=== PATIENT | female | born 1955 | race Caucasian/White ===

== ENCOUNTER → 2017-08-12 13:58 | Outpatient (CLI) | payer OTHER, SELFPAY ==
--- NOTE | 2017-08-12 14:01 | HPBI_ITS ---
MAMMOGRAPHY - BILATERAL SCREENING 3-D PORTIA SYNTHESIS REASON FOR EXAM: Female, 61 years old. Bilateral Screening 3-D tomosynthesis PERTINENT HISTORY: No significant family history. TECHNIQUE: 2-D mammograms and 3-D Portia synthesis of the breast (s) were performed. CAD was performed. COMPARISON: 07/16/2016 through 01/11/2014. FINDINGS: The breast composition is heterogeneously dense that can obscure small breast masses. Scattered benign calcifications are seen. No dense spiculated masses abnormal microcalcification cluster, dominant mass, architectural distortion or adenopathy is identified. There is no skin thickening or nipple retraction. There has been no significant change since the prior study. HPBI/SCREENING MAMM (CAD), BILAT IMPRESSION: No mammographic signs of malignancy. Routine yearly mammograms recommended. ASSESSMENT CATEGORY: BIRADS Category 2: Benign. A letter regarding these results will be sent to the patient by the facility within 30 days. FOLLOW UP RECOMMENDATION: Yearly follow up mammogram recommended. (A) Approximately 10% of breast cancers are not detected by mammography. A normal mammogram should not delay biopsy of a clinically suspicious abnormality. Electronically Signed: Samy Yeung, at 21:03 EDT Tel , Service support ,
== END ==
PROVIDERS: Family Provider Family Medicine Geriatric Medicine; PCP Family Medicine Geriatric Medicine; Visit Provider Family Medicine Geriatric Medicine
DX: Z12.31 Encounter for screening mammogram for malignant neoplasm of breast (principal)
CPT/HCPCS: 77063; 77067

== ENCOUNTER → 2017-12-03 10:01 | Outpatient (CLI) | payer OTHER, SELFPAY ==
[2017-12-03 13:19] LABS: Absolute Neutrophil Count 2.5 X10^3/uL (2.0-7.7); Basophil# 0.03 X10^3/uL; Basophil% 0.5 % (0-1); Eosinophil# 0.12 X10^3/uL; Eosinophils% 2.2 % (0-5); Hematocrit 41.9 % (37-47); Hemoglobin 13.6 g/dl (12.0-15.0); Mean Corp Hgb Conc 32.5 g/gl (32-36); Mean Corpuscular Hgb 30.7 pg (27.0-32.0); Mean Corpuscular Volume 94.6 fL (81-99); Mean Platelet Vol. 9.2 fl (6.2-12.0); Monocyte# 0.61 X10^3/uL; Monocyte% 11.1 % (0-10); Neutrophil # 2.53 X10^3/uL (2.7-7.7); Platelet Count 294 K/mm3 (150-450); RBC Distribution Width CV 12.7 % (11.6-14.6); RBC Distribution Width SD 43.9 fl (35.1-43.9); Red Blood Count 4.43 M/mm3 (4.2-5.4); White Blood Count 5.5 K/mm3 (4.4-11.0)
[2017-12-03 13:30] LABS: POSITIVE COUNT NO; POSITIVE DIFFERENTIAL NO; POSITIVE MORPHOLOGY NO
[2017-12-03 13:32] LABS: AST(SGOT) 18 U/L (15-37); Alanine Aminotransfer ALT/SGPT 24 U/L (13-56); Albumin, Serum 3.8 g/dL (3.2-5.0); Alkaline Phosphatase 65 U/L (45-117); Anion Gap 7 (5-15); BUN 14 mg/dL (7-18); BUN/Creat Ratio 16.4 RATIO (10-20); Calcium,Total 8.9 mg/dL (8.5-10.1); Chloride 102 mmol/L (98-107); Creatinine, Serum 0.86 mg/dL (0.55-1.02); EST Glomerular Filtration Rate 71 mL/min (>60); Est Glom Filt Rate - Afr Amer 86 mL/min (>60); Globulin 3.9 g/dL (2.2-4.2); Glucose 93 mg/dL (74-106); Potassium 3.8 mmol/L (3.5-5.1); Protein, Total 7.7 g/dL (6.4-8.2); Sodium Level 136 mmol/L (136-145); Thyroid Stim Hormone (TSH) 1.75 uIU/mL (0.358-3.74)
[2017-12-04 09:35] LABS: Hep C Antibodies <0.1 s/co ratio (0.0-0.9)
== END ==
PROVIDERS: Family Provider Family Medicine Geriatric Medicine; PCP Family Medicine Geriatric Medicine; Visit Provider Family Medicine Geriatric Medicine
DX: I10 Essential (primary) hypertension (principal); Z13.89 Encounter for screening for other disorder
CPT/HCPCS: 36415; 80053; 84443; 85025; 86803

== ENCOUNTER → 2018-05-14 17:40 | Outpatient (CLI) | payer OTHER, SELFPAY ==
--- NOTE | 2018-05-14 17:30 | CT_ITS ---
STUDY: CT ABDOMEN AND PELVIS WITHOUT CONTRAST REASON FOR EXAM: Female, 62 years old. Mid to right abdominal pain for 9 days. Decreased appetite. RADIATION DOSAGE (If Supplied By Facility): CTDIvol = ( 11.48 ) mGy, DLP = ( 562.35 ) mGycm TECHNIQUE: Transaxial images were obtained from the dome of the diaphragm to the symphysis pubis with oral contrast, and without intravenous contrast. Sagittal and coronal images were reconstructed. Individualized dose optimization techniques were used for this CT. COMPARISON: None. FINDINGS: The visualized lung bases are unremarkable. The visualized portions of the heart are within normal limits. Liver is grossly normal in size contour and density. There is a focal calcified granuloma in segment IVb. There is low attenuation foci, also in segment IVb, which has the appearance of a bilobed cyst. Normal gallbladder and extrahepatic biliary system. Normal spleen. Normal pancreas. Normal bilateral adrenal glands. Normal right kidney. Normal left kidney. Normal visualized stomach. There is a large duodenal cyst which invaginates into the pancreatic head. There are dilated loops of contrast-filled small bowel. The distal ileum is of normal diameter. The exact point of transition is not visualized but is thought to be in the right lower quadrant. Colon and is partially collapsed. There is descending and sigmoid diverticuli with mild stranding. There is a 4.3 x 7 x 3 cm mass with air-fluid level mesentery just anterior to the sigmoid colon which is thought to represent a large abscess. This is thought to be the cause of the small bowel distention secondary ileus. There is diffuse atherosclerotic calcification of the abdominal aorta, without a demonstrated aneurysm. Normal inferior vena cava. Normal retroperitoneum. Normal urinary bladder. Spinal uterus and ovaries. There is no adnexal mass. No free fluid is seen within the peritoneal cavity. Sequela of small droplets of air in the mesentery underneath the left lower abdominal wall adjacent to the sigmoid colon. No other evidence of free air is noted. Normal abdominal wall. There are diffuse degenerative changes of the visualized lumbar spine. CT/Abdomen/Pelvis without Cont IMPRESSION: 1. Probable diverticular abscess in the lower mid abdomen with stranding of the adjacent sigmoid colon. 2. Probable small bowel ileus. 3. Minimal free air adjacent to the sigmoid colon with left lower quadrant. 4. Hepatic cysts. 5. Large duodenal diverticulum. Electronically Signed: Bruno Benitez DO at 21:48 EST Tel [phone], Service support ,
[2018-05-14 18:02] LABS: Absolute Lymphocyte Count 2.07 X10^3/ul (0.83-4.51); Absolute Neutrophil Count 15.1 X10^3/uL (2.0-7.7); Basophil# 0.04 X10^3/uL; Basophil% 0.2 % (0-1); Eosinophil# 0.09 X10^3/uL; Eosinophils% 0.5 % (0-5); Hematocrit 38.7 % (37-47); Hemoglobin 13.2 g/dl (12.0-15.0); Lymphocyte # 2.07 X10^3/ul (4.0); Lymphocyte % 10.9 % (19-41); Mean Corp Hgb Conc 34.1 g/gl (32-36); Mean Corpuscular Hgb 31.1 pg (27.0-32.0); Mean Corpuscular Volume 91.1 fL (81-99); Monocyte# 1.44 X10^3/uL; Monocyte% 7.6 % (0-10); Neutrophil # 15.07 X10^3/uL (2.7-7.7); Neutrophil % 79.3 % (47-70); Platelet Count 398 K/mm3 (150-450); RBC Distribution Width CV 12.9 % (11.6-14.6); RBC Distribution Width SD 42.7 fl (35.1-43.9); Red Blood Count 4.25 M/mm3 (4.2-5.4)
[2018-05-14 18:03] LABS: POSITIVE COUNT NO; POSITIVE DIFFERENTIAL NO; POSITIVE MORPHOLOGY NO
[2018-05-14 18:17] LABS: BUN 25 mg/dL (7-18); Creatinine, Serum 1.99 mg/dL (0.55-1.02); EST Glomerular Filtration Rate 27 mL/min (>60); Glucose 125 mg/dL (74-106)
[2018-05-14 18:18] LABS: ALB/GLOB Ratio 0.5 RATIO (0.9-2.4); AST(SGOT) 21 U/L (15-37); Alanine Aminotransfer ALT/SGPT 17 U/L (13-56); Albumin, Serum 2.5 g/dL (3.2-5.0); Alkaline Phosphatase 103 U/L (45-117); Anion Gap 11 (5-15); BUN/Creat Ratio 12.6 RATIO (10-20); Calcium,Total 8.9 mg/dL (8.5-10.1); Chloride 95 mmol/L (98-107); Est Glom Filt Rate - Afr Amer 32 mL/min (>60); Globulin 4.6 g/dL (2.2-4.2); Potassium 3.5 mmol/L (3.5-5.1); Protein, Total 7.1 g/dL (6.4-8.2); Sodium Level 132 mmol/L (136-145)
== END ==
PROVIDERS: Family Provider Family Medicine Geriatric Medicine; PCP Family Medicine Geriatric Medicine; Referring Provider Family Medicine Geriatric Medicine; Visit Provider Family Medicine Geriatric Medicine
DX: K57.10 Diverticulosis of small intestine without perforation or abscess without bleeding (principal); K76.89 Other specified diseases of liver; N39.0 Urinary tract infection, site not specified
CPT/HCPCS: 36415; 74176; 80053; 85025; 87086; 87088

== ENCOUNTER 2018-05-14 21:59 | Inpatient (IN) | payer OTHER, SELFPAY ==
[2018-05-14 22:00] VITALS: BP 120/79; PULSE 91; RESP 17; TEMP 37.1; O2SAT 99; BMI 31.2
[2018-05-14 22:05] VITALS: PULSE 80; RESP 16; TEMP 37.1; O2SAT 94
--- NOTE | 2018-05-14 22:38 | ED.DCSUM_ITS ---
History of Present Illness Chief Complaint: Abd Pain Informant: Patient, Family, PCP Onset: Days - several Context: Gradual Onset Timing: Continuous Quality: ache Location: RLQ, mid-abd Current Severity: Moderate Maximum Severity: Moderate Worsened by: nothing Relieved by: nothing Associated Symptoms: n/v/d Narrative: Patient started having nausea, vomiting, nonbloody diarrhea around 10 days ago after multiple family members including her had it, she was sore in her abdomen for about 4 days with this and then started having worsening pain as her family members illness resolved and hers did not. She was on antibiotics just prior to this for an upper respiratory infection/chest congestion, finishing that medication a day or 2 after the diarrhea started. She has been having more significant pain in her abdomen for the last couple days. Decreased oral intake including fluids and decreased urine output although she is urinating, it is dark. Diarrhea resolved although she had a loose stool then this morning. It is definitely improved compared to what it was. She is no longer vomiting but is nauseated off and on. She had an outpatient CT today that showed diverticulitis with a small perforation and abscess, along with labs, and was sent to the ER when the results returned. She states she had a small umbilical herniorrhaphy but no other abdominal surgeries. She has known about having diverticulosis but has never had diverticulitis. - Past Medical History (1) HTN (hypertension) Status: Chronic (2) Depression Status: Chronic (3) Hyperlipidemia Status: Chronic Past Medical History - Allergies and Home Meds Allergies/Adverse Reactions: Allergies No Known Allergies Allergy (Verified 05/14/18 22:05) Primary Care Physician: Rogelio Young Chi, MD [Primary Care Provider] - Surgical History: herniorrhaphy - umbilical Lives: Spouse/ Significant Other Smoking Status: Never smoker Review of Systems General: Reports: Malaise. Denies: Chills, Fever, Sweats Eyes: Denies: Visual changes - bilaterally, Diplopia ENT: Denies: Rhinorrhea, Sore throat Cardiovascular: Denies: Chest pain, Palpitations Respiratory: Denies: Dyspnea, Cough, Dyspnea on exertion Gastrointestinal: Reports: Abdominal pain, Nausea, Vomiting, Diarrhea. Denies: Melena, Hematochezia Genitourinary: Reports: - - decreased UOP, and urine is dark. Denies: Dysuria, Hematuria, Frequency Musculoskeletal: Denies: Back pain, Swelling, Extremity Pain Skin: Denies: Rash, Wounds Neurological: Denies: Headache, Weakness, Numbness Psych: Denies: Depression, Anxiety Endocrine: Denies: Polyuria, Polydipsia Hematologic: Denies: Easy bruising, Easy bleeding Allergy: Denies: Swelling of the mouth, Swelling of the tongue Physical Exam Vital Signs/Narrative: Vital Signs Temp Pulse Resp BP Pulse Ox 05/14/18 22:05 98.7 F 80 16 94 05/14/18 22:00 98.7 F 91 17 120/79 99 Inital Vital Signs reviewed: Yes General: Well nourished, Well developed Head: Normocephalic, Atraumatic Eyes: Perrl, EOMI ENT: Moist mucous membranes, No rhinorrhea Neck: Supple, Nontender Cardiovascular: Regular rate, Regular rhythm, No murmurs Respiratory: No distress, CTA bilaterally, Chest nontender Abdomen: Soft, Nondistended, Tender - mid-abd, R side; mild-mod tenderness, Hypoactive bowel sounds. Negative for: Guarding, Rebound tenderness Back: Nontender, Normal Inspection. Negative for: CVA tenderness Extremities: Nontender, No edema Skin: Normal color, No rash Neurological: Alert, Oriented x3, Cranial nerves II-XII grossly intact, Normal Strength, Normal Sensation Psychological: Normal affect Diagnostic/Tx/Re-eval - Medical Decision Making Labs were obtained about 4 hours prior to arrival in our system, so they were not repeated. Her white blood count is 19 with a slight leftward shift, she has a creatinine 1.99 which is up from less than 1 for her, and her BUN is in the 20s. Her CT shows sigmoid colon stranding w/ a mid-lower abdomen acute diverticulitis w/ a [id number] abscess and small amount of adjacent free air. She was given IV fluids here along with morphine and Zofran, and I started her on cefepime for broad-spectrum intra-abdominal antibacterial coverage. I discussed with Dr. Serrano with surgery, discussed with him including the fact that her abdominal exam is very benign, he agrees with medicine admission and surgical consultation in the morning, along with keeping the patient n.p.o. and providing antibiotics. Discussed with hospitalist. ED Disposition - Plan for ED Patient: Disposition: Acute Care Hospital [facility] Chief Complaint: Abd Pain Diagnosis: Diverticulitis of large intestine with abscess without bleeding, MARCELA (acute kidney injury), Dehydration Referrals: Rogelio Young Chi, MD [Primary Care Provider] -
[2018-05-14] MEDS: 0.9% Normal Saline 1,000 ML 999 ML IV (22:43)
[2018-05-14] MEDS: Morphine 4 MG/ML Syringe IV (22:43)
[2018-05-14] MEDS: Ondansetron 4 MG/2 ML Vial IV (22:43)
--- NOTE | 2018-05-14 23:15 | PCM.HP.STD ---
Problem List (1) Diverticulitis large intestine Status: Acute Qualifiers: Diverticulitis complication: with abscess History of Present Illness Date of Admission: 05/14/18 Chief Complaint: nausea and abdominal pain The patient is a 62 year old F with a significant history of bipolar disorder; hypertension; COPD; hyperlipidemia; depression who presented with 9-day history of nausea and abdominal pain. She has progressively worsening excruciating right lower quadrant abdominal pain. She describes the pain as crampy type of pain. Her pain increases with moving. She denies any alleviating factors. She denies any nausea or vomiting. She reports cold sweats. Patient and her reported that they had a family reunion with grandchildren on May 03 2018 after which the whole family had some diarrhea and vomiting with fever. However whiles these abdominal symptoms resolved in other household, patient has persistently had her symptoms. Outpatient CT of the abdomen ordered by PCP showed diverticulitis with abscess. Emergency department doctor consulted General Surgery Dr. Serrano. Per ED doctor general surgery would want patient to be kept n.p.o. and patient will be seen next day. Patient presented at night. Past Medical History Past Medical History (Chronic Problems): Chronic Problems HTN (hypertension) (Chronic) Depression (Chronic) Hyperlipidemia (Chronic) Allergies No Known Allergies Allergy (Verified 05/14/18 22:05) Home Medications: Ambulatory Orders Medication Instructions Recorded Lamotrigine [Lamictal] 100 mg PO DAILY 05/14/18 Losartan/Hydrochlorothiazide 1 each PO DAILY 05/14/18 [Losartan-Hctz 100-25 mg Tab] Pravastatin [Pravachol] 40 mg PO QHS 05/14/18 Sertraline HCl [Zoloft] 100 mg PO BID 05/14/18 Zolpidem Tartrate [Ambien] 10 mg PO QHS 05/14/18 Potassium Chloride 05/15/18 Surgical History: herniorrhaphy - umbilical, - - Tubes placed in ears Lives: Spouse/ Significant Other Smoking Status: Never smoker Alcohol: Occasional - *Family History Maternal History Items: Cancer - Her mother had melanoma Paternal History Items: COPD - Her father had COPD Review of Systems Constitutional: Reports: Chills. Denies: Fever, Weight Change HEENT: Denies: Head Aches, Sinus Congestion, Sinus Drainage Cardiovascular: Denies: Chest Pain, Palpitations Respiratory: Denies: Cough, Shortness of breath at rest, Sputum production Gastrointestinal: Reports: Abdominal Pain, Diarrhea, Nausea. Denies: Vomiting Genitourinary: Denies: Dysuria Musculoskeletal: Denies: Joint Pain, Joint Tenderness Skin: Denies: Rash, Wounds Neurological: Denies: Numbness, Tingling, Focal weakness Psychiatric: Denies: Anxiety, Depression, Homicidal Ideations, Suicidal Ideations Hematologic/ Lymphatic: Denies: Easy Bruising, Easy Bleeding VTE Information - Inpt Only VTE Present on Admission: No VTE Mechan Device Prophylaxis: None VTE Pharm Prophylaxis ordered?: Yes Patient Problems: Active and Suspected Problems Diverticulitis of large intestine with abscess without bleeding (Acute) MARCELA (acute kidney injury) (Acute) Dehydration (Acute) Diverticulitis large intestine (Acute) - Physical Exam General: Alert, Oriented x3, Cooperative HEENT: Atraumatic, PERRLA, EOMI, Normocephalic Neck: Supple, No JVD, Negative Carotid Bruits Lungs: Clear to auscultation, Normal air movement Cardiovascular: Regular rate, No murmurs Abdomen: Bowel Sounds Present, Soft, Tender - Mild Extremities: No edema, Capillary Refill Less than 3 Seconds Skin: No rashes, No breakdown Musculoskeletal: No Tenderness to Palpation of Joints or Extremities Neurological: Neuro grossly intact Psych/Mental Status: Normal Affect, Appropriate Vital Signs Temp Pulse Resp BP Pulse Ox 98.7 F 80 16 120/79 94 05/14/18 22:05 05/14/18 22:05 05/14/18 22:05 05/14/18 22:00 05/14/18 22:05 Oxygen Delivery Method Room Air Weight: 77.564 kg Body Mass Index (BMI) 31.2 Assessment/Plan All Active Problems Diverticulitis of large intestine with abscess without bleeding (Acute) MARCELA (acute kidney injury) (Acute) Dehydration (Acute) Diverticulitis large intestine (Acute) The patient is a 62 year old F with a significant history of bipolar disorder; hypertension; COPD; hyperlipidemia; depression who presented with nausea and abdominal pain and with radiographic evidence of diverticulitis with abscess. Acute diverticulitis with abscess Radiographic evidence of diverticulitis and abscess on outpatient CT abdomen and pelvis. Review of outpatient labs showed leukocytosis with white count of 19. Patient received cefepime at emergency department. We will continue patient on ciprofloxacin and Flagyl. IV morphine for pain IV Zofran Because of associated diarrhea enteric stool pathogen was ordered. Trend CBC and BMP.' NPO Surgery consult. MARCELA Outpatient labs showed a creatinine of 1.99. Baseline creatinine is around 0.84. Likely due to hypovolemia from diarrhea. Admission potassium was 3.5 Patient received normal saline IV bolus at emergency department. Will order sodium chloride infusion with potassium supplements. Will hold home Cozaar. Trend BMP. Bipolar disorder Lamictal continued Depression Zoloft continued Hypertension Admission blood pressure was fairly stable Hydrochlorthiazide continued We will hold Cozaar because of MARCELA. As needed hydralazine ordered. DVT prophylaxis Subcutaneous heparin Code Visit Inpatient E&M: 30241 Init Hosp L3
[2018-05-14 23:53] VITALS: BMI 31.0
[2018-05-14 23:57] VITALS: BP 138/66; PULSE 80; RESP 18; TEMP 36.9; O2SAT 93
[2018-05-15] VITALS (11 sets, daily range): BP systolic 111–144; BP diastolic 52–72; PULSE 71–86; RESP 16–23; TEMP 36.7–37.2; O2SAT 92–99; BMI 31.0
[2018-05-15] MEDS: Potassium Chloride 40 MEQ in 0.9% Normal Saline 1,000 ML 100 MEQ IV ×2 (00:25→15:52)
[2018-05-15] MEDS: Ciprofloxacin 400 MG/200 ML BAG 200 MG IV ×3 (01:29→22:44)
[2018-05-15] MEDS: Heparin Injection (Vial) 5,000 UNIT/ML VIAL 5000 UNIT SC (05:22)
[2018-05-15] MEDS: Morphine 2 MG/ML Syringe IV ×4 (05:24→19:39)
[2018-05-15 06:39] LABS: Anion Gap 11 (5-15); BUN 28 mg/dL (7-18); BUN/Creat Ratio 15.7 RATIO (10-20); Calcium,Total 7.9 mg/dL (8.5-10.1); Chloride 100 mmol/L (98-107); Creatinine, Serum 1.78 mg/dL (0.55-1.02); EST Glomerular Filtration Rate 30 mL/min (>60); Est Glom Filt Rate - Afr Amer 37 mL/min (>60); Estimated Creatinine Clearance 25.25 ml/min; Glucose 123 mg/dL (74-106); Potassium 3.8 mmol/L (3.5-5.1); Sodium Level 136 mmol/L (136-145)
[2018-05-15 06:54] LABS: Absolute Lymphocyte Count 1.13 X10^3/ul (0.83-4.51); Absolute Neutrophil Count 12.3 X10^3/uL (2.0-7.7); Basophil# 0.02 X10^3/uL; Basophil% 0.1 % (0-1); Hematocrit 34.9 % (37-47); Hemoglobin 11.9 g/dl (12.0-15.0); Lymphocyte # 1.13 X10^3/ul (4.0); Lymphocyte % 7.8 % (19-41); Mean Corp Hgb Conc 34.1 g/gl (32-36); Mean Corpuscular Hgb 31.3 pg (27.0-32.0); Mean Corpuscular Volume 91.8 fL (81-99); Mean Platelet Vol. 9.1 fl (6.2-12.0); Monocyte# 0.74 X10^3/uL; Monocyte% 5.1 % (0-10); Neutrophil # 12.33 X10^3/uL (2.7-7.7); Neutrophil % 84.7 % (47-70); Platelet Count 421 K/mm3 (150-450); RBC Distribution Width CV 12.8 % (11.6-14.6); RBC Distribution Width SD 41.6 fl (35.1-43.9); White Blood Count 14.6 K/mm3 (4.4-11.0)
[2018-05-15 06:55] LABS: POSITIVE COUNT YES; POSITIVE DIFFERENTIAL NO; POSITIVE MORPHOLOGY YES
--- NOTE | 2018-05-15 07:04 | CT_ITS ---
PROCEDURE: CT DIRECTED ABSCESS DRAINAGE, PERITONEAL DATE OF EXAMINATION: May 15, 2018. INDICATION: Female, 62 years old. Diverticular abscess. PHYSICIAN: Dr Artur Sanz CONSENT: Written informed consent was obtained having explained the risks, benefits and alternatives in detail with the patient who accepted the risks and agreed to proceed. Laboratory review and clinical assessment was performed. CONSCIOUS SEDATION PROTOCOL: The Drugs used were: 0.5 mg Versed, IV., and 12.5 mcg Fentanyl, IV. The sedation time was: 30 minutes. Conscious sedation was started at 2:37 PM and terminated at 3:03 PM p.m. The conscious sedation protocol was independently monitored. RADIATION DOSAGE (If Supplied By Facility): CTDIvol = ( 15 ) mGy, DLP = ( 715.98 ) mGycm TECHNIQUE: CT sections were made through the abdomen and pelvis revealing an abscess in the deep mid pelvis. The skin surface was prepped and draped in a sterile fashion. Puncture of this collection was performed initially with a 5 Kyr[place]z catheter and fluid was aspirated. Drainage catheter was then inserted into the collection and formed into position. Additional fluid was aspirated for a total of approximately 10 cc of cloudy red fluid. The catheter was sutured into position to allow for continued drainage. Followup CT sections reveals good position of the catheter CT/Abscess/Fistula/Sinus Tract IMPRESSION: 1. CT directed drainage of a fluid collection using CT image guidance and image documentation as described. 2. Conscious Sedation protocol utilized with independent monitoring Electronically Signed: Fransisco Salinas MD at 9:36 EST Tel [phone], Service support ,
--- NOTE | 2018-05-15 07:13 | PCM.CONS.GEN ---
Problem List (1) Diverticulitis of large intestine with abscess without bleeding Status: Acute Reason for Consult Date of Consultation: 05/15/18 Reason for Consultation: Perforated diverticulitis History of Present Illness: The patient is a 62 year old F who presented to the emergency room last night with lower abdominal pain. The patient reports she had the flu about 9 days ago and since that time she has been having lower abdominal pain mostly on the right. She said that she did have nausea with some vomiting at the beginning but has been nauseated for the last 9 days. She says that the pain is in the lower abdomen more on the right than the left. She is having diarrhea. She said she had 3 bowel movements yesterday. She reports that it does hurt to have bowel movements. She says that her last colonoscopy was [address] Abdullahi. At that time she had diverticulosis. She has never had diverticulitis before. The patient reports no fevers or chills. She says it does feel mildly improved today but she is on morphine. Past Medical History Past Medical History (Chronic Problems): Chronic Problems HTN (hypertension) (Chronic) Depression (Chronic) Hyperlipidemia (Chronic) Allergies No Known Allergies Allergy (Verified 05/14/18 22:05) Home Medications: Ambulatory Orders Medication Instructions Recorded Lamotrigine [Lamictal] 100 mg PO DAILY 05/14/18 Losartan/Hydrochlorothiazide 1 each PO DAILY 05/14/18 [Losartan-Hctz 100-25 mg Tab] Pravastatin [Pravachol] 40 mg PO QHS 05/14/18 Sertraline HCl [Zoloft] 100 mg PO BID 05/14/18 Zolpidem Tartrate [Ambien] 10 mg PO QHS 05/14/18 Potassium Chloride 05/15/18 Surgical History: herniorrhaphy - umbilical, - - Tubes placed in ears Lives: Spouse/ Significant Other Smoking Status: Never smoker Alcohol: Occasional - *Family History Maternal History Items: Cancer - Her mother had melanoma Paternal History Items: COPD - Her father had COPD Review of Systems Constitutional: Reports: Anorexia. Denies: Chills, Fever HEENT: Denies: Difficulty Swallowing Cardiovascular: Denies: Chest Pain Respiratory: Denies: Cough Gastrointestinal: Reports: Abdominal Pain, Diarrhea, Nausea. Denies: Hematochezia, Melena, Vomiting Genitourinary: Denies: Dysuria Musculoskeletal: Denies: Joint Tenderness Skin: Denies: Jaundice Neurological: Denies: Balance problems Psychiatric: Denies: Anxiety Hematologic/ Lymphatic: Denies: Anemia Patient Problems: Active and Suspected Problems Diverticulitis of large intestine with abscess without bleeding (Acute) MARCELA (acute kidney injury) (Acute) Dehydration (Acute) Diverticulitis large intestine (Acute) - Physical Exam General: Alert, Oriented x3, Cooperative, No apparent distress HEENT: Atraumatic, PERRLA, EOMI, Normocephalic Oral: Moist Mucosa Neck: No JVD Lungs: Normal air movement Cardiovascular: Regular rate, Regular Rhythm Abdomen: Soft, Non-Distended, Tender - Tender in the bilateral lower quadrants. No guarding or rebound. Upper abdomen is soft and nontender. Extremities: No clubbing Skin: No rashes Musculoskeletal: No Muscle Wasting Lymphatic: No Cervical, Supraclavicular, or Inguinal Adenopathy Neurological: Cranial nerves II-XII grossly intact Psych/Mental Status: Normal Affect Vital Signs Temp Pulse Resp BP Pulse Ox 98.4 F 75 18 118/58 L 95 05/15/18 04:15 05/15/18 04:15 05/15/18 04:15 05/15/18 04:15 05/15/18 04:15 Oxygen Delivery Method Room Air Weight: 172 lb 6.424 oz Body Mass Index (BMI) 31.0 Intake and Output for Last 24 Hours 05/13/18 05/14/18 05/15/18 23:59 23:59 23:59 Intake Total 1544 / 1544 Output Total 650 / 650 Balance 894 / 894 Laboratory Tests Past 24 Hrs 05/15/18 05/15/18 06:14 06:14 WBC 14.6 H RBC 3.80 L Hgb 11.9 L Hct 34.9 L MCV 91.8 MCH 31.3 MCHC 34.1 RDW 12.8 RDW Differential 41.6 Plt Count 421 MPV 9.1 Immature Gran % (Auto) 2.300 H Neut % (Auto) 84.7 H Lymph % (Auto) 7.8 L [place] % (Auto) 5.1 Eos % (Auto) 0.0 Baso % (Auto) 0.1 Absolute Neuts (auto) 12.3 H Absolute Lymphs (auto) 1.13 Total Counted Not Reportable Diff Path Review May foll Sodium 136 Potassium 3.8 Chloride 100 Carbon Dioxide 25.0 Anion Gap 11 BUN 28 H Creatinine 1.78 H Estim Creat Clear Calc 25.25 Est GFR (MDRD) Af Amer 37 L Est GFR (MDRD) Non-Af 30 L BUN/Creatinine Ratio 15.7 Glucose 123 H Calcium 7.9 L Assessment/Plan All Active Problems Diverticulitis of large intestine with abscess without bleeding (Acute) MARCELA (acute kidney injury) (Acute) Dehydration (Acute) Diverticulitis large intestine (Acute) 62-year-old female with perforated diverticulitis and abscess 1. The patient had a CT scan which showed a large abscess medial to the sigmoid colon as well as some bubbles of free air. It appears that the free air is contained in the left lower quadrant. There is no free air above the liver. The abscess appears large. The patient also has dilated loops of small bowel suggestive of an ileus due to the abscess. 2. Today the patient's white count is improved on Cipro and Flagyl. At this point the goal would be to temporize the patient until an elective colectomy can be done in 6-8 weeks from now. I will hold the patient's heparin this morning and order coagulation panel. I will order an IR drain for the abscess. Continue IV antibiotics and n.p.o. until the patient is passing gas with no abdominal pain. Patient also has an ileus and this may take a few days to resolve once the drain is placed. 3. I did discuss that if the patient freely perforates this would require emergency surgery and a possible colostomy. Douglas Serrano MD Pager: [facility] [address] [place] [address], [address] [place] [address] Office:
--- NOTE | 2018-05-15 07:21 | NURSING ---
communication sent to franca edwards from radiology called, unsure if pt will be fit into todays schedule. dr morel responded pt needs fit into schedule or needs transferred.
[2018-05-15 07:33] LABS: International Normalized Ratio 1.2; Prothrombin Time (Protime)PT. 15.6 SECONDS (11.7-14.9)
[2018-05-15 07:34] LABS: Partial Thromboplast Time 30.5 Seconds (24.1-36.2)
[2018-05-15] MEDS: Sertraline 100 MG Tablet PO ×2 (08:01→21:32)
[2018-05-15] MEDS: lamoTRIgine 100 MG Tablet PO (08:01)
[2018-05-15] MEDS: hydroCHLOROthiazide 25 MG Tablet PO (08:01)
--- NOTE | 2018-05-15 08:38 | NURSING ---
franca from radiology called to let us know pt will have procedure at 1400. dr morel aware. will notify dr forrest as well
--- NOTE | 2018-05-15 10:11 | PCM.PN.HOSP ---
Patient Problems: Active and Suspected Problems Diverticulitis of large intestine with abscess without bleeding (Acute) MARCELA (acute kidney injury) (Acute) Dehydration (Acute) Diverticulitis large intestine (Acute) Subjective: Still with abdominal pain. Vitals/I&O's: Vital Signs Temp Pulse Resp BP Pulse Ox 36.7 C 71 18 116/72 95 05/15/18 08:04 05/15/18 08:04 05/15/18 08:04 05/15/18 08:04 05/15/18 10:05 Oxygen Delivery Method Room Air Weight: 78.2 kg Body Mass Index (BMI) 31.0 Intake and Output for Last 24 Hours 05/13/18 05/14/18 05/15/18 23:59 23:59 23:59 Intake Total 1544 / 1544 Output Total 650 / 650 Balance 894 / 894 General: Alert, No apparent distress HEENT: Atraumatic, Normocephalic Oral: Moist Mucosa, No Gingival or Mucosal Lesions/ Ulcerations Neck: No Nodes, Thyroid Normal Size and Texture Lungs: Clear to auscultation, Normal air movement, No rhonchi, No wheeze Cardiovascular: Regular rate, Regular Rhythm, Normal S1, Normal S2, No murmurs Abdomen: Soft, Non-Distended, Hypoactive Bowel Sounds, Tender Extremities: No edema, No Calf Tenderness Psych/Mental Status: Normal Affect, Appropriate Laboratory Results 05/15/18 06:14: WBC 14.6 H, RBC 3.80 L, Hgb 11.9 L, Hct 34.9 L, MCV 91.8, MCH 31.3, MCHC 34.1, RDW 12.8, RDW Differential 41.6, Plt Count 421, MPV 9.1, Immature Gran % (Auto) 2.300 H, Neut % (Auto) 84.7 H, Lymph % (Auto) 7.8 L, [place] % (Auto) 5.1, Eos % (Auto) 0.0, Baso % (Auto) 0.1, Absolute Neuts (auto) 12.3 H, Absolute Lymphs (auto) 1.13, Total Counted Not Reportable, Diff Path Review September05/15/18 06:14: Sodium 136, Potassium 3.8, Chloride 100, Carbon Dioxide 25.0, Anion Gap 11, BUN 28 H, Creatinine 1.78 H, Estim Creat Clear Calc 25.25, Est GFR (MDRD) Af Amer 37 L, Est GFR (MDRD) Non-Af 30 L, BUN/Creatinine Ratio 15.7, Glucose 123 H, Calcium 7.9 L 05/15/18 07:20: PT 15.6 H, INR 1.2, APTT 30.5 Current Medications Heparin Sodium (Porcine) (Heparin Na) 5,000 unit SC Q8 [facility] Last Admin: 05/15/18 05:22 Dose: 5,000 unit Hydralazine HCl (Apresoline Iv) 10 mg IV Q4H PRN PRN PRN Reason: SBP > 160 Hydrochlorothiazide (Hctz) 25 mg PO DAILY [facility] Last Admin: 05/15/18 08:01 Dose: 25 mg Ciprofloxacin (Cipro) 400 mg in 200 mls @ 200 mls/hr IV Q12 [facility] Last Admin: 05/15/18 09:33 Dose: 200 mls/hr Potassium Chloride 40 meq/ (Sodium Chloride) 1,020 mls @ 100 mls/hr IV .[id number] [facility] Stop: 05/15/18 19:52 Last Admin: 05/15/18 00:25 Dose: 100 mls/hr Metronidazole (Flagyl) 500 mg in 100 mls @ 100 mls/hr IV Q8 [facility] Last Admin: 05/15/18 05:22 Dose: 100 mls/hr Sodium Chloride () 250 mls @ 15 mls/hr IV .[id number] PRN PRN Reason: SALINE FLUSH Lamotrigine (Lamictal) 100 mg PO DAILY [facility] Last Admin: 05/15/18 08:01 Dose: 100 mg Morphine Sulfate () 1 - 2 mg IV Q4H PRN PRN PRN Reason: PAIN Last Admin: 05/15/18 09:37 Dose: 2 mg Ondansetron HCl (Zofran) 4 mg IV Q8H PRN PRN PRN Reason: NAUSEA/VOMITING Pravastatin Sodium (Pravachol) 40 mg PO DAILY@2200 [facility] Sertraline HCl (Zoloft) 100 mg PO BID [facility] Last Admin: 05/15/18 08:01 Dose: 100 mg Sodium Chloride () 5 - 15 ml IV UD PRN PRN Reason: SALINE FLUSH Zolpidem Tartrate (Ambien (Generic)) 5 mg PO QHS [facility] Medical Necessity - Tobacco Use Smoking Status: Never smoker Assessment/Plan All Active Problems Diverticulitis of large intestine with abscess without bleeding (Acute) MARCELA (acute kidney injury) (Acute) Dehydration (Acute) Diverticulitis large intestine (Acute) 1. acute diverticulitis w abscess to IR today for drainage continue cipro and flagyl NPO follow up with general surgery as outpt for definitive mgmt in 6-8 weeks, if necessary. IVF 2. DVT proph: SQ heparin. Code Visit Inpatient E&M: 16206 Subs Hosp L2
--- NOTE | 2018-05-15 10:18 | PN_ITS ---
Patient Problems: Active and Suspected Problems Diverticulitis of large intestine with abscess without bleeding (Acute) MARCELA (acute kidney injury) (Acute) Dehydration (Acute) Diverticulitis large intestine (Acute) Subjective: Still with abdominal pain. Vitals/I&O's: Vital Signs Temp Pulse Resp BP Pulse Ox 36.7 C 71 18 116/72 95 05/15/18 08:04 05/15/18 08:04 05/15/18 08:04 05/15/18 08:04 05/15/18 10:05 Oxygen Delivery Method Room Air Weight: 78.2 kg Body Mass Index (BMI) 31.0 Intake and Output for Last 24 Hours 05/13/18 05/14/18 05/15/18 23:59 23:59 23:59 Intake Total 1544 / 1544 Output Total 650 / 650 Balance 894 / 894 General: Alert, No apparent distress HEENT: Atraumatic, Normocephalic Oral: Moist Mucosa, No Gingival or Mucosal Lesions/ Ulcerations Neck: No Nodes, Thyroid Normal Size and Texture Lungs: Clear to auscultation, Normal air movement, No rhonchi, No wheeze Cardiovascular: Regular rate, Regular Rhythm, Normal S1, Normal S2, No murmurs Abdomen: Soft, Non-Distended, Hypoactive Bowel Sounds, Tender Extremities: No edema, No Calf Tenderness Psych/Mental Status: Normal Affect, Appropriate Laboratory Results 05/15/18 06:14: WBC 14.6 H, RBC 3.80 L, Hgb 11.9 L, Hct 34.9 L, MCV 91.8, MCH 31.3, MCHC 34.1, RDW 12.8, RDW Differential 41.6, Plt Count 421, MPV 9.1, Immature Gran % (Auto) 2.300 H, Neut % (Auto) 84.7 H, Lymph % (Auto) 7.8 L, [place] % (Auto) 5.1, Eos % (Auto) 0.0, Baso % (Auto) 0.1, Absolute Neuts (auto) 12.3 H, Absolute Lymphs (auto) 1.13, Total Counted Not Reportable, Diff Path Review September05/15/18 06:14: Sodium 136, Potassium 3.8, Chloride 100, Carbon Dioxide 25.0, Anion Gap 11, BUN 28 H, Creatinine 1.78 H, Estim Creat Clear Calc 25.25, Est GFR (MDRD) Af Amer 37 L, Est GFR (MDRD) Non-Af 30 L, BUN/Creatinine Ratio 15.7, Glucose 123 H, Calcium 7.9 L 05/15/18 07:20: PT 15.6 H, INR 1.2, APTT 30.5 Current Medications Heparin Sodium (Porcine) (Heparin Na) 5,000 unit SC Q8 [facility] Last Admin: 05/15/18 05:22 Dose: 5,000 unit Hydralazine HCl (Apresoline Iv) 10 mg IV Q4H PRN PRN PRN Reason: SBP > 160 Hydrochlorothiazide (Hctz) 25 mg PO DAILY [facility] Last Admin: 05/15/18 08:01 Dose: 25 mg Ciprofloxacin (Cipro) 400 mg in 200 mls @ 200 mls/hr IV Q12 [facility] Last Admin: 05/15/18 09:33 Dose: 200 mls/hr Potassium Chloride 40 meq/ (Sodium Chloride) 1,020 mls @ 100 mls/hr IV .[id number] [facility] Stop: 05/15/18 19:52 Last Admin: 05/15/18 00:25 Dose: 100 mls/hr Metronidazole (Flagyl) 500 mg in 100 mls @ 100 mls/hr IV Q8 [facility] Last Admin: 05/15/18 05:22 Dose: 100 mls/hr Sodium Chloride () 250 mls @ 15 mls/hr IV .[id number] PRN PRN Reason: SALINE FLUSH Lamotrigine (Lamictal) 100 mg PO DAILY [facility] Last Admin: 05/15/18 08:01 Dose: 100 mg Morphine Sulfate () 1 - 2 mg IV Q4H PRN PRN PRN Reason: PAIN Last Admin: 05/15/18 09:37 Dose: 2 mg Ondansetron HCl (Zofran) 4 mg IV Q8H PRN PRN PRN Reason: NAUSEA/VOMITING Pravastatin Sodium (Pravachol) 40 mg PO DAILY@2200 [facility] Sertraline HCl (Zoloft) 100 mg PO BID [facility] Last Admin: 05/15/18 08:01 Dose: 100 mg Sodium Chloride () 5 - 15 ml IV UD PRN PRN Reason: SALINE FLUSH Zolpidem Tartrate (Ambien (Generic)) 5 mg PO QHS [facility] Medical Necessity - Tobacco Use Smoking Status: Never smoker Assessment/Plan All Active Problems Diverticulitis of large intestine with abscess without bleeding (Acute) MARCELA (acute kidney injury) (Acute) Dehydration (Acute) Diverticulitis large intestine (Acute) 1. acute diverticulitis w abscess * to IR today for drainage * continue cipro and flagyl * NPO * follow up with general surgery as outpt for definitive mgmt in 6-8 weeks, if necessary. * IVF 2. DVT proph: SQ heparin. Code Visit Inpatient E&M: 31438 Subs Hosp L2
--- NOTE | 2018-05-15 12:15 | CASEMGMT ---
DUARTE RAYMOND ASSESSMENT To room to talk with patient for initial transition planning/care coordination assessment. DUARTE RAYMOND introduced self and role at [facility]. Pt voices understanding and consents to assessment at this time. Pt resting in bed in no distress at this time. Pt is A/O at this time and answers all questions appropriately. Care providers, pharmacy, and demographics verified/updated at this time. PCP: Hector Preferred Pharmacy: [facility] Insurance: MMO Prescription Benefit: Yes Living Will/HPOA: does not have LW or HCPOA . Interested in more information but does not want to talk with SW at this time to complete paperwork. Provided information on advanced directives and given Social Service rac card with number to call if chooses in the future to utilize [facility] social work for advanced directive completion. Informed patient that, if patient so chooses, can come back to [facility] and meet with a SW as an outpatient to complete health care advanced directives. Patient expresses understanding. LNOK: and 2 daughters, Arianna and Shira. Living Arrangements: Lives with her in a 2-story bi-level home. was independent with all ADL's until about 9 days ago. States her has been assisting her with meals, telecommunications support, cleaning, finances, and care since she has become ill. Transportation: Pt states drives self and states no transportation concerns at this time. also drives. DME: Denies using any DME and denies needs. Pt states she has never been to a SNF or used HHC. Pt wishes to return home on discharge. has been to [facility] for Out-patient therapy in the past and may be interested in going back there again. Denies needs at this time. Made aware she can follow up with her PCP for [facility] for out-pt therapy if she decides after returning home she decides she wants it. CM to follow for any further discharge planning/needs. PT/OT evals pending. Pt voices no further concerns/needs at this time. Advised pt to ask for CM if any further questions/concerns/needs arise. Voices understanding. Plan: Home with support of . Jovi SOLIS RN, CM
--- NOTE | 2018-05-15 14:13 | NURSING ---
PT OFF FLOOR FOR CT ABSCESS DRAINAGE. UPDATE GIVEN TO ELIZABETH RAMACHANDRAN IN CT.
[2018-05-15 14:25] LABS: Pathologist Review Reviewed
[2018-05-15] MEDS: fentaNYL 100 MCG/2 ML Ampul IV (14:37)
[2018-05-15] MEDS: Midazolam 2 MG/2 ML Syringe IV (14:37)
[2018-05-15] MEDS: 0.9% NaCl Peripheral Flush Adult/Peds IV (19:39)
[2018-05-15] MEDS: Zolpidem Tartrate 5 MG Tablet PO (21:20)
[2018-05-15] MEDS: Pravastatin 40 MG Tablet PO (21:20)
[2018-05-16] MEDS: Morphine 2 MG/ML Syringe IV ×3 (03:28→20:34)
[2018-05-16 03:42] VITALS: BP 144/84; PULSE 78; RESP 16; TEMP 36.8; O2SAT 95
[2018-05-16] MEDS: 0.9% NaCl Peripheral Flush Adult/Peds IV (05:36)
--- NOTE | 2018-05-16 05:50 | RAD_ITS ---
STUDY: X-RAY - ABDOMEN/PELVIS REASON FOR EXAM: Female, 62 years old. Ileus. TECHNIQUE: Two AP supine views of the abdomen and pelvis. COMPARISON: CT abdomen and pelvis May 14, [address] guided percutaneous abscess drainage May 15, 2018 FINDINGS: Poorly visualized lung bases. Percutaneous pigtail drain again seen near the midline of the low abdomen. Contrast from prior study is noted in the nondistended colon. There are several loops of gas distended small bowel, findings that could reflect regional ileus versus low-grade partial small bowel obstruction. Mural thickening noted in one loop in the medial left lower quadrant, and local enteritis may also be present. There is no demonstrated free abdominal air. The visualized liver, spleen and kidneys are grossly normal in size and morphology. Atherosclerotic vascular calcifications again noted. There are stable degenerative changes at L2-3. RAD/Abdomen Single View IMPRESSION: 1. Small bowel ileus versus low-grade partial small bowel obstruction, with additional suggestion of localized enteritis involving a small bowel loop in the medial left lower quadrant. Contrast from prior study seen in the nondistended colon. No free gas. 2. Percutaneous pigtail drain again seen in the low abdomen. Electronically Signed: Zion Garcia MD at 9:54 EST , Service support ,
[2018-05-16 06:59] LABS: Absolute Lymphocyte Count 1.67 X10^3/ul (0.83-4.51); Absolute Neutrophil Count 7.7 X10^3/uL (2.0-7.7); Basophil# 0.03 X10^3/uL; Basophil% 0.3 % (0-1); Eosinophil# 0.03 X10^3/uL; Eosinophils% 0.3 % (0-5); Hematocrit 35.2 % (37-47); Hemoglobin 11.5 g/dl (12.0-15.0); Lymphocyte # 1.67 X10^3/ul (4.0); Lymphocyte % 15.5 % (19-41); Mean Corp Hgb Conc 32.7 g/gl (32-36); Mean Corpuscular Hgb 30.8 pg (27.0-32.0); Mean Corpuscular Volume 94.4 fL (81-99); Mean Platelet Vol. 9.2 fl (6.2-12.0); Monocyte# 1.14 X10^3/uL; Monocyte% 10.6 % (0-10); Neutrophil # 7.68 X10^3/uL (2.7-7.7); Platelet Count 433 K/mm3 (150-450); RBC Distribution Width CV 13.3 % (11.6-14.6); Red Blood Count 3.73 M/mm3 (4.2-5.4); White Blood Count 10.8 K/mm3 (4.4-11.0)
[2018-05-16 07:01] LABS: POSITIVE COUNT YES; POSITIVE DIFFERENTIAL NO; POSITIVE MORPHOLOGY YES
[2018-05-16 07:17] VITALS: BP 137/69; PULSE 84; RESP 16; TEMP 36.8; O2SAT 94
[2018-05-16 07:18] LABS: Anion Gap 11 (5-15); BUN 21 mg/dL (7-18); BUN/Creat Ratio 16.9 RATIO (10-20); Calcium,Total 8.5 mg/dL (8.5-10.1); Chloride 108 mmol/L (98-107); Creatinine, Serum 1.24 mg/dL (0.55-1.02); EST Glomerular Filtration Rate 46 mL/min (>60); Est Glom Filt Rate - Afr Amer 56 mL/min (>60); Estimated Creatinine Clearance 36.25 ml/min; Glucose 94 mg/dL (74-106); Potassium 4.2 mmol/L (3.5-5.1); Sodium Level 143 mmol/L (136-145)
--- NOTE | 2018-05-16 07:23 | PCM.PN.SRG ---
Patient Problems: Active and Suspected Problems Diverticulitis of large intestine with abscess without bleeding (Acute) MARCELA (acute kidney injury) (Acute) Dehydration (Acute) Diverticulitis large intestine (Acute) Subjective: Patient did get her drain yesterday and got 10 cc out in IR and had another 20 cc out overnight with some more brown fluid in the IVAN this morning, patient states her pain is better a 4/10, patient still having diarrhea - Physical Exam General: Alert, Oriented x3, Cooperative, No apparent distress Abdomen: Soft, Non-Distended, Tender - Bilateral lower quadrants, no peritoneal signs, - - IVAN in place in the left lower quadrant with brown fluid Vital Signs Temp Pulse Resp BP Pulse Ox 98.3 F 84 16 137/69 H 94 05/16/18 07:17 05/16/18 07:17 05/16/18 07:17 05/16/18 07:17 05/16/18 07:17 Oxygen Flow Rate (L/min) [8] 2 Oxygen Flow Rate (L/min) [6] 2 Oxygen Flow Rate (L/min) [5] 2 Oxygen Flow Rate (L/min) [4] 2 Oxygen Flow Rate (L/min) 2 Oxygen Delivery Method [8] Nasal Cannula Oxygen Delivery Method [7] Nasal Cannula Oxygen Delivery Method [6] Nasal Cannula Oxygen Delivery Method [5] Nasal Cannula Oxygen Delivery Method [4] Nasal Cannula Oxygen Delivery Method [2] Room Air Oxygen Delivery Method [1 ( Room Air Initial Baseline)] Oxygen Delivery Method Room Air Weight: 172 lb 6.424 oz Body Mass Index (BMI) 31.0 Intake and Output for Last 24 Hours 05/14/18 05/15/18 05/16/18 23:59 23:59 23:59 Intake Total 2425 / 2425 1408 / 1408 Output Total 1270 / 1270 Balance 1155 / 1155 1408 / 1408 Laboratory Tests Past 24 Hrs 05/15/18 05/15/18 05/16/18 06:14 07:20 06:25 WBC 10.8 RBC 3.73 L Hgb 11.5 L Hct 35.2 L MCV 94.4 MCH 30.8 MCHC 32.7 RDW 13.3 RDW Differential 44.0 H Plt Count 433 MPV 9.2 Immature Gran % (Auto) 2.300 H Neut % (Auto) 71.0 H Lymph % (Auto) 15.5 L [place] % (Auto) 10.6 H Eos % (Auto) 0.3 Baso % (Auto) 0.3 Absolute Neuts (auto) 7.7 Absolute Lymphs (auto) 1.67 Total Counted Not Reportable Diff Path Review Reviewed September foll PT 15.6 H INR 1.2 APTT 30.5 Sodium Potassium Chloride Carbon Dioxide Anion Gap BUN Creatinine Estim Creat Clear Calc Est GFR (MDRD) Af Amer Est GFR (MDRD) Non-Af BUN/Creatinine Ratio Glucose Calcium Phosphorus Magnesium 05/16/18 06:25 WBC RBC Hgb Hct MCV MCH MCHC RDW RDW Differential Plt Count MPV Immature Gran % (Auto) Neut % (Auto) Lymph % (Auto) [place] % (Auto) Eos % (Auto) Baso % (Auto) Absolute Neuts (auto) Absolute Lymphs (auto) Total Counted Diff Path Review PT INR APTT Sodium 143 Potassium 4.2 Chloride 108 H Carbon Dioxide 24.0 Anion Gap 11 BUN 21 H Creatinine 1.24 H Estim Creat Clear Calc 36.25 Est GFR (MDRD) Af Amer 56 L Est GFR (MDRD) Non-Af 46 L BUN/Creatinine Ratio 16.9 Glucose 94 Calcium 8.5 Phosphorus 3.0 Magnesium 2.0 Medical Necessity - Tobacco Use Smoking Status: Never smoker Assessment/Plan All Active Problems Diverticulitis of large intestine with abscess without bleeding (Acute) MARCELA (acute kidney injury) (Acute) Dehydration (Acute) Diverticulitis large intestine (Acute) 62-year-old female with diverticulitis with an abscess status post drain 1. Okay for patient to have sips until pain improves more, patient's white blood count is improved with the IV antibiotics, patient's KUB is also shows some dilated small bowel but there is contrast in the colon 2. Continue IV antibiotics 3. Ambulate elizabeth Buenrostro M.D. Pager: [phone] [facility] [address] [place] [address], Outpatient Pavilion, [address] [place] [address] Office: [phone]
--- NOTE | 2018-05-16 07:26 | PN.SURG_ITS ---
Patient Problems: Active and Suspected Problems Diverticulitis of large intestine with abscess without bleeding (Acute) MARCELA (acute kidney injury) (Acute) Dehydration (Acute) Diverticulitis large intestine (Acute) Subjective: Patient did get her drain yesterday and got 10 cc out in IR and had another 20 cc out overnight with some more brown fluid in the IVAN this morning, patient states her pain is better a 4/10, patient still having diarrhea - Physical Exam General: Alert, Oriented x3, Cooperative, No apparent distress Abdomen: Soft, Non-Distended, Tender - Bilateral lower quadrants, no peritoneal signs, - - IVAN in place in the left lower quadrant with brown fluid Vital Signs Temp Pulse Resp BP Pulse Ox 98.3 F 84 16 137/69 H 94 05/16/18 07:17 05/16/18 07:17 05/16/18 07:17 05/16/18 07:17 05/16/18 07:17 Oxygen Flow Rate (L/min) [8] 2 Oxygen Flow Rate (L/min) [6] 2 Oxygen Flow Rate (L/min) [5] 2 Oxygen Flow Rate (L/min) [4] 2 Oxygen Flow Rate (L/min) 2 Oxygen Delivery Method [8] Nasal Cannula Oxygen Delivery Method [7] Nasal Cannula Oxygen Delivery Method [6] Nasal Cannula Oxygen Delivery Method [5] Nasal Cannula Oxygen Delivery Method [4] Nasal Cannula Oxygen Delivery Method [2] Room Air Oxygen Delivery Method [1 ( Room Air Initial Baseline)] Oxygen Delivery Method Room Air Weight: 172 lb 6.424 oz Body Mass Index (BMI) 31.0 Intake and Output for Last 24 Hours 05/14/18 05/15/18 05/16/18 23:59 23:59 23:59 Intake Total 2425 / 2425 1408 / 1408 Output Total 1270 / 1270 Balance 1155 / 1155 1408 / 1408 Laboratory Tests Past 24 Hrs 05/15/18 05/15/18 05/16/18 06:14 07:20 06:25 WBC 10.8 RBC 3.73 L Hgb 11.5 L Hct 35.2 L MCV 94.4 MCH 30.8 MCHC 32.7 RDW 13.3 RDW Differential 44.0 H Plt Count 433 MPV 9.2 Immature Gran % (Auto) 2.300 H Neut % (Auto) 71.0 H Lymph % (Auto) 15.[address] % (Auto) 10.6 H Eos % (Auto) 0.3 Baso % (Auto) 0.3 Absolute Neuts (auto) 7.7 Absolute Lymphs (auto) 1.67 Total Counted Not Reportable Diff Path Review Reviewed September foll PT 15.6 H INR 1.2 APTT 30.5 Sodium Potassium Chloride Carbon Dioxide Anion Gap BUN Creatinine Estim Creat Clear Calc Est GFR (MDRD) Af Amer Est GFR (MDRD) Non-Af BUN/Creatinine Ratio Glucose Calcium Phosphorus Magnesium 05/16/18 06:25 WBC RBC Hgb Hct MCV MCH MCHC RDW RDW Differential Plt Count MPV Immature Gran % (Auto) Neut % (Auto) Lymph % (Auto) [place] % (Auto) Eos % (Auto) Baso % (Auto) Absolute Neuts (auto) Absolute Lymphs (auto) Total Counted Diff Path Review PT INR APTT Sodium 143 Potassium 4.2 Chloride 108 H Carbon Dioxide 24.0 Anion Gap 11 BUN 21 H Creatinine 1.24 H Estim Creat Clear Calc 36.25 Est GFR (MDRD) Af Amer 56 L Est GFR (MDRD) Non-Af 46 L BUN/Creatinine Ratio 16.9 Glucose 94 Calcium 8.5 Phosphorus 3.0 Magnesium 2.0 Medical Necessity - Tobacco Use Smoking Status: Never smoker Assessment/Plan All Active Problems Diverticulitis of large intestine with abscess without bleeding (Acute) MARCELA (acute kidney injury) (Acute) Dehydration (Acute) Diverticulitis large intestine (Acute) 62-year-old female with diverticulitis with an abscess status post drain 1. Okay for patient to have sips until pain improves more, patient's white blood count is improved with the IV antibiotics, patient's KUB is also shows some dilated small bowel but there is contrast in the colon 2. Continue IV antibiotics 3. Ambulate elizabeth Buenrostro M.D. Pager: [phone] [facility] [address] [place] [address], Outpatient Pavilion, [address] [place] [address] Office: [phone]
[2018-05-16 08:00] VITALS: O2SAT 93
[2018-05-16] MEDS: lamoTRIgine 100 MG Tablet PO (09:22)
[2018-05-16] MEDS: Ciprofloxacin 400 MG/200 ML BAG 200 MG IV ×2 (09:22→21:12)
[2018-05-16] MEDS: Sertraline 100 MG Tablet PO ×2 (09:22→21:11)
[2018-05-16 11:06] VITALS: BP 140/82; PULSE 85; RESP 16; TEMP 36.9; O2SAT 95
[2018-05-16] MEDS: Heparin Injection (Vial) 5,000 UNIT/ML VIAL 5000 UNIT SC ×2 (14:12→21:11)
[2018-05-16 14:14] VITALS: BP 147/91; PULSE 83; RESP 16; TEMP 36.1; O2SAT 95
[2018-05-16] MEDS: 0.9% Normal Saline 1,000 ML 100 ML IV (14:17)
--- NOTE | 2018-05-16 15:23 | PCM.PN.HOSP ---
Patient Problems: Active and Suspected Problems Diverticulitis of large intestine with abscess without bleeding (Acute) MARCELA (acute kidney injury) (Acute) Dehydration (Acute) Diverticulitis large intestine (Acute) Subjective: still with abdominal pain, but improved since the drain was placed. Vitals/I&O's: Vital Signs Temp Pulse Resp BP Pulse Ox 36.1 C L 83 16 147/91 H 95 05/16/18 14:14 05/16/18 14:14 05/16/18 14:14 05/16/18 14:14 05/16/18 14:14 Oxygen Flow Rate (L/min) [8] 2 Oxygen Flow Rate (L/min) [6] 2 Oxygen Flow Rate (L/min) [5] 2 Oxygen Flow Rate (L/min) [4] 2 Oxygen Flow Rate (L/min) 2 Oxygen Delivery Method [8] Nasal Cannula Oxygen Delivery Method [7] Nasal Cannula Oxygen Delivery Method [6] Nasal Cannula Oxygen Delivery Method [5] Nasal Cannula Oxygen Delivery Method [4] Nasal Cannula Oxygen Delivery Method [2] Room Air Oxygen Delivery Method [1 ( Room Air Initial Baseline)] Oxygen Delivery Method Room Air Weight: 78.2 kg Body Mass Index (BMI) 31.0 Intake and Output for Last 24 Hours 05/14/18 05/15/18 05/16/18 23:59 23:59 23:59 Intake Total 2425 / 2425 1771 / 1771 Output Total 1270 / 1270 10 Balance 1155 / 1155 1761 / 1761 General: Alert, No apparent distress HEENT: Atraumatic, Normocephalic Oral: Moist Mucosa, No Gingival or Mucosal Lesions/ Ulcerations Neck: No Nodes, Thyroid Normal Size and Texture Lungs: Clear to auscultation, Normal air movement, No rhonchi, No wheeze Cardiovascular: Regular rate, Regular Rhythm, Normal S1, Normal S2, No murmurs Abdomen: Bowel Sounds Present, Soft, Non Tender, Non-Distended, Hypoactive Bowel Sounds Extremities: No edema, No Calf Tenderness Skin: No rashes, No breakdown Microbiology Past 72 Hours 05/15/18 15:00 Aspirate - Abdominal Gram Stain - Final 05/15/18 15:00 Aspirate - Abdominal Wound Culture - Preliminary Gram negative grecia GNR lactose finish photographer 05/16/18 07:45 Stool Enteric Bacteriology - Final Norovirus Laboratory Results 05/16/18 06:25: WBC 10.8, RBC 3.73 L, Hgb 11.5 L, Hct 35.2 L, MCV 94.4, MCH 30.8, MCHC 32.7, RDW 13.3, RDW Differential 44.0 H, Plt Count 433, MPV 9.2, Immature Gran % (Auto) 2.300 H, Neut % (Auto) 71.0 H, Lymph % (Auto) 15.5 L, [place] % (Auto) 10.6 H, Eos % (Auto) 0.3, Baso % (Auto) 0.3, Absolute Neuts (auto) 7.7, Absolute Lymphs (auto) 1.67, Total Counted Not Reportable, Diff Path Review September05/16/18 06:25: Sodium 143, Potassium 4.2, Chloride 108 H, Carbon Dioxide 24.0, Anion Gap 11, BUN 21 H, Creatinine 1.24 H, Estim Creat Clear Calc 36.25, Est GFR (MDRD) Af Amer 56 L, Est GFR (MDRD) Non-Af 46 L, BUN/Creatinine Ratio 16.9, Glucose 94, Calcium 8.5, Phosphorus 3.0, Magnesium 2.0 Current Medications Heparin Sodium (Porcine) (Heparin Na) 5,000 unit SC Q8 [facility] Last Admin: 05/16/18 14:12 Dose: 5,000 unit Hydralazine HCl (Apresoline Iv) 10 mg IV Q4H PRN PRN PRN Reason: SBP > 160 Ciprofloxacin (Cipro) 400 mg in 200 mls @ 200 mls/hr IV Q12 [facility] Last Admin: 05/16/18 09:22 Dose: 200 mls/hr Metronidazole (Flagyl) 500 mg in 100 mls @ 100 mls/hr IV Q8 [facility] Last Admin: 05/16/18 14:12 Dose: 100 mls/hr Sodium Chloride () 250 mls @ 15 mls/hr IV .[id number] PRN PRN Reason: SALINE FLUSH Sodium Chloride () 1,000 mls @ 100 mls/hr IV .Q10H [facility] Last Admin: 05/16/18 14:17 Dose: 100 mls/hr Lamotrigine (Lamictal) 100 mg PO DAILY [facility] Last Admin: 12/29/18 09:22 Dose: 100 mg Morphine Sulfate () 1 - 2 mg IV Q4H PRN PRN PRN Reason: PAIN Last Admin: 05/16/18 11:54 Dose: 2 mg Ondansetron HCl (Zofran) 4 mg IV Q8H PRN PRN PRN Reason: NAUSEA/VOMITING Pravastatin Sodium (Pravachol) 40 mg PO DAILY@2200 [facility] Last Admin: 05/15/18 21:20 Dose: 40 mg Sertraline HCl (Zoloft) 100 mg PO BID [facility] Last Admin: 05/16/18 09:22 Dose: 100 mg Sodium Chloride () 5 - 15 ml IV UD PRN PRN Reason: SALINE FLUSH Last Admin: 05/16/18 05:36 Dose: 10 ml Zolpidem Tartrate (Ambien (Generic)) 5 mg PO QHS [facility] Last Admin: 05/15/18 21:20 Dose: 5 mg Medical Necessity - Tobacco Use Smoking Status: Never smoker Assessment/Plan All Active Problems Diverticulitis of large intestine with abscess without bleeding (Acute) MARCELA (acute kidney injury) (Acute) Dehydration (Acute) Diverticulitis large intestine (Acute) 1. acute diverticulitis w abscess status post percutaneous drainage continue cipro and flagyl NPO follow up with general surgery as outpt for definitive mgmt in 6-8 weeks, if necessary. IVF 2. acute norovirus infection supportive may have been the nidus for her infection that led to a secondary bacterial infection, then the abscess 3. DVT proph: SQ heparin. Code Visit Inpatient E&M: 35969 Subs Hosp L2
--- NOTE | 2018-05-16 15:26 | PN_ITS ---
Patient Problems: Active and Suspected Problems Diverticulitis of large intestine with abscess without bleeding (Acute) MARCELA (acute kidney injury) (Acute) Dehydration (Acute) Diverticulitis large intestine (Acute) Subjective: still with abdominal pain, but improved since the drain was placed. Vitals/I&O's: Vital Signs Temp Pulse Resp BP Pulse Ox 36.1 C L 83 16 147/91 H 95 05/16/18 14:14 05/16/18 14:14 05/16/18 14:14 05/16/18 14:14 05/16/18 14:14 Oxygen Flow Rate (L/min) [8] 2 Oxygen Flow Rate (L/min) [6] 2 Oxygen Flow Rate (L/min) [5] 2 Oxygen Flow Rate (L/min) [4] 2 Oxygen Flow Rate (L/min) 2 Oxygen Delivery Method [8] Nasal Cannula Oxygen Delivery Method [7] Nasal Cannula Oxygen Delivery Method [6] Nasal Cannula Oxygen Delivery Method [5] Nasal Cannula Oxygen Delivery Method [4] Nasal Cannula Oxygen Delivery Method [2] Room Air Oxygen Delivery Method [1 ( Room Air Initial Baseline)] Oxygen Delivery Method Room Air Weight: 78.2 kg Body Mass Index (BMI) 31.0 Intake and Output for Last 24 Hours 05/14/18 05/15/18 05/16/18 23:59 23:59 23:59 Intake Total 2425 / 2425 1771 / 1771 Output Total 1270 / 1270 10 Balance 1155 / 1155 1761 / 1761 General: Alert, No apparent distress HEENT: Atraumatic, Normocephalic Oral: Moist Mucosa, No Gingival or Mucosal Lesions/ Ulcerations Neck: No Nodes, Thyroid Normal Size and Texture Lungs: Clear to auscultation, Normal air movement, No rhonchi, No wheeze Cardiovascular: Regular rate, Regular Rhythm, Normal S1, Normal S2, No murmurs Abdomen: Bowel Sounds Present, Soft, Non Tender, Non-Distended, Hypoactive Bowel Sounds Extremities: No edema, No Calf Tenderness Skin: No rashes, No breakdown Microbiology Past 72 Hours 05/15/18 15:00 Aspirate - Abdominal Gram Stain - Final 05/15/18 15:00 Aspirate - Abdominal Wound Culture - Preliminary Gram negative grecia GNR lactose associate account manager 05/16/18 07:45 Stool Enteric Bacteriology - Final Norovirus Laboratory Results 05/16/18 06:25: WBC 10.8, RBC 3.73 L, Hgb 11.5 L, Hct 35.2 L, MCV 94.4, MCH 30.8, MCHC 32.7, RDW 13.3, RDW Differential 44.0 H, Plt Count 433, MPV 9.2, Immature Gran % (Auto) 2.300 H, Neut % (Auto) 71.0 H, Lymph % (Auto) 15.5 L, [place] % (Auto) 10.6 H, Eos % (Auto) 0.3, Baso % (Auto) 0.3, Absolute Neuts (auto) 7.7, Absolute Lymphs (auto) 1.67, Total Counted Not Reportable, Diff Path Review September05/16/18 06:25: Sodium 143, Potassium 4.2, Chloride 108 H, Carbon Dioxide 24.0, Anion Gap 11, BUN 21 H, Creatinine 1.24 H, Estim Creat Clear Calc 36.25, Est GFR (MDRD) Af Amer 56 L, Est GFR (MDRD) Non-Af 46 L, BUN/Creatinine Ratio 16.9, Glucose 94, Calcium 8.5, Phosphorus 3.0, Magnesium 2.0 Current Medications Heparin Sodium (Porcine) (Heparin Na) 5,000 unit SC Q8 [facility] Last Admin: 05/16/18 14:12 Dose: 5,000 unit Hydralazine HCl (Apresoline Iv) 10 mg IV Q4H PRN PRN PRN Reason: SBP > 160 Ciprofloxacin (Cipro) 400 mg in 200 mls @ 200 mls/hr IV Q12 [facility] Last Admin: 05/16/18 09:22 Dose: 200 mls/hr Metronidazole (Flagyl) 500 mg in 100 mls @ 100 mls/hr IV Q8 [facility] Last Admin: 05/16/18 14:12 Dose: 100 mls/hr Sodium Chloride () 250 mls @ 15 mls/hr IV .[id number] PRN PRN Reason: SALINE FLUSH Sodium Chloride () 1,000 mls @ 100 mls/hr IV .Q10H [facility] Last Admin: 05/16/18 14:17 Dose: 100 mls/hr Lamotrigine (Lamictal) 100 mg PO DAILY [facility] Last Admin: 12/29/18 09:22 Dose: 100 mg Morphine Sulfate () 1 - 2 mg IV Q4H PRN PRN PRN Reason: PAIN Last Admin: 05/16/18 11:54 Dose: 2 mg Ondansetron HCl (Zofran) 4 mg IV Q8H PRN PRN PRN Reason: NAUSEA/VOMITING Pravastatin Sodium (Pravachol) 40 mg PO DAILY@2200 [facility] Last Admin: 05/15/18 21:20 Dose: 40 mg Sertraline HCl (Zoloft) 100 mg PO BID [facility] Last Admin: 05/16/18 09:22 Dose: 100 mg Sodium Chloride () 5 - 15 ml IV UD PRN PRN Reason: SALINE FLUSH Last Admin: 05/16/18 05:36 Dose: 10 ml Zolpidem Tartrate (Ambien (Generic)) 5 mg PO QHS [facility] Last Admin: 05/15/18 21:20 Dose: 5 mg Medical Necessity - Tobacco Use Smoking Status: Never smoker Assessment/Plan All Active Problems Diverticulitis of large intestine with abscess without bleeding (Acute) MARCELA (acute kidney injury) (Acute) Dehydration (Acute) Diverticulitis large intestine (Acute) 1. acute diverticulitis w abscess * status post percutaneous drainage * continue cipro and flagyl * NPO * follow up with general surgery as outpt for definitive mgmt in 6-8 weeks, if necessary. * IVF 2. acute norovirus infection * supportive * may have been the nidus for her infection that led to a secondary bacterial infection, then the abscess 3. DVT proph: SQ heparin. Code Visit Inpatient E&M: 39337 Subs Hosp L2
[2018-05-16 20:17] VITALS: BP 169/98; PULSE 84; RESP 18; TEMP 36.2; O2SAT 95
[2018-05-16] MEDS: Pravastatin 40 MG Tablet PO (21:11)
[2018-05-16] MEDS: Zolpidem Tartrate 5 MG Tablet PO (21:11)
[2018-05-17] MEDS: 0.9% Normal Saline 1,000 ML 100 ML IV ×3 (01:13→22:30)
[2018-05-17 02:17] VITALS: BP 143/75; PULSE 86; RESP 12; TEMP 36.8; O2SAT 97
[2018-05-17] MEDS: Morphine 2 MG/ML Syringe IV ×4 (02:45→21:08)
[2018-05-17] MEDS: Heparin Injection (Vial) 5,000 UNIT/ML VIAL 5000 UNIT SC ×3 (06:01→21:08)
[2018-05-17 06:17] LABS: Absolute Lymphocyte Count 1.84 X10^3/ul (0.83-4.51); Absolute Neutrophil Count 9.2 X10^3/uL (2.0-7.7); Basophil# 0.02 X10^3/uL; Basophil% 0.2 % (0-1); Eosinophil# 0.04 X10^3/uL; Eosinophils% 0.3 % (0-5); Hematocrit 32.6 % (37-47); Hemoglobin 10.5 g/dl (12.0-15.0); Lymphocyte # 1.84 X10^3/ul (4.0); Mean Corp Hgb Conc 32.2 g/gl (32-36); Mean Corpuscular Hgb 30.5 pg (27.0-32.0); Mean Corpuscular Volume 94.8 fL (81-99); Mean Platelet Vol. 8.9 fl (6.2-12.0); Monocyte# 0.94 X10^3/uL; Monocyte% 7.7 % (0-10); Neutrophil # 9.19 X10^3/uL (2.7-7.7); Neutrophil % 75.2 % (47-70); Platelet Count 397 K/mm3 (150-450); RBC Distribution Width CV 13.2 % (11.6-14.6); Red Blood Count 3.44 M/mm3 (4.2-5.4); White Blood Count 12.2 K/mm3 (4.4-11.0)
[2018-05-17 06:18] LABS: POSITIVE COUNT NO; POSITIVE DIFFERENTIAL NO; POSITIVE MORPHOLOGY NO
[2018-05-17 06:28] LABS: Anion Gap 10 (5-15); BUN 12 mg/dL (7-18); BUN/Creat Ratio 16.9 RATIO (10-20); Calcium,Total 7.9 mg/dL (8.5-10.1); Chloride 106 mmol/L (98-107); Creatinine, Serum 0.71 mg/dL (0.55-1.02); EST Glomerular Filtration Rate 88 mL/min (>60); Est Glom Filt Rate - Afr Amer 106 mL/min (>60); Estimated Creatinine Clearance 63.31 ml/min; Glucose 92 mg/dL (74-106); Potassium 3.3 mmol/L (3.5-5.1); Sodium Level 141 mmol/L (136-145)
--- NOTE | 2018-05-17 08:09 | PCM.PN.SRG ---
Patient Problems: Active and Suspected Problems Diverticulitis of large intestine with abscess without bleeding (Acute) MARCELA (acute kidney injury) (Acute) Dehydration (Acute) Diverticulitis large intestine (Acute) Subjective: Patient states her pain is improved from yesterday but she still does have some pain mostly in the right lower quadrant, still having some diarrhea, denies any nausea or vomiting, patient had 20 cc out from the drain yesterday and another 7 cc from this morning - Physical Exam General: Alert, Oriented x3, Cooperative, No apparent distress HEENT: Atraumatic Lungs: Normal air movement Abdomen: Soft, Non-Distended, Tender - Bilateral lower quadrant, no peritoneal signs, IVAN in place with brown fluid Extremities: No clubbing, No cyanosis, No edema Vital Signs Temp Pulse Resp BP Pulse Ox 98.2 F 86 12 143/75 H 97 05/17/18 02:17 05/17/18 02:17 05/17/18 02:17 05/17/18 02:17 05/17/18 02:17 Oxygen Flow Rate (L/min) [8] 2 Oxygen Flow Rate (L/min) [6] 2 Oxygen Flow Rate (L/min) [5] 2 Oxygen Flow Rate (L/min) [4] 2 Oxygen Flow Rate (L/min) 2 Oxygen Delivery Method [8] Nasal Cannula Oxygen Delivery Method [7] Nasal Cannula Oxygen Delivery Method [6] Nasal Cannula Oxygen Delivery Method [5] Nasal Cannula Oxygen Delivery Method [4] Nasal Cannula Oxygen Delivery Method [2] Room Air Oxygen Delivery Method [1 ( Room Air Initial Baseline)] Oxygen Delivery Method Room Air Weight: 172 lb 6.424 oz Body Mass Index (BMI) 31.0 Intake and Output for Last 24 Hours 05/15/18 05/16/18 05/17/18 23:59 23:59 23:59 Intake Total 2425 / 2425 2154 / 2154 1333 / 1333 Output Total 1270 / 1270 7 / 7 Balance 1155 / 1155 2134 / 2134 1326 / 1326 Microbiology Past 72 Hours 05/15/18 15:00 Gram Stain - Final Aspirate - Abdominal Wound Culture - Preliminary Gram negative grecia GNR lactose gusset stitcher 05/16/18 07:45 Enteric Bacteriology - Final Stool Norovirus Laboratory Tests Past 24 Hrs 05/17/18 05/17/18 05:45 05:45 WBC 12.2 H RBC 3.44 L Hgb 10.5 L Hct 32.6 L MCV 94.8 MCH 30.5 MCHC 32.2 RDW 13.2 RDW Differential 44.0 H Plt Count 397 MPV 8.9 Immature Gran % (Auto) 1.600 H Neut % (Auto) 75.2 H Lymph % (Auto) 15.0 L [place] % (Auto) 7.7 Eos % (Auto) 0.3 Baso % (Auto) 0.2 Absolute Neuts (auto) 9.2 H Absolute Lymphs (auto) 1.84 Total Counted Not Reportable Sodium 141 Potassium 3.3 L Chloride 106 Carbon Dioxide 25.0 Anion Gap 10 BUN 12 Creatinine 0.71 Estim Creat Clear Calc 63.31 Est GFR (MDRD) Af Amer 106 Est GFR (MDRD) Non-Af 88 BUN/Creatinine Ratio 16.9 Glucose 92 Calcium 7.9 L Medical Necessity - Tobacco Use Smoking Status: Never smoker Assessment/Plan All Active Problems Diverticulitis of large intestine with abscess without bleeding (Acute) MARCELA (acute kidney injury) (Acute) Dehydration (Acute) Diverticulitis large intestine (Acute) 62-year-old female with diverticulitis with an abscess status post drain, positive for Norovirus 1. Okay for patient to have sips until pain resolves, patient does have a slight white blood cell count 12.2 however she states she is feeling better we will continue with the IV antibiotics, continue to monitor labs 2. Continue IV antibiotics 3. Ambulate elizabeth Buenrostro M.D. Pager: [phone] [facility] [address] [place] [address], Outpatient [facility], [address] [place] [address] Office: [phone]
[2018-05-17 08:17] VITALS: O2SAT 97
[2018-05-17 08:21] VITALS: BP 153/81; PULSE 81; RESP 16; TEMP 37; O2SAT 95
[2018-05-17] MEDS: lamoTRIgine 100 MG Tablet PO (09:29)
[2018-05-17] MEDS: Ciprofloxacin 400 MG/200 ML BAG 200 MG IV ×2 (09:29→21:08)
[2018-05-17] MEDS: Sertraline 100 MG Tablet PO ×2 (09:29→21:08)
--- NOTE | 2018-05-17 11:01 | PCM.PN.HOSP ---
Patient Problems: Active and Suspected Problems Diverticulitis of large intestine with abscess without bleeding (Acute) MARCELA (acute kidney injury) (Acute) Dehydration (Acute) Diverticulitis large intestine (Acute) Subjective: Feels better. Still with right sided abdominal pain, but overall improved. Some diarrhea. Vitals/I&O's: Vital Signs Temp Pulse Resp BP Pulse Ox 37.0 C 81 16 153/81 H 95 05/17/18 08:21 05/17/18 08:21 05/17/18 08:21 05/17/18 08:21 05/17/18 08:21 Oxygen Flow Rate (L/min) [8] 2 Oxygen Flow Rate (L/min) [6] 2 Oxygen Flow Rate (L/min) [5] 2 Oxygen Flow Rate (L/min) [4] 2 Oxygen Flow Rate (L/min) 2 Oxygen Delivery Method [8] Nasal Cannula Oxygen Delivery Method [7] Nasal Cannula Oxygen Delivery Method [6] Nasal Cannula Oxygen Delivery Method [5] Nasal Cannula Oxygen Delivery Method [4] Nasal Cannula Oxygen Delivery Method [2] Room Air Oxygen Delivery Method [1 ( Room Air Initial Baseline)] Oxygen Delivery Method Room Air Weight: 78.2 kg Body Mass Index (BMI) 31.0 Intake and Output for Last 24 Hours 05/15/18 05/16/18 05/17/18 23:59 23:59 23:59 Intake Total 2425 / 2425 2154 / 2154 1333 / 1333 Output Total 1270 / 1270 20 / 20 7 / 7 Balance 1155 / 1155 2134 / 2134 1326 / 1326 General: Alert, No apparent distress, - - up at the side of her bed. HEENT: Atraumatic, Normocephalic Oral: Moist Mucosa, No Gingival or Mucosal Lesions/ Ulcerations Neck: No Nodes, Thyroid Normal Size and Texture Lungs: Clear to auscultation, Normal air movement, No rhonchi, No wheeze Cardiovascular: Regular rate, Regular Rhythm, Normal S1, Normal S2, No murmurs Abdomen: Bowel Sounds Present, Soft, Non-Distended, Tender - right abdomen. Extremities: No edema, No Calf Tenderness Skin: No rashes, No breakdown Musculoskeletal: No Tenderness to Palpation of Joints or Extremities, No Muscle Wasting Psych/Mental Status: Normal Affect, Appropriate Microbiology Past 72 Hours 05/15/18 15:00 Aspirate - Abdominal Gram Stain - Final 05/15/18 15:00 Aspirate - Abdominal Wound Culture - Preliminary Gram negative grecia GNR lactose digital advertising analyst 05/16/18 07:45 Stool Enteric Bacteriology - Final Norovirus Laboratory Results 05/17/18 05:45: WBC 12.2 H, RBC 3.44 L, Hgb 10.5 L, Hct 32.6 L, MCV 94.8, MCH 30.5, MCHC 32.2, RDW 13.2, RDW Differential 44.0 H, Plt Count 397, MPV 8.9, Immature Gran % (Auto) 1.600 H, Neut % (Auto) 75.2 H, Lymph % (Auto) 15.0 L, [place] % (Auto) 7.7, Eos % (Auto) 0.3, Baso % (Auto) 0.2, Absolute Neuts (auto) 9.2 H, Absolute Lymphs (auto) 1.84, Total Counted Not Reportable 05/17/18 05:45: Sodium 141, Potassium 3.3 L, Chloride 106, Carbon Dioxide 25.0, Anion Gap 10, BUN 12, Creatinine 0.71, Estim Creat Clear Calc 63.31, Est GFR (MDRD) Af Amer 106, Est GFR (MDRD) Non-Af 88, BUN/Creatinine Ratio 16.9, Glucose 92, Calcium 7.9 L Current Medications Heparin Sodium (Porcine) (Heparin Na) 5,000 unit SC Q8 [facility] Last Admin: 05/17/18 06:01 Dose: 5,000 unit Hydralazine HCl (Apresoline Iv) 10 mg IV Q4H PRN PRN PRN Reason: SBP > 160 Ciprofloxacin (Cipro) 400 mg in 200 mls @ 200 mls/hr IV Q12 [facility] Last Admin: 05/17/18 09:29 Dose: 200 mls/hr Metronidazole (Flagyl) 500 mg in 100 mls @ 100 mls/hr IV Q8 [facility] Last Admin: 05/17/18 06:01 Dose: 100 mls/hr Sodium Chloride () 250 mls @ 15 mls/hr IV .[id number] PRN PRN Reason: SALINE FLUSH Sodium Chloride () 1,000 mls @ 100 mls/hr IV .Q10H [facility] Last Admin: 05/17/18 01:13 Dose: 100 mls/hr Lamotrigine (Lamictal) 100 mg PO DAILY [facility] Last Admin: 05/17/18 09:29 Dose: 100 mg Morphine Sulfate () 1 - 2 mg IV Q4H PRN PRN PRN Reason: PAIN Last Admin: 05/17/18 09:34 Dose: 2 mg Ondansetron HCl (Zofran) 4 mg IV Q8H PRN PRN PRN Reason: NAUSEA/VOMITING Potassium Chloride (K-Dur) 40 meq PO X1 ONE Stop: 05/17/18 10:38 Pravastatin Sodium (Pravachol) 40 mg PO DAILY@2200 [facility] Last Admin: 05/16/18 21:11 Dose: 40 mg Sertraline HCl (Zoloft) 100 mg PO BID [facility] Last Admin: 05/17/18 09:29 Dose: 100 mg Sodium Chloride () 5 - 15 ml IV UD PRN PRN Reason: SALINE FLUSH Last Admin: 05/16/18 05:36 Dose: 10 ml Zolpidem Tartrate (Ambien (Generic)) 5 mg PO QHS [facility] Last Admin: 05/16/18 21:11 Dose: 5 mg Medical Necessity - Tobacco Use Smoking Status: Never smoker Assessment/Plan All Active Problems Diverticulitis of large intestine with abscess without bleeding (Acute) MARCELA (acute kidney injury) (Acute) Dehydration (Acute) Diverticulitis large intestine (Acute) 1. acute diverticulitis w abscess status post percutaneous drainage continue cipro and flagyl NPO, now permitted to have sips follow up with general surgery as outpt for definitive mgmt in 6-8 weeks, if necessary. IVF 2. acute norovirus infection supportive may have been the nidus for her infection that led to a secondary bacterial infection, then the abscess 3. DVT proph: SQ heparin. Code Visit Inpatient E&M: 35181 Subs Hosp L2
--- NOTE | 2018-05-17 11:04 | PN_ITS ---
Patient Problems: Active and Suspected Problems Diverticulitis of large intestine with abscess without bleeding (Acute) MARCELA (acute kidney injury) (Acute) Dehydration (Acute) Diverticulitis large intestine (Acute) Subjective: Feels better. Still with right sided abdominal pain, but overall improved. Some diarrhea. Vitals/I&O's: Vital Signs Temp Pulse Resp BP Pulse Ox 37.0 C 81 16 153/81 H 95 05/17/18 08:21 05/17/18 08:21 05/17/18 08:21 05/17/18 08:21 05/17/18 08:21 Oxygen Flow Rate (L/min) [8] 2 Oxygen Flow Rate (L/min) [6] 2 Oxygen Flow Rate (L/min) [5] 2 Oxygen Flow Rate (L/min) [4] 2 Oxygen Flow Rate (L/min) 2 Oxygen Delivery Method [8] Nasal Cannula Oxygen Delivery Method [7] Nasal Cannula Oxygen Delivery Method [6] Nasal Cannula Oxygen Delivery Method [5] Nasal Cannula Oxygen Delivery Method [4] Nasal Cannula Oxygen Delivery Method [2] Room Air Oxygen Delivery Method [1 ( Room Air Initial Baseline)] Oxygen Delivery Method Room Air Weight: 78.2 kg Body Mass Index (BMI) 31.0 Intake and Output for Last 24 Hours 05/15/18 05/16/18 05/17/18 23:59 23:59 23:59 Intake Total 2425 / 2425 2154 / 2154 1333 / 1333 Output Total 1270 / 1270 20 / 20 7 / 7 Balance 1155 / 1155 2134 / 2134 1326 / 1326 General: Alert, No apparent distress, - - up at the side of her bed. HEENT: Atraumatic, Normocephalic Oral: Moist Mucosa, No Gingival or Mucosal Lesions/ Ulcerations Neck: No Nodes, Thyroid Normal Size and Texture Lungs: Clear to auscultation, Normal air movement, No rhonchi, No wheeze Cardiovascular: Regular rate, Regular Rhythm, Normal S1, Normal S2, No murmurs Abdomen: Bowel Sounds Present, Soft, Non-Distended, Tender - right abdomen. Extremities: No edema, No Calf Tenderness Skin: No rashes, No breakdown Musculoskeletal: No Tenderness to Palpation of Joints or Extremities, No Muscle Wasting Psych/Mental Status: Normal Affect, Appropriate Microbiology Past 72 Hours 05/15/18 15:00 Aspirate - Abdominal Gram Stain - Final 05/15/18 15:00 Aspirate - Abdominal Wound Culture - Preliminary Gram negative grecia GNR lactose perioperative tech 05/16/18 07:45 Stool Enteric Bacteriology - Final Norovirus Laboratory Results 05/17/18 05:45: WBC 12.2 H, RBC 3.44 L, Hgb 10.5 L, Hct 32.6 L, MCV 94.8, MCH 30.5, MCHC 32.2, RDW 13.2, RDW Differential 44.0 H, Plt Count 397, MPV 8.9, Immature Gran % (Auto) 1.600 H, Neut % (Auto) 75.2 H, Lymph % (Auto) 15.0 L, [place] % (Auto) 7.7, Eos % (Auto) 0.3, Baso % (Auto) 0.2, Absolute Neuts (auto) 9.2 H, Absolute Lymphs (auto) 1.84, Total Counted Not Reportable 05/17/18 05:45: Sodium 141, Potassium 3.3 L, Chloride 106, Carbon Dioxide 25.0, Anion Gap 10, BUN 12, Creatinine 0.71, Estim Creat Clear Calc 63.31, Est GFR (MDRD) Af Amer 106, Est GFR (MDRD) Non-Af 88, BUN/Creatinine Ratio 16.9, Glucose 92, Calcium 7.9 L Current Medications Heparin Sodium (Porcine) (Heparin Na) 5,000 unit SC Q8 [facility] Last Admin: 05/17/18 06:01 Dose: 5,000 unit Hydralazine HCl (Apresoline Iv) 10 mg IV Q4H PRN PRN PRN Reason: SBP > 160 Ciprofloxacin (Cipro) 400 mg in 200 mls @ 200 mls/hr IV Q12 [facility] Last Admin: 05/17/18 09:29 Dose: 200 mls/hr Metronidazole (Flagyl) 500 mg in 100 mls @ 100 mls/hr IV Q8 [facility] Last Admin: 05/17/18 06:01 Dose: 100 mls/hr Sodium Chloride () 250 mls @ 15 mls/hr IV .[id number] PRN PRN Reason: SALINE FLUSH Sodium Chloride () 1,000 mls @ 100 mls/hr IV .Q10H [facility] Last Admin: 05/17/18 01:13 Dose: 100 mls/hr Lamotrigine (Lamictal) 100 mg PO DAILY [facility] Last Admin: 05/17/18 09:29 Dose: 100 mg Morphine Sulfate () 1 - 2 mg IV Q4H PRN PRN PRN Reason: PAIN Last Admin: 05/17/18 09:34 Dose: 2 mg Ondansetron HCl (Zofran) 4 mg IV Q8H PRN PRN PRN Reason: NAUSEA/VOMITING Potassium Chloride (K-Dur) 40 meq PO X1 ONE Stop: 05/17/18 10:38 Pravastatin Sodium (Pravachol) 40 mg PO DAILY@2200 [facility] Last Admin: 05/16/18 21:11 Dose: 40 mg Sertraline HCl (Zoloft) 100 mg PO BID [facility] Last Admin: 05/17/18 09:29 Dose: 100 mg Sodium Chloride () 5 - 15 ml IV UD PRN PRN Reason: SALINE FLUSH Last Admin: 05/16/18 05:36 Dose: 10 ml Zolpidem Tartrate (Ambien (Generic)) 5 mg PO QHS [facility] Last Admin: 05/16/18 21:11 Dose: 5 mg Medical Necessity - Tobacco Use Smoking Status: Never smoker Assessment/Plan All Active Problems Diverticulitis of large intestine with abscess without bleeding (Acute) MARCELA (acute kidney injury) (Acute) Dehydration (Acute) Diverticulitis large intestine (Acute) 1. acute diverticulitis w abscess * status post percutaneous drainage * continue cipro and flagyl * NPO, now permitted to have sips * follow up with general surgery as outpt for definitive mgmt in 6-8 weeks, if necessary. * IVF 2. acute norovirus infection * supportive * may have been the nidus for her infection that led to a secondary bacterial infection, then the abscess 3. DVT proph: SQ heparin. Code Visit Inpatient E&M: 78387 Subs Hosp L2
[2018-05-17 11:25] VITALS: BP 140/79; PULSE 85; RESP 16; TEMP 36.5; O2SAT 94
[2018-05-17 14:27] VITALS: BP 149/80; PULSE 81; RESP 16; TEMP 36.9; O2SAT 95
[2018-05-17 20:20] VITALS: BP 156/86; PULSE 81; RESP 16; TEMP 37.4; O2SAT 94
[2018-05-17] MEDS: Zolpidem Tartrate 5 MG Tablet PO (21:08)
[2018-05-17] MEDS: Pravastatin 40 MG Tablet PO (21:08)
[2018-05-18 02:34] VITALS: BP 149/78; PULSE 84; RESP 16; TEMP 36.9; O2SAT 95
[2018-05-18] MEDS: Heparin Injection (Vial) 5,000 UNIT/ML VIAL 5000 UNIT SC ×3 (05:51→22:04)
[2018-05-18 05:57] LABS: Absolute Lymphocyte Count 1.73 X10^3/ul (0.83-4.51); Absolute Neutrophil Count 11.1 X10^3/uL (2.0-7.7); Basophil# 0.02 X10^3/uL; Basophil% 0.1 % (0-1); Eosinophil# 0.03 X10^3/uL; Eosinophils% 0.2 % (0-5); Hematocrit 32.8 % (37-47); Hemoglobin 10.6 g/dl (12.0-15.0); Lymphocyte # 1.73 X10^3/ul (4.0); Lymphocyte % 12.4 % (19-41); Mean Corp Hgb Conc 32.3 g/gl (32-36); Mean Corpuscular Hgb 30.5 pg (27.0-32.0); Mean Corpuscular Volume 94.5 fL (81-99); Mean Platelet Vol. 8.9 fl (6.2-12.0); Monocyte# 0.88 X10^3/uL; Monocyte% 6.3 % (0-10); Neutrophil # 11.14 X10^3/uL (2.7-7.7); Neutrophil % 79.9 % (47-70); Platelet Count 424 K/mm3 (150-450); RBC Distribution Width CV 13.2 % (11.6-14.6); RBC Distribution Width SD 43.9 fl (35.1-43.9); Red Blood Count 3.47 M/mm3 (4.2-5.4)
[2018-05-18] MEDS: Morphine 2 MG/ML Syringe IV ×3 (06:02→22:04)
[2018-05-18 06:05] LABS: POSITIVE COUNT NO; POSITIVE DIFFERENTIAL NO; POSITIVE MORPHOLOGY NO
[2018-05-18 06:11] LABS: Anion Gap 13 (5-15); BUN 6 mg/dL (7-18); BUN/Creat Ratio 11.9 RATIO (10-20); Calcium,Total 7.6 mg/dL (8.5-10.1); Chloride 104 mmol/L (98-107); EST Glomerular Filtration Rate 131 mL/min (>60); Est Glom Filt Rate - Afr Amer 158 mL/min (>60); Glucose 86 mg/dL (74-106); Potassium 3.4 mmol/L (3.5-5.1); Sodium Level 140 mmol/L (136-145)
--- NOTE | 2018-05-18 08:26 | PCM.PN.SRG ---
Patient Problems: Active and Suspected Problems Diverticulitis of large intestine with abscess without bleeding (Acute) MARCELA (acute kidney injury) (Acute) Dehydration (Acute) Diverticulitis large intestine (Acute) Subjective: Patient reports her left lower quadrant pain is improved greatly. She is no longer having the right lower quadrant pain she was having yesterday. She is passing gas but passing flatus does hurt a little bit. She is not having any nausea or vomiting and she does feel hungry. - Physical Exam General: Alert, Oriented x3, Cooperative Neck: No JVD Cardiovascular: Regular Rhythm Abdomen: Soft, Non Tender, Non-Distended, - - Percutaneous drain is purulent and brown in color Musculoskeletal: No Muscle Wasting Vital Signs Temp Pulse Resp BP Pulse Ox 98.5 F 84 16 149/78 H 95 05/18/18 02:34 05/18/18 02:34 05/18/18 02:34 05/18/18 02:34 05/18/18 02:34 Oxygen Flow Rate (L/min) [8] 2 Oxygen Flow Rate (L/min) [6] 2 Oxygen Flow Rate (L/min) [5] 2 Oxygen Flow Rate (L/min) [4] 2 Oxygen Flow Rate (L/min) 2 Oxygen Delivery Method [8] Nasal Cannula Oxygen Delivery Method [7] Nasal Cannula Oxygen Delivery Method [6] Nasal Cannula Oxygen Delivery Method [5] Nasal Cannula Oxygen Delivery Method [4] Nasal Cannula Oxygen Delivery Method [2] Room Air Oxygen Delivery Method [1 ( Room Air Initial Baseline)] Oxygen Delivery Method Room Air Weight: 172 lb 6.424 oz Body Mass Index (BMI) 31.0 Intake and Output for Last 24 Hours 05/16/18 05/17/18 05/18/18 23:59 23:59 23:59 Intake Total 2154 / 2154 3365 / 3365 624 / 624 Output Total 42 / 42 15 / 15 Balance 2134 / 2134 3323 / 3323 609 / 609 Microbiology Past 72 Hours 05/15/18 15:00 Gram Stain - Final Aspirate - Abdominal Wound Culture - Preliminary Gram negative grecia GNR lactose ophthalmology surgical technician GNR lactose ophthalmology surgical technician#2 GPC Poss Enterococcus sp 05/16/18 07:45 Enteric Bacteriology - Final Stool Norovirus Laboratory Tests Past 24 Hrs 05/18/18 05/18/18 05/18/18 05:20 05:20 05:20 WBC 14.0 H RBC 3.47 L Hgb 10.6 L Hct 32.8 L MCV 94.5 MCH 30.5 MCHC 32.3 RDW 13.2 RDW Differential 43.9 Plt Count 424 MPV 8.9 Immature Gran % (Auto) 1.100 H Neut % (Auto) 79.9 H Lymph % (Auto) 12.4 L [place] % (Auto) 6.3 Eos % (Auto) 0.2 Baso % (Auto) 0.1 Absolute Neuts (auto) 11.1 H Absolute Lymphs (auto) 1.73 Total Counted Not Reportable Sodium 140 Potassium 3.4 L Chloride 104 Carbon Dioxide 23.0 Anion Gap 13 BUN 6 L Creatinine 0.50 L Estim Creat Clear Calc 89.90 Est GFR (MDRD) Af Amer 158 Est GFR (MDRD) Non-Af 131 BUN/Creatinine Ratio 11.9 Glucose 86 Calcium 7.6 L Phosphorus Pending Magnesium Pending Medical Necessity - Tobacco Use Smoking Status: Never smoker Assessment/Plan All Active Problems Diverticulitis of large intestine with abscess without bleeding (Acute) MARCELA (acute kidney injury) (Acute) Dehydration (Acute) Diverticulitis large intestine (Acute) 62-year-old female with perforated diverticulitis and peridiverticular abscess 1. Continue percutaneous drainage. The drainage has decreased but it is still purulent and brown in color. There is always the possibility of a fistulous connection to the colon. 2. The patient's white count continues to rise. I will start her on Zosyn and stop the Cipro and Flagyl. The patient's pain is improved despite her white count going up. I will try her on a clear liquid diet and see how she does. 3. If her white count continues to rise she will need a CT scan. Douglas Serrano MD Pager: [facility] [address] [place] [address], [address] [place] [address] Office:
[2018-05-18 08:29] LABS: Magnesium 1.3 mg/dL (1.6-2.6); Phosphorus 1.9 mg/dL (2.5-4.9)
[2018-05-18 08:30] VITALS: BP 157/88; PULSE 80; RESP 18; TEMP 36.9; O2SAT 95
[2018-05-18] MEDS: Piperacil/Tazobactam 3.375 GM/50 ML ML IV ×3 (08:43→22:04)
[2018-05-18] MEDS: Sertraline 100 MG Tablet PO ×2 (08:51→22:04)
[2018-05-18] MEDS: lamoTRIgine 100 MG Tablet PO (08:51)
[2018-05-18] MEDS: Magnesium Sulfate 4gm/100mL 4 GM/100 ML IV.SOLN. IV (10:19)
[2018-05-18 10:44] LABS: Pathologist Review Reviewed
--- NOTE | 2018-05-18 11:13 | PCM.PROGNOTE ---
Patient Problems: Active and Suspected Problems Diverticulitis of large intestine with abscess without bleeding (Acute) MARCELA (acute kidney injury) (Acute) Dehydration (Acute) Diverticulitis large intestine (Acute) Subjective: The patient is a 62-year-old female with a past medical history of diverticulosis, hypertension, depression, bipolar disorder, COPD and hyperlipidemia who presented to [facility] on 05/14/2018 complaining of a 9-day history of nausea and abdominal pain. The pain was worst in the right lower quadrant. An outpatient abdominal CT showed diverticulitis with abscess formation. She was admitted to the hospital and started on Levaquin and Flagyl. Dr. Serrano was consulted to participate in management. Tmax the past 24 hours is 99.4. Systolic blood pressure is mildly elevated but stable. The heart rate is within normal limits. Currently 95% saturated on room air. White blood cell count has been increasing since 03/16/2018 when it was 10.8. Today it is 14.[address] Serrano discontinued Levaquin and Flagyl and started Zosyn. Hemoglobin is 10.6 and stable. Platelets are within normal limits. Potassium is mildly decreased at 3.4 and the BUN is 6 with a creatinine of 0.50. Magnesium is low at 1.3 and the phosphorus is low at 1.9. Magnesium and phosphorus supplementation has been ordered. I discussed care with Dr. Serrano and he is starting her on clear liquids today as the pain has improved. She is tolerating clear liquids with no increase in pain. She tells me that the pain is better today. Denies any nausea and has had no vomiting. She denies any shaking chills and is afebrile. - Physical Exam General: Alert, Oriented x3, Cooperative, Well developed HEENT: Atraumatic, PERRLA Oral: Moist Mucosa Neck: No Nuchal Rigidity, Trachea Midline Lungs: Clear to auscultation, Diminished Cardiovascular: Regular rate, Regular Rhythm, Normal S1, Normal S2, No rub noted, No Gallop Abdomen: Bowel Sounds Present, Soft, Non Tender, Non-Distended, Obese, - - The percutaneous drain has creamy purulent-looking drainage. She did have a BM today Extremities: No clubbing, No cyanosis, No edema, No Calf Tenderness Skin: No rashes Neurological: Cranial nerves II-XII grossly intact, Neuro grossly intact Psych/Mental Status: Normal Affect, Appropriate Vital Signs Temp Pulse Resp BP Pulse Ox 98.5 F 84 16 149/78 H 95 05/18/18 02:34 05/18/18 02:34 05/18/18 02:34 05/18/18 02:34 05/18/18 02:34 Oxygen Flow Rate (L/min) [8] 2 Oxygen Flow Rate (L/min) [6] 2 Oxygen Flow Rate (L/min) [5] 2 Oxygen Flow Rate (L/min) [4] 2 Oxygen Flow Rate (L/min) 2 Oxygen Delivery Method [8] Nasal Cannula Oxygen Delivery Method [7] Nasal Cannula Oxygen Delivery Method [6] Nasal Cannula Oxygen Delivery Method [5] Nasal Cannula Oxygen Delivery Method [4] Nasal Cannula Oxygen Delivery Method [2] Room Air Oxygen Delivery Method [1 ( Room Air Initial Baseline)] Oxygen Delivery Method Room Air Weight: 172 lb 6.424 oz Body Mass Index (BMI) 31.0 Intake and Output for Last 24 Hours 05/16/18 05/17/18 05/18/18 23:59 23:59 23:59 Intake Total 2154 / 2154 3365 / 3365 624 / 624 Output Total 42 / 42 15 / 15 Balance 2134 / 2134 3323 / 3323 609 / 609 Microbiology Past 72 Hours 05/15/18 15:00 Gram Stain - Final Aspirate - Abdominal Wound Culture - Preliminary Gram negative grecia Enterobacter cloacae complex Enterococcus avium 05/16/18 07:45 Enteric Bacteriology - Final Stool Norovirus Laboratory Tests Past 24 Hrs 05/16/18 05/18/18 05/18/18 06:25 05:20 05:20 WBC 14.0 H RBC 3.47 L Hgb 10.6 L Hct 32.8 L MCV 94.5 MCH 30.5 MCHC 32.3 RDW 13.2 RDW Differential 43.9 Plt Count 424 MPV 8.9 Immature Gran % (Auto) 1.100 H Neut % (Auto) 79.9 H Lymph % (Auto) 12.4 L [place] % (Auto) 6.3 Eos % (Auto) 0.2 Baso % (Auto) 0.1 Absolute Neuts (auto) 11.1 H Absolute Lymphs (auto) 1.73 Total Counted Not Reportable Diff Path Review Reviewed Sodium 140 Potassium 3.4 L Chloride 104 Carbon Dioxide 23.0 Anion Gap 13 BUN 6 L Creatinine 0.50 L Estim Creat Clear Calc 89.90 Est GFR (MDRD) Af Amer 158 Est GFR (MDRD) Non-Af 131 BUN/Creatinine Ratio 11.9 Glucose 86 Calcium 7.6 L Phosphorus Magnesium 05/18/18 05:20 WBC RBC Hgb Hct MCV MCH MCHC RDW RDW Differential Plt Count MPV Immature Gran % (Auto) Neut % (Auto) Lymph % (Auto) [place] % (Auto) Eos % (Auto) Baso % (Auto) Absolute Neuts (auto) Absolute Lymphs (auto) Total Counted Diff Path Review Sodium Potassium Chloride Carbon Dioxide Anion Gap BUN Creatinine Estim Creat Clear Calc Est GFR (MDRD) Af Amer Est GFR (MDRD) Non-Af BUN/Creatinine Ratio Glucose Calcium Phosphorus 1.9 L Magnesium 1.3 L Medical Necessity - Tobacco Use Smoking Status: Never smoker Assessment/Plan All Active Problems Diverticulitis of large intestine with abscess without bleeding (Acute) MARCELA (acute kidney injury) (Acute) Dehydration (Acute) Diverticulitis large intestine (Acute) Impressions 1. Diverticulitis with abscess-status post IR insertion of a drain left lower quadrant 2. Hypertension 3. Depression 4. Bipolar disorder 5. COPD 6. Hyperlipidemia 7. Normochromic normocytic anemia-stable 8. Hypokalemia-supplement ordered 9. Hypophosphatemia 10. Hypomagnesemia Recheck lab in the AM Continue the clear liquids antibiotic changed to Zosyn Supplement potassium, magnesium and phosphorus Code Visit Inpatient E&M: 86937 Subs Hosp L2
[2018-05-18 14:30] VITALS: BP 150/74; PULSE 74; RESP 12; TEMP 37.1; O2SAT 95
[2018-05-18] MEDS: hydroCHLOROthiazide 25 MG Tablet PO (18:21)
[2018-05-18] MEDS: Losartan Potassium 100 MG Tablet PO (18:22)
[2018-05-18 19:26] VITALS: BP 145/78; PULSE 80; RESP 16; TEMP 36.7; O2SAT 94
[2018-05-18] MEDS: Zolpidem Tartrate 5 MG Tablet PO (22:04)
[2018-05-18] MEDS: Pravastatin 40 MG Tablet PO (22:05)
[2018-05-18] MEDS: 0.9% Normal Saline 1,000 ML 100 ML IV (23:01)
[2018-05-19 02:30] VITALS: BP 145/83; PULSE 83; RESP 16; TEMP 36.7; O2SAT 94
[2018-05-19] MEDS: Piperacil/Tazobactam 3.375 GM/50 ML ML IV ×3 (05:41→22:25)
[2018-05-19] MEDS: Heparin Injection (Vial) 5,000 UNIT/ML VIAL 5000 UNIT SC ×3 (05:41→22:25)
[2018-05-19 08:02] LABS: Anion Gap 9 (5-15); BUN 3 mg/dL (7-18); BUN/Creat Ratio 6.9 RATIO (10-20); Calcium,Total 7.4 mg/dL (8.5-10.1); Chloride 100 mmol/L (98-107); Creatinine, Serum 0.43 mg/dL (0.55-1.02); EST Glomerular Filtration Rate 155 mL/min (>60); Est Glom Filt Rate - Afr Amer 188 mL/min (>60); Estimated Creatinine Clearance 104.54 ml/min; Glucose 112 mg/dL (74-106); Magnesium 1.8 mg/dL (1.6-2.6); Phosphorus 2.1 mg/dL (2.5-4.9); Potassium 3.2 mmol/L (3.5-5.1); Sodium Level 136 mmol/L (136-145)
--- NOTE | 2018-05-19 08:10 | PCM.PN.SRG ---
Patient Problems: Active and Suspected Problems Diverticulitis of large intestine with abscess without bleeding (Acute) MARCELA (acute kidney injury) (Acute) Dehydration (Acute) Diverticulitis large intestine (Acute) Subjective: Patient states she feels better again today, IVAN output increased to 55 unsure how accurate as it is in 2 locations in the chart - Physical Exam General: Alert, Oriented x3, Cooperative, No apparent distress HEENT: Atraumatic Cardiovascular: Regular rate Abdomen: Soft, Non-Distended, Tender - Mild bilateral lower quadrants, no peritoneal signs, IVAN with brown fluid Vital Signs Temp Pulse Resp BP Pulse Ox 98.1 F 83 16 145/83 H 94 05/19/18 02:30 05/19/18 02:30 05/19/18 02:30 05/19/18 02:30 05/19/18 02:30 Oxygen Flow Rate (L/min) [8] 2 Oxygen Flow Rate (L/min) [6] 2 Oxygen Flow Rate (L/min) [5] 2 Oxygen Flow Rate (L/min) [4] 2 Oxygen Flow Rate (L/min) 2 Oxygen Delivery Method [8] Nasal Cannula Oxygen Delivery Method [7] Nasal Cannula Oxygen Delivery Method [6] Nasal Cannula Oxygen Delivery Method [5] Nasal Cannula Oxygen Delivery Method [4] Nasal Cannula Oxygen Delivery Method [2] Room Air Oxygen Delivery Method [1 ( Room Air Initial Baseline)] Oxygen Delivery Method Room Air Weight: 172 lb 6.424 oz Body Mass Index (BMI) 31.0 Intake and Output for Last 24 Hours 05/17/18 05/18/18 05/19/18 23:59 23:59 23:59 Intake Total 3365 / 3365 2555 / 2555 868 / 868 Output Total 42 / 42 55 / 55 15 / 15 Balance 3323 / 3323 2500 / 2500 853 / 853 Microbiology Past 72 Hours 05/15/18 15:00 Gram Stain - Final Aspirate - Abdominal Wound Culture - Preliminary Gram negative grecia Enterobacter cloacae complex Enterococcus avium 05/16/18 07:45 Enteric Bacteriology - Final Stool Norovirus Laboratory Tests Past 24 Hrs 05/16/18 05/18/18 05/19/18 06:25 05:20 07:10 Diff Path Review Reviewed Sodium 136 Potassium 3.2 L Chloride 100 Carbon Dioxide 27.0 Anion Gap 9 BUN 3 L Creatinine 0.43 L Estim Creat Clear Calc 104.54 Est GFR (MDRD) Af Amer 188 Est GFR (MDRD) Non-Af 155 BUN/Creatinine Ratio 6.9 L Glucose 112 H Calcium 7.4 L Phosphorus 1.9 L 2.1 L Magnesium 1.3 L 1.8 Medical Necessity - Tobacco Use Smoking Status: Never smoker Assessment/Plan All Active Problems Diverticulitis of large intestine with abscess without bleeding (Acute) MARCELA (acute kidney injury) (Acute) Dehydration (Acute) Diverticulitis large intestine (Acute) 62-year-old female with diverticulitis with an abscess status post drain, positive for Norovirus 1. Continue clears 2. Continue IV antibiotics-zosyn 3. White blood cell count pending 4. IVAN outputs continue to monitor question if there could be a fistula. Patient may benefit from a abscessogram/drain check in the future. addendum: WBC improved, ok to advance to fulls, but not advance further today. Noris Buenrostro M.D. Pager: [phone] [facility] [address] [place] [address], [facility], [address] [place] [id number] Office: [phone]
--- NOTE | 2018-05-19 08:13 | PN.SURG_ITS ---
Patient Problems: Active and Suspected Problems Diverticulitis of large intestine with abscess without bleeding (Acute) MARCELA (acute kidney injury) (Acute) Dehydration (Acute) Diverticulitis large intestine (Acute) Subjective: Patient states she feels better again today, IVAN output increased to 55 unsure how accurate as it is in 2 locations in the chart - Physical Exam General: Alert, Oriented x3, Cooperative, No apparent distress HEENT: Atraumatic Cardiovascular: Regular rate Abdomen: Soft, Non-Distended, Tender - Mild bilateral lower quadrants, no peritoneal signs, IVAN with brown fluid Vital Signs Temp Pulse Resp BP Pulse Ox 98.1 F 83 16 145/83 H 94 05/19/18 02:30 05/19/18 02:30 05/19/18 02:30 05/19/18 02:30 05/19/18 02:30 Oxygen Flow Rate (L/min) [8] 2 Oxygen Flow Rate (L/min) [6] 2 Oxygen Flow Rate (L/min) [5] 2 Oxygen Flow Rate (L/min) [4] 2 Oxygen Flow Rate (L/min) 2 Oxygen Delivery Method [8] Nasal Cannula Oxygen Delivery Method [7] Nasal Cannula Oxygen Delivery Method [6] Nasal Cannula Oxygen Delivery Method [5] Nasal Cannula Oxygen Delivery Method [4] Nasal Cannula Oxygen Delivery Method [2] Room Air Oxygen Delivery Method [1 ( Room Air Initial Baseline)] Oxygen Delivery Method Room Air Weight: 172 lb 6.424 oz Body Mass Index (BMI) 31.0 Intake and Output for Last 24 Hours 05/17/18 05/18/18 05/19/18 23:59 23:59 23:59 Intake Total 3365 / 3365 2555 / 2555 868 / 868 Output Total 42 / 42 55 / 55 15 / 15 Balance 3323 / 3323 2500 / 2500 853 / 853 Microbiology Past 72 Hours 05/15/18 15:00 Gram Stain - Final Aspirate - Abdominal Wound Culture - Preliminary Gram negative grecia Enterobacter cloacae complex Enterococcus avium 05/16/18 07:45 Enteric Bacteriology - Final Stool Norovirus Laboratory Tests Past 24 Hrs 05/16/18 05/18/18 05/19/18 06:25 05:20 07:10 Diff Path Review Reviewed Sodium 136 Potassium 3.2 L Chloride 100 Carbon Dioxide 27.0 Anion Gap 9 BUN 3 L Creatinine 0.43 L Estim Creat Clear Calc 104.54 Est GFR (MDRD) Af Amer 188 Est GFR (MDRD) Non-Af 155 BUN/Creatinine Ratio 6.9 L Glucose 112 H Calcium 7.4 L Phosphorus 1.9 L 2.1 L Magnesium 1.3 L 1.8 Medical Necessity - Tobacco Use Smoking Status: Never smoker Assessment/Plan All Active Problems Diverticulitis of large intestine with abscess without bleeding (Acute) MARCELA (acute kidney injury) (Acute) Dehydration (Acute) Diverticulitis large intestine (Acute) 62-year-old female with diverticulitis with an abscess status post drain, positive for Norovirus 1. Continue clears 2. Continue IV antibiotics-zosyn 3. White blood cell count pending 4. IVAN outputs continue to monitor question if there could be a fistula. Patient may benefit from a abscessogram/drain check in the future. addendum: WBC improved, ok to advance to fulls, but not advance further today. Noris Buenrostro M.D. Pager: [phone] [facility] [address] [place] [address], [facility], [address] [place] [id number] Office: [phone]
[2018-05-19 08:15] VITALS: BP 152/84; PULSE 72; RESP 18; TEMP 36.8; O2SAT 97
--- NOTE | 2018-05-19 08:24 | PCM.PROGNOTE ---
Patient Problems: Active and Suspected Problems Diverticulitis of large intestine with abscess without bleeding (Acute) MARCELA (acute kidney injury) (Acute) Dehydration (Acute) Diverticulitis large intestine (Acute) Subjective: All events the past 24 hours of been reviewed. Day #6 antibiotics Afebrile for the past 24 hours. Vital signs are stable. There is mild systolic hypertension. Potassium is low at 3.2 today, magnesium is normal at 1.8 and the phosphorus is low at 2.1. Objective: PHYSICAL EXAM: GENERAL: alert, oriented X 3, Cooperative, NAD ORAL: moist mucosa, no mucosal lesions NECK: No JVD, supple, trachea midline LUNGS: CTA, symmetric chest expansion HEART: RRR, Normal S1 and S2, no rub, no gallop ABDOMEN: soft, NT, ND, BS present, no guarding with palpation, denies abd pain today....the DC in the drain still looks purulent and is creamy brownish in color EXTREMITIES: no edema, no cyanosis, no calf tenderness SKIN: No rashes, no breakdown NEUROLOGIC: no focal neurologic deficits PSYCH: appropriate, normal affect, pleasant - Physical Exam Vital Signs Temp Pulse Resp BP Pulse Ox 98.1 F 83 16 145/83 H 94 05/19/18 02:30 05/19/18 02:30 05/19/18 02:30 05/19/18 02:30 05/19/18 02:30 Oxygen Flow Rate (L/min) [8] 2 Oxygen Flow Rate (L/min) [6] 2 Oxygen Flow Rate (L/min) [5] 2 Oxygen Flow Rate (L/min) [4] 2 Oxygen Flow Rate (L/min) 2 Oxygen Delivery Method [8] Nasal Cannula Oxygen Delivery Method [7] Nasal Cannula Oxygen Delivery Method [6] Nasal Cannula Oxygen Delivery Method [5] Nasal Cannula Oxygen Delivery Method [4] Nasal Cannula Oxygen Delivery Method [2] Room Air Oxygen Delivery Method [1 ( Room Air Initial Baseline)] Oxygen Delivery Method Room Air Weight: 172 lb 6.424 oz Body Mass Index (BMI) 31.0 Intake and Output for Last 24 Hours 05/17/18 05/18/18 05/19/18 23:59 23:59 23:59 Intake Total 3365 / 3365 2555 / 2555 868 / 868 Output Total 42 / 42 55 / 55 15 / 15 Balance 3323 / 3323 2500 / 2500 853 / 853 Microbiology Past 72 Hours 05/15/18 15:00 Gram Stain - Final Aspirate - Abdominal Wound Culture - Preliminary Gram negative grecia Enterobacter cloacae complex Enterococcus avium 05/16/18 07:45 Enteric Bacteriology - Final Stool Norovirus Laboratory Tests Past 24 Hrs 05/16/18 05/18/18 05/19/18 06:25 05:20 07:10 Diff Path Review Reviewed Sodium 136 Potassium 3.2 L Chloride 100 Carbon Dioxide 27.0 Anion Gap 9 BUN 3 L Creatinine 0.43 L Estim Creat Clear Calc 104.54 Est GFR (MDRD) Af Amer 188 Est GFR (MDRD) Non-Af 155 BUN/Creatinine Ratio 6.9 L Glucose 112 H Calcium 7.4 L Phosphorus 1.9 L 2.1 L Magnesium 1.3 L 1.8 Medical Necessity - Tobacco Use Smoking Status: Never smoker Assessment/Plan All Active Problems Diverticulitis of large intestine with abscess without bleeding (Acute) MARCELA (acute kidney injury) (Acute) Dehydration (Acute) Diverticulitis large intestine (Acute) Impressions 1. Diverticulitis with abscess-status post IR insertion of a drain left lower quadrant 2. Hypertension 3. Depression 4. Bipolar disorder 5. COPD 6. Hyperlipidemia 7. Normochromic normocytic anemia-stable 8. Hypokalemia-supplement ordered 9. Hypophosphatemia 10. Hypomagnesemia Recheck lab in the AM - CBC and BMP and phos Add a daily potassium supplement to her drug regimen and also Mag OX 400 mg daily KPhos 40 today Continue Zosyn Reviewed Dr. Buenrostro's note - increased OP from the IVAN If the WBC count has not improved with changing the antibiotic to Zosyn will likely repeat CT scan of the abdomen Code Visit Inpatient E&M: 37832 Subs Hosp L2
[2018-05-19] MEDS: hydroCHLOROthiazide 25 MG Tablet PO (09:12)
[2018-05-19] MEDS: lamoTRIgine 100 MG Tablet PO (09:12)
[2018-05-19] MEDS: Losartan Potassium 100 MG Tablet PO (09:12)
[2018-05-19] MEDS: Sertraline 100 MG Tablet PO ×2 (09:12→22:25)
[2018-05-19 09:14] LABS: Absolute Lymphocyte Count 1.97 X10^3/ul (0.83-4.51); Absolute Neutrophil Count 7.7 X10^3/uL (2.0-7.7); Basophil# 0.02 X10^3/uL; Basophil% 0.2 % (0-1); Eosinophil# 0.07 X10^3/uL; Eosinophils% 0.6 % (0-5); Hematocrit 33.5 % (37-47); Hemoglobin 10.9 g/dl (12.0-15.0); Lymphocyte # 1.97 X10^3/ul (4.0); Lymphocyte % 18.2 % (19-41); Mean Corp Hgb Conc 32.5 g/gl (32-36); Mean Corpuscular Hgb 30.1 pg (27.0-32.0); Mean Corpuscular Volume 92.5 fL (81-99); Monocyte# 0.99 X10^3/uL; Monocyte% 9.2 % (0-10); Neutrophil # 7.66 X10^3/uL (2.7-7.7); POSITIVE COUNT NO; POSITIVE DIFFERENTIAL NO; POSITIVE MORPHOLOGY NO; Platelet Count 453 K/mm3 (150-450); RBC Distribution Width CV 13.3 % (11.6-14.6); RBC Distribution Width SD 44.6 fl (35.1-43.9); Red Blood Count 3.62 M/mm3 (4.2-5.4); White Blood Count 10.8 K/mm3 (4.4-11.0)
[2018-05-19] MEDS: 0.9% Normal Saline 1,000 ML 100 ML IV (10:28)
[2018-05-19] MEDS: Magnesium Oxide 400 MG Tablet PO (10:28)
[2018-05-19] MEDS: Morphine 2 MG/ML Syringe IV ×2 (11:57→20:34)
[2018-05-19 14:15] VITALS: BP 149/90; PULSE 71; RESP 18; TEMP 36.7; O2SAT 96
[2018-05-19 20:14] VITALS: BP 147/84; PULSE 76; RESP 18; TEMP 36.8; O2SAT 94
[2018-05-19] MEDS: 0.9% NaCl Peripheral Flush Adult/Peds IV (20:34)
[2018-05-19] MEDS: Pravastatin 40 MG Tablet PO (22:25)
[2018-05-19] MEDS: Zolpidem Tartrate 5 MG Tablet PO (22:25)
[2018-05-20 02:00] VITALS: BP 151/87; PULSE 78; RESP 18; TEMP 36.9; O2SAT 94
[2018-05-20] MEDS: 0.9% Normal Saline 1,000 ML 100 ML IV (05:51)
[2018-05-20] MEDS: Piperacil/Tazobactam 3.375 GM/50 ML ML IV ×3 (05:51→21:20)
--- NOTE | 2018-05-20 07:43 | CT_ITS ---
STUDY: CT ABDOMEN AND PELVIS WITH CONTRAST REASON FOR EXAM: Female, 62 years old. Evaluate for a fistula. Patient has been treated for diverticular abscess. RADIATION DOSAGE (If Supplied By Facility): CTDIvol = ( 15.87 ) mGy, DLP = ( 1039.00 ) mGycm TECHNIQUE: Transaxial images were obtained from the dome of the diaphragm to the symphysis pubis with oral contrast. 100 ml of Isovue 300 contrast was administered. Sagittal and coronal images were reconstructed. Individualized dose optimization techniques were used for this CT. COMPARISON: CT of abdomen and pelvis dated May 14, 2018. FINDINGS: The visualized lung bases are unremarkable. The visualized portions of the heart are within normal limits. There is a cyst within the right lobe liver measuring up to 1.9 cm in greatest dimension. This has attenuation of approximately 17 Hounsfield units consistent with a cyst. There is focal area of decreased attenuation within the left lobe of liver near falciform ligament that probably represents focal fatty infiltration. Normal gallbladder and extrahepatic biliary system. Normal spleen. Normal pancreas. Normal bilateral adrenal glands. Normal right kidney. There is a small cyst of the lower pole left kidney measuring up to 1.4 cm in greatest dimension. This is unchanged since the previous CT. There is no evidence for hydronephrosis, hydroureter or radiopaque ureteral calculi. Normal visualized stomach. There is no evidence for dilated bowel, or ascites. There is some mild distention of small bowel within the mid abdomen that suggesting a localized ileus. This is probably related to the loculated collection is visible within the lower abdomen consistent with an abscess. Pneumoperitoneum is visible within this collection. Enteric contrast is visible throughout the colon. There does not appear to be any contrast within the abscess cavity. There is non-visualization of the appendix. The abdominal aorta is tortuous with atherosclerotic calcification. There is a retroaortic left-sided renal vein. There is venous distention of the inferior vena cava (IVC). Normal retroperitoneum. Normal urinary bladder. There is atrophy of the uterus. A drain has been placed via the anterior abdominal wall at the level pelvis. There is soft tissue emphysema within the subcutaneous tissues of the lower abdominal wall . The catheter is located within a loculated collection probably represents an abscess. There is some extravasation of contrast beyond the sigmoid colon into the adjacent pelvis probably related to a contained perforation. The bones appear osteopenic. CT/Abdomen/Pelvis WITH Contrast IMPRESSION: 1. Residual abscess within the lower abdomen and pelvis. Extraluminal contrast does exit the sigmoid colon into the peritoneum. This is located near the abscess, but no definite contrast is visible within the abscess cavity. 2. Persistent ileus within the distal small bowel probably related to the abscess. Electronically Signed: Marielena Monet MD at 10:24 EST , Service support ,
[2018-05-20 08:00] VITALS: BP 154/91; PULSE 71; RESP 18; TEMP 36.2; O2SAT 98
[2018-05-20] MEDS: Magnesium Oxide 400 MG Tablet PO (08:29)
[2018-05-20 08:41] LABS: Anion Gap 9 (5-15); BUN 2 mg/dL (7-18); BUN/Creat Ratio 3.9 RATIO (10-20); Calcium,Total 7.9 mg/dL (8.5-10.1); Chloride 103 mmol/L (98-107); Creatinine, Serum 0.51 mg/dL (0.55-1.02); EST Glomerular Filtration Rate 128 mL/min (>60); Est Glom Filt Rate - Afr Amer 154 mL/min (>60); Estimated Creatinine Clearance 88.14 ml/min; Glucose 105 mg/dL (74-106); Magnesium 1.5 mg/dL (1.6-2.6); Phosphorus 2.5 mg/dL (2.5-4.9); Sodium Level 138 mmol/L (136-145)
--- NOTE | 2018-05-20 08:42 | PCM.PN.SRG ---
Patient Problems: Active and Suspected Problems Diverticulitis of large intestine with abscess without bleeding (Acute) MARCELA (acute kidney injury) (Acute) Dehydration (Acute) Diverticulitis large intestine (Acute) Subjective: The patient reports she is still having some right lower quadrant pain. She tolerated full liquids no nausea or vomiting. She continues to have bowel movements. - Physical Exam General: Alert, Oriented x3, Cooperative Lungs: Normal air movement Cardiovascular: Regular rate, Regular Rhythm Abdomen: Soft, Non-Distended, Tender - Tender in the right lower quadrant., - - Percutaneous drain with purulent brown material Vital Signs Temp Pulse Resp BP Pulse Ox 97.2 F L 71 18 154/91 H 98 05/20/18 08:00 05/20/18 08:00 05/20/18 08:00 05/20/18 08:00 05/20/18 08:00 Oxygen Flow Rate (L/min) [8] 2 Oxygen Flow Rate (L/min) [6] 2 Oxygen Flow Rate (L/min) [5] 2 Oxygen Flow Rate (L/min) [4] 2 Oxygen Flow Rate (L/min) 2 Oxygen Delivery Method [8] Nasal Cannula Oxygen Delivery Method [7] Nasal Cannula Oxygen Delivery Method [6] Nasal Cannula Oxygen Delivery Method [5] Nasal Cannula Oxygen Delivery Method [4] Nasal Cannula Oxygen Delivery Method [2] Room Air Oxygen Delivery Method [1 ( Room Air Initial Baseline)] Oxygen Delivery Method Room Air Weight: 172 lb 6.424 oz Body Mass Index (BMI) 31.0 Intake and Output for Last 24 Hours 05/18/18 05/19/18 05/20/18 23:59 23:59 23:59 Intake Total 2555 / 2555 2778 / 2778 1308 / 1308 Output Total 55 / 55 948 / 948 835 / 835 Balance 2500 / 2500 1830 / 1830 473 / 473 Microbiology Past 72 Hours 05/15/18 15:00 Gram Stain - Final Aspirate - Abdominal Wound Culture - Final Morganella morganii Enterobacter cloacae complex Enterococcus avium Laboratory Tests Past 24 Hrs 05/19/18 05/20/18 07:10 08:12 WBC 10.8 RBC 3.62 L Hgb 10.9 L Hct 33.5 L MCV 92.5 MCH 30.1 MCHC 32.5 RDW 13.3 RDW Differential 44.6 H Plt Count 453 H MPV 9.0 Immature Gran % (Auto) 0.800 Neut % (Auto) 71.0 H Lymph % (Auto) 18.2 L [place] % (Auto) 9.2 Eos % (Auto) 0.6 Baso % (Auto) 0.2 Absolute Neuts (auto) 7.7 Absolute Lymphs (auto) 1.97 Total Counted Not Reportable Sodium 138 Potassium 4.0 Chloride 103 Carbon Dioxide 26.0 Anion Gap 9 BUN 2 L Creatinine 0.51 L Estim Creat Clear Calc 88.14 Est GFR (MDRD) Af Amer 154 Est GFR (MDRD) Non-Af 128 BUN/Creatinine Ratio 3.9 L Glucose 105 Calcium 7.9 L Phosphorus 2.5 Magnesium 1.5 L Medical Necessity - Tobacco Use Smoking Status: Never smoker Assessment/Plan All Active Problems Diverticulitis of large intestine with abscess without bleeding (Acute) MARCELA (acute kidney injury) (Acute) Dehydration (Acute) Diverticulitis large intestine (Acute) 62-year-old female with perforated diverticulitis and abscess 1. Continue antibiotics. White count was normal yesterday. Continue full liquid diet. 2. I discussed with Dr. Salinas. Plan is for CT scan with IV and rectal contrast to check for fistula. Douglas Serrano MD Pager: [facility] [address] [place] [address], [address] [place] [phone] Office:
[2018-05-20] MEDS: Sertraline 100 MG Tablet PO ×2 (10:07→21:20)
[2018-05-20] MEDS: Losartan Potassium 100 MG Tablet PO (10:07)
[2018-05-20] MEDS: Acetaminophen 325 MG Tablet 650 MG PO (10:07)
[2018-05-20] MEDS: lamoTRIgine 100 MG Tablet PO (10:07)
[2018-05-20] MEDS: hydroCHLOROthiazide 25 MG Tablet PO (10:07)
[2018-05-20 14:00] VITALS: RESP 18
[2018-05-20] MEDS: Heparin Injection (Vial) 5,000 UNIT/ML VIAL 5000 UNIT SC ×2 (14:47→21:20)
[2018-05-20] MEDS: Morphine 2 MG/ML Syringe IV ×2 (14:47→22:50)
[2018-05-20 14:54] VITALS: BP 173/94; PULSE 75; RESP 18; TEMP 36.8; O2SAT 98
--- NOTE | 2018-05-20 15:07 | PN_ITS ---
Progress Note Abdomen/Pelvis CT 05/20/18 07:43 IMPRESSION: 1. Residual abscess within the lower abdomen and pelvis. Extraluminal contrast does exit the sigmoid colon into the peritoneum. This is located near the abscess, but no definite contrast is visible within the abscess cavity. 2. Persistent ileus within the distal small bowel probably related to the abscess. Electronically Signed: Marielena Monet MD at 10:24 EST , Service support , Patient had CT scan which shows that there was extraluminal contrast on the CAT scan. I would back diet back to clears. This extra physician did not enter the abscess. The abscess cavity has not shrunken down much. I will asked the nurses to flush the drain twice a day to see if this will thin the fluid out. Continue IV antibiotics. I decreased her IV fluids as she is having a lot of urination. Douglas Serrano MD Pager: [phone] [address] [place] [address], [address] [place] [address] Office:
[2018-05-20] MEDS: 0.9% Normal Saline 1,000 ML 60 ML IV (18:11)
--- NOTE | 2018-05-20 19:52 | PCM.PROGNOTE ---
Patient Problems: Active and Suspected Problems Diverticulitis of large intestine with abscess without bleeding (Acute) MARCELA (acute kidney injury) (Acute) Dehydration (Acute) Diverticulitis large intestine (Acute) Subjective: All events of the past 24 hours of been reviewed. She has been afebrile since admission. Blood pressures remain mildly elevated, especially the systolic blood pressure. She is 98% saturated on room air. Potassium has been adequately replaced and is 4.0 today. Magnesium is low at 1.5 and will be supplemented. Phosphorus is normal at 2.[address] scan of the abdomen and pelvis showed residual abscess within the lower of the abdomen and pelvis. Extraluminal contrast did exit the sigmoid colon into the peritoneum. Diet was changed to clear liquids by Dr. Serrano. Objective: PHYSICAL EXAM: GENERAL: alert, oriented X 3, Cooperative, NAD ORAL: moist mucosa, no mucosal lesions NECK: No JVD, supple, trachea midline LUNGS: CTA, symmetric chest expansion HEART: RRR, Normal S1 and S2, no rub, no gallop ABDOMEN: soft, NT, ND, BS present, no guarding with palpation, denies abd pain today....the DC in the drain still looks purulent and is creamy brownish in color EXTREMITIES: no edema, no cyanosis, no calf tenderness SKIN: No rashes, no breakdown NEUROLOGIC: no focal neurologic deficits PSYCH: appropriate, normal affect, pleasant - Physical Exam Vital Signs Temp Pulse Resp BP Pulse Ox 98.2 F 75 18 173/94 H 98 05/20/18 14:54 05/20/18 14:54 05/20/18 14:54 05/20/18 14:54 05/20/18 14:54 Oxygen Flow Rate (L/min) [8] 2 Oxygen Flow Rate (L/min) [6] 2 Oxygen Flow Rate (L/min) [5] 2 Oxygen Flow Rate (L/min) [4] 2 Oxygen Flow Rate (L/min) 2 Oxygen Delivery Method [8] Nasal Cannula Oxygen Delivery Method [7] Nasal Cannula Oxygen Delivery Method [6] Nasal Cannula Oxygen Delivery Method [5] Nasal Cannula Oxygen Delivery Method [4] Nasal Cannula Oxygen Delivery Method [2] Room Air Oxygen Delivery Method [1 ( Room Air Initial Baseline)] Oxygen Delivery Method Room Air Weight: 172 lb 6.424 oz Body Mass Index (BMI) 31.0 Intake and Output for Last 24 Hours 05/18/18 05/19/18 05/20/18 23:59 23:59 23:59 Intake Total 2555 / 2555 2778 / 2778 3898 / 3898 Output Total 55 / 55 948 / 948 1540 / 1540 Balance 2500 / 2500 1830 / 1830 2358 / 2358 Microbiology Past 72 Hours 05/15/18 15:00 Gram Stain - Final Aspirate - Abdominal Wound Culture - Final Morganella morganii Enterobacter cloacae complex Enterococcus avium Anaerobic Culture - Final Bacteroides ovatus Laboratory Tests Past 24 Hrs 05/20/18 08:12 Sodium 138 Potassium 4.0 Chloride 103 Carbon Dioxide 26.0 Anion Gap 9 BUN 2 L Creatinine 0.51 L Estim Creat Clear Calc 88.14 Est GFR (MDRD) Af Amer 154 Est GFR (MDRD) Non-Af 128 BUN/Creatinine Ratio 3.9 L Glucose 105 Calcium 7.9 L Phosphorus 2.5 Magnesium 1.5 L Medical Necessity - Tobacco Use Smoking Status: Never smoker Assessment/Plan All Active Problems Diverticulitis of large intestine with abscess without bleeding (Acute) MARCELA (acute kidney injury) (Acute) Dehydration (Acute) Diverticulitis large intestine (Acute) Impressions 1. Diverticulitis with abscess-status post IR insertion of a drain left lower quadrant. now with extraluminal contrast due to perforation in the small colon - there did not appear to be contrast in the abscess 2. Hypertension 3. Depression 4. Bipolar disorder 5. COPD 6. Hyperlipidemia 7. Normochromic normocytic anemia-stable 8. Hypokalemia-supplement ordered 9. Hypophosphatemia 10. Hypomagnesemia Continue the Zosyn supplement the mag clear liquids per surgery Code Visit Inpatient E&M: 09273 Subs Hosp L2
[2018-05-20] MEDS: Zolpidem Tartrate 5 MG Tablet PO (21:20)
[2018-05-20] MEDS: Magnesium Sulfate 4gm/100mL 4 GM/100 ML IV.SOLN. IV (21:20)
[2018-05-20] MEDS: Pravastatin 40 MG Tablet PO (21:20)
[2018-05-20 21:28] VITALS: BP 151/88; PULSE 66; RESP 18; TEMP 36.7; O2SAT 95
[2018-05-21 03:02] VITALS: BP 148/87; PULSE 68; RESP 18; TEMP 36.2; O2SAT 95
[2018-05-21] MEDS: Piperacil/Tazobactam 3.375 GM/50 ML ML IV ×3 (05:38→21:39)
[2018-05-21] MEDS: Heparin Injection (Vial) 5,000 UNIT/ML VIAL 5000 UNIT SC ×3 (05:38→21:37)
--- NOTE | 2018-05-21 07:45 | PCM.PN.SRG ---
Patient Problems: Active and Suspected Problems Diverticulitis of large intestine with abscess without bleeding (Acute) MARCELA (acute kidney injury) (Acute) Dehydration (Acute) Diverticulitis large intestine (Acute) Subjective: Patient still reporting some right lower quadrant pain. She is tolerating clear liquids and having flatus. - Physical Exam General: Alert, Oriented x3, Cooperative Lungs: Normal air movement Abdomen: Soft, Non-Distended, Tender - Tender in right lower quadrant. No guarding or rebound., - - IVAN with thick purulent discharge Vital Signs Temp Pulse Resp BP Pulse Ox 97.1 F L 68 18 148/87 H 95 05/21/18 03:02 05/21/18 03:02 05/21/18 03:02 05/21/18 03:02 05/21/18 03:02 Oxygen Flow Rate (L/min) [8] 2 Oxygen Flow Rate (L/min) [6] 2 Oxygen Flow Rate (L/min) [5] 2 Oxygen Flow Rate (L/min) [4] 2 Oxygen Flow Rate (L/min) 2 Oxygen Delivery Method [8] Nasal Cannula Oxygen Delivery Method [7] Nasal Cannula Oxygen Delivery Method [6] Nasal Cannula Oxygen Delivery Method [5] Nasal Cannula Oxygen Delivery Method [4] Nasal Cannula Oxygen Delivery Method [2] Room Air Oxygen Delivery Method [1 ( Room Air Initial Baseline)] Oxygen Delivery Method Room Air Weight: 172 lb 6.424 oz Body Mass Index (BMI) 31.0 Intake and Output for Last 24 Hours 05/19/18 05/20/18 05/21/18 23:59 23:59 23:59 Intake Total 2778 / 2778 3898 / 3898 626 / 626 Output Total 948 / 948 1540 / 1540 985 / 985 Balance 1830 / 1830 2358 / 2358 -359 / -359 Microbiology Past 72 Hours 05/15/18 15:00 Gram Stain - Final Aspirate - Abdominal Wound Culture - Final Morganella morganii Enterobacter cloacae complex Enterococcus avium Anaerobic Culture - Final Bacteroides ovatus Laboratory Tests Past 24 Hrs 05/20/18 08:12 Sodium 138 Potassium 4.0 Chloride 103 Carbon Dioxide 26.0 Anion Gap 9 BUN 2 L Creatinine 0.51 L Estim Creat Clear Calc 88.14 Est GFR (MDRD) Af Amer 154 Est GFR (MDRD) Non-Af 128 BUN/Creatinine Ratio 3.9 L Glucose 105 Calcium 7.9 L Phosphorus 2.5 Magnesium 1.5 L Clinical Impression(s) from Imaging Studies Abscess Drainage 05/15/18 07:04 IMPRESSION: 1. CT directed drainage of a fluid collection using CT image guidance and image documentation as described. 2. Conscious Sedation protocol utilized with independent monitoring Electronically Signed: Fransisco Salinas MD at 9:36 EST Tel [phone], Service support , Abdomen/Pelvis CT 05/20/18 07:43 IMPRESSION: 1. Residual abscess within the lower abdomen and pelvis. Extraluminal contrast does exit the sigmoid colon into the peritoneum. This is located near the abscess, but no definite contrast is visible within the abscess cavity. 2. Persistent ileus within the distal small bowel probably related to the abscess. Electronically Signed: Marielena Monet MD at 10:24 EST , Service support , Medical Necessity - Tobacco Use Smoking Status: Never smoker Assessment/Plan All Active Problems Diverticulitis of large intestine with abscess without bleeding (Acute) MARCELA (acute kidney injury) (Acute) Dehydration (Acute) Diverticulitis large intestine (Acute) 62-year-old female with perforated diverticulitis 1. The patient seemed to symptomatically be getting better but on CT with rectal contrast history there was extravasation from the colon that did not into the abscess. I did order twice daily flushes of the drain to thin out the fluid and this has increased the output. She was back down to clear liquid diet. 2. I explained to the patient that this is a very difficult situation. At this point she is very inflamed and side and going into do of surgery would likely result in colostomy and an increased risk of bleeding, injury to bowel, injury to ureter. At this time it would be best to continue to rest the colon and recheck a CT with rectal contrast on Friday. I would continue IV antibiotics and flushing of the drain. As long as things are getting worse I would try to get her through to do an elective colectomy once the inflammation has subsided. If there is continued extravasation of contrast on Friday I may be forced to operate. Douglas Serrano MD Pager: [facility] [address] [place] [address], [address] [place] [address] Office:
--- NOTE | 2018-05-21 07:48 | PN.SURG_ITS ---
Patient Problems: Active and Suspected Problems Diverticulitis of large intestine with abscess without bleeding (Acute) MARCELA (acute kidney injury) (Acute) Dehydration (Acute) Diverticulitis large intestine (Acute) Subjective: Patient still reporting some right lower quadrant pain. She is tolerating clear liquids and having flatus. - Physical Exam General: Alert, Oriented x3, Cooperative Lungs: Normal air movement Abdomen: Soft, Non-Distended, Tender - Tender in right lower quadrant. No guarding or rebound., - - IVAN with thick purulent discharge Vital Signs Temp Pulse Resp BP Pulse Ox 97.1 F L 68 18 148/87 H 95 05/21/18 03:02 05/21/18 03:02 05/21/18 03:02 05/21/18 03:02 05/21/18 03:02 Oxygen Flow Rate (L/min) [8] 2 Oxygen Flow Rate (L/min) [6] 2 Oxygen Flow Rate (L/min) [5] 2 Oxygen Flow Rate (L/min) [4] 2 Oxygen Flow Rate (L/min) 2 Oxygen Delivery Method [8] Nasal Cannula Oxygen Delivery Method [7] Nasal Cannula Oxygen Delivery Method [6] Nasal Cannula Oxygen Delivery Method [5] Nasal Cannula Oxygen Delivery Method [4] Nasal Cannula Oxygen Delivery Method [2] Room Air Oxygen Delivery Method [1 ( Room Air Initial Baseline)] Oxygen Delivery Method Room Air Weight: 172 lb 6.424 oz Body Mass Index (BMI) 31.0 Intake and Output for Last 24 Hours 05/19/18 05/20/18 05/21/18 23:59 23:59 23:59 Intake Total 2778 / 2778 3898 / 3898 626 / 626 Output Total 948 / 948 1540 / 1540 985 / 985 Balance 1830 / 1830 2358 / 2358 -359 / -359 Microbiology Past 72 Hours 05/15/18 15:00 Gram Stain - Final Aspirate - Abdominal Wound Culture - Final Morganella morganii Enterobacter cloacae complex Enterococcus avium Anaerobic Culture - Final Bacteroides ovatus Laboratory Tests Past 24 Hrs 05/20/18 08:12 Sodium 138 Potassium 4.0 Chloride 103 Carbon Dioxide 26.0 Anion Gap 9 BUN 2 L Creatinine 0.51 L Estim Creat Clear Calc 88.14 Est GFR (MDRD) Af Amer 154 Est GFR (MDRD) Non-Af 128 BUN/Creatinine Ratio 3.9 L Glucose 105 Calcium 7.9 L Phosphorus 2.5 Magnesium 1.5 L Clinical Impression(s) from Imaging Studies Abscess Drainage 05/15/18 07:04 IMPRESSION: 1. CT directed drainage of a fluid collection using CT image guidance and image documentation as described. 2. Conscious Sedation protocol utilized with independent monitoring Electronically Signed: Fransisco Salinas MD at 9:36 EST Tel [phone], Service support , Abdomen/Pelvis CT 05/20/18 07:43 IMPRESSION: 1. Residual abscess within the lower abdomen and pelvis. Extraluminal contrast does exit the sigmoid colon into the peritoneum. This is located near the abscess, but no definite contrast is visible within the abscess cavity. 2. Persistent ileus within the distal small bowel probably related to the abscess. Electronically Signed: Marielena Monet MD at 10:24 EST , Service support , Medical Necessity - Tobacco Use Smoking Status: Never smoker Assessment/Plan All Active Problems Diverticulitis of large intestine with abscess without bleeding (Acute) MARCELA (acute kidney injury) (Acute) Dehydration (Acute) Diverticulitis large intestine (Acute) 62-year-old female with perforated diverticulitis 1. The patient seemed to symptomatically be getting better but on CT with rectal contrast history there was extravasation from the colon that did not into the abscess. I did order twice daily flushes of the drain to thin out the fluid and this has increased the output. She was back down to clear liquid diet. 2. I explained to the patient that this is a very difficult situation. At this point she is very inflamed and side and going into do of surgery would likely result in colostomy and an increased risk of bleeding, injury to bowel, injury to ureter. At this time it would be best to continue to rest the colon and recheck a CT with rectal contrast on Friday. I would continue IV antibiotics and flushing of the drain. As long as things are getting worse I would try to get her through to do an elective colectomy once the inflammation has subsided. If there is continued extravasation of contrast on Friday I may be forced to operate. Douglas Serrano MD Pager: [facility] [address] [place] [address], [address] [place] [address] Office:
[2018-05-21] MEDS: Magnesium Oxide 400 MG Tablet PO (07:53)
[2018-05-21 07:55] LABS: Absolute Lymphocyte Count 2.73 X10^3/ul (0.83-4.51); Absolute Neutrophil Count 5.5 X10^3/uL (2.0-7.7); Basophil# 0.07 X10^3/uL; Basophil% 0.7 % (0-1); Eosinophil# 0.17 X10^3/uL; Eosinophils% 1.8 % (0-5); Hematocrit 33.9 % (37-47); Lymphocyte # 2.73 X10^3/ul (4.0); Lymphocyte % 29.2 % (19-41); Mean Corp Hgb Conc 32.4 g/gl (32-36); Mean Corpuscular Hgb 30.8 pg (27.0-32.0); Mean Platelet Vol. 8.4 fl (6.2-12.0); Monocyte# 0.82 X10^3/uL; Monocyte% 8.8 % (0-10); Neutrophil # 5.46 X10^3/uL (2.7-7.7); Neutrophil % 58.3 % (47-70); Platelet Count 486 K/mm3 (150-450); RBC Distribution Width CV 13.2 % (11.6-14.6); Red Blood Count 3.57 M/mm3 (4.2-5.4); White Blood Count 9.4 K/mm3 (4.4-11.0)
[2018-05-21 07:57] LABS: Differential Indicated SCAN CRITERIA MET; POSITIVE COUNT NO; POSITIVE DIFFERENTIAL NO; POSITIVE MORPHOLOGY YES
[2018-05-21 08:03] LABS: Anion Gap 7 (5-15); BUN 2 mg/dL (7-18); BUN/Creat Ratio 3.6 RATIO (10-20); Calcium,Total 8.2 mg/dL (8.5-10.1); Chloride 103 mmol/L (98-107); Creatinine, Serum 0.55 mg/dL (0.55-1.02); EST Glomerular Filtration Rate 118 mL/min (>60); Est Glom Filt Rate - Afr Amer 142 mL/min (>60); Estimated Creatinine Clearance 81.73 ml/min; Glucose 97 mg/dL (74-106); Potassium 4.4 mmol/L (3.5-5.1); Sodium Level 137 mmol/L (136-145)
[2018-05-21] MEDS: Acetaminophen 325 MG Tablet 650 MG PO (08:25)
[2018-05-21 08:26] LABS: Differential Comment SCANNED
[2018-05-21 09:07] VITALS: BP 147/87; PULSE 72; RESP 20; TEMP 36.5; O2SAT 96
[2018-05-21] MEDS: lamoTRIgine 100 MG Tablet PO (09:09)
[2018-05-21] MEDS: hydroCHLOROthiazide 25 MG Tablet PO (09:09)
[2018-05-21] MEDS: Losartan Potassium 100 MG Tablet PO (09:09)
[2018-05-21] MEDS: Sertraline 100 MG Tablet PO ×2 (09:09→21:37)
[2018-05-21] MEDS: 0.9% NaCl Peripheral Flush Adult/Peds IV ×3 (09:10→21:36)
[2018-05-21] MEDS: 0.9% Normal Saline 1,000 ML 60 ML IV (13:28)
[2018-05-21 14:20] VITALS: BP 151/81; PULSE 68; RESP 16; TEMP 37.1; O2SAT 98
[2018-05-21] MEDS: Fluconazole 100 MG Tablet 150 MG PO (14:54)
[2018-05-21] MEDS: Morphine 2 MG/ML Syringe IV ×2 (14:54→21:37)
--- NOTE | 2018-05-21 19:28 | PCM.PROGNOTE ---
Patient Problems: Active and Suspected Problems Diverticulitis of large intestine with abscess without bleeding (Acute) MARCELA (acute kidney injury) (Acute) Dehydration (Acute) Diverticulitis large intestine (Acute) Subjective: Day #7 antibiotics-Zosyn All events of the past 24 hours of been reviewed. She is afebrile with stable vital signs. Pulse ox is 96-98% on room air. She is tolerating clear liquids. All lab was personally reviewed. The white blood cell count is 9.4 today with 58% neutrophils and 1.2% immature granulocytes. Hemoglobin is stable at 11 and platelets are increased at 486,000. The BMP is unremarkable. Her only complaint is persistent right lower quadrant pain. The IVAN drain continues to drain thick purulent appearing discharge. I reviewed Dr. Serrano's note from today and his plan is to continue antibiotics and bowel rest and to repeat a CT scan on Friday. If she continues to have extravasation from the colon he may need to operate. Pain is adequately controlled with the medication ordered for her Objective: GENERAL: alert, oriented X 3, Cooperative, NAD but getting frustrated and wants me to tell her when she will be better ORAL: moist mucosa, no mucosal lesions NECK: No JVD, supple, trachea midline LUNGS: CTA, symmetric chest expansion HEART: RRR, Normal S1 and S2, no rub, no gallop ABDOMEN: soft, tender to palpation in the RLL but no guarding with palpation, ND, BS present, EXTREMITIES: no edema, no cyanosis, no calf tenderness SKIN: No rashes, no breakdown NEUROLOGIC: no focal neurologic deficits PSYCH: appropriate, normal affect, pleasant - Physical Exam Vital Signs Temp Pulse Resp BP Pulse Ox 98.7 F 68 16 151/81 H 98 05/21/18 14:20 05/21/18 14:20 05/21/18 14:20 05/21/18 14:20 05/21/18 14:20 Oxygen Flow Rate (L/min) [8] 2 Oxygen Flow Rate (L/min) [6] 2 Oxygen Flow Rate (L/min) [5] 2 Oxygen Flow Rate (L/min) [4] 2 Oxygen Flow Rate (L/min) 2 Oxygen Delivery Method [8] Nasal Cannula Oxygen Delivery Method [7] Nasal Cannula Oxygen Delivery Method [6] Nasal Cannula Oxygen Delivery Method [5] Nasal Cannula Oxygen Delivery Method [4] Nasal Cannula Oxygen Delivery Method [2] Room Air Oxygen Delivery Method [1 ( Room Air Initial Baseline)] Oxygen Delivery Method Room Air Weight: 172 lb 6.424 oz Body Mass Index (BMI) 31.0 Intake and Output for Last 24 Hours 05/19/18 05/20/18 05/21/18 23:59 23:59 23:59 Intake Total 2778 / 2778 3898 / 3898 1214 / 1214 Output Total 948 / 948 1540 / 1540 1300 / 1300 Balance 1830 / 1830 2358 / 2358 -86 / -86 Microbiology Past 72 Hours 05/15/18 15:00 Gram Stain - Final Aspirate - Abdominal Wound Culture - Final Morganella morganii Enterobacter cloacae complex Enterococcus avium Anaerobic Culture - Final Bacteroides ovatus Laboratory Tests Past 24 Hrs 05/21/18 05/21/18 07:35 07:35 WBC 9.4 RBC 3.57 L Hgb 11.0 L Hct 33.9 L MCV 95.0 MCH 30.8 MCHC 32.4 RDW 13.2 RDW Differential 44.0 H Plt Count 486 H MPV 8.4 Immature Gran % (Auto) 1.200 H Neut % (Auto) 58.3 Lymph % (Auto) 29.2 [place] % (Auto) 8.8 Eos % (Auto) 1.8 Baso % (Auto) 0.7 Absolute Neuts (auto) 5.5 Absolute Lymphs (auto) 2.73 Total Counted Not Reportable Differential Comment SCANNED Sodium 137 Potassium 4.4 Chloride 103 Carbon Dioxide 27.0 Anion Gap 7 BUN 2 L Creatinine 0.55 Estim Creat Clear Calc 81.73 Est GFR (MDRD) Af Amer 142 Est GFR (MDRD) Non-Af 118 BUN/Creatinine Ratio 3.6 L Glucose 97 Calcium 8.2 L Medical Necessity - Tobacco Use Smoking Status: Never smoker Assessment/Plan All Active Problems Diverticulitis of large intestine with abscess without bleeding (Acute) MARCELA (acute kidney injury) (Acute) Dehydration (Acute) Diverticulitis large intestine (Acute) Impressions 1. Diverticulitis with abscess-status post IR insertion of a drain left lower quadrant. now with extraluminal contrast due to perforation in the small colon - there did not appear to be contrast in the abscess 2. Hypertension 3. Depression 4. Bipolar disorder 5. COPD 6. Hyperlipidemia 7. Normochromic normocytic anemia-stable 8. Hypokalemia-supplement ordered 9. Hypophosphatemia 10. Hypomagnesemia 11. Malnutrition per the testing analyst. Severe. will continue the Ensure Clear QID Continue the Zosyn Continue clear liquids Plan CT scan of the abdomen and pelvis on Friday Recheck lab in a.m. Friday will make Day 11 for suboptimal energy/calorie intake. She may nee surgery next week and will have impaired immune function and healing ability if no significant protein and calorie intake. And she will also be NPO after surgery. Will discuss with Dr. Serrano possible TPN? Code Visit Inpatient E&M: 97313 Subs Hosp L2
[2018-05-21] MEDS: Pravastatin 40 MG Tablet PO (21:37)
[2018-05-21 21:43] VITALS: BP 146/82; PULSE 67; RESP 16; TEMP 36.8; O2SAT 95
[2018-05-21] MEDS: Zolpidem Tartrate 5 MG Tablet PO (23:16)
[2018-05-22] VITALS (12 sets, daily range): BP systolic 87–144; BP diastolic 53–96; PULSE 63–102; RESP 14–20; TEMP 36.3–36.9; O2SAT 94–98; BMI 31.0
[2018-05-22] MEDS: Piperacil/Tazobactam 3.375 GM/50 ML ML IV ×2 (06:08→22:06)
[2018-05-22] MEDS: Heparin Injection (Vial) 5,000 UNIT/ML VIAL 5000 UNIT SC (06:09)
[2018-05-22 07:32] LABS: Absolute Neutrophil Count 4.5 X10^3/uL (2.0-7.7); Basophil# 0.06 X10^3/uL; Basophil% 0.7 % (0-1); Eosinophil# 0.18 X10^3/uL; Hematocrit 34.3 % (37-47); Hemoglobin 10.9 g/dl (12.0-15.0); Lymphocyte % 35.2 % (19-41); Mean Corp Hgb Conc 31.8 g/gl (32-36); Mean Corpuscular Volume 94.5 fL (81-99); Mean Platelet Vol. 8.7 fl (6.2-12.0); Monocyte# 0.88 X10^3/uL; Neutrophil # 4.52 X10^3/uL (2.7-7.7); Neutrophil % 51.3 % (47-70); Platelet Count 476 K/mm3 (150-450); RBC Distribution Width CV 13.6 % (11.6-14.6); RBC Distribution Width SD 46.9 fl (35.1-43.9); Red Blood Count 3.63 M/mm3 (4.2-5.4); White Blood Count 8.8 K/mm3 (4.4-11.0)
[2018-05-22 07:33] LABS: POSITIVE COUNT NO; POSITIVE DIFFERENTIAL NO; POSITIVE MORPHOLOGY NO
[2018-05-22 07:47] LABS: Anion Gap 8 (5-15); BUN 3 mg/dL (7-18); BUN/Creat Ratio 4.8 RATIO (10-20); Calcium,Total 8.7 mg/dL (8.5-10.1); Chloride 104 mmol/L (98-107); Creatinine, Serum 0.63 mg/dL (0.55-1.02); EST Glomerular Filtration Rate 101 mL/min (>60); Est Glom Filt Rate - Afr Amer 122 mL/min (>60); Estimated Creatinine Clearance 71.35 ml/min; Glucose 92 mg/dL (74-106); Potassium 4.3 mmol/L (3.5-5.1); Sodium Level 140 mmol/L (136-145)
--- NOTE | 2018-05-22 07:51 | EKG12_ITS ---
Test Reason : PRE-OP Blood Pressure : / mmHG Vent. Rate : 069 BPM Atrial Rate : 069 BPM P-R Int : 154 ms QRS Dur : 068 ms QT Int : 396 ms P-R-T Axes : 060 054 061 degrees QTc Int : 424 ms Normal sinus rhythm Normal ECG When compared with ECG of 19-SEP-2016 10:41, Nonspecific T wave abnormality now evident in Lateral leads Confirmed by USHA BRAVO, JARROD ([id number]), general expeditor THOMAS HOWE ([id number]) on 06/01/2018 10:30:01 AM Referred By: Rogelio Young Confirmed By:JARROD KERR MD
[2018-05-22] MEDS: Magnesium Oxide 400 MG Tablet PO (08:29)
[2018-05-22] MEDS: 0.9% Normal Saline 1,000 ML 60 ML IV (08:29)
[2018-05-22] MEDS: metroNIDAZOLE 500 MG Tablet 1000 MG PO (08:29)
[2018-05-22] MEDS: Losartan Potassium 100 MG Tablet PO (08:29)
[2018-05-22] MEDS: hydroCHLOROthiazide 25 MG Tablet PO (08:29)
[2018-05-22] MEDS: lamoTRIgine 100 MG Tablet PO (08:29)
[2018-05-22] MEDS: Sertraline 100 MG Tablet PO ×2 (08:29→22:06)
[2018-05-22 08:49] LABS: International Normalized Ratio 1.1
--- NOTE | 2018-05-22 08:56 | PCM.PN.SRG ---
Patient Problems: Active and Suspected Problems Diverticulitis of large intestine with abscess without bleeding (Acute) MARCELA (acute kidney injury) (Acute) Dehydration (Acute) Diverticulitis large intestine (Acute) Subjective: Patient reports some improvement in her right lower quadrant pain. - Physical Exam General: Alert, Oriented x3, Cooperative, No apparent distress Neck: No JVD Lungs: Normal air movement Cardiovascular: Regular rate, Regular Rhythm Abdomen: Soft, Non-Distended, Tender - Tender in the right lower quadrant., - - IVAN with purulent output Neurological: Cranial nerves II-XII grossly intact Psych/Mental Status: Normal Affect Vital Signs Temp Pulse Resp BP Pulse Ox 97.8 F 63 18 144/86 H 94 05/22/18 08:24 05/22/18 08:24 05/22/18 08:24 05/22/18 08:24 05/22/18 08:24 Oxygen Flow Rate (L/min) [8] 2 Oxygen Flow Rate (L/min) [6] 2 Oxygen Flow Rate (L/min) [5] 2 Oxygen Flow Rate (L/min) [4] 2 Oxygen Flow Rate (L/min) 2 Oxygen Delivery Method [8] Nasal Cannula Oxygen Delivery Method [7] Nasal Cannula Oxygen Delivery Method [6] Nasal Cannula Oxygen Delivery Method [5] Nasal Cannula Oxygen Delivery Method [4] Nasal Cannula Oxygen Delivery Method [2] Room Air Oxygen Delivery Method [1 ( Room Air Initial Baseline)] Oxygen Delivery Method Nasal Cannula Weight: 172 lb 6.424 oz Body Mass Index (BMI) 31.0 Intake and Output for Last 24 Hours 05/20/18 05/21/18 05/22/18 23:59 23:59 23:59 Intake Total 3898 / 3898 1214 / 1214 1229 / 1229 Output Total 1540 / 1540 1300 / 1300 2415 / 2415 Balance 2358 / 2358 -86 / -86 -1186 / -1186 Microbiology Past 72 Hours 05/15/18 15:00 Gram Stain - Final Aspirate - Abdominal Wound Culture - Final Morganella morganii Enterobacter cloacae complex Enterococcus avium Anaerobic Culture - Final Bacteroides ovatus Laboratory Tests Past 24 Hrs 05/22/18 05/22/18 05/22/18 07:04 07:04 08:12 WBC 8.8 RBC 3.63 L Hgb 10.9 L Hct 34.3 L MCV 94.5 MCH 30.0 MCHC 31.8 L RDW 13.6 RDW Differential 46.9 H Plt Count 476 H MPV 8.7 Immature Gran % (Auto) 0.800 Neut % (Auto) 51.3 Lymph % (Auto) 35.2 [place] % (Auto) 10.0 Eos % (Auto) 2.0 Baso % (Auto) 0.7 Absolute Neuts (auto) 4.5 Absolute Lymphs (auto) 3.10 Total Counted Not Reportable PT 14.0 INR 1.1 APTT 31.0 Sodium 140 Potassium 4.3 Chloride 104 Carbon Dioxide 28.0 Anion Gap 8 BUN 3 L Creatinine 0.63 Estim Creat Clear Calc 71.35 Est GFR (MDRD) Af Amer 122 Est GFR (MDRD) Non-Af 101 BUN/Creatinine Ratio 4.8 L Glucose 92 Calcium 8.7 Medical Necessity - Tobacco Use Smoking Status: Never smoker Assessment/Plan All Active Problems Diverticulitis of large intestine with abscess without bleeding (Acute) MARCELA (acute kidney injury) (Acute) Dehydration (Acute) Diverticulitis large intestine (Acute) 62-year-old female with perforated diverticulitis 1. I discussed the case with my partner, Dr. Goldstein. We reviewed the patient's CAT scan and he believes that this perforation will not sealed itself off and require surgical management. I discussed this with the patient. I recommend expiratory laparotomy with sigmoid colectomy. I explained that I would try to perform an anastomosis but that if her nutritional status or the condition of the abdomen would require that I would place a diverting loop ileostomy. I explained that there is still a possibility of having to place an end sigmoid colostomy. I explained that the abscess has small bowel kicked around it and this may require resection of some small bowel as well. I will also have Dr. Matos placed left ureteral stent before surgery. 2. I have made the patient n.p.o. and held her heparin. I will give her a gram of neomycin and Flagyl this morning. 3. I discussed the risks of the procedure including but not limited to bleeding, infection, need for stoma, need for small bowel resection, injury to the bladder or ureter or surrounding blood vessels or abdominal wall. I expand the risks of performing an anastomosis such as fistulization or anastomotic leak. The patient understands all these things and is willing to proceed with surgery today. Douglas Serrano MD Pager: [facility] [address] [place] [address], [address] [place] [address] Office:
--- NOTE | 2018-05-22 10:28 | NURSING ---
Addendum entered by Katharine Ortega 05/22/18 10:46: Reginaldo with [employer] called and notified this RN that he will be unable to place PICC prior to 1300 and requests for staff to call [facility] when pt. returns to unit. Original Note: This RN called liquor establishment manager and notified them of need for PICC line. [employer] verbalized understanding. Notified her that pt will be leaving unit at 1300 for surgery. [employer] states they will call prior to let staff know time frame.
--- NOTE | 2018-05-22 10:45 | NURSING ---
RT on unit- notified of need for EKG- understanding verbalized.
--- NOTE | 2018-05-22 10:49 | PN_ITS ---
Patient Problems: Active and Suspected Problems Diverticulitis of large intestine with abscess without bleeding (Acute) MARCELA (acute kidney injury) (Acute) Dehydration (Acute) Diverticulitis large intestine (Acute) Subjective: #8 antibiotics All events of the past 24 hours of been reviewed. She continues to be afebrile. Vital signs are stable and the pulse ox on room air is 94-95%. All lab was personally reviewed. White blood cell count is normal at 8.8 with a normal differential. Hemoglobin is 10.9 and stable. Platelets are increased at 476,000 and this is a reactive thrombocytosis. Electrolytes are within normal limits and the BUN is 3 with a creatinine of 0.63. She denies abdominal pain. No nausea. The DC from the drain remains purulent. Dr. Serrano is planning on surgery this afternoon Objective: GENERAL: alert, oriented X 3, Cooperative, NAD, [place] ORAL: moist mucosa, no mucosal lesions NECK: No JVD, supple, trachea midline LUNGS: CTA, symmetric chest expansion HEART: RRR, Normal S1 and S2, no rub, no gallop ABDOMEN: soft, tender to palpation in the RLL but no guarding with palpation, ND, BS present, EXTREMITIES: no edema, no cyanosis, no calf tenderness SKIN: No rashes, no breakdown NEUROLOGIC: no focal neurologic deficits PSYCH: appropriate, normal affect, pleasant - Physical Exam Vital Signs Temp Pulse Resp BP Pulse Ox 97.8 F 63 18 144/86 H 94 05/22/18 08:24 05/22/18 08:24 05/22/18 08:24 05/22/18 08:24 05/22/18 08:24 Oxygen Flow Rate (L/min) [8] 2 Oxygen Flow Rate (L/min) [6] 2 Oxygen Flow Rate (L/min) [5] 2 Oxygen Flow Rate (L/min) [4] 2 Oxygen Flow Rate (L/min) 2 Oxygen Delivery Method [8] Nasal Cannula Oxygen Delivery Method [7] Nasal Cannula Oxygen Delivery Method [6] Nasal Cannula Oxygen Delivery Method [5] Nasal Cannula Oxygen Delivery Method [4] Nasal Cannula Oxygen Delivery Method [2] Room Air Oxygen Delivery Method [1 ( Room Air Initial Baseline)] Oxygen Delivery Method Nasal Cannula Weight: 172 lb 6.424 oz Body Mass Index (BMI) 31.0 Intake and Output for Last 24 Hours 0105/21/18 05/22/18 23:59 23:59 23:59 Intake Total 3898 / 3898 1214 / 1214 1229 / 1229 Output Total 1540 / 1540 1300 / 1300 2415 / 2415 Balance 2358 / 2358 -86 / -86 -1186 / -1186 Microbiology Past 72 Hours 05/15/18 15:00 Gram Stain - Final Aspirate - Abdominal Wound Culture - Final Morganella morganii Enterobacter cloacae complex Enterococcus avium Anaerobic Culture - Final Bacteroides ovatus Laboratory Tests Past 24 Hrs 05/22/18 05/22/18 05/22/18 07:04 07:04 08:12 WBC 8.8 RBC 3.63 L Hgb 10.9 L Hct 34.3 L MCV 94.5 MCH 30.0 MCHC 31.8 L RDW 13.6 RDW Differential 46.9 H Plt Count 476 H MPV 8.7 Immature Gran % (Auto) 0.800 Neut % (Auto) 51.3 Lymph % (Auto) 35.2 [place] % (Auto) 10.0 Eos % (Auto) 2.0 Baso % (Auto) 0.7 Absolute Neuts (auto) 4.5 Absolute Lymphs (auto) 3.10 Total Counted Not Reportable PT 14.0 INR 1.1 APTT 31.0 Sodium 140 Potassium 4.3 Chloride 104 Carbon Dioxide 28.0 Anion Gap 8 BUN 3 L Creatinine 0.63 Estim Creat Clear Calc 71.35 Est GFR (MDRD) Af Amer 122 Est GFR (MDRD) Non-Af 101 BUN/Creatinine Ratio 4.8 L Glucose 92 Calcium 8.7 Medical Necessity - Tobacco Use Smoking Status: Never smoker Assessment/Plan All Active Problems Diverticulitis of large intestine with abscess without bleeding (Acute) MARCELA (acute kidney injury) (Acute) Dehydration (Acute) Diverticulitis large intestine (Acute) Day #8 antibiotics-Zosyn Impressions 1. Diverticulitis with abscess-status post IR insertion of a drain left lower quadrant. now with extraluminal contrast due to perforation in the small colon - there did not appear to be contrast in the abscess 2. Hypertension 3. Depression 4. Bipolar disorder 5. COPD 6. Hyperlipidemia 7. Normochromic normocytic anemia-stable 8. Hypokalemia-supplement ordered 9. Hypophosphatemia 10. Hypomagnesemia 11. Malnutrition per the office machines sales representative. Severe. will continue the Ensure Clear QID Continue antibiotic Surgery this afternoon Check a magnesium now Will reexamine postoperatively Code Visit Inpatient E&M: 05943 Subs Hosp L2
[2018-05-22 11:10] LABS: Magnesium 1.8 mg/dL (1.6-2.6)
--- NOTE | 2018-05-22 13:43 | PCA ---
pt off floor
--- NOTE | 2018-05-22 14:00 | COL_PTH ---
PATIENT: KEVIN RUGGIERO LOC: MS2 U#:[id number] AGE/SX: 62/F [place] [facility] [place]/14/[address]: Dr. Marita Lynch MD : [id number] BED: 1 DIS: 05/27/2018 SPEC #: [id number] RECD: 05/25/18 09:00 STATUS: TABITHA RESierra #: [id number] SIERRA: 05/22/18 14:[address]: Douglas Serrano DEPT: SURGICAL PATHOLOGY RECD BY: Erich Fountain ENTERED: 05/25/18 11:40 SP TYPE: COLON OTHR DR: MD Dr. Marita Manuel MD Dr. Joseph Agyepong, MD Dr. Tai Chi Kwok, MD Tissues: A - Colon, NOS B - Colon, NOS Procedures: Surgery Specimen Level V Comments: @ Ordering doctor for SUV edited from to @ by RODRIGUEZ at 05/25/18 1451 @ Submitting doctor edited from to @ by RGOOD at 05/25/18 145 HEADER OPERATION: Exploratory laparoscopy, sigmoid colon resection PRE-OP DIAGNOSIS: Diverticulitis of large intestine with abscess TISSUE SUBMITTED: A - Sigmoid colon, B - Two segments of small bowel MICROSCOPIC DIAGNOSIS A. Sigmoid colon, segmental colectomy: Diverticular disease of colon with focal subserosal microabscess suggestive of rupture. One out of one lymph node with no pathologic change. Margins of excision with no pathologic change. See comment. B. Segments of small bowel, colon resection: Serosal fibrosis, fibrinoid material acute and chronic inflammation and vascular ectasia. No evidence of malignancy. See comment. AM:luna 05/26/18 COMMENT A. No perforation through serosal surface is identified. Clinical correlation is suggested. B. The findings are suggestive of serosal adhesions, possibly related to specimen A. Clinical correlation is suggested. MICROSCOPIC DESCRIPTION Slides are reviewed. GROSS DESCRIPTION A - Received in fixative is one container labeled with the patient's name and designated sigmoid colon. The specimen consists of a 9.5 cm segment of bowel with attached fibrofatty tissue. The entire segment of bowel displays significant fat wrapping. No gross perforations are evident. The mucosal margins are grossly unremarkable. Serial sections reveal a number of diverticula. None of these appear to have perforated through the bowel wall. Equ[employer]ship sections are submitted in four cassettes as follows: 1?-?mucosal margins, 2 & 3 - diverticula, 4 - pericolic fatty tissue. B - Received in fixative is one container labeled with the patient's name and designated two segment of small bowel. The specimen consists of two segments of bowel. The smaller segment measures 6 cm in length and the larger measures 26 gm in length. Serial sections from the smaller segment of bowel do not reveal mass lesions. Equine Internship sections from this bowel are submitted in cassettes 1 & 2. The larger segment of bowel located approximately 3 cm from one stapled margin to resection appears to be folded over on itself and possibly contains fibrous adhesions in the serosa. Located approximately 4 cm from the opposite margin is an area of serosal thickening. No distinct mass lesion is identified. Equine Internship sections are submitted in four cassettes including areas of possible serosal adhesions from both ends of bowel in cassettes 3-6. / AM:luna 05/25/18 TC:2 CPT: 56406 x2
--- NOTE | 2018-05-22 15:08 | OP.PCM_ITS ---
Report of Operation Date of Procedure: 05/22/18 Pre-Operative Diagnosis: Sigmoid diverticulitis Post-Operative Diagnosis: Same Surgery/Procedure Performed:: Cystoscopy and placement of left ureteral catheter Description of Surgical Findings:: 62-year-old female taken back to the operating room the smooth induction of general anesthesia she was placed in dorsolithotomy position, the urethra vaginal area prepped and draped in usual sterile fashion went the bladder the 21 [place] rigid cystourethroscope cannulated the left ureteral orifice with a Glidewire and a Pollack catheter advanced the Pollack catheter up to your kidney pulled out the wire left the Pollack catheter in place put a catheter in her bladder and then drained the bladder I did not see any obvious tumors or abnormalities within the bladder. Patient was then handed over to general surgery to continue with there surgery. Type of Anesthesia:: General Drains: pollack cath - Admit VTE Documentation VTE Present on Admission: No VTE Mechan Device Prophylaxis: SCD's
[2018-05-22] MEDS: Bupivacaine 0.25% 30 ML Vial (17:25)
--- NOTE | 2018-05-22 17:35 | PCA ---
pt off floor
--- NOTE | 2018-05-22 17:53 | PCM.OPRPT ---
Problem List (1) Diverticulitis of large intestine with abscess without bleeding Status: Acute Report of Operation Date of Procedure: 05/22/18 Pre-Operative Diagnosis: Perforated sigmoid diverticulitis with abscess Post-Operative Diagnosis: Same Surgery/Procedure Performed:: 1. Exploratory laparotomy with sigmoid colon resection and primary anastomosis. 2. Small bowel resection with anastomosis x2 Type of Anesthesia:: General Specimen's removed: Sigmoid colon. 2 segments of small bowel Drains: IVAN to bulb suction Estimated Blood Loss (mL): 200 cc Description of Procedure: The patient was brought back to the operating room and general anesthesia was induced. came into the OR and performed a cystoscopy and left ureteral stent placement. Johsn catheter was placed as well. Next the abdomen was prepped and draped in usual sterile fashion. A midline incision was marked from xiphoid to suprapubic. Next an incision was made from just above the umbilicus to the suprapubic region. This was deepened to the fascia with electrocautery. The fascia was elevated and incised. The peritoneum was also divided and the abdomen was entered. Using 2 fingers to elevate the fascia it was opened with electrocautery from the umbilicus to the suprapubic space avoiding the bladder. The abdomen was inspected with palpation and the patient had a large inflamed area to the left lower quadrant. This was freed from the abdominal wall bluntly and then a large wound protector was placed into the abdomen. Next the small bowel was inspected and appeared to be tightly adherent to the abscess. Using blunt and sharp dissection the small bowel was dissected free. There were 2 areas of the small bowel enterotomies. There were also a few other areas with serosal injury. The serosal injuries were repaired with imbricating 3-0 silk sutures. The 2 areas with enterotomies were localized and resected. A small window was created on both sides of each of the small bowel enterotomies and a [place] stapler was used to resect both sections and the mesentery was taken with a LigaSure impact. Both areas of small bowel reanastomosed using a [place] and TL 60 stapler's. The mesentery of both sections were closed with running 3-0 Vicryl suture. Once the small bowel was repaired it was inspected from the proximal area to the terminal ileum. There were no more injuries or leaking of succus. The small bowel was then packed up into the upper abdomen and the colon was freed from the lateral aspect of the white line of [place]. There appeared to be a small area of the sigmoid colon which was very inflamed and the cause of the perforation. Just proximal and distal to this area where small bowel was encountered a small window was made in the mesentery and a Mirta clamp was placed across the sigmoid colon in both areas. The impact device was used to take down the sigmoid mesentery just below the sigmoid colon. The sigmoid colon was then sent for specimen. The sigmoid colon was reapproximated in a handsewn fashion in the following way. Interrupted 3-0 silk sutures were placed in the posterior aspect of the colon next a double-armed 3-0 chromic suture was used in a continuous fashion to form the inner layer of the anastomosis. Next 3-0 silk sutures were used on the anterior portion of the anastomosis imbricated. Surrounding segments of epiploic fat were placed over the anastomosis and sutured to it. The colon was inspected and appeared to be under no tension. The entire abdomen was irrigated and suctioned dry. There was some oozing from the fundus of the uterus where the abscess was adherent to it. A few [id number]-[id number] 0 Vicryl sutures were used on the fundus of the uterus and a Surgicel was placed over this. Next a 15 [place] round drain was placed in the pelvis and placed to bulb suction. The anterior fascia was then closed with a running #1 looped PDS from each end meeting in the middle. The subcutaneous tissue was then irrigated and suctioned. The skin was anesthetized with Marcaine and loosely closed with interrupted 4-0 Monocryl sutures. In between these Monocryl sutures Telfa strips soaked in Betadine were placed as aubrie. Bandages were then placed over this. The patient's ureteral stent was removed at the end of the case with the Johns remained until tomorrow morning. The patient tolerated the procedure well. - Admit VTE Documentation VTE Present on Admission: No VTE Mechan Device Prophylaxis: SCD's
[2018-05-22] MEDS: 0.9% Normal Saline 1,000 ML 100 ML IV (17:55)
[2018-05-22] MEDS: Morphine 2 MG/ML Syringe IV (20:35)
[2018-05-22] MEDS: 0.9% NaCl Peripheral Flush Adult/Peds IV (20:35)
[2018-05-22] MEDS: Zolpidem Tartrate 5 MG Tablet PO (22:06)
[2018-05-22] MEDS: Pravastatin 40 MG Tablet PO (22:06)
[2018-05-23] VITALS (7 sets, daily range): BP systolic 101–127; BP diastolic 56–69; PULSE 83–91; RESP 18; TEMP 36.5–37; O2SAT 93–99
[2018-05-23] MEDS: 0.9% Normal Saline 1,000 ML 999 ML IV (00:57)
[2018-05-23] MEDS: 0.9% NaCl Peripheral Flush Adult/Peds IV ×3 (01:09→01:11)
[2018-05-23 01:23] LABS: Absolute Lymphocyte Count 1.71 X10^3/ul (0.83-4.51); Absolute Neutrophil Count 17.9 X10^3/uL (2.0-7.7); Basophil# 0.04 X10^3/uL; Basophil% 0.2 % (0-1); Eosinophil# 0.03 X10^3/uL; Eosinophils% 0.1 % (0-5); Hematocrit 31.7 % (37-47); Lymphocyte # 1.71 X10^3/ul (4.0); Lymphocyte % 7.9 % (19-41); Mean Corp Hgb Conc 31.5 g/gl (32-36); Mean Corpuscular Hgb 30.4 pg (27.0-32.0); Mean Corpuscular Volume 96.4 fL (81-99); Mean Platelet Vol. 8.1 fl (6.2-12.0); Monocyte# 1.79 X10^3/uL; Monocyte% 8.3 % (0-10); Neutrophil # 17.92 X10^3/uL (2.7-7.7); Platelet Count 408 K/mm3 (150-450); RBC Distribution Width CV 13.7 % (11.6-14.6); RBC Distribution Width SD 48.3 fl (35.1-43.9); Red Blood Count 3.29 M/mm3 (4.2-5.4); White Blood Count 21.6 K/mm3 (4.4-11.0)
[2018-05-23 01:24] LABS: Differential Indicated SCAN CRITERIA MET; POSITIVE COUNT NO; POSITIVE DIFFERENTIAL YES; POSITIVE MORPHOLOGY NO
[2018-05-23] MEDS: Morphine 2 MG/ML Syringe IV ×6 (02:34→19:55)
[2018-05-23] MEDS: Ondansetron 4 MG/2 ML Vial IV (02:46)
[2018-05-23 05:41] LABS: Absolute Lymphocyte Count 1.63 X10^3/ul (0.83-4.51); Absolute Neutrophil Count 14.3 X10^3/uL (2.0-7.7); Basophil# 0.04 X10^3/uL; Basophil% 0.2 % (0-1); Eosinophil# 0.03 X10^3/uL; Eosinophils% 0.2 % (0-5); Hematocrit 31.8 % (37-47); Lymphocyte # 1.63 X10^3/ul (4.0); Lymphocyte % 9.3 % (19-41); Mean Corp Hgb Conc 31.4 g/gl (32-36); Mean Corpuscular Hgb 31.2 pg (27.0-32.0); Mean Corpuscular Volume 99.1 fL (81-99); Mean Platelet Vol. 8.6 fl (6.2-12.0); Monocyte# 1.41 X10^3/uL; Neutrophil # 14.34 X10^3/uL (2.7-7.7); Neutrophil % 81.7 % (47-70); Platelet Count 496 K/mm3 (150-450); RBC Distribution Width CV 13.5 % (11.6-14.6); RBC Distribution Width SD 47.1 fl (35.1-43.9); Red Blood Count 3.21 M/mm3 (4.2-5.4); White Blood Count 17.6 K/mm3 (4.4-11.0)
[2018-05-23 05:42] LABS: POSITIVE COUNT NO; POSITIVE DIFFERENTIAL NO; POSITIVE MORPHOLOGY NO
[2018-05-23] MEDS: Piperacil/Tazobactam 3.375 GM/50 ML ML IV ×3 (05:45→21:55)
[2018-05-23 05:55] LABS: Anion Gap 7 (5-15); BUN 9 mg/dL (7-18); Calcium,Total 7.5 mg/dL (8.5-10.1); Chloride 108 mmol/L (98-107); Creatinine, Serum 1.12 mg/dL (0.55-1.02); EST Glomerular Filtration Rate 52 mL/min (>60); Est Glom Filt Rate - Afr Amer 63 mL/min (>60); Estimated Creatinine Clearance 40.13 ml/min; Glucose 124 mg/dL (74-106); Magnesium 1.6 mg/dL (1.6-2.6); Phosphorus 4.5 mg/dL (2.5-4.9); Potassium 4.6 mmol/L (3.5-5.1); Sodium Level 141 mmol/L (136-145)
--- NOTE | 2018-05-23 07:39 | PCM.PN.SRG ---
Patient Problems: Active and Suspected Problems Diverticulitis of large intestine with abscess without bleeding (Acute) MARCELA (acute kidney injury) (Acute) Dehydration (Acute) Diverticulitis large intestine (Acute) Subjective: Patient had some mild nausea overnight which has subsided. The patient is complaining of minimal pain which is controlled with morphine. Patient reports no flatus. No vomiting. - Physical Exam General: Alert, Oriented x3, Cooperative, No apparent distress HEENT: Atraumatic Neck: No JVD Lungs: Normal air movement Cardiovascular: Regular rate, Regular Rhythm Abdomen: Soft, Non-Distended, Tender - Mild appropriate tenderness to palpation, - - IVAN is serosanguineous Vital Signs Temp Pulse Resp BP Pulse Ox 98.6 F 85 18 109/56 L 96 05/23/18 05:41 05/23/18 05:41 05/23/18 05:41 05/23/18 05:41 05/23/18 05:41 Oxygen Flow Rate (L/min) [8] 2 Oxygen Flow Rate (L/min) [6] 2 Oxygen Flow Rate (L/min) [5] 2 Oxygen Flow Rate (L/min) [4] 2 Oxygen Flow Rate (L/min) 2 Oxygen Delivery Method [8] Nasal Cannula Oxygen Delivery Method [7] Nasal Cannula Oxygen Delivery Method [6] Nasal Cannula Oxygen Delivery Method [5] Nasal Cannula Oxygen Delivery Method [4] Nasal Cannula Oxygen Delivery Method [2] Room Air Oxygen Delivery Method [1 ( Room Air Initial Baseline)] Oxygen Delivery Method Nasal Cannula Weight: 172 lb 6.424 oz Body Mass Index (BMI) 31.0 Intake and Output for Last 24 Hours 05/21/18 05/22/18 05/23/18 23:59 23:59 23:59 Intake Total 1214 / 1214 3714 / 3714 1947 / 1947 Output Total 1300 / 1300 3170 / 3170 298 / 298 Balance -86 / -86 544 / 544 1649 / 1649 Microbiology Past 72 Hours 05/15/18 15:00 Gram Stain - Final Aspirate - Abdominal Wound Culture - Final Morganella morganii Enterobacter cloacae complex Enterococcus avium Anaerobic Culture - Final Bacteroides ovatus Laboratory Tests Past 24 Hrs 05/22/18 05/22/18 05/22/18 07:04 07:04 08:12 WBC RBC Hgb Hct MCV MCH MCHC RDW RDW Differential Plt Count MPV Immature Gran % (Auto) Neut % (Auto) Lymph % (Auto) Carbon % (Auto) Eos % (Auto) Baso % (Auto) Absolute Neuts (auto) Absolute Lymphs (auto) Total Counted Diff Path Review PT 14.0 INR 1.1 APTT 31.0 Sodium 140 Potassium 4.3 Chloride 104 Carbon Dioxide 28.0 Anion Gap 8 BUN 3 L Creatinine 0.63 Estim Creat Clear Calc 71.35 Est GFR (MDRD) Af Amer 122 Est GFR (MDRD) Non-Af 101 BUN/Creatinine Ratio 4.8 L Glucose 92 Calcium 8.7 Phosphorus Magnesium 1.8 05/23/18 05/23/18 05/23/18 01:10 05:20 05:20 WBC 21.6 H 17.6 H RBC 3.29 L 3.21 L Hgb 10.0 L 10.0 L Hct 31.7 L 31.8 L MCV 96.4 99.1 H MCH 30.4 31.2 MCHC 31.5 L 31.4 L RDW 13.7 13.5 RDW Differential 48.3 H 47.1 H Plt Count 408 496 H MPV 8.1 8.6 Immature Gran % (Auto) 0.500 0.600 Neut % (Auto) 83.0 H 81.7 H Lymph % (Auto) 7.9 L 9.3 L Carbon % (Auto) 8.3 8.0 Eos % (Auto) 0.1 0.2 Baso % (Auto) 0.2 0.2 Absolute Neuts (auto) 17.9 H 14.3 H Absolute Lymphs (auto) 1.71 1.63 Total Counted Not Reportable Not Reportable Diff Path Review May foll PT INR APTT Sodium 141 Potassium 4.6 Chloride 108 H Carbon Dioxide 26.0 Anion Gap 7 BUN 9 Creatinine 1.12 H Estim Creat Clear Calc 40.13 Est GFR (MDRD) Af Amer 63 Est GFR (MDRD) Non-Af 52 L BUN/Creatinine Ratio 8.0 L Glucose 124 H Calcium 7.5 L Phosphorus 4.5 Magnesium 1.6 Medical Necessity - Tobacco Use Smoking Status: Never smoker Assessment/Plan All Active Problems Diverticulitis of large intestine with abscess without bleeding (Acute) MARCELA (acute kidney injury) (Acute) Dehydration (Acute) Diverticulitis large intestine (Acute) 62-year-old female status post laparotomy with sigmoid resection as well as 2 small bowel resections, POD 1 1. Patient had low urine output and hypotension overnight. She did respond to 1 L bolus. Her urine output is improved this morning and her blood pressure is stabilized. Her creatinine did rise slightly I will give her another 500 cc bolus and she seems competent to go to the bathroom so I will DC her Johns and asked for strict I's and O's. 2. Patient's IVAN is serosanguineous with minimal output. 3. Continue antibiotics until white count normalizes. 4. Continue n.p.o. until patient has flatus. 5. Patient may resume subcutaneous heparin this afternoon at 4 PM. Douglas Serrano MD Pager: [facility] [address] [place] [address], [address] [place] [address] Office:
[2018-05-23] MEDS: Sertraline 100 MG Tablet PO ×2 (08:23→19:55)
[2018-05-23] MEDS: Magnesium Oxide 400 MG Tablet PO (08:23)
[2018-05-23] MEDS: lamoTRIgine 100 MG Tablet PO (08:23)
--- NOTE | 2018-05-23 12:27 | PN_ITS ---
Patient Problems: Active and Suspected Problems Diverticulitis of large intestine with abscess without bleeding (Acute) MARCELA (acute kidney injury) (Acute) Dehydration (Acute) Diverticulitis large intestine (Acute) Subjective: Postoperative day #1 All events the past 24 hours been reviewed. She remains afebrile. Vital signs are stable and she is 93% saturated on room air today. White blood cell count today is 17.6 with a left shift. Hemoglobin is stable at 10.0 and the platelets are high at 496,000. Electrolytes are unremarkable. The BUN is 9 with a creatinine of 1.12, up from 0.63 on 05/22/2018. Calcium is 7.5 and magnesium is borderline low at 1.6. Pain is adequately relieved with the pain medication ordered Nausea is relieved with medication, no emesis Denies chest pain, denies shortness of breath Has been doing her incentive spirometry No flatus yet Objective: GENERAL: alert, oriented X 3, Cooperative, NAD, [place] ORAL: moist mucosa, no mucosal lesions NECK: No JVD, supple, trachea midline LUNGS: CTA, symmetric chest expansion, diminished [place] in the bases, no conversational dyspnea HEART: RRR, Normal S1 and S2, no rub, no gallop, systolic MM at the second right ICS with radiation to the LVOT and the apex ABDOMEN: soft, tender to palpation, quiet, no flatus EXTREMITIES: no edema, no cyanosis, no calf tenderness SKIN: No rashes, no breakdown NEUROLOGIC: no focal neurologic deficits PSYCH: appropriate, normal affect, pleasant - Physical Exam Vital Signs Temp Pulse Resp BP Pulse Ox 98.3 F 83 18 101/59 L 93 05/23/18 08:15 05/23/18 08:15 05/23/18 08:15 05/23/18 08:15 05/23/18 08:15 Oxygen Flow Rate (L/min) [8] 2 Oxygen Flow Rate (L/min) [6] 2 Oxygen Flow Rate (L/min) [5] 2 Oxygen Flow Rate (L/min) [4] 2 Oxygen Flow Rate (L/min) 2 Oxygen Delivery Method [8] Nasal Cannula Oxygen Delivery Method [7] Nasal Cannula Oxygen Delivery Method [6] Nasal Cannula Oxygen Delivery Method [5] Nasal Cannula Oxygen Delivery Method [4] Nasal Cannula Oxygen Delivery Method [2] Room Air Oxygen Delivery Method [1 ( Room Air Initial Baseline)] Oxygen Delivery Method Room Air Weight: 172 lb 6.424 oz Body Mass Index (BMI) 31.0 Intake and Output for Last 24 Hours 05/21/18 05/22/18 05/23/18 23:59 23:59 23:59 Intake Total 1214 / 1214 3714 / 3714 3162 / 3162 Output Total 1300 / 1300 3170 / 3170 558 / 558 Balance -86 / -86 544 / 544 2604 / 2604 Microbiology Past 72 Hours 05/15/18 15:00 Gram Stain - Final Aspirate - Abdominal Wound Culture - Final Morganella morganii Enterobacter cloacae complex Enterococcus avium Anaerobic Culture - Final Bacteroides ovatus Laboratory Tests Past 24 Hrs 05/23/18 05/23/18 05/23/18 01:10 05:20 05:20 WBC 21.6 H 17.6 H RBC 3.29 L 3.21 L Hgb 10.0 L 10.0 L Hct 31.7 L 31.8 L MCV 96.4 99.1 H MCH 30.4 31.2 MCHC 31.5 L 31.4 L RDW 13.7 13.5 RDW Differential 48.3 H 47.1 H Plt Count 408 496 H MPV 8.1 8.6 Immature Gran % (Auto) 0.500 0.600 Neut % (Auto) 83.0 H 81.7 H Lymph % (Auto) 7.9 L 9.3 L [place] % (Auto) 8.3 8.0 Eos % (Auto) 0.1 0.2 Baso % (Auto) 0.2 0.2 Absolute Neuts (auto) 17.9 H 14.3 H Absolute Lymphs (auto) 1.71 1.63 Total Counted Not Reportable Not Reportable Diff Path Review September foll Sodium 141 Potassium 4.6 Chloride 108 H Carbon Dioxide 26.0 Anion Gap 7 BUN 9 Creatinine 1.12 H Estim Creat Clear Calc 40.13 Est GFR (MDRD) Af Amer 63 Est GFR (MDRD) Non-Af 52 L BUN/Creatinine Ratio 8.0 L Glucose 124 H Calcium 7.5 L Phosphorus 4.5 Magnesium 1.6 Medical Necessity - Tobacco Use Smoking Status: Never smoker Assessment/Plan All Active Problems Diverticulitis of large intestine with abscess without bleeding (Acute) MARCELA (acute kidney injury) (Acute) Dehydration (Acute) Diverticulitis large intestine (Acute) Day #9 antibiotics- Zosyn Impressions 1. Diverticulitis with abscess-status post IR insertion of a drain left lower quadrant. now with extraluminal contrast due to perforation in the small colon - there did not appear to be contrast in the abscess 2. Hypertension 3. Depression 4. Bipolar disorder 5. COPD 6. Hyperlipidemia 7. Normochromic normocytic anemia-stable 8. Hypokalemia-supplement ordered 9. Hypophosphatemia 10. Hypomagnesemia 11. Malnutrition per the maintenance associate. Severe. will continue the Ensure Clear QID Continue Zosyn Recheck CBC, BMP, magnesium in the a.m. Encouraged her to use the incentive spirometer when sitting upright in the bed or the chair and after she has had pain medication to maximize her effort, 10 b reaths/h while awake Continue Ensure clear 4 times daily Code Visit Inpatient E&M: 43792 Subs Hosp L2
[2018-05-23 12:56] LABS: Albumin, Serum 1.9 g/dL (3.2-5.0)
[2018-05-23] MEDS: 0.9% Normal Saline 1,000 ML 100 ML IV ×2 (13:09→23:21)
[2018-05-23] MEDS: Pravastatin 40 MG Tablet PO (19:55)
[2018-05-23] MEDS: Zolpidem Tartrate 5 MG Tablet PO (21:55)
[2018-05-24] VITALS (7 sets, daily range): BP systolic 141–163; BP diastolic 74–88; PULSE 85–96; RESP 16–18; TEMP 36.6–37.2; O2SAT 92–94
[2018-05-24] MEDS: Morphine 2 MG/ML Syringe IV (04:29)
[2018-05-24] MEDS: Piperacil/Tazobactam 3.375 GM/50 ML ML IV ×3 (05:31→21:17)
[2018-05-24 06:30] LABS: Absolute Lymphocyte Count 1.51 X10^3/ul (0.83-4.51); Absolute Neutrophil Count 10.6 X10^3/uL (2.0-7.7); Basophil# 0.03 X10^3/uL; Basophil% 0.2 % (0-1); Eosinophil# 0.13 X10^3/uL; Hemoglobin 8.7 g/dl (12.0-15.0); Lymphocyte # 1.51 X10^3/ul (4.0); Lymphocyte % 11.2 % (19-41); Mean Corp Hgb Conc 31.1 g/gl (32-36); Mean Corpuscular Hgb 30.9 pg (27.0-32.0); Mean Corpuscular Volume 99.3 fL (81-99); Monocyte# 1.15 X10^3/uL; Monocyte% 8.5 % (0-10); Neutrophil # 10.59 X10^3/uL (2.7-7.7); Neutrophil % 78.6 % (47-70); Platelet Count 451 K/mm3 (150-450); RBC Distribution Width CV 13.5 % (11.6-14.6); RBC Distribution Width SD 47.4 fl (35.1-43.9); Red Blood Count 2.82 M/mm3 (4.2-5.4); White Blood Count 13.5 K/mm3 (4.4-11.0)
[2018-05-24 06:33] LABS: POSITIVE COUNT NO; POSITIVE DIFFERENTIAL NO; POSITIVE MORPHOLOGY NO
[2018-05-24 07:13] LABS: Anion Gap 6 (5-15); BUN 3 mg/dL (7-18); BUN/Creat Ratio 5.7 RATIO (10-20); Calcium,Total 7.6 mg/dL (8.5-10.1); Chloride 105 mmol/L (98-107); Creatinine, Serum 0.53 mg/dL (0.55-1.02); EST Glomerular Filtration Rate 123 mL/min (>60); Est Glom Filt Rate - Afr Amer 149 mL/min (>60); Estimated Creatinine Clearance 84.81 ml/min; Glucose 121 mg/dL (74-106); Magnesium 1.8 mg/dL (1.6-2.6); Potassium 4.3 mmol/L (3.5-5.1); Sodium Level 138 mmol/L (136-145)
--- NOTE | 2018-05-24 07:56 | PCM.PROGNOTE ---
Patient Problems: Active and Suspected Problems Diverticulitis of large intestine with abscess without bleeding (Acute) MARCELA (acute kidney injury) (Acute) Dehydration (Acute) Diverticulitis large intestine (Acute) Subjective: Postoperative day #2 Antibiotics day #10-Zosyn The patient is a 62-year-old female with a past medical history of diverticulosis, hypertension, depression, bipolar disorder, COPD and hyperlipidemia who presented to [facility] on 05/14/2018 complaining of a 9-day history of nausea and abdominal pain. The pain was worst in the right lower quadrant. An outpatient abdominal CT showed diverticulitis with abscess formation. She was admitted to the hospital and started on Levaquin and Flagyl. Dr. Serrano was consulted to participate in management. Interventional radiology was consulted to place a drain in the abscess. White blood cell count remained elevated and she was transitioned to Zosyn. The IVAN drain continued to drain purulent material and a CT scan with fistulogram was done on 05/20/2018 and this showed residual abscess in the lower abdomen and pelvis with extraluminal contrast exiting the sigmoid colon into the peritoneum. She was taken to surgery by Dr. Serrano on 05/22/2018 for exploratory laparotomy with sigmoid colon resection and primary anastomosis. Also had small bowel resection with anastomosis x2. All events the past 24 hours been reviewed. Remains afebrile. Vital signs are stable. She is 94-95% on 1 L nasal cannula. White blood cell count today is down to 13.5. Hemoglobin is 8.7 and platelets are widely elevated secondary to reactive thrombocytosis. Electrolytes are unremarkable and the BUN is 3 with a creatinine of 0.53, down from 1.12 on 05/23/2018. No flatus, no BM. Denies SOB, CP, nausea. Encouraged by Dr. Serrano to ambulate and decrease the use of MS. Toradol ordered The drain has serosanguineous discharge only Objective: GENERAL: alert, oriented X 3, Cooperative, NAD, B[employer] ORAL: moist mucosa, no mucosal lesions NECK: No JVD, supple, trachea midline LUNGS: CTA, symmetric chest expansion, diminished parish in the bases, no conversational dyspnea. She has been doing the IS HEART: RRR, Normal S1 and S2, no rub, no gallop, systolic MM at the second right ICS with radiation to the LVOT and the apex ABDOMEN: soft, tender to palpation throughout, quiet, no flatus, distended and tympanic EXTREMITIES: no edema, no cyanosis, no calf tenderness SKIN: No rashes, no breakdown NEUROLOGIC: no focal neurologic deficits PSYCH: appropriate, normal affect, pleasant - Physical Exam Vital Signs Temp Pulse Resp BP Pulse Ox 98.8 F 94 16 160/82 H 94 05/24/18 03:16 05/24/18 03:16 05/24/18 03:16 05/24/18 03:16 05/24/18 03:16 Oxygen Flow Rate (L/min) [8] 2 Oxygen Flow Rate (L/min) [6] 2 Oxygen Flow Rate (L/min) [5] 2 Oxygen Flow Rate (L/min) [4] 2 Oxygen Flow Rate (L/min) 1 Oxygen Delivery Method [8] Nasal Cannula Oxygen Delivery Method [7] Nasal Cannula Oxygen Delivery Method [6] Nasal Cannula Oxygen Delivery Method [5] Nasal Cannula Oxygen Delivery Method [4] Nasal Cannula Oxygen Delivery Method [2] Room Air Oxygen Delivery Method [1 ( Room Air Initial Baseline)] Oxygen Delivery Method Nasal Cannula Weight: 172 lb 6.424 oz Body Mass Index (BMI) 31.0 Intake and Output for Last 24 Hours 05/22/18 05/23/18 05/24/18 23:59 23:59 23:59 Intake Total 3714 / 3714 4834.1 / 4834.1 702 / 702 Output Total 3170 / 3170 1568 / 1568 727 / 727 Balance 544 / 544 3266.1 / 3266.1 -25 / -25 Laboratory Tests Past 24 Hrs 05/23/18 05/24/18 05/24/18 05:20 05:50 05:50 WBC 13.5 H RBC 2.82 L Hgb 8.7 L Hct 28.0 L MCV 99.3 H MCH 30.9 MCHC 31.1 L RDW 13.5 RDW Differential 47.4 H Plt Count 451 H MPV 9.0 Immature Gran % (Auto) 0.500 Neut % (Auto) 78.6 H Lymph % (Auto) 11.2 L [place] % (Auto) 8.5 Eos % (Auto) 1.0 Baso % (Auto) 0.2 Absolute Neuts (auto) 10.6 H Absolute Lymphs (auto) 1.51 Total Counted Not Reportable Sodium 138 Potassium 4.3 Chloride 105 Carbon Dioxide 27.0 Anion Gap 6 BUN 3 L Creatinine 0.53 L Estim Creat Clear Calc 84.81 Est GFR (MDRD) Af Amer 149 Est GFR (MDRD) Non-Af 123 BUN/Creatinine Ratio 5.7 L Glucose 121 H Calcium 7.6 L Magnesium 1.8 Albumin 1.9 L Medical Necessity - Tobacco Use Smoking Status: Never smoker Assessment/Plan All Active Problems Diverticulitis of large intestine with abscess without bleeding (Acute) MARCELA (acute kidney injury) (Acute) Dehydration (Acute) Diverticulitis large intestine (Acute) Postoperative day #2 Day #10 antibiotics- Zosyn Impressions 1. Diverticulitis with abscess-status post IR insertion of a drain left lower quadrant. repeat CT abdomen with extraluminal contrast due to perforation in the colon. S/P ex lap with resection of coln and small bowel with end to end anastomosis of the colon and the small bowel 2. Hypertension 3. Depression 4. Bipolar disorder 5. COPD 6. Hyperlipidemia 7. Normochromic normocytic anemia-stable 8. Hypokalemia-supplement ordered 9. Hypophosphatemia 10. Hypomagnesemia 11. Malnutrition per the boot and shoe repairman. Severe. will continue the Ensure Clear QID 12. Severe hypoalbuminemia 13. Normochromic normocytic anemia Continue Zosyn Ambulate Primary management by surgery Code Visit Inpatient E&M: 92509 Subs Hosp L2
--- NOTE | 2018-05-24 08:07 | PCM.PN.SRG ---
Patient Problems: Active and Suspected Problems Diverticulitis of large intestine with abscess without bleeding (Acute) MARCELA (acute kidney injury) (Acute) Dehydration (Acute) Diverticulitis large intestine (Acute) Subjective: Patient reports no nausea or vomiting. She is not passing any flatus yet. She is having diffuse abdominal pain. She does not believe her bloating is any worse. - Physical Exam General: Alert, Oriented x3, Cooperative Neck: No JVD Lungs: Normal air movement Cardiovascular: Regular rate, Regular Rhythm Abdomen: Soft, Non-Distended Vital Signs Temp Pulse Resp BP Pulse Ox 98.8 F 94 16 160/82 H 94 05/24/18 03:16 05/24/18 03:16 05/24/18 03:16 05/24/18 03:16 05/24/18 03:16 Oxygen Flow Rate (L/min) [8] 2 Oxygen Flow Rate (L/min) [6] 2 Oxygen Flow Rate (L/min) [5] 2 Oxygen Flow Rate (L/min) [4] 2 Oxygen Flow Rate (L/min) 1 Oxygen Delivery Method [8] Nasal Cannula Oxygen Delivery Method [7] Nasal Cannula Oxygen Delivery Method [6] Nasal Cannula Oxygen Delivery Method [5] Nasal Cannula Oxygen Delivery Method [4] Nasal Cannula Oxygen Delivery Method [2] Room Air Oxygen Delivery Method [1 ( Room Air Initial Baseline)] Oxygen Delivery Method Nasal Cannula Weight: 172 lb 6.424 oz Body Mass Index (BMI) 31.0 Intake and Output for Last 24 Hours 05/22/18 05/23/18 05/24/18 23:59 23:59 23:59 Intake Total 3714 / 3714 4834.1 / 4834.1 702 / 702 Output Total 3170 / 3170 1568 / 1568 727 / 727 Balance 544 / 544 3266.1 / 3266.1 -25 / -25 Laboratory Tests Past 24 Hrs 05/23/18 05/24/18 05/24/18 05:20 05:50 05:50 WBC 13.5 H RBC 2.82 L Hgb 8.7 L Hct 28.0 L MCV 99.3 H MCH 30.9 MCHC 31.1 L RDW 13.5 RDW Differential 47.4 H Plt Count 451 H MPV 9.0 Immature Gran % (Auto) 0.500 Neut % (Auto) 78.6 H Lymph % (Auto) 11.2 L [place] % (Auto) 8.5 Eos % (Auto) 1.0 Baso % (Auto) 0.2 Absolute Neuts (auto) 10.6 H Absolute Lymphs (auto) 1.51 Total Counted Not Reportable Sodium 138 Potassium 4.3 Chloride 105 Carbon Dioxide 27.0 Anion Gap 6 BUN 3 L Creatinine 0.53 L Estim Creat Clear Calc 84.81 Est GFR (MDRD) Af Amer 149 Est GFR (MDRD) Non-Af 123 BUN/Creatinine Ratio 5.7 L Glucose 121 H Calcium 7.6 L Magnesium 1.8 Albumin 1.9 L Medical Necessity - Tobacco Use Smoking Status: Never smoker Assessment/Plan All Active Problems Diverticulitis of large intestine with abscess without bleeding (Acute) MARCELA (acute kidney injury) (Acute) Dehydration (Acute) Diverticulitis large intestine (Acute) 62-year-old female status post laparotomy with sigmoid resection as well as 2 small bowel resection, POD 2 1. Patient's white count continues to fall. Continue antibiotics until normalized. Drain is serosanguineous with no bile or purulent material. Continue n.p.o. until patient is passing flatus. 2. Encouraged ambulation. Douglas Serrano MD Pager: [facility] [address] [place] [address], [address] [place] [address] Office:
--- NOTE | 2018-05-24 08:12 | PN.SURG_ITS ---
Patient Problems: Active and Suspected Problems Diverticulitis of large intestine with abscess without bleeding (Acute) MARCELA (acute kidney injury) (Acute) Dehydration (Acute) Diverticulitis large intestine (Acute) Subjective: Patient reports no nausea or vomiting. She is not passing any flatus yet. She is having diffuse abdominal pain. She does not believe her bloating is any worse. - Physical Exam General: Alert, Oriented x3, Cooperative Neck: No JVD Lungs: Normal air movement Cardiovascular: Regular rate, Regular Rhythm Abdomen: Soft, Non-Distended Vital Signs Temp Pulse Resp BP Pulse Ox 98.8 F 94 16 160/82 H 94 05/24/18 03:16 05/24/18 03:16 05/24/18 03:16 05/24/18 03:16 05/24/18 03:16 Oxygen Flow Rate (L/min) [8] 2 Oxygen Flow Rate (L/min) [6] 2 Oxygen Flow Rate (L/min) [5] 2 Oxygen Flow Rate (L/min) [4] 2 Oxygen Flow Rate (L/min) 1 Oxygen Delivery Method [8] Nasal Cannula Oxygen Delivery Method [7] Nasal Cannula Oxygen Delivery Method [6] Nasal Cannula Oxygen Delivery Method [5] Nasal Cannula Oxygen Delivery Method [4] Nasal Cannula Oxygen Delivery Method [2] Room Air Oxygen Delivery Method [1 ( Room Air Initial Baseline)] Oxygen Delivery Method Nasal Cannula Weight: 172 lb 6.424 oz Body Mass Index (BMI) 31.0 Intake and Output for Last 24 Hours 05/22/18 05/23/18 05/24/18 23:59 23:59 23:59 Intake Total 3714 / 3714 4834.1 / 4834.1 702 / 702 Output Total 3170 / 3170 1568 / 1568 727 / 727 Balance 544 / 544 3266.1 / 3266.1 -25 / -25 Laboratory Tests Past 24 Hrs 05/23/18 05/24/18 05/24/18 05:20 05:50 05:50 WBC 13.5 H RBC 2.82 L Hgb 8.7 L Hct 28.0 L MCV 99.3 H MCH 30.9 MCHC 31.1 L RDW 13.5 RDW Differential 47.4 H Plt Count 451 H MPV 9.0 Immature Gran % (Auto) 0.500 Neut % (Auto) 78.6 H Lymph % (Auto) 11.2 L [place] % (Auto) 8.5 Eos % (Auto) 1.0 Baso % (Auto) 0.2 Absolute Neuts (auto) 10.6 H Absolute Lymphs (auto) 1.51 Total Counted Not Reportable Sodium 138 Potassium 4.3 Chloride 105 Carbon Dioxide 27.0 Anion Gap 6 BUN 3 L Creatinine 0.53 L Estim Creat Clear Calc 84.81 Est GFR (MDRD) Af Amer 149 Est GFR (MDRD) Non-Af 123 BUN/Creatinine Ratio 5.7 L Glucose 121 H Calcium 7.6 L Magnesium 1.8 Albumin 1.9 L Medical Necessity - Tobacco Use Smoking Status: Never smoker Assessment/Plan All Active Problems Diverticulitis of large intestine with abscess without bleeding (Acute) MARCELA (acute kidney injury) (Acute) Dehydration (Acute) Diverticulitis large intestine (Acute) 62-year-old female status post laparotomy with sigmoid resection as well as 2 small bowel resection, POD 2 1. Patient's white count continues to fall. Continue antibiotics until normalized. Drain is serosanguineous with no bile or purulent material. Continue n.p.o. until patient is passing flatus. 2. Encouraged ambulation. Douglas Serrano MD Pager: [facility] [address] [place] [address], [address] [place] [address] Office:
[2018-05-24] MEDS: Ketorolac 15 MG/ML Vial IV ×3 (08:46→21:17)
[2018-05-24] MEDS: lamoTRIgine 100 MG Tablet PO (08:46)
[2018-05-24] MEDS: Magnesium Oxide 400 MG Tablet PO (08:46)
[2018-05-24] MEDS: Sertraline 100 MG Tablet PO ×2 (08:46→21:29)
[2018-05-24] MEDS: Losartan Potassium 100 MG Tablet PO (08:46)
[2018-05-24] MEDS: 0.9% Normal Saline 1,000 ML 100 ML IV ×2 (09:49→20:13)
[2018-05-24] MEDS: Zolpidem Tartrate 5 MG Tablet PO (21:17)
[2018-05-24] MEDS: hydrALAZINE 20 MG/ML Vial 10 MG IV (21:29)
[2018-05-24] MEDS: Pravastatin 40 MG Tablet PO (21:29)
[2018-05-24] MEDS: 0.9% NaCl Peripheral Flush Adult/Peds IV (21:31)
[2018-05-25] VITALS (9 sets, daily range): BP systolic 131–178; BP diastolic 65–106; PULSE 92–110; RESP 18; TEMP 36.8–37.3; O2SAT 94–99
[2018-05-25] MEDS: hydrALAZINE 20 MG/ML Vial 10 MG IV (02:39)
[2018-05-25] MEDS: Acetaminophen 325 MG Tablet 650 MG PO (02:47)
--- NOTE | 2018-05-25 03:03 | NURSING ---
Addendum entered by Fay Liu 05/25/18 04:30: Spoke with hospitalist Dr. Manriquez, recheck vs at 4am, continue to monitor. Original Note: PT ASSISTED TO BATHROOM FOR BM AFTER GIVING HYDRALAZINE FOR ELEVATED BP. PT BECAME NAUSEATED AND DIAPHORETIC ONCE RETURNING TO BED. C/O FEELS SOB. DENIES CP. SPO2 96% ON 1L, BP 182/94, HR 120, REG., RESPS 28, TEMP 98.3. NOTIFIED HOSPITALIST OF SAME.
--- NOTE | 2018-05-25 04:32 | NURSING ---
Dr. Song updated regarding VS, and pt sleeping, no further nausea. No new orders.
[2018-05-25] MEDS: Piperacil/Tazobactam 3.375 GM/50 ML ML IV ×3 (05:38→21:42)
[2018-05-25] MEDS: 0.9% Normal Saline 1,000 ML 100 ML IV ×2 (05:38→17:27)
[2018-05-25] MEDS: Ketorolac 15 MG/ML Vial IV ×3 (05:38→21:42)
[2018-05-25] MEDS: 0.9% NaCl Peripheral Flush Adult/Peds IV (05:52)
[2018-05-25 06:05] LABS: Absolute Lymphocyte Count 1.84 X10^3/ul (0.83-4.51); Absolute Neutrophil Count 10.4 X10^3/uL (2.0-7.7); Basophil# 0.03 X10^3/uL; Basophil% 0.2 % (0-1); Eosinophil# 0.12 X10^3/uL; Eosinophils% 0.9 % (0-5); Hemoglobin 8.7 g/dl (12.0-15.0); Lymphocyte # 1.84 X10^3/ul (4.0); Lymphocyte % 13.8 % (19-41); Mean Corp Hgb Conc 32.2 g/gl (32-36); Mean Corpuscular Hgb 30.9 pg (27.0-32.0); Mean Corpuscular Volume 95.7 fL (81-99); Mean Platelet Vol. 8.6 fl (6.2-12.0); Monocyte# 0.84 X10^3/uL; Monocyte% 6.3 % (0-10); Neutrophil # 10.42 X10^3/uL (2.7-7.7); Neutrophil % 78.3 % (47-70); Platelet Count 458 K/mm3 (150-450); RBC Distribution Width SD 49.2 fl (35.1-43.9); Red Blood Count 2.82 M/mm3 (4.2-5.4); White Blood Count 13.3 K/mm3 (4.4-11.0)
[2018-05-25 06:21] LABS: Anion Gap 9 (5-15); BUN 10 mg/dL (7-18); BUN/Creat Ratio 20.9 RATIO (10-20); Calcium,Total 7.9 mg/dL (8.5-10.1); Chloride 109 mmol/L (98-107); Creatinine, Serum 0.48 mg/dL (0.55-1.02); EST Glomerular Filtration Rate 138 mL/min (>60); Est Glom Filt Rate - Afr Amer 168 mL/min (>60); Estimated Creatinine Clearance 93.65 ml/min; Glucose 94 mg/dL (74-106); Potassium 4.2 mmol/L (3.5-5.1); Sodium Level 141 mmol/L (136-145)
[2018-05-25 06:25] LABS: POSITIVE COUNT NO; POSITIVE DIFFERENTIAL NO; POSITIVE MORPHOLOGY NO
--- NOTE | 2018-05-25 07:42 | PN.SURG_ITS ---
Patient Problems: Active and Suspected Problems Diverticulitis of large intestine with abscess without bleeding (Acute) MARCELA (acute kidney injury) (Acute) Dehydration (Acute) Diverticulitis large intestine (Acute) Subjective: Patient reports a few watery bowel movements overnight. No flatus. Pain is improved on Toradol. - Physical Exam Cardiovascular: Regular rate, Regular Rhythm Abdomen: Soft, Non-Distended, Tender - Mild tenderness. Vital Signs Temp Pulse Resp BP Pulse Ox 99.1 F 105 H 18 158/85 H 96 05/25/18 07:31 05/25/18 07:31 05/25/18 07:31 05/25/18 07:31 05/25/18 07:31 Oxygen Flow Rate (L/min) [8] 2 Oxygen Flow Rate (L/min) [6] 2 Oxygen Flow Rate (L/min) [5] 2 Oxygen Flow Rate (L/min) [4] 2 Oxygen Flow Rate (L/min) 1 Oxygen Delivery Method [8] Nasal Cannula Oxygen Delivery Method [7] Nasal Cannula Oxygen Delivery Method [6] Nasal Cannula Oxygen Delivery Method [5] Nasal Cannula Oxygen Delivery Method [4] Nasal Cannula Oxygen Delivery Method [2] Room Air Oxygen Delivery Method [1 ( Room Air Initial Baseline)] Oxygen Delivery Method Room Air Weight: 172 lb 6.424 oz Body Mass Index (BMI) 31.0 Intake and Output for Last 24 Hours 05/23/18 05/24/18 05/25/18 23:59 23:59 23:59 Intake Total 4834.1 / 4834.1 2722.8 / 2722.8 758 / 758 Output Total 1568 / 1568 2377 / 2377 222 / 222 Balance 3266.1 / 3266.1 345.8 / 345.8 536 / 536 Laboratory Tests Past 24 Hrs 05/25/18 05/25/18 05:45 05:45 WBC 13.3 H RBC 2.82 L Hgb 8.7 L Hct 27.0 L MCV 95.7 MCH 30.9 MCHC 32.2 RDW 14.0 RDW Differential 49.2 H Plt Count 458 H MPV 8.6 Immature Gran % (Auto) 0.500 Neut % (Auto) 78.3 H Lymph % (Auto) 13.8 L [place] % (Auto) 6.3 Eos % (Auto) 0.9 Baso % (Auto) 0.2 Absolute Neuts (auto) 10.4 H Absolute Lymphs (auto) 1.84 Total Counted Not Reportable Sodium 141 Potassium 4.2 Chloride 109 H Carbon Dioxide 23.0 Anion Gap 9 BUN 10 Creatinine 0.48 L Estim Creat Clear Calc 93.65 Est GFR (MDRD) Af Amer 168 Est GFR (MDRD) Non-Af 138 BUN/Creatinine Ratio 20.9 H Glucose 94 Calcium 7.9 L Medical Necessity - Tobacco Use Smoking Status: Never smoker Assessment/Plan All Active Problems Diverticulitis of large intestine with abscess without bleeding (Acute) MARCELA (acute kidney injury) (Acute) Dehydration (Acute) Diverticulitis large intestine (Acute) 62-year-old female status post sigmoid resection and small bowel resection x2, POD 3 1. Patient is doing well this morning. Her abdomen is much less tender. She had liquid bowel movements with no significant flatus. Continue n.p.o. until she has significant flatus. 2. I will return later this afternoon to close her wound the rest of the way. I will also probably remove her drain. 3. WBC still 13 from yesterday's 13. Continue antibiotics. 4. Encouraged ambulation, IS. Douglas Serrano MD Pager: [facility] [place] [facility] [address] [place] [address], [address] [place] [phone] Office:
--- NOTE | 2018-05-25 07:51 | PCM.PROGNOTE ---
Patient Problems: Active and Suspected Problems Diverticulitis of large intestine with abscess without bleeding (Acute) MARCELA (acute kidney injury) (Acute) Diverticulitis large intestine (Acute) Subjective: Chief complaint: Follow-up after admission for perforated sigmoid diverticulitis, status post CT-guided drainage of the diverticular abscess, status post exploratory laparotomy with sigmoid resection and primary anastomosis, status post small bowel resection with anastomosis x2. Patient seen and examined. No acute events overnight. Patient reported 4 bowel movements overnight, semiliquid stool. Abdominal pain continued to improve. Denied nausea or vomiting. She is passing no flatus. Denies chest pain or shortness of breath. She has been afebrile, heart rate has been around 100, blood pressure slightly elevated, pulse ox is 96% on room air. - Physical Exam General: Alert, Oriented x3, Cooperative, No apparent distress HEENT: Atraumatic, PERRLA, EOMI, Normocephalic Oral: Moist Mucosa, No Gingival or Mucosal Lesions/ Ulcerations Neck: Supple, No JVD, Negative Carotid Bruits, Trachea Midline, Thyroid Normal Size and Texture Lungs: Clear to auscultation, No rhonchi, No wheeze, No rales, Diminished Cardiovascular: Regular rate, Regular Rhythm, Normal S1, Normal S2, PMI Normal Abdomen: Bowel Sounds Present, Soft, Non-Distended, No Hepato-splenomegaly, Tender - Minimal tenderness. Extremities: No clubbing, No cyanosis, No edema Skin: No rashes, No breakdown Lymphatic: No Cervical, Supraclavicular, or Inguinal Adenopathy Neurological: Cranial nerves II-XII grossly intact, Motor Exam 5/5 strength throughout Psych/Mental Status: Normal Affect, Appropriate, Alert and oriented to time, place, person, mood and affect Vital Signs Temp Pulse Resp BP Pulse Ox 99.1 F 105 H 18 158/85 H 96 05/25/18 07:31 05/25/18 07:31 05/25/18 07:31 05/25/18 07:31 05/25/18 07:31 Oxygen Flow Rate (L/min) [8] 2 Oxygen Flow Rate (L/min) [6] 2 Oxygen Flow Rate (L/min) [5] 2 Oxygen Flow Rate (L/min) [4] 2 Oxygen Flow Rate (L/min) 1 Oxygen Delivery Method [8] Nasal Cannula Oxygen Delivery Method [7] Nasal Cannula Oxygen Delivery Method [6] Nasal Cannula Oxygen Delivery Method [5] Nasal Cannula Oxygen Delivery Method [4] Nasal Cannula Oxygen Delivery Method [2] Room Air Oxygen Delivery Method [1 ( Room Air Initial Baseline)] Oxygen Delivery Method Room Air Weight: 172 lb 6.424 oz Body Mass Index (BMI) 31.0 Intake and Output for Last 24 Hours 05/23/18 05/24/18 05/25/18 23:59 23:59 23:59 Intake Total 4834.1 / 4834.1 2722.8 / 2722.8 758 / 758 Output Total 1568 / 1568 2377 / 2377 222 / 222 Balance 3266.1 / 3266.1 345.8 / 345.8 536 / 536 Laboratory Tests Past 24 Hrs 05/25/18 05/25/18 05:45 05:45 WBC 13.3 H RBC 2.82 L Hgb 8.7 L Hct 27.0 L MCV 95.7 MCH 30.9 MCHC 32.2 RDW 14.0 RDW Differential 49.2 H Plt Count 458 H MPV 8.6 Immature Gran % (Auto) 0.500 Neut % (Auto) 78.3 H Lymph % (Auto) 13.8 L [place] % (Auto) 6.3 Eos % (Auto) 0.9 Baso % (Auto) 0.2 Absolute Neuts (auto) 10.4 H Absolute Lymphs (auto) 1.84 Total Counted Not Reportable Sodium 141 Potassium 4.2 Chloride 109 H Carbon Dioxide 23.0 Anion Gap 9 BUN 10 Creatinine 0.48 L Estim Creat Clear Calc 93.65 Est GFR (MDRD) Af Amer 168 Est GFR (MDRD) Non-Af 138 BUN/Creatinine Ratio 20.9 H Glucose 94 Calcium 7.9 L Medical Necessity - Tobacco Use Smoking Status: Never smoker Assessment/Plan All Active Problems Diverticulitis of large intestine with abscess without bleeding (Acute) MARCELA (acute kidney injury) (Acute) Diverticulitis large intestine (Acute) This is a 62 years old female patient presented to the ED because of nausea, vomiting and diarrhea, found to have acute sigmoid diverticulitis with diverticular abscess, went for CT-guided abscess drainage and repeat CT scan abdomen revealed residual abscess within the lower abdomen and pelvis with extraluminal contrast in the sigmoid colon into the peritoneum indicating perforation, underwent exploratory laparotomy with sigmoid resection and primary anastomosis, small bowel resection with anastomosis x2. #1 acute sigmoid diverticulitis/diverticular abscess with perforation: Status post CT-guided drainage of the diverticular abscess, found to have residual abscess with perforation on repeat CT scan abdomen, status post exploratory laparotomy with sigmoid resection and primary anastomosis, status post small bowel resection with anastomosis x2. Postoperative day 3. Abdominal pain improved, denied nausea or vomiting. She has been afebrile, blood pressure slightly elevated, other vital signs are stable. She is on IV Zosyn. Vital cell count is trending down. Culture of the abdominal aspirate revealed Enterobacter, enterococcus avium, Morganella morganii and bacteroids. Stool was positive for norovirus. General surgery on the case, patient kept on n.p.o. Plan to continue same treatment. #2 acute kidney injury: Secondary to above. Patient has been on IV fluids, kidney function improved and it is back to normal. #3 hypokalemia/hypomagnesemia/hypophosphatemia: Replaced and corrected per protocol. Today's potassium is 4.2, phosphorus as well as magnesium replaced and corrected appropriately. #4 anemia: This is fairly acute which is likely due to blood loss during surgery as well as hemodilution. Baseline hemoglobin has been normal. No evidence of active bleeding, no indication for blood transfusion. Plan to repeat BMP and CBC tomorrow morning. #5 hypertension: Blood pressure stable, continue losartan and IV hydralazine as needed. #6 hyperlipidemia: Continue statins. #7 bipolar disorder/depression: Continue Lamictal and Zoloft. #8 protein energy malnutrition: Severe, albumin is very low. Nutrition consulted. #9 DVT prophylaxis: Subcu Lovenox. This note was generated with [employer] dictation software. It may contain incorrect words, spelling, and punctuation that were not noted in checking the note before signing. Code Visit Inpatient E&M: 44170 Subs Hosp L2
[2018-05-25] MEDS: Magnesium Oxide 400 MG Tablet PO (08:56)
[2018-05-25] MEDS: Sertraline 100 MG Tablet PO ×2 (08:58→21:42)
[2018-05-25] MEDS: Losartan Potassium 100 MG Tablet PO (08:58)
[2018-05-25] MEDS: Enoxaparin 40 MG/0.4 ML Syringe SC (08:58)
[2018-05-25] MEDS: Pantoprazole Sodium 40 MG Tablet PO (08:58)
[2018-05-25] MEDS: lamoTRIgine 100 MG Tablet PO (08:58)
--- NOTE | 2018-05-25 10:30 | CASEMGMT ---
RN CM Assessment. Intro role of CM to patient in room. Discussed home going needs. Pt states her is able to assist. home is two story with her bedroom upstairs, and 3 steps into home. Denied using DME @ home, but is using walker now. RN SEGUNDO discussed PT/OT reordered. Pt is agreeable for evaluations. -Ok to use [facility] if walker is needed on dc, will need script sent. Aziza DEL ROSARION RN ACM
[2018-05-25] MEDS: Ondansetron 4 MG/2 ML Vial IV (11:18)
[2018-05-25 11:50] LABS: Pathologist Review Reviewed
[2018-05-25] MEDS: Morphine 2 MG/ML Syringe IV (12:52)
--- NOTE | 2018-05-25 13:18 | PCM.PN.BLA ---
Progress Note Patient reports she had a large amount of flatus this morning. She is not having much abdominal pain. I removed her packing and cleaned her wound with Betadine. The most superior packing appeared to have some small amount of purulent tissue. There was no erythema or drainage. I anesthetized him between each of the lower sutures with lidocaine and closed each open area with a 4-0 Vicryl suture. There was good hemostasis. I left the superiormost opening with new packing in it. Steri-Strips were then applied. A bandage was applied. The stitch to the drain was also removed and the drain was removed. I will start the patient on clear liquid diet. Continue antibiotics. Recheck CBC in the morning. Douglas Serrano MD Pager: [facility] [address] [place] [address] [address] [place] [address] Office:
[2018-05-25] MEDS: Zolpidem Tartrate 5 MG Tablet PO (21:42)
[2018-05-25] MEDS: Pravastatin 40 MG Tablet PO (21:42)
[2018-05-26] VITALS (16 sets, daily range): BP systolic 120–170; BP diastolic 64–96; PULSE 74–107; RESP 16–18; TEMP 36.6–37.1; O2SAT 94–98
[2018-05-26] MEDS: 0.9% Normal Saline 1,000 ML 100 ML IV (03:08)
[2018-05-26] MEDS: 0.9% NaCl Peripheral Flush Adult/Peds IV ×4 (05:35→13:29)
[2018-05-26] MEDS: Ketorolac 15 MG/ML Vial IV (06:03)
[2018-05-26] MEDS: Piperacil/Tazobactam 3.375 GM/50 ML ML IV (06:03)
[2018-05-26 06:09] LABS: Anion Gap 8 (5-15); BUN 10 mg/dL (7-18); BUN/Creat Ratio 21.6 RATIO (10-20); Calcium,Total 7.8 mg/dL (8.5-10.1); Chloride 107 mmol/L (98-107); Creatinine, Serum 0.46 mg/dL (0.55-1.02); EST Glomerular Filtration Rate 144 mL/min (>60); Est Glom Filt Rate - Afr Amer 175 mL/min (>60); Estimated Creatinine Clearance 97.72 ml/min; Glucose 93 mg/dL (74-106); Potassium 4.2 mmol/L (3.5-5.1); Sodium Level 141 mmol/L (136-145)
[2018-05-26 06:17] LABS: Absolute Lymphocyte Count 1.99 X10^3/ul (0.83-4.51); Basophil# 0.07 X10^3/uL; Basophil% 0.8 % (0-1); Eosinophil# 0.18 X10^3/uL; Hematocrit 21.5 % (37-47); Hemoglobin 6.9 g/dl (12.0-15.0); Lymphocyte # 1.99 X10^3/ul (4.0); Lymphocyte % 22.3 % (19-41); Mean Corp Hgb Conc 32.1 g/gl (32-36); Mean Corpuscular Hgb 30.8 pg (27.0-32.0); Mean Platelet Vol. 8.6 fl (6.2-12.0); Monocyte# 0.59 X10^3/uL; Monocyte% 6.6 % (0-10); Neutrophil # 6.04 X10^3/uL (2.7-7.7); Neutrophil % 67.7 % (47-70); Platelet Count 396 K/mm3 (150-450); RBC Distribution Width CV 14.1 % (11.6-14.6); RBC Distribution Width SD 49.2 fl (35.1-43.9); Red Blood Count 2.24 M/mm3 (4.2-5.4); White Blood Count 8.9 K/mm3 (4.4-11.0)
[2018-05-26 06:21] LABS: POSITIVE COUNT NO; POSITIVE DIFFERENTIAL NO; POSITIVE MORPHOLOGY NO
--- NOTE | 2018-05-26 07:49 | PN.SURG_ITS ---
Patient Problems: Active and Suspected Problems Diverticulitis of large intestine with abscess without bleeding (Acute) MARCELA (acute kidney injury) (Acute) Diverticulitis large intestine (Acute) Subjective: Patient reports she has been having liquid bowel movements overnight. She is also passing flatus. She tolerated clears. She says her stools were black. - Physical Exam General: Alert, Oriented x3, Cooperative Abdomen: Soft, Non-Distended, Tender - Mild tenderness to palpation Vital Signs Temp Pulse Resp BP Pulse Ox 98.3 F 97 18 158/84 H 94 05/26/18 03:11 05/26/18 03:11 05/26/18 03:11 05/26/18 03:11 05/26/18 03:11 Oxygen Flow Rate (L/min) [8] 2 Oxygen Flow Rate (L/min) [6] 2 Oxygen Flow Rate (L/min) [5] 2 Oxygen Flow Rate (L/min) [4] 2 Oxygen Flow Rate (L/min) 1 Oxygen Delivery Method [8] Nasal Cannula Oxygen Delivery Method [7] Nasal Cannula Oxygen Delivery Method [6] Nasal Cannula Oxygen Delivery Method [5] Nasal Cannula Oxygen Delivery Method [4] Nasal Cannula Oxygen Delivery Method [2] Room Air Oxygen Delivery Method [1 ( Room Air Initial Baseline)] Oxygen Delivery Method Room Air Weight: 172 lb 6.424 oz Body Mass Index (BMI) 31.0 Intake and Output for Last 24 Hours 05/24/18 05/25/18 05/26/18 23:59 23:59 23:59 Intake Total 2722.8 / 2722.8 1408 / 1408 1900 / 1900 Output Total 2377 / 2377 222 / 222 1000 / 1000 Balance 345.8 / 345.8 1186 / 1186 900 / 900 Laboratory Tests Past 24 Hrs 05/23/18 05/26/18 05/26/18 01:10 05:25 05:25 WBC 8.9 RBC 2.24 L Hgb 6.9 L Hct 21.5 L MCV 96.0 MCH 30.8 MCHC 32.1 RDW 14.1 RDW Differential 49.2 H Plt Count 396 MPV 8.6 Immature Gran % (Auto) 0.600 Neut % (Auto) 67.7 Lymph % (Auto) 22.3 [place] % (Auto) 6.6 Eos % (Auto) 2.0 Baso % (Auto) 0.8 Absolute Neuts (auto) 6.0 Absolute Lymphs (auto) 1.99 Total Counted Not Reportable Diff Path Review Reviewed Sodium 141 Potassium 4.2 Chloride 107 Carbon Dioxide 26.0 Anion Gap 8 BUN 10 Creatinine 0.46 L Estim Creat Clear Calc 97.72 Est GFR (MDRD) Af Amer 175 Est GFR (MDRD) Non-Af 144 BUN/Creatinine Ratio 21.6 H Glucose 93 Calcium 7.8 L Medical Necessity - Tobacco Use Smoking Status: Never smoker Assessment/Plan All Active Problems Diverticulitis of large intestine with abscess without bleeding (Acute) MARCELA (acute kidney injury) (Acute) Diverticulitis large intestine (Acute) 62-year-old female status post sigmoid resection and small bowel resection x2 1. Patient's hemoglobin dropped to 6.9 today. I am rechecking to confirm. 2. Patient tolerated clear liquids and is passing flatus and bowel movements. She says her bowel movements are black. She may be having stress gastritis which is the reason for her anemia and black stools. She was just started on a PPI recently and has been n.p.o. for a very long time. I will continue twice daily PPI and consider advancing to full liquids. 3. Her white count is normal today. I will stop her antibiotics. Douglas Serrano MD Pager: [facility] [address] [place] [address], [address] [place] [address] Office:
[2018-05-26 08:09] LABS: Hematocrit 22.2 % (37-47); Hemoglobin 7.1 g/dl (12.0-15.0)
[2018-05-26] MEDS: Magnesium Oxide 400 MG Tablet PO (08:30)
--- NOTE | 2018-05-26 09:08 | PN_ITS ---
Patient Problems: Active and Suspected Problems Diverticulitis of large intestine with abscess without bleeding (Acute) MARCELA (acute kidney injury) (Acute) Diverticulitis large intestine (Acute) Subjective: Chief complaint: Follow-up after admission for perforated sigmoid diverticulitis, status post CT-guided drainage of the diverticular abscess, status post exploratory laparotomy with sigmoid resection and primary anastomosis, status post small bowel resection with anastomosis x2. Patient seen and examined. No acute events overnight. She has been having liquid bowel movement overnight with dark stool and she is passing flatus. Her abdominal pain is getting better every day. Denied any more nausea or vomiting. Denies fever or chills. Her vital signs are stable. - Physical Exam General: Alert, Oriented x3, Cooperative, No apparent distress HEENT: Atraumatic, PERRLA, EOMI, Normocephalic Oral: Moist Mucosa, No Gingival or Mucosal Lesions/ Ulcerations Neck: Supple, No JVD, Negative Carotid Bruits, Trachea Midline, Thyroid Normal Size and Texture Lungs: Clear to auscultation, No rhonchi, No wheeze, No rales, Diminished Cardiovascular: Regular rate, Regular Rhythm, Normal S1, Normal S2, PMI Normal Abdomen: Bowel Sounds Present, Soft, Non-Distended, No Hepato-splenomegaly, Tender - Minimal tenderness to deep palpation. Extremities: No clubbing, No cyanosis Skin: No rashes, No breakdown, Incision Lymphatic: No Cervical, Supraclavicular, or Inguinal Adenopathy Neurological: Cranial nerves II-XII grossly intact, Neuro grossly intact Psych/Mental Status: Normal Affect, Appropriate, Alert and oriented to time, place, person, mood and affect Vital Signs Temp Pulse Resp BP Pulse Ox 97.8 F 84 18 154/87 H 97 05/26/18 08:33 05/26/18 08:33 05/26/18 08:33 05/26/18 08:33 05/26/18 08:33 Oxygen Flow Rate (L/min) [8] 2 Oxygen Flow Rate (L/min) [6] 2 Oxygen Flow Rate (L/min) [5] 2 Oxygen Flow Rate (L/min) [4] 2 Oxygen Flow Rate (L/min) 1 Oxygen Delivery Method [8] Nasal Cannula Oxygen Delivery Method [7] Nasal Cannula Oxygen Delivery Method [6] Nasal Cannula Oxygen Delivery Method [5] Nasal Cannula Oxygen Delivery Method [4] Nasal Cannula Oxygen Delivery Method [2] Room Air Oxygen Delivery Method [1 ( Room Air Initial Baseline)] Oxygen Delivery Method Room Air Weight: 172 lb 6.424 oz Body Mass Index (BMI) 31.0 Intake and Output for Last 24 Hours 05/24/18 05/25/18 05/26/18 23:59 23:59 23:59 Intake Total 2722.8 / 2722.8 1408 / 1408 1900 / 1900 Output Total 2377 / 2377 222 / 222 1000 / 1000 Balance 345.8 / 345.8 1186 / 1186 900 / 900 Laboratory Tests Past 24 Hrs 05/23/18 05/26/18 05/26/18 01:10 05:25 05:25 WBC 8.9 RBC 2.24 L Hgb 6.9 L Hct 21.5 L MCV 96.0 MCH 30.8 MCHC 32.1 RDW 14.1 RDW Differential 49.2 H Plt Count 396 MPV 8.6 Immature Gran % (Auto) 0.600 Neut % (Auto) 67.7 Lymph % (Auto) 22.3 [place] % (Auto) 6.6 Eos % (Auto) 2.0 Baso % (Auto) 0.8 Absolute Neuts (auto) 6.0 Absolute Lymphs (auto) 1.99 Total Counted Not Reportable Diff Path Review Reviewed Sodium 141 Potassium 4.2 Chloride 107 Carbon Dioxide 26.0 Anion Gap 8 BUN 10 Creatinine 0.46 L Estim Creat Clear Calc 97.72 Est GFR (MDRD) Af Amer 175 Est GFR (MDRD) Non-Af 144 BUN/Creatinine Ratio 21.6 H Glucose 93 Calcium 7.8 L Blood Type Antibody Screen Crossmatch 05/26/18 05/26/18 07:30 07:30 WBC RBC Hgb 7.1 L Hct 22.2 L MCV MCH MCHC RDW RDW Differential Plt Count MPV Immature Gran % (Auto) Neut % (Auto) Lymph % (Auto) [place] % (Auto) Eos % (Auto) Baso % (Auto) Absolute Neuts (auto) Absolute Lymphs (auto) Total Counted Diff Path Review Sodium Potassium Chloride Carbon Dioxide Anion Gap BUN Creatinine Estim Creat Clear Calc Est GFR (MDRD) Af Amer Est GFR (MDRD) Non-Af BUN/Creatinine Ratio Glucose Calcium Blood Type O POSITIVE Antibody Screen NEGATIVE Crossmatch See Detail Medical Necessity - Tobacco Use Smoking Status: Never smoker Assessment/Plan All Active Problems Diverticulitis of large intestine with abscess without bleeding (Acute) MARCELA (acute kidney injury) (Acute) Diverticulitis large intestine (Acute) This is a 62 years old female patient presented to the ED because of nausea, vomiting and diarrhea, found to have acute sigmoid diverticulitis with diverticular abscess, went for CT-guided abscess drainage and repeat CT scan abdomen revealed residual abscess within the lower abdomen and pelvis with extraluminal contrast in the sigmoid colon into the peritoneum indicating perforation, underwent exploratory laparotomy with sigmoid resection and primary anastomosis, small bowel resection with anastomosis x2. #1 acute sigmoid diverticulitis/diverticular abscess with perforation: Status post CT-guided drainage of the diverticular abscess, found to have residual abscess with perforation on repeat CT scan abdomen, status post exploratory laparotomy with sigmoid resection and primary anastomosis, status post small bowel resection with anastomosis x2. Postoperative day 3. Symptoms improved, she is tolerating clear liquids. Her white blood cell count is back to normal. She has been afebrile. IV antibiotics discontinued by surgery. Culture of the abdominal aspirate revealed Enterobacter, enterococcus avium, Morganella morganii and bacteroids. Stool was positive for norovirus. Plan to advance diet to full liquid diet, continue other treatments. #2 acute kidney injury: Secondary to above. Patient has been on IV fluids, kidney function improved and it is back to normal. #3 hypokalemia/hypomagnesemia/hypophosphatemia: Replaced and corrected per protocol. Today's potassium is 4.2, phosphorus as well as magnesium replaced and corrected appropriately. #4 Acute anemia: This is fairly acute which is likely due to blood loss during surgery as well as hemodilution. Baseline hemoglobin has been normal. Today's hemoglobin is 7.1 compensated, dropped more than 1 g from yesterday. Plan: Transfused 2 units of packed RBCs, repeat CBC tomorrow morning. #5 hypertension: Blood pressure stable, continue losartan and IV hydralazine as needed. #6 hyperlipidemia: Continue statins. #7 bipolar disorder/depression: Continue Lamictal and Zoloft. #8 protein energy malnutrition: Severe, albumin is very low. Nutrition consulted. #9 DVT prophylaxis: SCDs, DC subcu Lovenox because of dark stools and anemia. This note was generated with Dragon dictation software. It may contain incorrect words, spelling, and punctuation that were not noted in checking the note before signing. Code Visit Inpatient E&M: 01812 Subs Hosp L2
[2018-05-26] MEDS: lamoTRIgine 100 MG Tablet PO (11:12)
[2018-05-26] MEDS: Pantoprazole Sodium 40 MG Tablet PO ×2 (11:12→21:22)
[2018-05-26] MEDS: Sertraline 100 MG Tablet PO ×2 (11:12→21:22)
[2018-05-26] MEDS: Losartan Potassium 100 MG Tablet PO (11:12)
[2018-05-26] MEDS: Morphine 2 MG/ML Syringe IV ×2 (13:26→19:57)
[2018-05-26] MEDS: hydrALAZINE 20 MG/ML Vial 10 MG IV (13:30)
[2018-05-26] MEDS: Pravastatin 40 MG Tablet PO (21:22)
[2018-05-26] MEDS: Zolpidem Tartrate 5 MG Tablet PO (21:22)
[2018-05-26 21:33] LABS: Hemoglobin 10.2 g/dl (12.0-15.0)
[2018-05-27 02:04] VITALS: BP 119/76; PULSE 88; RESP 18; TEMP 36.6; O2SAT 94
[2018-05-27] MEDS: Acetaminophen 325 MG Tablet 650 MG PO ×2 (03:37→10:27)
[2018-05-27] MEDS: 0.9% NaCl Peripheral Flush Adult/Peds IV (05:11)
[2018-05-27 05:27] LABS: Absolute Lymphocyte Count 2.06 X10^3/ul (0.83-4.51); Absolute Neutrophil Count 5.3 X10^3/uL (2.0-7.7); Basophil# 0.05 X10^3/uL; Basophil% 0.6 % (0-1); Eosinophil# 0.22 X10^3/uL; Eosinophils% 2.7 % (0-5); Hematocrit 30.4 % (37-47); Lymphocyte # 2.06 X10^3/ul (4.0); Lymphocyte % 25.2 % (19-41); Mean Corp Hgb Conc 32.9 g/gl (32-36); Mean Corpuscular Volume 91.3 fL (81-99); Mean Platelet Vol. 8.5 fl (6.2-12.0); Monocyte# 0.51 X10^3/uL; Monocyte% 6.2 % (0-10); Neutrophil % 64.9 % (47-70); Platelet Count 383 K/mm3 (150-450); RBC Distribution Width CV 15.5 % (11.6-14.6); RBC Distribution Width SD 51.4 fl (35.1-43.9); Red Blood Count 3.33 M/mm3 (4.2-5.4); White Blood Count 8.2 K/mm3 (4.4-11.0)
[2018-05-27 05:31] LABS: POSITIVE COUNT NO; POSITIVE DIFFERENTIAL NO; POSITIVE MORPHOLOGY NO
[2018-05-27 08:05] VITALS: BP 153/83; PULSE 90; RESP 16; TEMP 36.9; O2SAT 94
--- NOTE | 2018-05-27 08:36 | PN.SURG_ITS ---
Patient Problems: Active and Suspected Problems Diverticulitis of large intestine with abscess without bleeding (Acute) MARCELA (acute kidney injury) (Acute) Diverticulitis large intestine (Acute) - Physical Exam Vital Signs Temp Pulse Resp BP Pulse Ox 97.9 F 88 18 119/76 94 05/27/18 02:04 05/27/18 02:04 05/27/18 02:04 05/27/18 02:04 05/27/18 02:04 Oxygen Flow Rate (L/min) [8] 2 Oxygen Flow Rate (L/min) [6] 2 Oxygen Flow Rate (L/min) [5] 2 Oxygen Flow Rate (L/min) [4] 2 Oxygen Flow Rate (L/min) 1 Oxygen Delivery Method [8] Nasal Cannula Oxygen Delivery Method [7] Nasal Cannula Oxygen Delivery Method [6] Nasal Cannula Oxygen Delivery Method [5] Nasal Cannula Oxygen Delivery Method [4] Nasal Cannula Oxygen Delivery Method [2] Room Air Oxygen Delivery Method [1 ( Room Air Initial Baseline)] Oxygen Delivery Method Room Air Weight: 172 lb 6.424 oz Body Mass Index (BMI) 31.0 Intake and Output for Last 24 Hours 05/25/18 05/26/18 05/27/18 23:59 23:59 23:59 Intake Total 1408 / 1408 4900 / 4900 608 / 608 Output Total 222 / 222 3300 / 3300 1400 / 1400 Balance 1186 / 1186 1600 / 1600 -792 / -792 Laboratory Tests Past 24 Hrs 05/26/18 05/26/18 05/27/18 07:30 21:15 05:15 WBC 8.2 RBC 3.33 L Hgb 10.2 L 10.0 L Hct 31.0 L 30.4 L MCV 91.3 MCH 30.0 MCHC 32.9 RDW 15.5 H RDW Differential 51.4 H Plt Count 383 MPV 8.5 Immature Gran % (Auto) 0.400 Neut % (Auto) 64.9 Lymph % (Auto) 25.2 [place] % (Auto) 6.2 Eos % (Auto) 2.7 Baso % (Auto) 0.6 Absolute Neuts (auto) 5.3 Absolute Lymphs (auto) 2.06 Total Counted Not Reportable Blood Type O POSITIVE Antibody Screen NEGATIVE Crossmatch See Detail Medical Necessity - Tobacco Use Smoking Status: Never smoker Assessment/Plan All Active Problems Diverticulitis of large intestine with abscess without bleeding (Acute) MARCELA (acute kidney injury) (Acute) Diverticulitis large intestine (Acute) 62-year-old female with diverticulitis status post resection 1. Patient is doing well this morning. I will advance her diet to regular. Pain seems to be well controlled. Hemoglobin is stable from yesterday. I believe it was bleeding due to gastritis. I would recommend continuing PPI on discharge for at least 1 month. 2. I will check on her this afternoon and as long as she is tolerating a regular diet I will anticipate discharge today. I will check her packing and if there is no purulence the packing can be removed and the wound will heal secondarily. Douglas Serrano MD Pager: [facility] [address] [place] [address], [address] [place] [address] Office:
[2018-05-27] MEDS: Losartan Potassium 100 MG Tablet PO (09:43)
[2018-05-27] MEDS: Magnesium Oxide 400 MG Tablet PO (09:43)
[2018-05-27] MEDS: Pantoprazole Sodium 40 MG Tablet PO (09:46)
[2018-05-27] MEDS: lamoTRIgine 100 MG Tablet PO (09:46)
[2018-05-27] MEDS: Sertraline 100 MG Tablet PO (09:46)
--- NOTE | 2018-05-27 10:54 | DCINST_ITS ---
- Discharge Diagnoses Current Active Problems: Current Active and Chronic Problems Diverticulitis of large intestine with abscess without bleeding (Acute) MARCELA (acute kidney injury) (Acute) Diverticulitis large intestine (Acute) You will use the following diet at home:: Cardiac, Other - Light diet, advance as tolerated. Your food should be the consistency of: Regular Discharge Activity: Return to Normal Activity, May not drive while taking narcotic pain medications. Weight Bearing Status: Weight bearing as tolerated Call your doctor if you observe: Fever of 101 or Higher, Shortness of breath, Dizziness, Fainting spells, Chest pain, Increased palpitations (irregular heartbeat), Uncontrolled pain Allergies/Adverse Reactions: Allergies No Known Allergies Allergy (Verified 05/14/18 22:05) Medications to take at Discharge Lamotrigine [Lamictal] 100 mg PO DAILY 05/14/18 Losartan/Hydrochlorothiazide [Losartan-Hctz 100-25 mg Tab] 1 each PO DAILY 05/14/18 Pravastatin [Pravachol] 40 mg PO QHS 05/14/18 Sertraline HCl [Zoloft] 100 mg PO BID 05/14/18 Zolpidem Tartrate [Ambien] 10 mg PO QHS 05/14/18 Potassium Chloride 05/15/18 Oxycodone [Oxyir] 5 mg PO Q8H PRN PRN 5 Days #14 tab 05/27/18 Pantoprazole Sodium [Protonix] 40 mg PO DAILY #30 tab 05/27/18 The following prescriptions were given: Oxycodone [Oxyir] 5 mg PO Q8H PRN PRN 5 Days #14 tab PRN Reason: Abdominal pain. Pantoprazole Sodium [Protonix] 40 mg PO DAILY #30 tab Primary Care Physician: Rogelio Young Chi, MD [Primary Care Provider] - Please follow up with your Primary Care Physician in: 1 week. Test Results: Test results from this visit will be discussed in further detail at your follow- up appointment, if applicable. Please Follow Up With: Douglas Serrano MD When: as per him.
[2018-05-27] MEDS: Ibuprofen 600 MG Tablet PO (12:43)
--- NOTE | 2018-05-27 13:54 | PCM.DC.SUM ---
Discharge Date and Diagnosis - Problem List Patient Problems: Active and Suspected Problems Diverticulitis of large intestine with abscess without bleeding (Acute) MARCELA (acute kidney injury) (Acute) Diverticulitis large intestine (Acute) Date of Admission: 05/14/18 Date of Discharge: 05/27/18 - Primary Discharge Diagnosis Active and Suspected Problems #1 acute sigmoid diverticulitis/polymicrobial diverticular abscess with perforation, status post initiate CT-guided drainage of the diverticular abscess followed by exploratory laparotomy for residual abscess with sigmoid resection and primary anastomosis as well as small bowel resection and anastomosis x2. #2 acute kidney injury. #3 hypokalemia/hypomagnesemia/hypophosphatemia. #4 acute blood loss/hemodilution anemia required blood transfusion. - Secondary Discharge Diagnosis Chronic Problems HTN (hypertension) (Chronic) Depression (Chronic) Hyperlipidemia (Chronic) Hospital Course and Treatment Imaging Results: Clinical Impression(s) from Imaging Studies Abscess Drainage 05/15/18 07:04 IMPRESSION: 1. CT directed drainage of a fluid collection using CT image guidance and image documentation as described. 2. Conscious Sedation protocol utilized with independent monitoring Electronically Signed: Fransisco Salinas MD at 9:36 EST Tel [phone], Service support , KUB X-Ray 05/16/18 05:50 IMPRESSION: 1. Small bowel ileus versus low-grade partial small bowel obstruction, with additional suggestion of localized enteritis involving a small bowel loop in the medial left lower quadrant. Contrast from prior study seen in the nondistended colon. No free gas. 2. Percutaneous pigtail drain again seen in the low abdomen. Electronically Signed: Zion Garcia MD at 9:54 EST , Service support , Abdomen/Pelvis CT 05/20/18 07:43 IMPRESSION: 1. Residual abscess within the lower abdomen and pelvis. Extraluminal contrast does exit the sigmoid colon into the peritoneum. This is located near the abscess, but no definite contrast is visible within the abscess cavity. 2. Persistent ileus within the distal small bowel probably related to the abscess. Electronically Signed: Marielena Monet MD at 10:24 EST , Service support , Dr. Serrano, general surgery. Operations: - - Exploratory laparotomy with sigmoid resection, primary anastomosis, small bowel resection with anastomosis x2. Procedures: - - CT-guided drainage of diverticular abscess. Summary of Care Provided: Patient seen and examined on the day of discharge and appeared to be stable to be discharged home. She tolerated full liquid diet very well. She has no more abdominal pain, she has been passing gas and having bowel movements. Started on a regular diet today and she did well. Her vital signs are stable. This is a 62 years old female patient presented to the ED because of nausea, vomiting and diarrhea, found to have acute sigmoid diverticulitis with diverticular abscess, went for CT-guided abscess drainage and repeat CT scan abdomen revealed residual abscess within the lower abdomen and pelvis with extraluminal contrast in the sigmoid colon into the peritoneum indicating perforation, underwent exploratory laparotomy with sigmoid resection and primary anastomosis, small bowel resection with anastomosis x2. #1 acute sigmoid diverticulitis/polymicrobial diverticular abscess with perforation: Status post CT-guided drainage of the diverticular abscess, found to have residual abscess with perforation on repeat CT scan abdomen, status post exploratory laparotomy with sigmoid resection and primary anastomosis, status post small bowel resection with anastomosis x2. She was treated with IV fluids and prolonged course of IV antibiotics with IV Zosyn. Her postoperative course complicated by acute blood loss anemia requiring blood transfusion as well as electrolyte abnormalities. Culture of the abdominal aspirate revealed Enterobacter, enterococcus avium, Morganella morganii and bacteroids. Patient completed course of IV Zosyn and she was sent home without antibiotics. After surgery, patient was started back gradually on diet and she did well with regular diet on the day of discharge. #2 acute kidney injury: Secondary to above. Treated with IV fluids and her kidney function returned back to normal. Upon discharge, serum creatinine was 0.46, it was 1.78 on admission. #3 hypokalemia/hypomagnesemia/hypophosphatemia: Replaced and corrected per protocol. #4 Acute anemia: This is fairly acute which is likely due to blood loss during surgery as well as hemodilution. Patient received with 2 units of packed RBCs. Discharge hemoglobin was 10 g/dL. #5 hypertension: Blood pressure has been stable throughout admission., Continued on losartan, HCTZ upon discharge. #6 hyperlipidemia: Continued on statins. #7 bipolar disorder/depression: Continued on Lamictal and Zoloft. Patient discharged home in a stable medical condition, discharged on OxyIR as needed for pain, Protonix 40 mg p.o. daily because she had black stool which is attributed to gastritis due to her prolonged hospital course and surgery, continued on her other home medications without any changes, plan to follow-up with general surgery in 1 week, recommended follow-up with PCP in 1 week as well. This note was generated with [employer] dictation software. It may contain incorrect words, spelling, and punctuation that were not noted in checking the note before signing. Patient Problems: Active and Suspected Problems Diverticulitis of large intestine with abscess without bleeding (Acute) MARCELA (acute kidney injury) (Acute) Diverticulitis large intestine (Acute) - Physical Exam General: Alert, Oriented x3, Cooperative, No apparent distress HEENT: Atraumatic, PERRLA, EOMI, Normocephalic Oral: Moist Mucosa, No Gingival or Mucosal Lesions/ Ulcerations Neck: Supple, No JVD, Trachea Midline, Thyroid Normal Size and Texture Lungs: Clear to auscultation, No rhonchi, No wheeze, No rales, Diminished Cardiovascular: Regular rate, Regular Rhythm, Normal S1, Normal S2, PMI Normal Abdomen: Bowel Sounds Present, Soft, Non Tender, Non-Distended, No Hepato-splenomegaly Extremities: No clubbing, No cyanosis, No edema Skin: No rashes, No breakdown Lymphatic: No Cervical, Supraclavicular, or Inguinal Adenopathy Neurological: Cranial nerves II-XII grossly intact, Neuro grossly intact Psych/Mental Status: Normal Affect, Appropriate Vital Signs Temp Pulse Resp BP Pulse Ox 98.5 F 90 16 153/83 H 94 05/27/18 08:05 05/27/18 08:05 05/27/18 08:05 05/27/18 08:05 05/27/18 08:05 Oxygen Flow Rate (L/min) [8] 2 Oxygen Flow Rate (L/min) [6] 2 Oxygen Flow Rate (L/min) [5] 2 Oxygen Flow Rate (L/min) [4] 2 Oxygen Flow Rate (L/min) 1 Oxygen Delivery Method [8] Nasal Cannula Oxygen Delivery Method [7] Nasal Cannula Oxygen Delivery Method [6] Nasal Cannula Oxygen Delivery Method [5] Nasal Cannula Oxygen Delivery Method [4] Nasal Cannula Oxygen Delivery Method [2] Room Air Oxygen Delivery Method [1 ( Room Air Initial Baseline)] Oxygen Delivery Method Room Air Weight: 172 lb 6.424 oz Body Mass Index (BMI) 31.0 Intake and Output for Last 24 Hours 05/25/18 05/26/18 05/27/18 23:59 23:59 23:59 Intake Total 1408 / 1408 4900 / 4900 608 / 608 Output Total 222 / 222 3300 / 3300 1400 / 1400 Balance 1186 / 1186 1600 / 1600 -792 / -792 Laboratory Tests Past 24 Hrs 05/26/18 05/26/18 05/27/18 07:30 21:15 05:15 WBC 8.2 RBC 3.33 L Hgb 10.2 L 10.0 L Hct 31.0 L 30.4 L MCV 91.3 MCH 30.0 MCHC 32.9 RDW 15.5 H RDW Differential 51.4 H Plt Count 383 MPV 8.5 Immature Gran % (Auto) 0.400 Neut % (Auto) 64.9 Lymph % (Auto) 25.2 [place] % (Auto) 6.2 Eos % (Auto) 2.7 Baso % (Auto) 0.6 Absolute Neuts (auto) 5.3 Absolute Lymphs (auto) 2.06 Total Counted Not Reportable Blood Type O POSITIVE Antibody Screen NEGATIVE Crossmatch See Detail Discharge Activity: Return to Normal Activity, May not drive while taking narcotic pain medications. Weight Bearing Status: Weight bearing as tolerated Call your doctor if you observe: Fever of 101 or Higher, Shortness of breath, Dizziness, Fainting spells, Chest pain, Increased palpitations (irregular heartbeat), Uncontrolled pain Home Medications: Medications to take at Discharge Lamotrigine [Lamictal] 100 mg PO DAILY 05/14/18 Losartan/Hydrochlorothiazide [Losartan-Hctz 100-25 mg Tab] 1 each PO DAILY 05/14/18 Pravastatin [Pravachol] 40 mg PO QHS 05/14/18 Sertraline HCl [Zoloft] 100 mg PO BID 05/14/18 Zolpidem Tartrate [Ambien] 10 mg PO QHS 05/14/18 Potassium Chloride 05/15/18 Oxycodone [Oxyir] 5 mg PO Q8H PRN PRN 5 Days #14 tab 05/27/18 Pantoprazole Sodium [Protonix] 40 mg PO DAILY #30 tab 05/27/18 Following Prescrptions Were Given to Patient: Oxycodone [Oxyir] 5 mg PO Q8H PRN PRN 5 Days #14 tab PRN Reason: Abdominal pain. Pantoprazole Sodium [Protonix] 40 mg PO DAILY #30 tab Primary Care Physician: Rogelio Young Chi, MD [Primary Care Provider] - Please follow up with your Primary Care Physician in: 1 week. Please Follow Up With: Douglas Serrano MD When: as per him. Disposition: Home Minutes spent on discharge:: 35 Patient Condition:: Stable Medical Necessity - Tobacco Use Smoking Status: Never smoker Meaningful Use Info Meaningful Use Diagnoses (Choose all that apply): None applicable Code Visit Inpatient E&M: 77236 Disch Hosp
--- NOTE | 2018-05-27 14:02 | DS.PCM_ITS ---
Discharge Date and Diagnosis - Problem List Patient Problems: Active and Suspected Problems Diverticulitis of large intestine with abscess without bleeding (Acute) MARCELA (acute kidney injury) (Acute) Diverticulitis large intestine (Acute) Date of Admission: 05/14/18 Date of Discharge: 05/27/18 - Primary Discharge Diagnosis Active and Suspected Problems #1 acute sigmoid diverticulitis/polymicrobial diverticular abscess with pe rforation, status post initiate CT-guided drainage of the diverticular abscess followed by exploratory laparotomy for residual abscess with sigmoid resection and primary anastomosis as well as small bowel resection and anastomosis x2. #2 acute kidney injury. #3 hypokalemia/hypomagnesemia/hypophosphatemia. #4 acute blood loss/hemodilution anemia required blood transfusion. - Secondary Discharge Diagnosis Chronic Problems HTN (hypertension) (Chronic) Depression (Chronic) Hyperlipidemia (Chronic) Hospital Course and Treatment Imaging Results: Clinical Impression(s) from Imaging Studies Abscess Drainage 05/15/18 07:04 IMPRESSION: 1. CT directed drainage of a fluid collection using CT image guidance and image documentation as described. 2. Conscious Sedation protocol utilized with independent monitoring Electronically Signed: Fransisco Salinas MD at 9:36 EST Tel [phone], Service support , KUB X-Ray 05/16/18 05:50 IMPRESSION: 1. Small bowel ileus versus low-grade partial small bowel obstruction, with additional suggestion of localized enteritis involving a small bowel loop in the medial left lower quadrant. Contrast from prior study seen in the nondistended colon. No free gas. 2. Percutaneous pigtail drain again seen in the low abdomen. Electronically Signed: Zion Garcia MD at 9:54 EST , Service support , Abdomen/Pelvis CT 05/20/18 07:43 IMPRESSION: 1. Residual abscess within the lower abdomen and pelvis. Extraluminal contrast does exit the sigmoid colon into the peritoneum. This is located near the abscess, but no definite contrast is visible within the abscess cavity. 2. Persistent ileus within the distal small bowel probably related to the abscess. Electronically Signed: Marielena Monet MD at 10:24 EST , Service support , Dr. Serrano, general surgery. Operations: - - Exploratory laparotomy with sigmoid resection, primary anastomosis, small bowel resection with anastomosis x2. Procedures: - - CT-guided drainage of diverticular abscess. Summary of Care Provided: Patient seen and examined on the day of discharge and appeared to be stable to be discharged home. She tolerated full liquid diet very well. She has no more abdominal pain, she has been passing gas and having bowel movements. Started on a regular diet today and she did well. Her vital signs are stable. This is a 62 years old female patient presented to the ED because of nausea, vomiting and diarrhea, found to have acute sigmoid diverticulitis with diverticular abscess, went for CT-guided abscess drainage and repeat CT scan abdomen revealed residual abscess within the lower abdomen and pelvis with extraluminal contrast in the sigmoid colon into the peritoneum indicating perforation, underwent exploratory laparotomy with sigmoid resection and primary anastomosis, small bowel resection with anastomosis x2. #1 acute sigmoid diverticulitis/polymicrobial diverticular abscess with perforation: Status post CT-guided drainage of the diverticular abscess, found to have residual abscess with perforation on repeat CT scan abdomen, status post exploratory laparotomy with sigmoid resection and primary anastomosis, status post small bowel resection with anastomosis x2. She was treated with IV fluids and prolonged course of IV antibiotics with IV Zosyn. Her postoperative course complicated by acute blood loss anemia requiring blood transfusion as well as e lectrolyte abnormalities. Culture of the abdominal aspirate revealed Enterobacter, enterococcus avium, Morganella morganii and bacteroids. Patient completed course of IV Zosyn and she was sent home without antibiotics. After surgery, patient was started back gradually on diet and she did well with regular diet on the day of discharge. #2 acute kidney injury: Secondary to above. Treated with IV fluids and her kidney function returned back to normal. Upon discharge, serum creatinine was 0.46, it was 1.78 on admission. #3 hypokalemia/hypomagnesemia/hypophosphatemia: Replaced and corrected per protocol. #4 Acute anemia: This is fairly acute which is likely due to blood loss during surgery as well as hemodilution. Patient received with 2 units of packed RBCs. Discharge hemoglobin was 10 g/dL. #5 hypertension: Blood pressure has been stable throughout admission., Continued on losartan, HCTZ upon discharge. #6 hyperlipidemia: Continued on statins. #7 bipolar disorder/depression: Continued on Lamictal and Zoloft. Patient discharged home in a stable medical condition, discharged on OxyIR as needed for pain, Protonix 40 mg p.o. daily because she had black stool which is attributed to gastritis due to her prolonged hospital course and surgery, continued on her other home medications without any changes, plan to follow-up with general surgery in 1 week, recommended follow-up with PCP in 1 week as well. This note was generated with [employer] dictation software. It may contain incorrect words, spelling, and punctuation that were not noted in checking the note before signing. Patient Problems: Active and Suspected Problems Diverticulitis of large intestine with abscess without bleeding (Acute) MARCELA (acute kidney injury) (Acute) Diverticulitis large intestine (Acute) - Physical Exam General: Alert, Oriented x3, Cooperative, No apparent distress HEENT: Atraumatic, PERRLA, EOMI, Normocephalic Oral: Moist Mucosa, No Gingival or Mucosal Lesions/ Ulcerations Neck: Supple, No JVD, Trachea Midline, Thyroid Normal Size and Texture Lungs: Clear to auscultation, No rhonchi, No wheeze, No rales, Diminished Cardiovascular: Regular rate, Regular Rhythm, Normal S1, Normal S2, PMI Normal Abdomen: Bowel Sounds Present, Soft, Non Tender, Non-Distended, No Hepato- splenomegaly Extremities: No clubbing, No cyanosis, No edema Skin: No rashes, No breakdown Lymphatic: No Cervical, Supraclavicular, or Inguinal Adenopathy Neurological: Cranial nerves II-XII grossly intact, Neuro grossly intact Psych/Mental Status: Normal Affect, Appropriate Vital Signs Temp Pulse Resp BP Pulse Ox 98.5 F 90 16 153/83 H 94 05/27/18 08:05 05/27/18 08:05 05/27/18 08:05 05/27/18 08:05 05/27/18 08:05 Oxygen Flow Rate (L/min) [8] 2 Oxygen Flow Rate (L/min) [6] 2 Oxygen Flow Rate (L/min) [5] 2 Oxygen Flow Rate (L/min) [4] 2 Oxygen Flow Rate (L/min) 1 Oxygen Delivery Method [8] Nasal Cannula Oxygen Delivery Method [7] Nasal Cannula Oxygen Delivery Method [6] Nasal Cannula Oxygen Delivery Method [5] Nasal Cannula Oxygen Delivery Method [4] Nasal Cannula Oxygen Delivery Method [2] Room Air Oxygen Delivery Method [1 ( Room Air Initial Baseline)] Oxygen Delivery Method Room Air Weight: 172 lb 6.424 oz Body Mass Index (BMI) 31.0 Intake and Output for Last 24 Hours 05/25/18 05/26/18 05/27/18 23:59 23:59 23:59 Intake Total 1408 / 1408 4900 / 4900 608 / 608 Output Total 222 / 222 3300 / 3300 1400 / 1400 Balance 1186 / 1186 1600 / 1600 -792 / -792 Laboratory Tests Past 24 Hrs 05/26/18 05/26/18 05/27/18 07:30 21:15 05:15 WBC 8.2 RBC 3.33 L Hgb 10.2 L 10.0 L Hct 31.0 L 30.4 L MCV 91.3 MCH 30.0 MCHC 32.9 RDW 15.5 H RDW Differential 51.4 H Plt Count 383 MPV 8.5 Immature Gran % (Auto) 0.400 Neut % (Auto) 64.9 Lymph % (Auto) 25.2 [place] % (Auto) 6.2 Eos % (Auto) 2.7 Baso % (Auto) 0.6 Absolute Neuts (auto) 5.3 Absolute Lymphs (auto) 2.06 Total Counted Not Reportable Blood Type O POSITIVE Antibody Screen NEGATIVE Crossmatch See Detail Discharge Activity: Return to Normal Activity, May not drive while taking narcotic pain medications. Weight Bearing Status: Weight bearing as tolerated Call your doctor if you observe: Fever of 101 or Higher, Shortness of breath, Dizziness, Fainting spells, Chest pain, Increased palpitations (irregular heartbeat), Uncontrolled pain Home Medications: Medications to take at Discharge Lamotrigine [Lamictal] 100 mg PO DAILY 05/14/18 Losartan/Hydrochlorothiazide [Losartan-Hctz 100-25 mg Tab] 1 each PO DAILY 05/14/18 Pravastatin [Pravachol] 40 mg PO QHS 05/14/18 Sertraline HCl [Zoloft] 100 mg PO BID 05/14/18 Zolpidem Tartrate [Ambien] 10 mg PO QHS 05/14/18 Potassium Chloride 05/15/18 Oxycodone [Oxyir] 5 mg PO Q8H PRN PRN 5 Days #14 tab 05/27/18 Pantoprazole Sodium [Protonix] 40 mg PO DAILY #30 tab 05/27/18 Following Prescrptions Were Given to Patient: Oxycodone [Oxyir] 5 mg PO Q8H PRN PRN 5 Days #14 tab PRN Reason: Abdominal pain. Pantoprazole Sodium [Protonix] 40 mg PO DAILY #30 tab Primary Care Physician: Rogelio Young Chi, MD [Primary Care Provider] - Please follow up with your Primary Care Physician in: 1 week. Please Follow Up With: Douglas Serrano MD When: as per him. Disposition: Home Minutes spent on discharge:: 35 Patient Condition:: Stable Medical Necessity - Tobacco Use Smoking Status: Never smoker Meaningful Use Info Meaningful Use Diagnoses (Choose all that apply): None applicable Code Visit Inpatient E&M: 34456 Disch Hosp
--- NOTE | 2018-05-27 14:12 | CASEMGMT ---
DUARTE RAYMOND NOTE: Script obtained for FWW and faxed to [facility]. Casandra @ [facility] was notified pt is discharging today 05/27/18. Jovi SOLIS RN CM
[2018-05-27 15:00] VITALS: BP 146/76; PULSE 88; RESP 16; TEMP 36.6; O2SAT 95
--- NOTE | 2018-05-27 15:25 | CASEMGMT ---
Addendum entered by Reginaldo Torres 05/28/18 08:21: 05/27/18: Also discussed HHC with pt and she declines at this time, stating she does not feel that she needs it. She was made aware if decides later, after returning home, that she feels she needs it/would benefit from it, to follow up with her PCP re: HHC. Pt voices understanding. Original Note: DUARTE RAYMOND NOTE: Pt states she is borrowing a walker from a friend and does want to get one through her insurance. Discussed with pt that there are different sizes of walkers and inquired if she knew if the walker she is borrowing is the correct size for her. She states she is not sure but she still wants to borrow one instead of getting one through insurance. Call placed to Casandra @ [facility] and she was made aware order for walker cancelled. Jovi SOLIS RN CM
--- NOTE | 2018-05-27 16:18 | NURSING ---
entered pt room at 1530 to discontinue PICC line. upon removing the PICC line, this RN met resistance and unable to pull the line the rest of the way out, repositioned pts arm still unable to remove PICC line. Tegaderm was placed over the site for protection. Spoke with Nancy RN- manager qa she instructed to place a warm compress to site for 10-15mins. placed pt back in correct position again tried to remove PICC line still had resistance.. tegaderm placed back over site. pulled up policy..spoke with Sabina RAMACHANDRAN, states that if warm compress doesn't work could get a xray to see where it may be stuck. called Dr. Lynch discussed situation with him he states for me to call Ana RN who inserted the line, no new orders... spoke with fire protection engineering technician and awaiting call back from their nurse.
--- NOTE | 2018-05-27 18:03 | RAD_ITS ---
STUDY: X-RAY CHEST REASON FOR EXAM: Female, 62 years old. PICC line TECHNIQUE: Frontal view of the chest COMPARISON: 06/02/2017 FINDINGS: There is a right sided PICC line noted with its tip overlying the right axilla. The lungs are clear. There are no pleural effusions. There is no pneumothorax. The heart is normal in size. The visualized osseous structures are within normal limits. RAD/Chest 1 View (Portable) IMPRESSION: Right PICC line tip overlying the right axilla. Its position within a vessel cannot be confirmed on this image. No acute thoracic pathology. Electronically Signed: Tato Hill, at 18:28 EST Tel , Service support ,
--- NOTE | 2018-05-27 18:22 | NURSING ---
at 1822 Dr. Serrano informed this RN that no kink was noted in the Chest xray.. and that he will be in around 1900 to look at the PICC line
--- NOTE | 2018-05-27 19:23 | NURSING ---
1900 Dr. Serrano in with pt to look at PICC line.. Dr. Serrano was able to remove the PICC line at bedside, dressing placed.
--- NOTE | 2018-05-28 14:16 | CASEMGMT ---
DUARTE DC Phone Call DC Date: 05/27/17 DC Disposition: Home LACE/STRATA / No answer, message left with call back information if pt had questions re: instructions, follow up or prescriptions. Aziza DEL ROSARION RN ACM
== END 2018-05-27 19:30 | disposition home or self-care (01) | DRG 329 ==
LOC: ED 22:53 → MS2 23:17
PROVIDERS: Anesthesiology; Internal Medicine; Surgery; Urology; Admitting Provider Hospitalist; Emergency Provider Emergency Medicine; Family Provider Family Medicine Geriatric Medicine; PCP Family Medicine Geriatric Medicine; Visit Provider Hospitalist
PROC: 0DTN0ZZ Resection of Sigmoid Colon, Open Approach (ICD-10-PCS; principal; 2018-05-22 13:40)
PROC: 0TJB8ZZ Inspection of Bladder, Via Natural or Artificial Opening Endoscopic (ICD-10-PCS; 2018-05-22 13:40)
DX: K57.20 Diverticulitis of large intestine with perforation and abscess without bleeding (principal); E43 Unspecified severe protein-calorie malnutrition; N17.9 Acute kidney failure, unspecified; D62 Acute posthemorrhagic anemia; K56.7 Ileus, unspecified; A08.19 Acute gastroenteropathy due to other small round viruses; E87.6 Hypokalemia; E83.42 Hypomagnesemia; E83.39 Other disorders of phosphorus metabolism; E78.5 Hyperlipidemia, unspecified; I10 Essential (primary) hypertension; F32.9 Major depressive disorder, single episode, unspecified; F31.9 Bipolar disorder, unspecified; Z68.31 Body mass index [BMI] 31.0-31.9, adult
CPT/HCPCS: 20501; 36415; 36569; 71045; 74018; 74177; 77012; 80048; 82040; 83735; 84100; 85014; 85018; 85025; 85610; 85730; 86850; 86900; 86920; 86922; 87015; 87070; 87075; 87076; 87077; 87116; 87186; 87205; 87206; 87506; 88307; 93005; 97162; 97802; 99156; 99157; 99282; J7030; J7040; P9016; Q9967; A4216; C1769; J0744; J2405

== ENCOUNTER → 2018-06-03 13:46 | Outpatient (CLI) | payer OTHER, SELFPAY ==
[2018-06-03 09:09] VITALS: BMI 29.8
[2018-06-03 17:42] LABS: Vitamin D,25 Hydroxy 12.1 ng/mL (29.95-100.01)
[2018-06-03 17:49] LABS: Absolute Lymphocyte Count 1.83 X10^3/ul (0.83-4.51); Absolute Neutrophil Count 3.5 X10^3/uL (2.0-7.7); Basophil# 0.04 X10^3/uL; Basophil% 0.6 % (0-1); Eosinophil# 0.13 X10^3/uL; Eosinophils% 2.1 % (0-5); Hematocrit 32.8 % (37-47); Hemoglobin 10.2 g/dl (12.0-15.0); Lymphocyte # 1.83 X10^3/ul (4.0); Lymphocyte % 29.6 % (19-41); Mean Corp Hgb Conc 31.1 g/gl (32-36); Mean Corpuscular Hgb 29.1 pg (27.0-32.0); Mean Corpuscular Volume 93.7 fL (81-99); Monocyte# 0.65 X10^3/uL; Monocyte% 10.5 % (0-10); Neutrophil # 3.51 X10^3/uL (2.7-7.7); Neutrophil % 56.9 % (47-70); Platelet Count 488 K/mm3 (150-450); RBC Distribution Width CV 14.6 % (11.6-14.6); RBC Distribution Width SD 49.2 fl (35.1-43.9); White Blood Count 6.2 K/mm3 (4.4-11.0)
[2018-06-03 17:50] LABS: POSITIVE COUNT NO; POSITIVE DIFFERENTIAL NO; POSITIVE MORPHOLOGY NO
[2018-06-03 17:51] LABS: ALB/GLOB Ratio 0.8 RATIO (0.9-2.4); AST(SGOT) 74 U/L (15-37); Alanine Aminotransfer ALT/SGPT 70 U/L (13-56); Alkaline Phosphatase 66 U/L (45-117); Anion Gap 12 (5-15); BUN 16 mg/dL (7-18); BUN/Creat Ratio 17.6 RATIO (10-20); Calcium,Total 8.4 mg/dL (8.5-10.1); Chloride 99 mmol/L (98-107); Creatinine, Serum 0.91 mg/dL (0.55-1.02); EST Glomerular Filtration Rate 66 mL/min (>60); Est Glom Filt Rate - Afr Amer 80 mL/min (>60); Globulin 3.7 g/dL (2.2-4.2); Glucose 100 mg/dL (74-106); Potassium 3.1 mmol/L (3.5-5.1); Protein, Total 6.7 g/dL (6.4-8.2); Sodium Level 138 mmol/L (136-145); Thyroid Stim Hormone (TSH) 1.24 uIU/mL (0.358-3.74)
--- OUTSIDE RECORDS SUMMARY | 2018-08-08 10:37 | XMS RPT_ITS ---
:1955 Author Organization OHIP Support Name Relationship Address Phone CASSI RUGGIERO Unavailable [address] + [place] [address] R Unavailable Unavailable Unavailable [facility] DIAS Unavailable [address] + [place] [address] BAHMAN, ORVIE Unavailable [address] + [place] [address] R Unavailable Unavailable Unavailable [facility] DIAS Unavailable [address] + [place] [address] BAHMAN, ORVIE Unavailable [address] + [place] [address] R Unavailable Unavailable Unavailable [facility].ARUN, KARINA Unavailable [address] + [place] [address] BAHMAN, ORVIE Unavailable [address] + [place] [address] R Unavailable Unavailable Unavailable ST.ARUN, KARINA Unavailable [address] + [place] [address] BAHMAN, ORVIE Unavailable [address] + [place] [address] R Unavailable Unavailable Unavailable ST.ARUN, KARINA Unavailable [address] + [place] [address] BAHMAN, ORVIE Unavailable [address] + [place] [address] R Unavailable Unavailable Unavailable ST.ARUN, KARINA Unavailable [address] + [place] [address] BAHMAN, ORVIE Unavailable [address] + [place] [address] R Unavailable Unavailable Unavailable [facility]ARUN, KARINA Unavailable [address] + [place] [address] BAHMAN, ORVIE Unavailable [address] + [place] [address] R Unavailable Unavailable Unavailable KARINA GANT Unavailable [address] + [place] [address] BAHMAN, ORVIE Unavailable [address] + [place] [address] R Unavailable Unavailable Unavailable KARINA GANT Unavailable [address] + [place] [address] BAHMAN, ORVIE Unavailable [address] + [place] [address] R Unavailable Unavailable Unavailable KARINA GANT Unavailable [address] + [place] [address] BAHMAN, ORVIE Unavailable [address] + [place] [address] R Unavailable Unavailable Unavailable KARINA GANT Unavailable [address] + [place] [address] BAHMAN, ORVIE Unavailable [address] + [place] [address] R Unavailable Unavailable Unavailable KARINA GANT Unavailable [address] + [place] [address] BAHMAN, ORVIE Unavailable [address] + [place] [address] R Unavailable Unavailable Unavailable KARINA GANT Unavailable [address] + [place] [address] BAHMAN, ORVIE Unavailable [address] + [place] [address] R Unavailable Unavailable Unavailable KARINA GANT Unavailable [address] + [place] [address] BAHMAN, ORVIE Unavailable [address] + [place] [address] R Unavailable Unavailable Unavailable KARINA GANT Unavailable [address] + [place] [address] BAHMAN, ORVIE Unavailable [address] + [place] [address] R Unavailable Unavailable Unavailable [facility]KARINA DIAS Unavailable [address] + [place] [address] BAHMAN, ORVIE Unavailable [address] + [place] [address] R Unavailable Unavailable Unavailable [facility]KARINA DIAS Unavailable [address] + [place] [address] BAHMAN, ORVIE Unavailable [address] + [place] [address] R Unavailable Unavailable Unavailable [facility]KARINA DIAS Unavailable [address] + [place] [address] BAHMAN, ORVIE Unavailable [address] + [place] [address] R Unavailable Unavailable Unavailable [facility]KARINA DIAS Unavailable [address] + [place] [address] BAHMAN, ORVIE Unavailable [address] + [place] [address] R Unavailable Unavailable Unavailable [facility]KARINA DIAS Unavailable [address] + [place] [address] BAHMAN, ORVIE Unavailable [address] + [place] [address] R Unavailable Unavailable Unavailable [facility]KARINA DIAS Unavailable [address] + [place] [address] BAHMAN, ORVIE Unavailable [address] + [place] [address] R Unavailable Unavailable Unavailable [facility]KARINA DIAS Unavailable [address] + [place] [address] BAHMAN, ORVIE Unavailable [address] + [place] [address] R Unavailable Unavailable Unavailable [facility]KARINA DIAS Unavailable [address] + [place] [address] BAHMAN, ORVIE Unavailable [address] + [place] [address] R Unavailable Unavailable Unavailable [facility]KARINA DIAS Unavailable [address] + [place] [address] BAHMAN, ORVIE Unavailable [address] + [place] [address] R Unavailable Unavailable Unavailable [facility]KARINA DIAS Unavailable [address] + [place] [address] BAHMAN, ORVIE Unavailable [address] + [place] [address] R Unavailable Unavailable Unavailable [facility]KARINA DIAS Unavailable [address] + [place] [address] BAHMAN, ORVIE Unavailable [address] + [place] [address] R Unavailable Unavailable Unavailable [facility]KARINA DIAS Unavailable [address] + [place] [address] BAHMAN, ORVIE Unavailable [address] + [place] [address] R Unavailable Unavailable Unavailable [facility]KARINA DIAS Unavailable [address] + [place] [address] BAHMAN, ORVIE Unavailable [address] + [place] [address] R Unavailable Unavailable Unavailable [facility]KARINA DIAS Unavailable [address] + [place] [address] BAHMAN, ORVIE Unavailable [address] + [place] [address] R Unavailable Unavailable Unavailable [facility]KARINA DIAS Unavailable [address] + [place] [address] BAHMAN, ORVIE Unavailable [address] + [place] [address] R Unavailable Unavailable Unavailable [facility]KARINA DIAS Unavailable [address] + [place] [address] BAHMAN, ORVIE Unavailable [address] + [place] [address] BAHMAN, ORVIE Unavailable [address] + [place] [address] BAHMAN, ORVIE Unavailable [address] + [place] [address] R Unavailable Unavailable Unavailable KARINA GANT Unavailable [address] + [place] [address] BAHMAN, ORVIE Unavailable [address] [phone] [place] [address] R Unavailable Unavailable Unavailable KARINA GANT Unavailable [address] + [place] [address] Care Team Providers Name Role Phone HAN JOHNSON Attending Unavailable GILMA JIMENEZ, [facility] Primary Care Unavailable Gilma, Rogelio Chi Attending Unavailable Gilma, Rogelio Chi Referring Unavailable Gilma, Rogelio Chi Primary Care Unavailable Gilma, Rogelio Chi Primary Care Unavailable Agyepong, Kev Admitting Unavailable Zach, Douglas Consulting Unavailable Marita Lynch Attending Unavailable Agyepong, Kev Admitting Unavailable Agyepong, Kev Attending Unavailable Gilma, Rogelio Chi Primary Care Unavailable Agyepong, Kev Consulting Unavailable Agyepong, Kev Admitting Unavailable Douglas Serrano Attending Unavailable Gilma, Rogelio Chi Primary Care Unavailable Edson Serranoony Consulting Unavailable Agyepong, Kev Referring Unavailable Anurag, Josiah Consulting Unavailable Agyepong, Kev Admitting Unavailable Josiah Osborn Attending Unavailable Gilma, Rogelio Chi Primary Care Unavailable Michaelabrcharline, Douglas Consulting Unavailable Joppdestini, Josiah Consulting Unavailable Agyepong, Kev Admitting Unavailable Robotham, Noris Attending Unavailable Gilma, Rogelio Chi Primary Care Unavailable Michaelabrcharline, Douglas Consulting Unavailable Anurag, Josiah Consulting Unavailable Agyepong, Kev Admitting Unavailable Anurag, Josiah Attending Unavailable Gilma, Rogelio Chi Primary Care Unavailable Michaelabrcharline, Douglas Consulting Unavailable Joppdestini, Josiah Consulting Unavailable Agyepong, Kev Admitting Unavailable Robotham, Noris Attending Unavailable Gilma, Rogelio Chi Primary Care Unavailable Zach, Douglas Consulting Unavailable Anurag, Josiah Consulting Unavailable Agyepong, Kev Admitting Unavailable Josiah Osborn Attending Unavailable Gilma, Rogelio Chi Primary Care Unavailable Calabretta, Douglas Consulting Unavailable Jopperi Josiah Consulting Unavailable Agyepong, Kev Admitting Unavailable CalabrettaEdsonDouglas Attending Unavailable Gilma, Rogelio Chi Primary Care Unavailable CalabrettaEdsonDouglas Consulting Unavailable Sementi, Trinidad Consulting Unavailable Agyepong, Kev Admitting Unavailable Sementi, Trinidad Attending Unavailable Gilma, Rogelio Chi Primary Care Unavailable CalabrEdson olivierony Consulting Unavailable Sementi, Trinidad Consulting Unavailable Agyepong, Kev Admitting Unavailable Noris Buenrostro Attending Unavailable Gilma, Rogelio Chi Primary Care Unavailable CalabrettaEdsonDouglas Consulting Unavailable Sementi, Trinidad Consulting Unavailable Agyepong, Kev Admitting Unavailable Sementi, Trinidad Attending Unavailable Gilma, Rogelio Chi Primary Care Unavailable CalabrEdson olivierony Consulting Unavailable Sementi, Trinidad Consulting Unavailable Gilma, Rogelio Chi Attending Unavailable Gilma, Rogelio Chi Primary Care Unavailable Gilma, Rogelio Chi Referring Unavailable Gilma, Rogelio Chi Attending Unavailable Gilma, Rogelio Chi Primary Care Unavailable Agyepong, Kev Admitting Unavailable CalEdson cheryony Attending Unavailable Gilma, Rogelio Chi Primary Care Unavailable CalabrEdson olivierony Consulting Unavailable Sementi, Trinidad Consulting Unavailable Agyepong, Kev Admitting Unavailable Sementi, Trinidad Attending Unavailable Gilma, Rogelio Chi Primary Care Unavailable CalabrEdson olivierony Consulting Unavailable Sementi, Trinidad Consulting Unavailable Agyepong, Kev Admitting Unavailable CalEdson cheryony Attending Unavailable Gilma, Rogelio Chi Primary Care Unavailable CalEdson cheryony Consulting Unavailable Sementi, Trinidad Consulting Unavailable Agyepong, Kev Admitting Unavailable Sementi, Trinidad Attending Unavailable Gilma, Rogelio Chi Primary Care Unavailable Calabretta Douglas Consulting Unavailable Sementi, Trinidad Consulting Unavailable Agyepong, Kev Admitting Unavailable CalabrEdson olivierony Attending Unavailable Gilma, Rogelio Chi Primary Care Unavailable CalabrettaEdsonDouglas Consulting Unavailable Sementi, Trinidad Consulting Unavailable Agyepong, Kev Admitting Unavailable Sementi, Trinidad Attending Unavailable Gilma, Rogelio Chi Primary Care Unavailable Calabrcharline, Douglas Consulting Unavailable Sementi, Trinidad Consulting Unavailable Agyepong, Kev Admitting Unavailable CalabrEdson olivierony Attending Unavailable Gilma, Rogelio Chi Primary Care Unavailable Douglas Serrano Consulting Unavailable Sementi, Trinidad Consulting Unavailable Agyepong, Kev Admitting Unavailable Sementi, Trinidad Attending Unavailable Gilma, Rogelio Chi Primary Care Unavailable Douglas Serrano Consulting Unavailable Sementi, Trinidad Consulting Unavailable Agyepong, Kev Admitting Unavailable MichaelabrDouglas olivier Attending Unavailable Gilma, Rogelio Chi Primary Care Unavailable Douglas Serrano Consulting Unavailable Sementi, Trinidad Consulting Unavailable Agyepong, Kev Admitting Unavailable Sementi, Trinidad Attending Unavailable Gilma, Rogelio Chi Primary Care Unavailable Douglas Serrano Consulting Unavailable Sementi, Trinidad Consulting Unavailable Agyepong, Kev Admitting Unavailable Douglas Serrano Attending Unavailable Gilma, Rogelio Chi Primary Care Unavailable Douglas Serrano Consulting Unavailable Ashelfah, Ghasem Consulting Unavailable Agyepong, Kev Admitting Unavailable Ashelfah, Ghasem Attending Unavailable Gilma, Rogelio Chi Primary Care Unavailable Douglas Serrano Consulting Unavailable Ashelfah, Ghasem Consulting Unavailable Agyepong, Kev Admitting Unavailable Douglas Serrano Attending Unavailable Gilma, Rogelio Chi Primary Care Unavailable Douglas Serrano Consulting Unavailable Ashelfah, Ghasem Consulting Unavailable Agyepong, Kev Admitting Unavailable Ashelfah, Ghasem Attending Unavailable Gilma, Rogelio Chi Primary Care Unavailable Douglas Serrano Consulting Unavailable Ashelfah, Ghasem Consulting Unavailable Agyepong, Kev Admitting Unavailable Douglas Serrano Attending Unavailable Gilma, Rogelio Chi Primary Care Unavailable Douglas Serrano Consulting Unavailable Ashelfah, Ghasem Consulting Unavailable Agyepong, Kev Admitting Unavailable Ashelfah, Ghasem Attending Unavailable Gilma, Rogelio Chi Primary Care Unavailable Douglas Serrano Consulting Unavailable Ashelfah, Ghasem Consulting Unavailable Douglas Serrano Attending Unavailable Gilma, Rogelio Chi Referring Unavailable Gilma, Rogelio Chi Attending Unavailable Gilma, Rogelio Chi Primary Care Unavailable PROBLEMS PROBLEMS DATE TYPE CONDITION / CODE ATTENDING STATUS SOURCE 06/03/2018 Unknown 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, 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, Community unspecified / Hospital E55.9(ICD-10) Repository 06/03/2018 Unknown I10 - Essential Gilma, Rogelio Chi Active [place] (primary) Community hypertension / Hospital I10(ICD-10) Repository 05/27/2018 Unknown K57.20 - Ashelfah, Active [place] Diverticulitis [facility] large intestine with Hospital perforation and Repository abscess without bleeding / K57.20(ICD-10) 08/12/2017 Unknown Z12.31 - Encounter Gilma Rogelio Vanegas Active [place] for screening Pending Sale To [facility] mammogram for Hospital malignant neoplasm Repository of breast / Z12.31(ICD-10) PROCEDURES PROCEDURES No Procedure Records FoundRESULTS RESULTS SURGERY VISIT REPORT Observed: 06/05/2018 Status: F Source: [place] 2:03 PM [facility] REPOSITORY [facility] [address] [place] [address] OFFICE VISIT Date of Service: 06/03/18 MR#: [id number] Acct: [id number] Name: KEVIN RUGGIERO Rep #: [id number] : 1955 Provider: Douglas Serrano MD Age/Sex: 62/F Location: [facility] Status: Signed Intake Vital Signs06/03/18 Height 5 ft 2 in 06/03/18 Weight: 163 lb Intake Visit Reasons: Diverticulitis Chief Complaint: diverticulitis Auto Damage Trainee Required: No Is patient in pain?: No Allergies No Known Allergies Allergy (Verified 06/03/18 09:10) Medications Lamotrigine [Lamictal] 100 mg PO DAILY 05/14/18 [History Confirmed 06/03/18] Losartan/Hydrochlorothiazide [Losartan-Hctz 100-25 mg Tab] 1 ea PO DAILY 05/14/18 [History Confirmed 06/03/18] Pravastatin [Pravachol] 40 mg PO QHS 05/14/18 [History Confirmed 06/03/18] Sertraline HCl [Zoloft] 100 mg PO BID 05/14/18 [History Confirmed 06/03/18] Zolpidem Tartrate [Ambien] 10 mg PO QHS 05/14/18 [History Confirmed 06/03/18] Potassium Chloride 05/15/18 [History Confirmed 06/03/18] Pantoprazole Sodium [Protonix] 40 mg PO DAILY #30 tab 05/27/18 [Rx Confirmed 01/16/19] Subjective Details: The patient says she is doing well after her sigmoid colon resection. She is not having any wound drainage. She is tolerating a regular diet with normal bowel movements. She denies any blood in her stool. She denies abdominal pain. Objective Details: Her incision is clean dry and intact and healing well. There is no erythema or ecchymosis. There is no drainage. Abdomen is otherwise soft and nontender. Assessment AND Plan Problems 1. Diverticulitis of large intestine with abscess without bleeding K57.20 Plan 1. She is status post exploratory laparotomy with sigmoid colon resection. The patient is doing well after surgery. I advised her to continue a low fiber diet for another week or 2 and then she may resume high fiber foods. She has no signs of infection at this time. Her incision looks clean dry and intact with no drainage or signs of wound infection. 2. Follow-up as needed. Okay for full activity at 4 weeks postoperative. Douglas Serrnao MD Pager: [facility] [address] [place] [address], [address] [place] [address] Office: Coding Level of Care Code Global Post Op Diagnoses Diverticulitis of large intestine with abscess without bleeding K57.20 06/05/18 1403 <Electronically signed by Douglas Serrano MD> Date Douglas Serrano MD Cosigner Signature: Date (if applicable) CC: Rogelio Young MD VITAMIN D,25 HYDROXY Collected: 06/03/2018 Status: F Source: [place] 1:48 PM [facility] REPOSITORY TYPE CODE TESTS RESULT OUT OF REFERENCE UNITS RANGE LAB L506.1000 29.95-100.01 ng/mL Low Vitamin D 12.1 25-OH Result Comment: Vitamin D 25(OH) Status Range Deficiency <20 ng/mL (50nmol/L) Insuffciency 20 - 30 ng/mL (50 - 75 nmol/L) Sufficiency 30 - 100 ng/mL (75 - 250 nmol/L) Toxicity >100 ng/mL (>250 nmol/L) Performed By: #### L506.1000 #### [facility] [address] [place], [address] CBC W/DIFF, AUTOMATED Collected: 06/03/2018 Status: F Source: [place] 1:48 PM [facility] REPOSITORY TYPE CODE TESTS RESULT OUT OF RANGE REFERENCE UNITS LAB L100.1000 4.4-11.0 K/mm3 Normal WBC 6.2 LAB L100.1200 4.2-5.4 M/mm3 Low RBC 3.50 LAB L100.1300 12.0-15.0 g/dl Low HGB 10.2 LAB L100.1400 37-47 % Low HCT 32.8 LAB L100.1500 81-99 fL Normal MCV 93.7 LAB L100.1600 27.0-32.0 pg Normal MCH 29.1 LAB L100.1700 32-36 g/gl Low MCHC 31.1 LAB L100.1810 11.6-14.6 % Normal RDW CV 14.6 LAB L100.1820 35.1-43.9 fl High RDW SD 49.2 LAB L100.1900 150-450 K/mm3 High PLT 488 LAB L100.2000 6.2-12.0 fl Normal MPV 9.0 LAB L100.2100 47-70 % Normal NEUT% 56.9 LAB L100.2200 19-41 % Normal LY% 29.6 LAB L100.2300 0-10 % High MONO% 10.5 LAB L100.2400 0-5 % Normal EO% 2.1 LAB L100.2500 0-1 % Normal BASO% 0.6 LAB L100.2550 0.0-0.9 % Normal IM GRAN % 0.300 Result Comment: IG% - Immature Granulocytes (promyelocytes, myelocytes and metamyelocytes) > 1% indicates that a LEFT SHIFT is Present. LAB L100.2620 2.0-7.7 X10 3/uL Normal Absolute Neut 3.5 LAB L100.2720 0.83-4.51 X10 3/ul Normal Absolute Lymph 1.83 Performed By: #### L100.0100 #### [facility] [address] [place], [place], [address] COMPREHENSIVE METABOLIC Collected: 06/03/2018 Status: F Source: [place] [facility] 1:48 PM [facility] REPOSITORY TYPE CODE TESTS RESULT OUT OF RANGE REFERENCE UNITS LAB L501.0100 74-106 mg/dL Normal GLU 100 Result Comment: Fasting Glucose result from 100 to 125 mg/dL suggests IMPAIRED HOMEOSTASIS per A.D.A. criteria. Please note revised GLUCOSE reference range effective 2017. LAB L501.1000 7-18 mg/dL Normal BUN 16 LAB L501.1100 0.55-1.02 mg/dL Normal CREAT,SERUM 0.91 Result Comment: The validity of the calculated GFR AND GFRAA in patients over 70 years has not been determined. Clinical correlation is essential. LAB L501.1110 >60 mL/min Normal EST GFR 66 Result Comment: Non- GFR Calc LAB L501.1115 >60 mL/min Normal EST GFR - AA 80 Result Comment: GFR Calc LAB L501.1300 10-20 RATIO Normal BUN/CRE 17.6 LAB L501.1500 6.4-8.2 g/dL T Normal PROT 6.7 LAB L501.1800 3.2-5.0 g/dL Low ALB 3.0 LAB L501.1950 2.2-4.2 g/dL Normal GLOB 3.7 LAB L501.2000 0.9-2.4 RATIO Low A/G 0.8 LAB L501.2200 8.5-10.1 mg/dL Low CA 8.4 LAB L501.4100 15-37 U/L High AST 74 LAB L501.4305 45-117 U/L Normal ALK P 66 LAB L501.4405 13-56 U/L High ALT 70 LAB L501.4600 0.20-1.00 mg/dL T Normal BILI 0.20 LAB L501.5300 136-145 mmol/L NA Normal 138 LAB L501.5600 3.5-5.1 mmol/L Low K 3.1 LAB L501.5900 98-107 mmol/L CL Normal 99 LAB L501.6100 21.0-32.0 mmol/L Normal CO2 27.0 LAB L501.6200 5-15 Normal GAP 12 Performed By: #### L500.4050, L501.9520 #### [facility] [address] [place], [address] THYROID STIM HORMONE Collected: 06/03/2018 Status: F Source: [place] (TSH) 1:48 PM [facility] REPOSITORY TYPE CODE TESTS RESULT OUT OF RANGE REFERENCE UNITS LAB L501.9520 0.358-3.74 uIU/mL Normal TSH 1.24 Performed By: #### L500.4050, L501.9520 #### [facility] [address] [place], [address] 12 LEAD ELECTROCARDIOGRAM Observed: 06/01/2018 Status: F Source: [place] 10:30 AM [facility] REPOSITORY [facility] Cardi[facility] Services [address] [place] [address] 12 Lead EKG 05/22/18 1118 MR#: [id number] Acct: [id number] Name: KEVIN RUGGIERO Rep #: [id number] : 1955 62 From: Otilio Cornejo MD Attending Dr: Marita Lynch Status: DIS IN Ordering Dr: Tyrone Mansfield MD Date: 05/22/18 Location[place] [facility] [place] Sex: F C Admitted: 05/14/18 Test Reason : PRE-OP Blood Pressure : / mmHG Vent. Rate : 069 BPM Atrial Rate : 069 BPM P-R Int : 154 ms QRS Dur : 068 ms QT Int : 396 ms P-R-T Axes : 060 054 061 degrees QTc Int : 424 ms Normal sinus rhythm Normal ECG When compared with ECG of 19-SEP-2016 10:41, Nonspecific T wave abnormality now evident in Lateral leads Confirmed by OTILIO CORNEJO MD ([id number]), associate entertainment editor THOMAS MONET ([id number]) on 06/01/2018 10:30:01 AM Referred By: Rogelio Young Confirmed By:OTILIO CORNEJO MD 06/01/18 1030 Date Otilio Cornejo MD CC: Tyrone Mansfield MD; Marita Lynch; Rogelio Young MD Signed CHEST 1 VIEW Observed: 05/27/2018 Status: F Source: [place] (PORTABLE) 5:48 PM [facility] REPOSITORY [facility] Imaging Services [address] [place] [address] Chest 1 View (Portable) MR#: [id number] Acct: [id number] Name: KEVIN RUGGIERO Rep #: [id number] : 1955 F 62 From: [place] MD PCP: Rogelio Young MD, Chi Status: ADM IN Study: Chest 1 View (Portable) Date of Exam: 05/27/18 Exam# [id number] Ordering Dr: Douglas Serrano MD STUDY: X-RAY CHEST REASON FOR EXAM: Female, 62 years old. PICC line TECHNIQUE: Frontal view of the chest COMPARISON: 06/02/2017 FINDINGS: There is a right sided PICC line noted with its tip overlying the right axilla. The lungs are clear. There are no pleural effusions. There is no pneumothorax. The heart is normal in size. The visualized osseous structures are within normal limits. RAD/Chest 1 View (Portable) IMPRESSION: Right PICC line tip overlying the right axilla. Its position within a vessel cannot be confirmed on this image. No acute thoracic pathology. Electronically Signed: Tato [place], at 18:28 EST Tel , Service support , CC: Douglas Serrano MD; Rogelio Young MD Carpenter Refrigerator: Signed DISCHARGE SUMMARY Observed: 05/27/2018 Status: F Source: [place] 2:03 PM [facility] REPOSITORY [facility] Medical Records Department [address] [place] [address] Discharge Summary 05/27/18 1354 MR#: [id number] Acct: [id number] Name: KEVIN RUGGIERO Rep #: [id number] : 1955 62 From: Marita Lynch MD PCP: Gilma BRAVO,Rogelio Vanegas Status: ADM IN Y Location: [place] [address] Discharge Date and Diagnosis - Problem List Patient Problems: Active and Suspected Problems Diverticulitis of large intestine with abscess without bleeding (Acute) MARCELA (acute kidney injury) (Acute) Diverticulitis large intestine (Acute) Date of Admission: 05/14/18 Date of Discharge: 05/27/18 - Primary Discharge Diagnosis Active and Suspected Problems #1 acute sigmoid diverticulitis/polymicrobial diverticular abscess with perforation, status post initiate CT-guided drainage of the diverticular abscess followed by exploratory laparotomy for residual abscess with sigmoid resection and primary anastomosis as well as small bowel resection and anastomosis x2. #2 acute kidney injury. #3 hypokalemia/hypomagnesemia/hypophosphatemia. #4 acute blood loss/hemodilution anemia required blood transfusion. - Secondary Discharge Diagnosis Chronic Problems HTN (hypertension) (Chronic) Depression (Chronic) Hyperlipidemia (Chronic) Hospital Course and Treatment Imaging Results: Clinical Impression(s) from Imaging Studies Abscess Drainage 05/15/18 07:04 IMPRESSION: 1. CT directed drainage of a fluid collection using CT image guidance and image documentation as described. 2. Conscious Sedation protocol utilized with independent monitoring Electronically Signed: Fransisco Salinas MD at 9:36 EST Tel [phone], Service support , KUB X-Ray 05/16/18 05:50 IMPRESSION: 1. Small bowel ileus versus low-grade partial small bowel obstruction, with additional suggestion of localized enteritis involving a small bowel loop in the medial left lower quadrant. Contrast from prior study seen in the nondistended colon. No free gas. 2. Percutaneous pigtail drain again seen in the low abdomen. Electronically Signed: Zion Garcia MD at 9:54 EST , Service support , Abdomen/Pelvis CT 05/20/18 07:43 IMPRESSION: 1. Residual abscess within the lower abdomen and pelvis. Extraluminal contrast does exit the sigmoid colon into the peritoneum. This is located near the abscess, but no definite contrast is visible within the abscess cavity. 2. Persistent ileus within the distal small bowel probably related to the abscess. Electronically Signed: Han Monet MD at 10:24 EST , Service support , Dr. Serrano, general surgery. Operations: - - Exploratory laparotomy with sigmoid resection, primary anastomosis, small bowel resection with anastomosis x2. Procedures: - - CT-guided drainage of diverticular abscess. Summary of Care Provided: Patient seen and examined on the day of discharge and appeared to be stable to be discharged home. She tolerated full liquid diet very well. She has no more abdominal pain, she has been passing gas and having bowel movements. Started on a regular diet today and she did well. Her vital signs are stable. This is a 62 years old female patient presented to the ED because of nausea, vomiting and diarrhea, found to have acute sigmoid diverticulitis with diverticular abscess, went for CT-guided abscess drainage and repeat CT scan abdomen revealed residual abscess within the lower abdomen and pelvis with extraluminal contrast in the sigmoid colon into the peritoneum indicating perforation, underwent exploratory laparotomy with sigmoid resection and primary anastomosis, small bowel resection with anastomosis x2. #1 acute sigmoid diverticulitis/polymicrobial diverticular abscess with perforation: Status post CT-guided drainage of the diverticular abscess, found to have residual abscess with perforation on repeat CT scan abdomen, status post exploratory laparotomy with sigmoid resection and primary anastomosis, status post small bowel resection with anastomosis x2. She was treated with IV fluids and prolonged course of IV antibiotics with IV Zosyn. Her postoperative course complicated by acute blood loss anemia requiring blood transfusion as well as electrolyte abnormalities. Culture of the abdominal aspirate revealed Enterobacter, enterococcus avium, Morganella morganii and bacteroids. Patient completed course of IV Zosyn and she was sent home without antibiotics. After surgery, patient was started back gradually on diet and she did well with regular diet on the day of discharge. #2 acute kidney injury: Secondary to above. Treated with IV fluids and her kidney function returned back to normal. Upon discharge, serum creatinine was 0.46, it was 1.78 on admission. #3 hypokalemia/hypomagnesemia/hypophosphatemia: Replaced and corrected per protocol. #4 Acute anemia: This is fairly acute which is likely due to blood loss during surgery as well as hemodilution. Patient received with 2 units of packed RBCs. Discharge hemoglobin was 10 g/dL. #5 hypertension: Blood pressure has been stable throughout admission., Continued on losartan, HCTZ upon discharge. #6 hyperlipidemia: Continued on statins. #7 bipolar disorder/depression: Continued on Lamictal and Zoloft. Patient discharged home in a stable medical condition, discharged on OxyIR as needed for pain, Protonix 40 mg p.o. daily because she had black stool which is attributed to gastritis due to her prolonged hospital course and surgery, continued on her other home medications without any changes, plan to follow-up with general surgery in 1 week, recommended follow-up with PCP in 1 week as well. This note was generated with iodine dictation software. It may contain incorrect words, spelling, and punctuation that were not noted in checking the note before signing. Patient Problems: Active and Suspected Problems Diverticulitis of large intestine with abscess without bleeding (Acute) MARCELA (acute kidney injury) (Acute) Diverticulitis large intestine (Acute) - Physical Exam General: Alert, Oriented x3, Cooperative, No apparent distress HEENT: Atraumatic, PERRLA, EOMI, Normocephalic Oral: Moist Mucosa, No Gingival or Mucosal Lesions/ Ulcerations Neck: Supple, No JVD, Trachea Midline, Thyroid Normal Size and Texture Lungs: Clear to auscultation, No rhonchi, No wheeze, No rales, Diminished Cardiovascular: Regular rate, Regular Rhythm, Normal S1, Normal S2, PMI Normal Abdomen: Bowel Sounds Present, Soft, Non Tender, Non-Distended, No Hepato-splenomegaly Extremities: No clubbing, No cyanosis, No edema Skin: No rashes, No breakdown Lymphatic: No Cervical, Supraclavicular, or Inguinal Adenopathy Neurological: Cranial nerves II-XII grossly intact, Neuro grossly intact Psych/Mental Status: Normal Affect, Appropriate Vital Signs Temp Pulse Resp BP Pulse Ox 98.5 F 90 16 153/83 H 94 05/27/18 08:05 05/27/18 08:05 05/27/18 08:05 05/27/18 08:05 05/27/18 08:05 Oxygen Flow Rate (L/min) [8] 2 Oxygen Flow Rate (L/min) [6] 2 Oxygen Flow Rate (L/min) [5] 2 Oxygen Flow Rate (L/min) [4] 2 Oxygen Flow Rate (L/min) 1 Oxygen Delivery Method [8] Nasal Cannula Oxygen Delivery Method [7] Nasal Cannula Oxygen Delivery Method [6] Nasal Cannula Oxygen Delivery Method [5] Nasal Cannula Oxygen Delivery Method [4] Nasal Cannula Oxygen Delivery Method [2] Room Air Oxygen Delivery Method [1 ( Room Air Initial Baseline)] Oxygen Delivery Method Room Air Weight: 172 lb 6.424 oz Body Mass Index (BMI) 31.0 Intake and Output for Last 24 Hours Intake Total 1408 / 1408 4900 / 4900 608 / 608 Output Total 222 / 222 3300 / 3300 1400 / 1400 Balance 1186 / 1186 1600 / 1600 -792 / -792 Laboratory Tests Past 24 Hrs WBC 8.2 RBC 3.33 L Hgb 10.2 L 10.0 L Hct 31.0 L 30.4 L MCV 91.3 MCH 30.0 MCHC 32.9 RDW 15.5 H Discharge Activity: Return to Normal Activity, May not drive while taking narcotic pain medications. Weight Bearing Status: Weight bearing as tolerated Call your doctor if you observe: Fever of 101 or Higher, Shortness of breath, Dizziness, Fainting spells, Chest pain, Increased palpitations (irregular heartbeat), Uncontrolled pain Home Medications: Medications to take at Discharge Lamotrigine [Lamictal] 100 mg PO DAILY 05/14/18 Losartan/Hydrochlorothiazide [Losartan-Hctz 100-25 mg Tab] 1 each PO DAILY 05/14/18 Pravastatin [Pravachol] 40 mg PO QHS 05/14/18 Sertraline HCl [Zoloft] 100 mg PO BID 05/14/18 Zolpidem Tartrate [Ambien] 10 mg PO QHS 05/14/18 Potassium Chloride 05/15/18 Oxycodone [Oxyir] 5 mg PO Q8H PRN PRN 5 Days #14 tab 05/27/18 Pantoprazole Sodium [Protonix] 40 mg PO DAILY #30 tab 05/27/18 Following Prescrptions Were Given to Patient: Oxycodone [Oxyir] 5 mg PO Q8H PRN PRN 5 Days #14 tab PRN Reason: Abdominal pain. Pantoprazole Sodium [Protonix] 40 mg PO DAILY #30 tab Primary Care Physician: Rogelio Young Chi, MD [Primary Care Provider] - Please follow up with your Primary Care Physician in: 1 week. Please Follow Up With: Douglas Serrano MD When: as per him. Disposition: Home Minutes spent on discharge:: 35 Patient Condition:: Stable Medical Necessity - Tobacco Use Smoking Status: Never smoker Meaningful Use Info Meaningful Use Diagnoses (Choose all that apply): None applicable Code Visit Inpatient E AND M: 64350 Disch Hosp 05/27/18 1403 <Electronically signed by Marita Lynch MD> Date Marita Lynch MD Cosigner Signature (if applicable): Date CC: Douglas Serrano MD; Marita Lynch; Rogelio Young MD Signed DISCHARGE INSTRUCTION Observed: 05/27/2018 Status: C Source: [place] 12:51 PM [facility] REPOSITORY [facility] Medical Records Department [address] [place] [id number] Instructions for Home/Discharge Instructions 05/27/18 1052 MR#: [id number] Acct: [id number] Name: KEVIN RUGGIERO Rep #: [id number] : 1955 62 From: Marita Lynch MD PCP: Gilma BRAVO,Rogelio Vanegas Status: ADM IN ADDENDUM by Douglas Serrano MD on 05/27/18 at 1251 Patient may shower but no tub bathing. Follow-up with me in 1 week call for appointment, . No lifting over 20 pounds. Change dressings daily. Date Douglas Serrano MD cc: Douglas Serrano MD; Rogelio Young MD * Addendum - Discharge Diagnoses Current Active Problems: Current Active and Chronic Problems Diverticulitis of large intestine with abscess without bleeding (Acute) MARCELA (acute kidney injury) (Acute) Diverticulitis large intestine (Acute) You will use the following diet at home:: Cardiac, Other - Light diet, advance as tolerated. Your food should be the consistency of: Regular Discharge Activity: Return to Normal Activity, May not drive while taking narcotic pain medications. Weight Bearing Status: Weight bearing as tolerated Call your doctor if you observe: Fever of 101 or Higher, Shortness of breath, Dizziness, Fainting spells, Chest pain, Increased palpitations (irregular heartbeat), Uncontrolled pain Allergies/Adverse Reactions: Allergies No Known Allergies Allergy (Verified 05/14/18 22:05) Medications to take at Discharge Lamotrigine [Lamictal] 100 mg PO DAILY 05/14/18 Losartan/Hydrochlorothiazide [Losartan-Hctz 100-25 mg Tab] 1 each PO DAILY 05/14/18 Pravastatin [Pravachol] 40 mg PO QHS 05/14/18 Sertraline HCl [Zoloft] 100 mg PO BID 05/14/18 Zolpidem Tartrate [Ambien] 10 mg PO QHS 05/14/18 Potassium Chloride 05/15/18 Oxycodone [Oxyir] 5 mg PO Q8H PRN PRN 5 Days #14 tab 05/27/18 Pantoprazole Sodium [Protonix] 40 mg PO DAILY #30 tab 05/27/18 The following prescriptions were given: Oxycodone [Oxyir] 5 mg PO Q8H PRN PRN 5 Days #14 tab PRN Reason: Abdominal pain. Pantoprazole Sodium [Protonix] 40 mg PO DAILY #30 tab Primary Care Physician: Rogelio Young Chi, MD [Primary Care Provider] - Please follow up with your Primary Care Physician in: 1 week. Test Results: Test results from this visit will be discussed in further detail at your follow-up appointment, if applicable. Please Follow Up With: Douglas Serrano MD When: as per him. 05/27/18 1054 <Electronically signed by Marita Lynch MD> Date Marita Lynch MD CC: Douglas Serrano MD; Rogelio Young MD Addendum CBC W/DIFF, AUTOMATED Collected: 05/27/2018 Status: F Source: [place] 5:15 AM [facility] REPOSITORY TYPE CODE TESTS RESULT OUT OF RANGE REFERENCE UNITS LAB L100.1000 4.4-11.0 K/mm3 Normal WBC 8.2 LAB L100.1200 4.2-5.4 M/mm3 Low RBC 3.33 LAB L100.1300 12.0-15.0 g/dl Low HGB 10.0 LAB L100.1400 37-47 % Low HCT 30.4 LAB L100.1500 81-99 fL Normal MCV 91.3 LAB L100.1600 27.0-32.0 pg Normal MCH 30.0 LAB L100.1700 32-36 g/gl Normal MCHC 32.9 LAB L100.1810 11.6-14.6 % High RDW CV 15.5 LAB L100.1820 35.1-43.9 fl High RDW SD 51.4 LAB L100.1900 150-450 K/mm3 Normal PLT 383 LAB L100.2000 6.2-12.0 fl Normal MPV 8.5 LAB L100.2100 47-70 % Normal NEUT% 64.9 LAB L100.2200 19-41 % Normal LY% 25.2 LAB L100.2300 0-10 % Normal MONO% 6.2 LAB L100.2400 0-5 % Normal EO% 2.7 LAB L100.2500 0-1 % Normal BASO% 0.6 LAB L100.2550 0.0-0.9 % Normal IM GRAN % 0.400 Result Comment: IG% - Immature Granulocytes (promyelocytes, myelocytes and metamyelocytes) > 1% indicates that a LEFT SHIFT is Present. LAB L100.2620 2.0-7.7 X10 3/uL Normal Absolute Neut 5.3 LAB L100.2720 0.83-4.51 X10 3/ul Normal Absolute Lymph 2.06 Performed By: #### L100.0100 #### [facility] [address] [place], [place], [address] HH, HEMOGLOBIN AND Collected: 05/26/2018 Status: F Source: [place] HEMATOCRIT 9:15 PM [facility] REPOSITORY TYPE CODE TESTS RESULT OUT OF RANGE REFERENCE UNITS LAB L100.1300 12.0-15.0 g/dl Low HGB 10.2 LAB L100.1400 37-47 % Low HCT 31.0 Performed By: #### L100.0600 #### [facility] [address] [place], [address] HH, HEMOGLOBIN AND Collected: 05/26/2018 Status: F Source: [place] HEMATOCRIT 7:30 AM [facility] REPOSITORY TYPE CODE TESTS RESULT OUT OF RANGE REFERENCE UNITS LAB L100.1300 12.0-15.0 g/dl Low HGB 7.1 LAB L100.1400 37-47 % Low HCT 22.2 Performed By: #### L100.0600 #### [facility] [address] [facility] [place], [address] TYPE AND SCREEN Collected: 05/26/2018 Status: F Source: [place] 7:30 AM [facility] REPOSITORY Order Comment: CMV NEG? N Number of units to transfuse: 2 Is there a >20% drop in pt's BP? N Is the pt's CVP (central venous pressure) <3 cm/H2O? N Is the EBL >/= 1000ml in adults or >/= 12ml/kg in children? N Is there an orthostatic change in pt's BP(SBP drop >10mmHg)? N Is pt's HR > 100 bpm? N Reason for Ordering Blood: Acute Are the blood/blood products to be transfused? Y Is the patient having/had surgery? Y Give When? When Ready Irradiated? N Leukodepleted? Y Surgery Date: 05/22/18 Type of Surgery: SIGMOID COLECTOMY TYPE CODE TESTS RESULT OUT OF RANGE REFERENCE UNITS LAB B10.0800 O Normal BLOOD TYPE GEL POSITIVE LAB B100.4000 Normal Antibody NEGATIVE Screen Performed By: #### B101.7450 #### [facility] [address] [place], [address] RC Collected: 05/26/2018 Status: F Source: [place] 7:30 AM [facility] REPOSITORY TYPE CODE TESTS RESULT OUT OF REFERENCE UNITS RANGE LAB U100.0000 [id number] TRANSFUSED PRODUCT: T AND S with Crossmatch, Red Cells COUNT: 2 Performed By: #### U100.0000 #### Non-[facility] - refer to report for specific site BASIC METABOLIC Collected: 05/26/2018 Status: F Source: [place] PROFILE (BMP) 5:25 AM [facility] REPOSITORY TYPE CODE TESTS RESULT OUT OF RANGE REFERENCE UNITS LAB L501.0100 74-106 mg/dL Normal GLU 93 Result Comment: Please note revised GLUCOSE reference range effective 2017. LAB L501.1000 7-18 mg/dL Normal BUN 10 LAB L501.1100 0.55-1.02 mg/dL Low CREAT,SERUM 0.46 Result Comment: The validity of the calculated GFR AND GFRAA in patients over 70 years has not been determined. Clinical correlation is essential. LAB L501.1110 >60 mL/min Normal EST GFR 144 Result Comment: Non- GFR Calc LAB L501.1115 >60 mL/min Normal EST GFR - AA 175 Result Comment: GFR Calc LAB L501.1255 ml/min Normal Estimated CRCL 97.72 LAB L501.1300 10-20 RATIO High BUN/CRE 21.6 LAB L501.2200 8.5-10 mg/dL Low .1 CA 7.8 LAB L501.5300 136-14 mmol/L Normal 5 NA 141 LAB L501.5600 3.5-5. mmol/L Normal 1 K 4.2 LAB L501.5900 98-107 mmol/L Normal CL 107 LAB L501.6100 21.0-3 mmol/L Normal 2.0 CO2 26.0 LAB L501.6200 5-15 Normal GAP 8 Performed By: #### L500.2500 #### [facility] [address] [place], [address] CBC W/DIFF, AUTOMATED Collected: 05/26/2018 Status: F Source: [place] 5:25 AM [facility] REPOSITORY TYPE CODE TESTS RESULT OUT OF RANGE REFERENCE UNITS LAB L100.1000 4.4-11.0 K/mm3 Normal WBC 8.9 LAB L100.1200 4.2-5.4 M/mm3 Low RBC 2.24 LAB L100.1300 12.0-15.0 g/dl Low HGB 6.9 LAB L100.1400 37-47 % Low HCT 21.5 LAB L100.1500 81-99 fL Normal MCV 96.0 LAB L100.1600 27.0-32.0 pg Normal MCH 30.8 LAB L100.1700 32-36 g/gl Normal MCHC 32.1 LAB L100.1810 11.6-14.6 % Normal RDW CV 14.1 LAB L100.1820 35.1-43.9 fl High RDW SD 49.2 LAB L100.1900 150-450 K/mm3 Normal PLT 396 LAB L100.2000 6.2-12.0 fl Normal MPV 8.6 LAB L100.2100 47-70 % Normal NEUT% 67.7 LAB L100.2200 19-41 % Normal LY% 22.3 LAB L100.2300 0-10 % Normal MONO% 6.6 LAB L100.2400 0-5 % Normal EO% 2.0 LAB L100.2500 0-1 % Normal BASO% 0.8 LAB L100.2550 0.0-0.9 % Normal IM GRAN % 0.600 Result Comment: IG% - Immature Granulocytes (promyelocytes, myelocytes and metamyelocytes) > 1% indicates that a LEFT SHIFT is Present. LAB L100.2620 2.0-7.7 X10 3/uL Normal Absolute Neut 6.0 LAB L100.2720 0.83-4.51 X10 3/ul Normal Absolute Lymph 1.99 Performed By: #### L100.0100 #### [facility] [address] [place], [address] BASIC METABOLIC Collected: 05/25/2018 Status: F Source: [place] PROFILE (BMP) 5:45 AM [facility] REPOSITORY TYPE CODE TESTS RESULT OUT OF RANGE REFERENCE UNITS LAB L501.0100 74-106 mg/dL Normal GLU 94 Result Comment: Please note revised GLUCOSE reference range effective 2017. LAB L501.1000 7-18 mg/dL Normal BUN 10 LAB L501.1100 0.55-1.02 mg/dL Low CREAT,SERUM 0.48 Result Comment: The validity of the calculated GFR AND GFRAA in patients over 70 years has not been determined. Clinical correlation is essential. LAB L501.1110 >60 mL/min Normal EST GFR 138 Result Comment: Non- GFR Calc LAB L501.1115 >60 mL/min Normal EST GFR - AA 168 Result Comment: GFR Calc LAB L501.1255 ml/min Normal Estimated CRCL 93.65 LAB L501.1300 10-20 RATIO High BUN/CRE 20.9 LAB L501.2200 8.5-10 mg/dL Low .1 CA 7.9 LAB L501.5300 136-14 mmol/L Normal 5 NA 141 LAB L501.5600 3.5-5. mmol/L Normal 1 K 4.2 LAB L501.5900 98-107 mmol/L High CL 109 LAB L501.6100 21.0-3 mmol/L Normal 2.0 CO2 23.0 LAB L501.6200 5-15 Normal GAP 9 Performed By: #### L500.2500 #### [facility] [address] [place], [address] CBC W/DIFF, AUTOMATED Collected: 05/25/2018 Status: F Source: [place] 5:45 AM [facility] REPOSITORY TYPE CODE TESTS RESULT OUT OF RANGE REFERENCE UNITS LAB L100.1000 4.4-11.0 K/mm3 High WBC 13.3 LAB L100.1200 4.2-5.4 M/mm3 Low RBC 2.82 LAB L100.1300 12.0-15.0 g/dl Low HGB 8.7 LAB L100.1400 37-47 % Low HCT 27.0 LAB L100.1500 81-99 fL Normal MCV 95.7 LAB L100.1600 27.0-32.0 pg Normal MCH 30.9 LAB L100.1700 32-36 g/gl Normal MCHC 32.2 LAB L100.1810 11.6-14.6 % Normal RDW CV 14.0 LAB L100.1820 35.1-43.9 fl High RDW SD 49.2 LAB L100.1900 150-450 K/mm3 High PLT 458 LAB L100.2000 6.2-12.0 fl Normal MPV 8.6 LAB L100.2100 47-70 % High NEUT% 78.3 LAB L100.2200 19-41 % Low LY% 13.8 LAB L100.2300 0-10 % Normal MONO% 6.3 LAB L100.2400 0-5 % Normal EO% 0.9 LAB L100.2500 0-1 % Normal BASO% 0.2 LAB L100.2550 0.0-0.9 % Normal IM GRAN % 0.500 Result Comment: IG% - Immature Granulocytes (promyelocytes, myelocytes and metamyelocytes) > 1% indicates that a LEFT SHIFT is Present. LAB L100.2620 2.0-7.7 X10 3/uL High Absolute Neut 10.4 LAB L100.2720 0.83-4.51 X10 3/ul Normal Absolute Lymph 1.84 Performed By: #### L100.0100 #### [facility] [address] [place], [address] CBC W/DIFF, AUTOMATED Collected: 05/24/2018 Status: F Source: [place] 5:50 AM [facility] REPOSITORY TYPE CODE TESTS RESULT OUT OF RANGE REFERENCE UNITS LAB L100.1000 4.4-11.0 K/mm3 High WBC 13.5 LAB L100.1200 4.2-5.4 M/mm3 Low RBC 2.82 LAB L100.1300 12.0-15.0 g/dl Low HGB 8.7 LAB L100.1400 37-47 % Low HCT 28.0 LAB L100.1500 81-99 fL High MCV 99.3 LAB L100.1600 27.0-32.0 pg Normal MCH 30.9 LAB L100.1700 32-36 g/gl Low MCHC 31.1 LAB L100.1810 11.6-14.6 % Normal RDW CV 13.5 LAB L100.1820 35.1-43.9 fl High RDW SD 47.4 LAB L100.1900 150-450 K/mm3 High PLT 451 LAB L100.2000 6.2-12.0 fl Normal MPV 9.0 LAB L100.2100 47-70 % High NEUT% 78.6 LAB L100.2200 19-41 % Low LY% 11.2 LAB L100.2300 0-10 % Normal MONO% 8.5 LAB L100.2400 0-5 % Normal EO% 1.0 LAB L100.2500 0-1 % Normal BASO% 0.2 LAB L100.2550 0.0-0.9 % Normal IM GRAN % 0.500 Result Comment: IG% - Immature Granulocytes (promyelocytes, myelocytes and metamyelocytes) > 1% indicates that a LEFT SHIFT is Present. LAB L100.2620 2.0-7.7 X10 3/uL High Absolute Neut 10.6 LAB L100.2720 0.83-4.51 X10 3/ul Normal Absolute Lymph 1.51 Performed By: #### L100.0100 #### [facility] [address] [place], [address] BASIC METABOLIC Collected: 05/24/2018 Status: F Source: [place] PROFILE (BMP) 5:50 AM [facility] REPOSITORY TYPE CODE TESTS RESULT OUT OF RANGE REFERENCE UNITS LAB L501.0100 74-106 mg/dL High GLU 121 Result Comment: Fasting Glucose result from 100 to 125 mg/dL suggests IMPAIRED HOMEOSTASIS per A.D.A. criteria. Please note revised GLUCOSE reference range effective 2017. LAB L501.1000 7-18 mg/dL Low BUN 3 LAB L501.1100 0.55-1.02 mg/dL Low CREAT,SERUM 0.53 Result Comment: The validity of the calculated GFR AND GFRAA in patients over 70 years has not been determined. Clinical correlation is essential. LAB L501.1110 >60 mL/min Normal EST GFR 123 Result Comment: Non- GFR Calc LAB L501.1115 >60 mL/min Normal EST GFR - AA 149 Result Comment: GFR Calc LAB L501.1255 ml/min Normal Estimated CRCL 84.81 LAB L501.1300 10-20 RATIO Low BUN/CRE 5.7 LAB L501.2200 8.5-10 mg/dL Low .1 CA 7.6 LAB L501.5300 136-14 mmol/L Normal 5 NA 138 LAB L501.5600 3.5-5. mmol/L Normal 1 K 4.3 LAB L501.5900 98-107 mmol/L Normal CL 105 LAB L501.6100 21.0-3 mmol/L Normal 2.0 CO2 27.0 LAB L501.6200 5-15 Normal GAP 6 Performed By: #### L500.2500, L501.5200 #### [facility] [address] [place], [address] MAGNESIUM Collected: 05/24/2018 Status: F Source: [place] 5:50 AM [facility] REPOSITORY TYPE CODE TESTS RESULT OUT OF RANGE REFERENCE UNITS LAB L501.5200 1.6-2.6 mg/dL Normal MG 1.8 Performed By: #### L500.2500, L501.5200 #### [facility] [address] [place], [address] CBC W/DIFF, AUTOMATED Collected: 05/23/2018 Status: F Source: [place] 5:20 AM [facility] REPOSITORY Order Comment: SPECIMEN OBTAINED FROM LINE DRAW TYPE CODE TESTS RESULT OUT OF RANGE REFERENCE UNITS LAB L100.1000 4.4-11.0 K/mm3 High WBC 17.6 LAB L100.1200 4.2-5.4 M/mm3 Low RBC 3.21 LAB L100.1300 12.0-15.0 g/dl Low HGB 10.0 LAB L100.1400 37-47 % Low HCT 31.8 LAB L100.1500 81-99 fL High MCV 99.1 LAB L100.1600 27.0-32.0 pg Normal MCH 31.2 LAB L100.1700 32-36 g/gl Low MCHC 31.4 LAB L100.1810 11.6-14.6 % Normal RDW CV 13.5 LAB L100.1820 35.1-43.9 fl High RDW SD 47.1 LAB L100.1900 150-450 K/mm3 High PLT 496 LAB L100.2000 6.2-12.0 fl Normal MPV 8.6 LAB L100.2100 47-70 % High NEUT% 81.7 LAB L100.2200 19-41 % Low LY% 9.3 LAB L100.2300 0-10 % Normal MONO% 8.0 LAB L100.2400 0-5 % Normal EO% 0.2 LAB L100.2500 0-1 % Normal BASO% 0.2 LAB L100.2550 0.0-0.9 % Normal IM GRAN % 0.600 Result Comment: IG% - Immature Granulocytes (promyelocytes, myelocytes and metamyelocytes) > 1% indicates that a LEFT SHIFT is Present. LAB L100.2620 2.0-7.7 X10 3/uL High Absolute Neut 14.3 LAB L100.2720 0.83-4.51 X10 3/ul Normal Absolute Lymph 1.63 Performed By: #### L100.0100 #### [facility] [address] [place], [address] BASIC METABOLIC Collected: 05/23/2018 Status: F Source: [place] PROFILE (BMP) 5:20 AM [facility] REPOSITORY Order Comment: SPECIMEN OBTAINED FROM LINE DRAW TYPE CODE TESTS RESULT OUT OF RANGE REFERENCE UNITS LAB L501.0100 74-106 mg/dL High GLU 124 Result Comment: Fasting Glucose result from 100 to 125 mg/dL suggests IMPAIRED HOMEOSTASIS per A.D.A. criteria. Please note revised GLUCOSE reference range effective 2017. LAB L501.1000 7-18 mg/dL Normal BUN 9 LAB L501.1100 0.55-1.02 mg/dL High CREAT,SERUM 1.12 Result Comment: The validity of the calculated GFR AND GFRAA in patients over 70 years has not been determined. Clinical correlation is essential. LAB L501.1110 >60 mL/min Low EST GFR 52 Result Comment: Non- GFR Calc LAB L501.1115 >60 mL/min Normal EST GFR - AA 63 Result Comment: GFR Calc LAB L501.1255 ml/min Normal Estimated CRCL 40.13 LAB L501.1300 10-20 RATIO Low BUN/CRE 8.0 LAB L501.2200 8.5-10 mg/dL Low .1 CA 7.5 LAB L501.5300 136-14 mmol/L Normal 5 NA 141 LAB L501.5600 3.5-5. mmol/L Normal 1 K 4.6 LAB L501.5900 98-107 mmol/L High CL 108 LAB L501.6100 21.0-3 mmol/L Normal 2.0 CO2 26.0 LAB L501.6200 5-15 Normal GAP 7 Performed By: #### L500.2500, L501.2300, L501.5200 #### [facility] [address] [place], [address] PHOSPHORUS Collected: 05/23/2018 Status: F Source: [place] 5:20 AM [facility] REPOSITORY Order Comment: SPECIMEN OBTAINED FROM LINE DRAW TYPE CODE TESTS RESULT OUT OF RANGE REFERENCE UNITS LAB L501.2300 2.5-4.9 mg/dL Normal PHOS 4.5 Performed By: #### L500.2500, L501.2300, L501.5200 #### [facility] [address] [place], [address] MAGNESIUM Collected: 05/23/2018 Status: F Source: [place] 5:20 AM [facility] REPOSITORY Order Comment: SPECIMEN OBTAINED FROM LINE DRAW TYPE CODE TESTS RESULT OUT OF RANGE REFERENCE UNITS LAB L501.5200 1.6-2.6 mg/dL Normal MG 1.6 Performed By: #### L500.2500, L501.2300, L501.5200 #### [facility] [address] [place], [address] ALBUMIN, SERUM Collected: 05/23/2018 Status: F Source: [place] 5:20 AM [facility] REPOSITORY Order Comment: Comments: OK to use the blood from this AM TYPE CODE TESTS RESULT OUT OF RANGE REFERENCE UNITS LAB L501.1800 3.2-5.0 g/dL Low ALB 1.9 Performed By: #### L501.1800 #### [facility] [address] [place], [address] CBC W/DIFF, AUTOMATED Collected: 05/23/2018 Status: C Source: [place] 1:10 AM [facility] REPOSITORY TYPE CODE TESTS RESULT OUT OF RANGE REFERENCE UNITS LAB L100.1000 4.4-11.0 K/mm3 High WBC 21.6 LAB L100.1200 4.2-5.4 M/mm3 Low RBC 3.29 LAB L100.1300 12.0-15.0 g/dl Low HGB 10.0 LAB L100.1400 37-47 % Low HCT 31.7 LAB L100.1500 81-99 fL Normal MCV 96.4 LAB L100.1600 27.0-32.0 pg Normal MCH 30.4 LAB L100.1700 32-36 g/gl Low MCHC 31.5 LAB L100.1810 11.6-14.6 % Normal RDW CV 13.7 LAB L100.1820 35.1-43.9 fl High RDW SD 48.3 LAB L100.1900 150-450 K/mm3 Normal PLT 408 LAB L100.2000 6.2-12.0 fl Normal MPV 8.1 LAB L100.2100 47-70 % High NEUT% 83.0 LAB L100.2200 19-41 % Low LY% 7.9 LAB L100.2300 0-10 % Normal MONO% 8.3 LAB L100.2400 0-5 % Normal EO% 0.1 LAB L100.2500 0-1 % Normal BASO% 0.2 LAB L100.2550 0.0-0.9 % Normal IM GRAN % 0.500 Result Comment: IG% - Immature Granulocytes (promyelocytes, myelocytes and metamyelocytes) > 1% indicates that a LEFT SHIFT is Present. LAB L100.2620 2.0-7.7 X10 3/uL High Absolute Neut 17.9 LAB L100.2720 0.83-4.51 X10 3/ul Normal Absolute Lymph 1.71 LAB L100.9900 Normal PATH REV Reviewed Result Comment: Neutrophilic leukocytosis. Normocytic anemia. Clinical correlation suggested. Wayne Richards D.O. 05/25/18 AMENDED REPORT 05/25/18 1149 PATH REV previously reported as: September rosmery Performed By: #### L100.0100 #### [facility] [address] [place], [address] OPERATIVE REPORT Observed: 05/22/2018 Status: F Source: [place] 6:02 PM [facility] REPOSITORY [facility] Medical Records Department [address] [place] [address] Operative Report 05/22/18 175 MR#: [id number] Acct: [id number] Name: KEVIN RUGGIERO Rep #: [id number] : 1955 62 From: Douglas Serrano MD PCP: Gilma BRAVO,Rogelio Vanegas Status: ADM IN Y Location: [facility] [place] [id number] Problem List (1) Diverticulitis of large intestine with abscess without bleeding Status: Acute Report of Operation Date of Procedure: 05/22/18 Pre-Operative Diagnosis: Perforated sigmoid diverticulitis with abscess Post-Operative Diagnosis: Same Surgery/Procedure Performed:: 1. Exploratory laparotomy with sigmoid colon resection and primary anastomosis. 2. Small bowel resection with anastomosis x2 Type of Anesthesia:: General Specimen's removed: Sigmoid colon. 2 segments of small bowel Drains: IVAN to bulb suction Estimated Blood Loss (mL): 200 cc Description of Procedure: The patient was brought back to the operating room and general anesthesia was induced. came into the OR and performed a cystoscopy and left ureteral stent placement. Johns catheter was placed as well. Next the abdomen was prepped and draped in usual sterile fashion. A midline incision was marked from xiphoid to suprapubic. Next an incision was made from just above the umbilicus to the suprapubic region. This was deepened to the fascia with electrocautery. The fascia was elevated and incised. The peritoneum was also divided and the abdomen was entered. Using 2 fingers to elevate the fascia it was opened with electrocautery from the umbilicus to the suprapubic space avoiding the bladder. The abdomen was inspected with palpation and the patient had a large inflamed area to the left lower quadrant. This was freed from the abdominal wall bluntly and then a large wound protector was placed into the abdomen. Next the small bowel was inspected and appeared to be tightly adherent to the abscess. Using blunt and sharp dissection the small bowel was dissected free. There were 2 areas of the small bowel enterotomies. There were also a few other areas with serosal injury. The serosal injuries were repaired with imbricating 3-0 silk sutures. The 2 areas with enterotomies were localized and resected. A small window was created on both sides of each of the small bowel enterotomies and a [place] stapler was used to resect both sections and the mesentery was taken with a LigaSure impact. Both areas of small bowel reanastomosed using a [place] and TL 60 stapler's. The mesentery of both sections were closed with running 3-0 Vicryl suture. Once the small bowel was repaired it was inspected from the proximal area to the terminal ileum. There were no more injuries or leaking of succus. The small bowel was then packed up into the upper abdomen and the colon was freed from the lateral aspect of the white line of Toldt. There appeared to be a small area of the sigmoid colon which was very inflamed and the cause of the perforation. Just proximal and distal to this area where small bowel was encountered a small window was made in the mesentery and a Mirta clamp was placed across the sigmoid colon in both areas. The impact device was used to take down the sigmoid mesentery just below the sigmoid colon. The sigmoid colon was then sent for specimen. The sigmoid colon was reapproximated in a handsewn fashion in the following way. Interrupted 3-0 silk sutures were placed in the posterior aspect of the colon next a double-armed 3-0 chromic suture was used in a continuous fashion to form the inner layer of the anastomosis. Next 3-0 silk sutures were used on the anterior portion of the anastomosis imbricated. Surrounding segments of epiploic fat were placed over the anastomosis and sutured to it. The colon was inspected and appeared to be under no tension. The entire abdomen was irrigated and suctioned dry. There was some oozing from the fundus of the uterus where the abscess was adherent to it. A few [id number] Vicryl sutures were used on the fundus of the uterus and a Surgicel was placed over this. Next a 15 Moroccan round drain was placed in the pelvis and placed to bulb suction. The anterior fascia was then closed with a running #1 looped PDS from each end meeting in the middle. The subcutaneous tissue was then irrigated and suctioned. The skin was anesthetized with Marcaine and loosely closed with interrupted 4-0 Monocryl sutures. In between these Monocryl sutures Telfa strips soaked in Betadine were placed as aubrie. Bandages were then placed over this. The patient's ureteral stent was removed at the end of the case with the Johns remained until tomorrow morning. The patient tolerated the procedure well. - Admit VTE Documentation VTE Present on Admission: No VTE Mechan Device Prophylaxis: SCD's 05/22/18 1802 <Electronically signed by Douglas Serrano MD> Date Douglas Serrano MD CC: Douglas Serrano MD; Rogelio Young MD Signed OPERATIVE REPORT Observed: 05/22/2018 Status: F Source: [place] 3:08 PM [facility] REPOSITORY [facility] Medical Records Department [address] [place] [address] Operative Report 05/22/18 1506 MR#: [id number] Acct: [id number] Name: KEVIN RUGGIERO Rep #: [id number] : 1955 62 From: Yadiel Matos MD PCP: Rogelio Young MD, Chi Status: ADM IN Location: [address] Report of Operation Date of Procedure: 05/22/18 Pre-Operative Diagnosis: Sigmoid diverticulitis Post-Operative Diagnosis: Same Surgery/Procedure Performed:: Cystoscopy and placement of left ureteral catheter Description of Surgical Findings:: 62-year-old female taken back to the operating room the smooth induction of general anesthesia she was placed in dorsolithotomy position, the urethra vaginal area prepped and draped in usual sterile fashion went the bladder the 21 Moroccan rigid cystourethroscope cannulated the left ureteral orifice with a Glidewire and a Pollack catheter advanced the Pollack catheter up to your kidney pulled out the wire left the Pollack catheter in place put a catheter in her bladder and then drained the bladder I did not see any obvious tumors or abnormalities within the bladder. Patient was then handed over to general surgery to continue with there surgery. Type of Anesthesia:: General Drains: pollack cath - Admit VTE Documentation VTE Present on Admission: No VTE Mechan Device Prophylaxis: SCD's 05/22/18 1508 <Electronically signed by Yadiel Matos MD> Date Yadiel Matos MD CC: Douglas Serrano MD; Yadiel Matos MD; Rogelio Young MD Signed COLON (NO NEOPLASM) Observed: 05/22/2018 Status: F Source: [place] 2:00 PM [facility] REPOSITORY Patient: KEVIN RUGGIERO : 1955 (62/F) Acct Num: [id number] Phys: Marita Lynch Unit Num: [id number] Loc: MS2 [id number] Specimen: [id number] Received: 05/25/18899 Spec Type: COLON TISSUES 1 TISSUES: A. Colon, NOS B. Colon, NOS COMMENT A. No perforation through serosal surface is identified. Clinical correlation is suggested. B. The findings are suggestive of serosal adhesions, possibly related to specimen A. Clinical correlation is suggested. GROSS DESCRIPTION A - Received in fixative is one container labeled with the patient's name and designated sigmoid colon. The specimen consists of a 9.5 cm segment of bowel with attached fibrofatty tissue. The entire segment of bowel displays significant fat wrapping. No gross perforations are evident. The mucosal margins are grossly unremarkable. Serial sections reveal a number of diverticula. None of these appear to have perforated through the bowel wall. Tearoom Host sections are submitted in four cassettes as follows: 1 - mucosal margins, 2 AND 3 - diverticula, 4 - pericolic fatty tissue. B - Received in fixative is one container labeled with the patient's name and designated two segment of small bowel. The specimen consists of two segments of bowel. The smaller segment measures 6 cm in length and the larger measures 26 gm in length. Serial sections from the smaller segment of bowel do not reveal mass lesions. Tearoom Host sections from this bowel are submitted in cassettes 1 AND 2. The larger segment of bowel located approximately 3 cm from one stapled margin to resection appears to be folded over on itself and possibly contains fibrous adhesions in the serosa. Located approximately 4 cm from the opposite margin is an area of serosal thickening. No distinct mass lesion is identified. Tearoom Host sections are submitted in four cassettes including areas of possible serosal adhesions from both ends of bowel in cassettes 3-6. / AM:rg 05/25/18 TC:2 CPT: 76906 x2 HEADER OPERATION: Exploratory laparoscopy, sigmoid colon resection PRE-OP DIAGNOSIS: Diverticulitis of large intestine with abscess TISSUE SUBMITTED: A - Sigmoid colon, B - Two segments of small bowel MICROSCOPIC DESCRIPTION Slides are reviewed. MICROSCOPIC DIAGNOSIS A. Sigmoid colon, segmental colectomy: Diverticular disease of colon with focal subserosal microabscess suggestive of rupture. One out of one lymph node with no pathologic change. Margins of excision with no pathologic change. See comment. B. Segments of small bowel, colon resection: Serosal fibrosis, fibrinoid material acute and chronic inflammation and vascular ectasia. No evidence of malignancy. See comment. AM:luna 05/26/18 Signed Wayne Richards DO 05/26/18 <signature on file> Performed By: #### PCOL #### [facility] [address] [place], [address] PROTHROMBIN TIME W/INR Collected: 05/22/2018 Status: F Source: [place] 8:12 AM [facility] REPOSITORY TYPE CODE TESTS RESULT OUT OF RANGE REFERENCE UNITS LAB L300.4150 11.7-14.9 SECONDS Normal PROTIME 14.0 LAB L300.4200 Normal INR 1.1 Performed By: #### L300.3900, L300.4310 #### [facility] [address] [place], [address] PARTIAL THROMBOPLAST Collected: 05/22/2018 Status: F Source: [place] TIME 8:12 AM [facility] REPOSITORY TYPE CODE TESTS RESULT OUT OF RANGE REFERENCE UNITS LAB L300.4310 24.1-36.2 Seconds Normal PTT 31.0 Performed By: #### L300.3900, L300.4310 #### [facility] [address] [place], [address] CBC W/DIFF, AUTOMATED Collected: 05/22/2018 Status: F Source: [place] 7:04 AM [facility] REPOSITORY TYPE CODE TESTS RESULT OUT OF RANGE REFERENCE UNITS LAB L100.1000 4.4-11.0 K/mm3 Normal WBC 8.8 LAB L100.1200 4.2-5.4 M/mm3 Low RBC 3.63 LAB L100.1300 12.0-15.0 g/dl Low HGB 10.9 LAB L100.1400 37-47 % Low HCT 34.3 LAB L100.1500 81-99 fL Normal MCV 94.5 LAB L100.1600 27.0-32.0 pg Normal MCH 30.0 LAB L100.1700 32-36 g/gl Low MCHC 31.8 LAB L100.1810 11.6-14.6 % Normal RDW CV 13.6 LAB L100.1820 35.1-43.9 fl High RDW SD 46.9 LAB L100.1900 150-450 K/mm3 High PLT 476 LAB L100.2000 6.2-12.0 fl Normal MPV 8.7 LAB L100.2100 47-70 % Normal NEUT% 51.3 LAB L100.2200 19-41 % Normal LY% 35.2 LAB L100.2300 0-10 % Normal MONO% 10.0 LAB L100.2400 0-5 % Normal EO% 2.0 LAB L100.2500 0-1 % Normal BASO% 0.7 LAB L100.2550 0.0-0.9 % Normal IM GRAN % 0.800 Result Comment: IG% - Immature Granulocytes (promyelocytes, myelocytes and metamyelocytes) > 1% indicates that a LEFT SHIFT is Present. LAB L100.2620 2.0-7.7 X10 3/uL Normal Absolute Neut 4.5 LAB L100.2720 0.83-4.51 X10 3/ul Normal Absolute Lymph 3.10 Performed By: #### L100.0100 #### [facility] [place], [address] BASIC METABOLIC Collected: 05/22/2018 Status: F Source: [place] PROFILE ([facility]) 7:04 AM [facility] REPOSITORY TYPE CODE TESTS RESULT OUT OF RANGE REFERENCE UNITS LAB L501.0100 74-106 mg/dL Normal GLU 92 Result Comment: Please note revised GLUCOSE reference range effective 2017. LAB L501.1000 7-18 mg/dL Low BUN 3 LAB L501.1100 0.55-1.02 mg/dL Normal CREAT,SERUM 0.63 Result Comment: The validity of the calculated GFR AND GFRAA in patients over 70 years has not been determined. Clinical correlation is essential. LAB L501.1110 >60 mL/min Normal EST GFR 101 Result Comment: Non- GFR Calc LAB L501.1115 >60 mL/min Normal EST GFR - AA 122 Result Comment: GFR Calc LAB L501.1255 ml/min Normal Estimated CRCL 71.35 LAB L501.1300 10-20 RATIO Low BUN/CRE 4.8 LAB L501.2200 8.5-10 mg/dL Normal .1 CA 8.7 LAB L501.5300 136-14 mmol/L Normal 5 NA 140 LAB L501.5600 3.5-5. mmol/L Normal 1 K 4.3 LAB L501.5900 98-107 mmol/L Normal CL 104 LAB L501.6100 21.0-3 mmol/L Normal 2.0 CO2 28.0 LAB L501.6200 5-15 Normal GAP 8 Performed By: #### L500.2500 #### [facility] [address] [facility] [place], [address] MAGNESIUM Collected: 05/22/2018 Status: F Source: [place] 7:04 AM [facility] REPOSITORY Order Comment: Comments: OK to use the blood from this AM TYPE CODE TESTS RESULT OUT OF RANGE REFERENCE UNITS LAB L501.5200 1.6-2.6 mg/dL Normal MG 1.8 Performed By: #### L501.5200 #### [facility] [address] [facility] [place] [place], [address] CBC W/DIFF, AUTOMATED Collected: 05/21/2018 Status: F Source: [place] 7:35 [facility] [place] TYPE CODE TESTS RESULT OUT OF RANGE REFERENCE UNITS LAB L100.1000 4.4-11.0 K/mm3 Normal WBC 9.4 LAB L100.1200 4.2-5.4 M/mm3 Low RBC 3.57 LAB L100.1300 12.0-15.0 g/dl Low HGB 11.0 LAB L100.1400 37-47 % Low HCT 33.9 LAB L100.1500 81-99 fL Normal MCV 95.0 LAB L100.1600 27.0-32.0 pg Normal MCH 30.8 LAB L100.1700 32-36 g/gl Normal MCHC 32.4 LAB L100.1810 11.6-14.6 % Normal RDW CV 13.2 LAB L100.1820 35.1-43.9 fl High RDW SD 44.0 LAB L100.1900 150-450 K/mm3 High PLT 486 LAB L100.2000 6.2-12.0 fl Normal MPV 8.4 LAB L100.2100 47-70 % Normal NEUT% 58.3 LAB L100.2200 19-41 % Normal LY% 29.2 LAB L100.2300 0-10 % Normal MONO% 8.8 LAB L100.2400 0-5 % Normal EO% 1.8 LAB L100.2500 0-1 % Normal BASO% 0.7 LAB L100.2550 0.0-0.9 % High IM GRAN % 1.200 Result Comment: IG% - Immature Granulocytes (promyelocytes, myelocytes and metamyelocytes) > 1% indicates that a LEFT SHIFT is Present. LAB L100.2620 2.0-7.7 X10 3/uL Normal Absolute Neut 5.5 LAB L100.2720 0.83-4.51 X10 3/ul Normal Absolute Lymph 2.73 LAB L100.4500 Normal SMEAR COMMENT SCANNED Result Comment: RARE PLASMA CELL NOTED Performed By: #### L100.0100 #### [facility] [address] [place], [address] BASIC METABOLIC Collected: 05/21/2018 Status: F Source: [place] PROFILE ([facility]) 7:35 AM [facility] REPOSITORY TYPE CODE TESTS RESULT OUT OF RANGE REFERENCE UNITS LAB L501.0100 74-106 mg/dL Normal GLU 97 Result Comment: Please note revised GLUCOSE reference range effective 2017. LAB L501.1000 7-18 mg/dL Low BUN 2 LAB L501.1100 0.55-1.02 mg/dL Normal CREAT,SERUM 0.55 Result Comment: The validity of the calculated GFR AND GFRAA in patients over 70 years has not been determined. Clinical correlation is essential. LAB L501.1110 >60 mL/min Normal EST GFR 118 Result Comment: Non- GFR Calc LAB L501.1115 >60 mL/min Normal EST GFR - AA 142 Result Comment: GFR Calc LAB L501.1255 ml/min Normal Estimated CRCL 81.73 LAB L501.1300 10-20 RATIO Low BUN/CRE 3.6 LAB L501.2200 8.5-10 mg/dL Low .1 CA 8.2 LAB L501.5300 136-14 mmol/L Normal 5 NA 137 LAB L501.5600 3.5-5. mmol/L Normal 1 K 4.4 LAB L501.5900 98-107 mmol/L Normal CL 103 LAB L501.6100 21.0-3 mmol/L Normal 2.0 CO2 27.0 LAB L501.6200 5-15 Normal GAP 7 Performed By: #### L500.2500 #### [facility] [address] [place], [address] BASIC METABOLIC Collected: 05/20/2018 Status: F Source: [place] PROFILE ([facility]) 8:12 AM [facility] REPOSITORY TYPE CODE TESTS RESULT OUT OF RANGE REFERENCE UNITS LAB L501.0100 74-106 mg/dL Normal GLU 105 Result Comment: Fasting Glucose result from 100 to 125 mg/dL suggests IMPAIRED HOMEOSTASIS per A.D.A. criteria. Please note revised GLUCOSE reference range effective 2017. LAB L501.1000 7-18 mg/dL Low BUN 2 LAB L501.1100 0.55-1.02 mg/dL Low CREAT,SERUM 0.51 Result Comment: The validity of the calculated GFR AND GFRAA in patients over 70 years has not been determined. Clinical correlation is essential. LAB L501.1110 >60 mL/min Normal EST GFR 128 Result Comment: Non- GFR Calc LAB L501.1115 >60 mL/min Normal EST GFR - AA 154 Result Comment: GFR Calc LAB L501.1255 ml/min Normal Estimated CRCL 88.14 LAB L501.1300 10-20 RATIO Low BUN/CRE 3.9 LAB L501.2200 8.5-10 mg/dL Low .1 CA 7.9 LAB L501.5300 136-14 mmol/L Normal 5 NA 138 LAB L501.5600 3.5-5. mmol/L Normal 1 K 4.0 LAB L501.5900 98-107 mmol/L Normal CL 103 LAB L501.6100 21.0-3 mmol/L Normal 2.0 CO2 26.0 LAB L501.6200 5-15 Normal GAP 9 Performed By: #### L500.2500, L501.2300, L501.5200 #### [facility] [address] [place], [address] PHOSPHORUS Collected: 05/20/2018 Status: F Source: [place] 8:12 AM [facility] REPOSITORY TYPE CODE TESTS RESULT OUT OF RANGE REFERENCE UNITS LAB L501.2300 2.5-4.9 mg/dL Normal PHOS 2.5 Performed By: #### L500.2500, L501.2300, L501.5200 #### [facility] [address] [place], [address] MAGNESIUM Collected: 05/20/2018 Status: F Source: [place] 8:12 AM [facility] REPOSITORY TYPE CODE TESTS RESULT OUT OF RANGE REFERENCE UNITS LAB L501.5200 1.6-2.6 mg/dL Low MG 1.5 Performed By: #### L500.2500, L501.2300, L501.5200 #### [facility] [address] [place], [address] ABDOMEN/PELVIS WITH Observed: 05/20/2018 Status: F Source: [place] CONTRAST 7:44 AM [facility] REPOSITORY [facility] Imaging Services [address] [place] [id number] Abdomen/Pelvis WITH Contrast MR#: [id number] Acct: [id number] Name: KEVIN RUGGIERO Rep #: [id number] : 1955 F 62 From: Han Monet MD PCP: Gilma BRAVO,Work in Field Status: ADM IN Study: Abdomen/Pelvis WITH Contrast Date of Exam: 05/20/18 Exam# [id number] Ordering Dr: Douglas Serrano MD STUDY: CT ABDOMEN AND PELVIS WITH CONTRAST REASON FOR EXAM: Female, 62 years old. Evaluate for a fistula. Patient has been treated for diverticular abscess. RADIATION DOSAGE (If Supplied By Facility): CTDIvol = ( 15.87 ) mGy, DLP = ( 1039.00 ) mGycm TECHNIQUE: Transaxial images were obtained from the dome of the diaphragm to the symphysis pubis with oral contrast. 100 ml of Isovue 300 contrast was administered. Sagittal and coronal images were reconstructed. Individualized dose optimization techniques were used for this CT. COMPARISON: CT of abdomen and pelvis dated May 14, 2018. FINDINGS: The visualized lung bases are unremarkable. The visualized portions of the heart are within normal limits. There is a cyst within the right lobe liver measuring up to 1.9 cm in greatest dimension. This has attenuation of approximately 17 Hounsfield units consistent with a cyst. There is focal area of decreased attenuation within the left lobe of liver near falciform ligament that probably represents focal fatty infiltration. Normal gallbladder and extrahepatic biliary system. Normal spleen. Normal pancreas. Normal bilateral adrenal glands. Normal right kidney. There is a small cyst of the lower pole left kidney measuring up to 1.4 cm in greatest dimension. This is unchanged since the previous CT. There is no evidence for hydronephrosis, hydroureter or radiopaque ureteral calculi. Normal visualized stomach. There is no evidence for dilated bowel, or ascites. There is some mild distention of small bowel within the mid abdomen that suggesting a localized ileus. This is probably related to the loculated collection is visible within the lower abdomen consistent with an abscess. Pneumoperitoneum is visible within this collection. Enteric contrast is visible throughout the colon. There does not appear to be any contrast within the abscess cavity. There is non-visualization of the appendix. The abdominal aorta is tortuous with atherosclerotic calcification. There is a retroaortic left-sided renal vein. There is venous distention of the inferior vena cava (IVC). Normal retroperitoneum. Normal urinary bladder. There is atrophy of the uterus. A drain has been placed via the anterior abdominal wall at the level pelvis. There is soft tissue emphysema within the subcutaneous tissues of the lower abdominal wall . The catheter is located within a loculated collection probably represents an abscess. There is some extravasation of contrast beyond the sigmoid colon into the adjacent pelvis probably related to a contained perforation. The bones appear osteopenic. CT/Abdomen/Pelvis WITH Contrast IMPRESSION: 1. Residual abscess within the lower abdomen and pelvis. Extraluminal contrast does exit the sigmoid colon into the peritoneum. This is located near the abscess, but no definite contrast is visible within the abscess cavity. 2. Persistent ileus within the distal small bowel probably related to the abscess. Electronically Signed: Han Monet MD at 10:24 EST , Service support , CC: Douglas Serrano MD; Rogelio Young MD [employer]: Signed BASIC METABOLIC Collected: 05/19/2018 Status: F Source: [place] PROFILE ([facility]) 7:10 AM [facility] REPOSITORY TYPE CODE TESTS RESULT OUT OF RANGE REFERENCE UNITS LAB L501.0100 74-106 mg/dL High GLU 112 Result Comment: Fasting Glucose result from 100 to 125 mg/dL suggests IMPAIRED HOMEOSTASIS per A.D.A. criteria. Please note revised GLUCOSE reference range effective 2017. LAB L501.1000 7-18 mg/dL Low BUN 3 LAB L501.1100 0.55-1.02 mg/dL Low CREAT,SERUM 0.43 Result Comment: The validity of the calculated GFR AND GFRAA in patients over 70 years has not been determined. Clinical correlation is essential. LAB L501.1110 >60 mL/min Normal EST GFR 155 Result Comment: Non- GFR Calc LAB L501.1115 >60 mL/min Normal EST GFR - AA 188 Result Comment: GFR Calc LAB L501.1255 ml/min Normal Estimated CRCL 104.54 LAB L501.1300 10-20 RATIO Low BUN/CRE 6.9 LAB L501.2200 8.5-10 mg/dL Low .1 CA 7.4 LAB L501.5300 136-14 mmol/L 5 NA Normal 136 LAB L501.5600 3.5-5. mmol/L Low 1 K 3.2 LAB L501.5900 98-107 mmol/L CL Normal 100 LAB L501.6100 21.0-3 mmol/L 2.0 CO2 Normal 27.0 LAB L501.6200 5-15 GAP Normal 9 Performed By: #### L500.2500, L501.2300, L501.5200 #### [facility] [address] [place], [address] PHOSPHORUS Collected: 05/19/2018 Status: F Source: [place] 7:10 AM [facility] REPOSITORY TYPE CODE TESTS RESULT OUT OF RANGE REFERENCE UNITS LAB L501.2300 2.5-4.9 mg/dL Low PHOS 2.1 Performed By: #### L500.2500, L501.2300, L501.5200 #### [facility] [address] [place], [address] MAGNESIUM Collected: 05/19/2018 Status: F Source: [place] 7:10 AM [facility] REPOSITORY TYPE CODE TESTS RESULT OUT OF RANGE REFERENCE UNITS LAB L501.5200 1.6-2.6 mg/dL Normal MG 1.8 Performed By: #### L500.2500, L501.2300, L501.5200 #### [facility] [address] [place], [address] CBC W/DIFF, AUTOMATED Collected: 05/19/2018 Status: F Source: [place] 7:10 AM [facility] REPOSITORY Order Comment: BLOOD IN LAB TYPE CODE TESTS RESULT OUT OF RANGE REFERENCE UNITS LAB L100.1000 4.4-11.0 K/mm3 Normal WBC 10.8 LAB L100.1200 4.2-5.4 M/mm3 Low RBC 3.62 LAB L100.1300 12.0-15.0 g/dl Low HGB 10.9 LAB L100.1400 37-47 % Low HCT 33.5 LAB L100.1500 81-99 fL Normal MCV 92.5 LAB L100.1600 27.0-32.0 pg Normal MCH 30.1 LAB L100.1700 32-36 g/gl Normal MCHC 32.5 LAB L100.1810 11.6-14.6 % Normal RDW CV 13.3 LAB L100.1820 35.1-43.9 fl High RDW SD 44.6 LAB L100.1900 150-450 K/mm3 High PLT 453 LAB L100.2000 6.2-12.0 fl Normal MPV 9.0 LAB L100.2100 47-70 % High NEUT% 71.0 LAB L100.2200 19-41 % Low LY% 18.2 LAB L100.2300 0-10 % Normal MONO% 9.2 LAB L100.2400 0-5 % Normal EO% 0.6 LAB L100.2500 0-1 % Normal BASO% 0.2 LAB L100.2550 0.0-0.9 % Normal IM GRAN % 0.800 Result Comment: IG% - Immature Granulocytes (promyelocytes, myelocytes and metamyelocytes) > 1% indicates that a LEFT SHIFT is Present. LAB L100.2620 2.0-7.7 X10 3/uL Normal Absolute Neut 7.7 LAB L100.2720 0.83-4.51 X10 3/ul Normal Absolute Lymph 1.97 Performed By: #### L100.0100 #### [facility] [address] [facility] [facility] [place], [place], [address] CBC W/DIFF, AUTOMATED Collected: 05/18/2018 Status: F Source: [place] 5:20 AM [facility] REPOSITORY TYPE CODE TESTS RESULT OUT OF RANGE REFERENCE UNITS LAB L100.1000 4.4-11.0 K/mm3 High WBC 14.0 LAB L100.1200 4.2-5.4 M/mm3 Low RBC 3.47 LAB L100.1300 12.0-15.0 g/dl Low HGB 10.6 LAB L100.1400 37-47 % Low HCT 32.8 LAB L100.1500 81-99 fL Normal MCV 94.5 LAB L100.1600 27.0-32.0 pg Normal MCH 30.5 LAB L100.1700 32-36 g/gl Normal MCHC 32.3 LAB L100.1810 11.6-14.6 % Normal RDW CV 13.2 LAB L100.1820 35.1-43.9 fl Normal RDW SD 43.9 LAB L100.1900 150-450 K/mm3 Normal PLT 424 LAB L100.2000 6.2-12.0 fl Normal MPV 8.9 LAB L100.2100 47-70 % High NEUT% 79.9 LAB L100.2200 19-41 % Low LY% 12.4 LAB L100.2300 0-10 % Normal MONO% 6.3 LAB L100.2400 0-5 % Normal EO% 0.2 LAB L100.2500 0-1 % Normal BASO% 0.1 LAB L100.2550 0.0-0.9 % High IM GRAN % 1.100 Result Comment: IG% - Immature Granulocytes (promyelocytes, myelocytes and metamyelocytes) > 1% indicates that a LEFT SHIFT is Present. LAB L100.2620 2.0-7.7 X10 3/uL High Absolute Neut 11.1 LAB L100.2720 0.83-4.51 X10 3/ul Normal Absolute Lymph 1.73 Performed By: #### L100.0100 #### [facility] [address] [place], [address] BASIC METABOLIC Collected: 05/18/2018 Status: F Source: [place] PROFILE (BMP) 5:20 AM [facility] REPOSITORY TYPE CODE TESTS RESULT OUT OF RANGE REFERENCE UNITS LAB L501.0100 74-106 mg/dL Normal GLU 86 Result Comment: Please note revised GLUCOSE reference range effective 2017. LAB L501.1000 7-18 mg/dL Low BUN 6 LAB L501.1100 0.55-1.02 mg/dL Low CREAT,SERUM 0.50 Result Comment: The validity of the calculated GFR AND GFRAA in patients over 70 years has not been determined. Clinical correlation is essential. LAB L501.1110 >60 mL/min Normal EST GFR 131 Result Comment: Non- GFR Calc LAB L501.1115 >60 mL/min Normal EST GFR - AA 158 Result Comment: GFR Calc LAB L501.1255 ml/min Normal Estimated CRCL 89.90 LAB L501.1300 10-20 RATIO Normal BUN/CRE 11.9 LAB L501.2200 8.5-10 mg/dL Low .1 CA 7.6 LAB L501.5300 136-14 mmol/L Normal 5 NA 140 LAB L501.5600 3.5-5. mmol/L Low 1 K 3.4 LAB L501.5900 98-107 mmol/L Normal CL 104 LAB L501.6100 21.0-3 mmol/L Normal 2.0 CO2 23.0 LAB L501.6200 5-15 Normal GAP 13 Performed By: #### L500.2500 #### [facility] [address] [place], [address] PHOSPHORUS Collected: 05/18/2018 Status: F Source: [place] 5:20 AM [facility] REPOSITORY TYPE CODE TESTS RESULT OUT OF RANGE REFERENCE UNITS LAB L501.2300 2.5-4.9 mg/dL Low PHOS 1.9 Performed By: #### L501.2300, L501.5200 #### [facility] [address] [place], [address] MAGNESIUM Collected: 05/18/2018 Status: F Source: [place] 5:20 AM [facility] REPOSITORY TYPE CODE TESTS RESULT OUT OF RANGE REFERENCE UNITS LAB L501.5200 1.6-2.6 mg/dL Low MG 1.3 Performed By: #### L501.2300, L501.5200 #### [facility] [address] [place], [place], [address] CBC W/DIFF, AUTOMATED Collected: 05/17/2018 Status: F Source: [place] 5:45 AM [facility] REPOSITORY TYPE CODE TESTS RESULT OUT OF RANGE REFERENCE UNITS LAB L100.1000 4.4-11.0 K/mm3 High WBC 12.2 LAB L100.1200 4.2-5.4 M/mm3 Low RBC 3.44 LAB L100.1300 12.0-15.0 g/dl Low HGB 10.5 LAB L100.1400 37-47 % Low HCT 32.6 LAB L100.1500 81-99 fL Normal MCV 94.8 LAB L100.1600 27.0-32.0 pg Normal MCH 30.5 LAB L100.1700 32-36 g/gl Normal MCHC 32.2 LAB L100.1810 11.6-14.6 % Normal RDW CV 13.2 LAB L100.1820 35.1-43.9 fl High RDW SD 44.0 LAB L100.1900 150-450 K/mm3 Normal PLT 397 LAB L100.2000 6.2-12.0 fl Normal MPV 8.9 LAB L100.2100 47-70 % High NEUT% 75.2 LAB L100.2200 19-41 % Low LY% 15.0 LAB L100.2300 0-10 % Normal MONO% 7.7 LAB L100.2400 0-5 % Normal EO% 0.3 LAB L100.2500 0-1 % Normal BASO% 0.2 LAB L100.2550 0.0-0.9 % High IM GRAN % 1.600 Result Comment: IG% - Immature Granulocytes (promyelocytes, myelocytes and metamyelocytes) > 1% indicates that a LEFT SHIFT is Present. LAB L100.2620 2.0-7.7 X10 3/uL High Absolute Neut 9.2 LAB L100.2720 0.83-4.51 X10 3/ul Normal Absolute Lymph 1.84 Performed By: #### L100.0100 #### [facility] [address] [place], [address] BASIC METABOLIC Collected: 05/17/2018 Status: F Source: [place] PROFILE ([facility]) 5:45 AM [facility] REPOSITORY TYPE CODE TESTS RESULT OUT OF RANGE REFERENCE UNITS LAB L501.0100 74-106 mg/dL Normal GLU 92 Result Comment: Please note revised GLUCOSE reference range effective 2017. LAB L501.1000 7-18 mg/dL Normal BUN 12 LAB L501.1100 0.55-1.02 mg/dL Normal CREAT,SERUM 0.71 Result Comment: The validity of the calculated GFR AND GFRAA in patients over 70 years has not been determined. Clinical correlation is essential. LAB L501.1110 >60 mL/min Normal EST GFR 88 Result Comment: Non- GFR Calc LAB L501.1115 >60 mL/min Normal EST GFR - AA 106 Result Comment: GFR Calc LAB L501.1255 ml/min Normal Estimated CRCL 63.31 LAB L501.1300 10-20 RATIO Normal BUN/CRE 16.9 LAB L501.2200 8.5-10 mg/dL Low .1 CA 7.9 LAB L501.5300 136-14 mmol/L Normal 5 NA 141 LAB L501.5600 3.5-5. mmol/L Low 1 K 3.3 LAB L501.5900 98-107 mmol/L Normal CL 106 LAB L501.6100 21.0-3 mmol/L Normal 2.0 CO2 25.0 LAB L501.6200 5-15 Normal GAP 10 Performed By: #### L500.2500 #### [facility] [address] [place], [address] Observed: 05/16/2018 Status: F Source: [place] ENTERIC PATHOGEN 7:45 AM [facility] PANEL STOOL REPOSITORY EP PANEL STOOL Normal Reference Range = Not Detected RESULTS CALLED TO ED SERRA 05/16/18 1135 Rebekah Garcia. REPORT READ BACK BY SAME Copy of report sent to Infection Control Printer [id number] 05/16/18 1136 DGRADY. CAMPYLOBACTER Not Detected Salmonella Not Detected Shigella sp. Not Detected Shiga Toxin Not Detected Yersinia Not Detected VIBRIO Not Detected Norovirus Norovirus Detected Rotavirus Not Detected ORGANISM 1: Norovirus Performed By: #### M100.637 #### [facility] [address] [place], [address] CBC W/DIFF, AUTOMATED Collected: 05/16/2018 Status: C Source: [place] 6:25 AM [facility] REPOSITORY TYPE CODE TESTS RESULT OUT OF RANGE REFERENCE UNITS LAB L100.1000 4.4-11.0 K/mm3 Normal WBC 10.8 LAB L100.1200 4.2-5.4 M/mm3 Low RBC 3.73 LAB L100.1300 12.0-15.0 g/dl Low HGB 11.5 LAB L100.1400 37-47 % Low HCT 35.2 LAB L100.1500 81-99 fL Normal MCV 94.4 LAB L100.1600 27.0-32.0 pg Normal MCH 30.8 LAB L100.1700 32-36 g/gl Normal MCHC 32.7 LAB L100.1810 11.6-14.6 % Normal RDW CV 13.3 LAB L100.1820 35.1-43.9 fl High RDW SD 44.0 LAB L100.1900 150-450 K/mm3 Normal PLT 433 LAB L100.2000 6.2-12.0 fl Normal MPV 9.2 LAB L100.2100 47-70 % High NEUT% 71.0 LAB L100.2200 19-41 % Low LY% 15.5 LAB L100.2300 0-10 % High MONO% 10.6 LAB L100.2400 0-5 % Normal EO% 0.3 LAB L100.2500 0-1 % Normal BASO% 0.3 LAB L100.2550 0.0-0.9 % High IM GRAN % 2.300 Result Comment: IG% - Immature Granulocytes (promyelocytes, myelocytes and metamyelocytes) > 1% indicates that a LEFT SHIFT is Present. LAB L100.2620 2.0-7.7 X10 3/uL Normal Absolute Neut 7.7 LAB L100.2720 0.83-4.51 X10 3/ul Normal Absolute Lymph 1.67 LAB L100.9900 Normal PATH REV Reviewed Result Comment: AMENDED REPORT 05/18/18 1044 PATH REV previously reported as: Allyssa botello Performed By: #### L100.0100 #### [facility] [address] [place], [address] BASIC METABOLIC Collected: 05/16/2018 Status: F Source: [place] PROFILE (BMP) 6:25 AM [facility] REPOSITORY TYPE CODE TESTS RESULT OUT OF RANGE REFERENCE UNITS LAB L501.0100 74-106 mg/dL Normal GLU 94 Result Comment: Please note revised GLUCOSE reference range effective 2017. LAB L501.1000 7-18 mg/dL High BUN 21 LAB L501.1100 0.55-1.02 mg/dL High CREAT,SERUM 1.24 Result Comment: The validity of the calculated GFR AND GFRAA in patients over 70 years has not been determined. Clinical correlation is essential. LAB L501.1110 >60 mL/min Low EST GFR 46 Result Comment: Non- GFR Calc LAB L501.1115 >60 mL/min Low EST GFR - AA 56 Result Comment: GFR Calc LAB L501.1255 ml/min Normal Estimated CRCL 36.25 LAB L501.1300 10-20 RATIO Normal BUN/CRE 16.9 LAB L501.2200 8.5-10 mg/dL Normal .1 CA 8.5 LAB L501.5300 136-14 mmol/L Normal 5 NA 143 LAB L501.5600 3.5-5. mmol/L Normal 1 K 4.2 LAB L501.5900 98-107 mmol/L High CL 108 LAB L501.6100 21.0-3 mmol/L Normal 2.0 CO2 24.0 LAB L501.6200 5-15 Normal GAP 11 Performed By: #### L500.2500, L501.2300, L501.5200 #### [facility] [address] [place], [address] PHOSPHORUS Collected: 05/16/2018 Status: F Source: [place] 6:25 AM [facility] REPOSITORY TYPE CODE TESTS RESULT OUT OF RANGE REFERENCE UNITS LAB L501.2300 2.5-4.9 mg/dL Normal PHOS 3.0 Performed By: #### L500.2500, L501.2300, L501.5200 #### [facility] [address] [place], [address] MAGNESIUM Collected: 05/16/2018 Status: F Source: [place] 6:25 AM [facility] REPOSITORY TYPE CODE TESTS RESULT OUT OF RANGE REFERENCE UNITS LAB L501.5200 1.6-2.6 mg/dL Normal MG 2.0 Performed By: #### L500.2500, L501.2300, L501.5200 #### [facility] [address] [place], [address] ABDOMEN SINGLE VIEW Observed: 05/16/2018 Status: F Source: [place] 12:00 AM [facility] REPOSITORY [facility] Imaging Services [address] [place] [address] Abdomen Single View MR#: [id number] Acct: [id number] Name: KEVIN RUGGIERO Rep #: [id number] : 1955 F 62 From: Warren Garcia MD PCP: Gilma BRAVO,Rogelio Vanegas Status: ADM IN Study: Abdomen Single View Date of Exam: 05/16/18 Exam# [id number] Ordering Dr: Douglas Serrano MD STUDY: X-RAY - ABDOMEN/PELVIS REASON FOR EXAM: Female, 62 years old. Ileus. TECHNIQUE: Two AP supine views of the abdomen and pelvis. COMPARISON: CT abdomen and pelvis May 14, [address] guided percutaneous abscess drainage May 15, 2018 FINDINGS: Poorly visualized lung bases. Percutaneous pigtail drain again seen near the midline of the low abdomen. Contrast from prior study is noted in the nondistended colon. There are several loops of gas distended small bowel, findings that could reflect regional ileus versus low-grade partial small bowel obstruction. Mural thickening noted in one loop in the medial left lower quadrant, and local enteritis may also be present. There is no demonstrated free abdominal air. The visualized liver, spleen and kidneys are grossly normal in size and morphology. Atherosclerotic vascular calcifications again noted. There are stable degenerative changes at L2-3. RAD/Abdomen Single View IMPRESSION: 1. Small bowel ileus versus low-grade partial small bowel obstruction, with additional suggestion of localized enteritis involving a small bowel loop in the medial left lower quadrant. Contrast from prior study seen in the nondistended colon. No free gas. 2. Percutaneous pigtail drain again seen in the low abdomen. Electronically Signed: Zion Garcia MD at 9:54 EST , Service support , CC: Douglas Serrano MD; Rogelio Young MD [employer]ator: Signed Observed: 05/15/2018 Status: F Source: [place] CULTURE, DEEP WOUND 3:00 PM [facility] REPOSITORY Gram Stain Gram Stain Rare White Blood Cells 4+ Gram positive cocci 4+ Gram negative rods Wound Culture ORGANISM 1: Morganella morganii Amount Growth 2+ ORGANISM 2: Enterobacter cloacae complex Amount Growth 2+ ORGANISM 3: Enterococcus avium Amount Growth 3+ Morganella morganii: REACTION Amoxacillin/Clavulanic Acid $ >=32 R Ampicillin $ >=32 R Ampicillin/Sulbactam $ >=32 R Cefazolin $ 32 R Cefepime $ <=1 S Ceftriaxone $ <=1 S Ciprofloxacin $ <=0.25 S Ertapenim $$$ <=0.5 S Gentamicin $ <=1 S Levofloxacin $ <=0.12 S Piperacillin/Tazobactam $$ <=4 S Tobramycin $ <=1 S (NF) indicates non-formulary drug at [facility]. Approval by Infectious Disease Specialist required before non-formulary drugs may be ordered and/or dispensed. Enterobacter cloacae complex: REACTION Amoxacillin/Clavulanic Acid $ 4 R Cefazolin $ >=64 R Cefepime $ <=1 S Ceftriaxone $ <=1 S Ciprofloxacin $ <=0.25 S Ertapenim $$$ <=0.5 S Gentamicin $ <=1 S Imipenem *NF <=0.25 S Levofloxacin $ 0.5 S Piperacillin/Tazobactam $$ <=4 S Tobramycin $ <=1 S Trimethoprim/Sulfametho $ <=20 S (NF) indicates non-formulary drug at [facility]. Approval by Infectious Disease Specialist required before non-formulary drugs may be ordered and/or dispensed. Enterococcus avium: REACTION Ampicillin $ <=2 S Benzylpenicillin NF 0.25 S Gentamicin SYN-S S Tigecycline $$$$ <=0.12 S Streptomycin $ SYN-R R Vancomycin $ <=0.5 S (NF) indicates non-formulary drug at [facility]. Approval by Infectious Disease Specialist required before non-formulary drugs may be ordered and/or dispensed. * CLSI guidelines does not recommend testing of cephalosporins. This interpretation is deduced from Beta-lactam/penicillin results. Cult, Anaerobic Studies Have Confirmed That B. Fragilis Group are Routinely Susceptible to: Metronidazole, Piperacillin/Tazobactam, Tigecycline, Ertapenem, Imipenem, Meropenem and variable in resistance to: Clindamycin, Moxifloxacin, Cefoxitin and Ampicillin/Sulbactam. ORGANISM 1: Bacteroides ovatus Beta Lactamase Positive Performed By: #### M100.1500 #### [facility] [address] [place], [address] AFB Observed: 05/15/2018 Status: P Source: [place] CULT/SMEAR [id number] 3:00 PM [facility] REPOSITORY Comments: ABSCESS DRAINAGE OF ABD AFB Smear/Fluor TESTING PERFORMED AT [facility]. ORIGINAL REPORT ON FILE IN LAB CONTAINS ADDITIONAL TEST SITE INFORMATION. Smear, Acid Fast Acid Fast Smear from Concentrated Specimen :Negative Performed By: #### M100.3880 #### [facility] [address] [facility] [place], [address] PROTHROMBIN TIME W/INR Collected: 05/15/2018 Status: F Source: [place] 7:20 AM [facility] REPOSITORY TYPE CODE TESTS RESULT OUT OF RANGE REFERENCE UNITS LAB L300.4150 11.7-14.9 SECONDS High PROTIME 15.6 LAB L300.4200 Normal INR 1.2 Performed By: #### L300.3900, L300.4310 #### [facility] [address] [facility] [place], [address] PARTIAL THROMBOPLAST Collected: 05/15/2018 Status: F Source: [place] TIME 7:20 AM [facility] REPOSITORY TYPE CODE TESTS RESULT OUT OF RANGE REFERENCE UNITS LAB L300.4310 24.1-36.2 Seconds Normal PTT 30.5 Performed By: #### L300.3900, L300.4310 #### [facility] [facility] [place], [address] CONSULTATION Observed: 05/15/2018 Status: F Source: [place] 7:17 AM [facility] REPOSITORY [facility] Medical Records Department [address] [place] [address] Consultation 05/15/18712 MR#: [id number] Acct: [id number] Name: KEVIN RUGGIERO Rep #: [id number] : 1955 62 From: Douglas Serrano MD PCP: Rogelio Young MD, Chi Status: ADM IN Y Location: [facility] [id number] Problem List (1) Diverticulitis of large intestine with abscess without bleeding Status: Acute Reason for Consult Date of Consultation: 05/15/18 Reason for Consultation: Perforated diverticulitis History of Present Illness: The patient is a 62 year old F who presented to the emergency room last night with lower abdominal pain. The patient reports she had the flu about 9 days ago and since that time she has been having lower abdominal pain mostly on the right. She said that she did have nausea with some vomiting at the beginning but has been nauseated for the last 9 days. She says that the pain is in the lower abdomen more on the right than the left. She is having diarrhea. She said she had 3 bowel movements yesterday. She reports that it does hurt to have bowel movements. She says that her last colonoscopy was [address] Abdullahi. At that time she had diverticulosis. She has never had diverticulitis before. The patient reports no fevers or chills. She says it does feel mildly improved today but she is on morphine. Past Medical History Past Medical History (Chronic Problems): Chronic Problems HTN (hypertension) (Chronic) Depression (Chronic) Hyperlipidemia (Chronic) Allergies No Known Allergies Allergy (Verified 05/14/18 22:05) Home Medications: Ambulatory Orders Medication Instructions Recorded Lamotrigine [Lamictal] 100 mg PO DAILY 05/14/18 Losartan/Hydrochlorothiazide 1 each PO DAILY 05/14/18 [Losartan-Hctz 100-25 mg Tab] Surgical History: herniorrhaphy - umbilical, - - Tubes placed in ears Lives: Spouse/ Significant Other Smoking Status: Never smoker Alcohol: Occasional - *Family History Maternal History Items: Cancer - Her mother had melanoma Paternal History Items: COPD - Her father had COPD Review of Systems Constitutional: Reports: Anorexia. Denies: Chills, Fever HEENT: Denies: Difficulty Swallowing Cardiovascular: Denies: Chest Pain Respiratory: Denies: Cough Gastrointestinal: Reports: Abdominal Pain, Diarrhea, Nausea. Denies: Hematochezia, Melena, Vomiting Genitourinary: Denies: Dysuria Musculoskeletal: Denies: Joint Tenderness Skin: Denies: Jaundice Neurological: Denies: Balance problems Psychiatric: Denies: Anxiety Hematologic/ Lymphatic: Denies: Anemia Patient Problems: Active and Suspected Problems Diverticulitis of large intestine with abscess without bleeding (Acute) MARCELA (acute kidney injury) (Acute) Dehydration (Acute) Diverticulitis large intestine (Acute) - Physical Exam General: Alert, Oriented x3, Cooperative, No apparent distress HEENT: Atraumatic, PERRLA, EOMI, Normocephalic Oral: Moist Mucosa Neck: No JVD Lungs: Normal air movement Cardiovascular: Regular rate, Regular Rhythm Abdomen: Soft, Non-Distended, Tender - Tender in the bilateral lower quadrants. No guarding or rebound. Upper abdomen is soft and nontender. Extremities: No clubbing Skin: No rashes Musculoskeletal: No Muscle Wasting Lymphatic: No Cervical, Supraclavicular, or Inguinal Adenopathy Neurological: Cranial nerves II-XII grossly intact Psych/Mental Status: Normal Affect Vital Signs Temp Pulse Resp BP Pulse Ox 98.4 F 75 18 118/58 L 95 05/15/18 04:15 05/15/18 04:15 05/15/18 04:15 05/15/18 04:15 05/15/18 04:15 Oxygen Delivery Method Room Air Weight: 172 lb 6.424 oz Body Mass Index (BMI) 31.0 Intake and Output for Last 24 Hours Intake Total 1544 / 1544 Output Total 650 / 650 Balance 894 / 894 Laboratory Tests Past 24 Hrs WBC 14.6 H RBC 3.80 L Hgb 11.9 L Hct 34.9 L MCV 91.8 MCH 31.3 MCHC 34.1 RDW 12.8 RDW Differential 41.6 Assessment/Plan All Active Problems Diverticulitis of large intestine with abscess without bleeding (Acute) MARCELA (acute kidney injury) (Acute) Dehydration (Acute) Diverticulitis large intestine (Acute) 62-year-old female with perforated diverticulitis and abscess 1. The patient had a CT scan which showed a large abscess medial to the sigmoid colon as well as some bubbles of free air. It appears that the free air is contained in the left lower quadrant. There is no free air above the liver. The abscess appears large. The patient also has dilated loops of small bowel suggestive of an ileus due to the abscess. 2. Today the patient's white count is improved on Cipro and Flagyl. At this point the goal would be to temporize the patient until an elective colectomy can be done in 6-8 weeks from now. I will hold the patient's heparin this morning and order coagulation panel. I will order an IR drain for the abscess. Continue IV antibiotics and n.p.o. until the patient is passing gas with no abdominal pain. Patient also has an ileus and this may take a few days to resolve once the drain is placed. 3. I did discuss that if the patient freely perforates this would require emergency surgery and a possible colostomy. Douglas Serrano MD Pager: [facility] [address] [place] [address] [address] [place] [address] Office: 05/15/18 0717 <Electronically signed by Douglas Serrano MD> Date Douglas Serrano MD Cosigner Signature (if applicable): Date CC: Douglas Serrano MD; Rogelio Young MD Signed ABSCESS/FISTULA/SINUS TRACT Observed: Status: F Source: [place] 05/15/2018 7:05 AM [facility] REPOSITORY [facility] Imaging Services [address] [place] [address] Abscess/Fistula/Sinus Tract MR#: [id number] Acct: [id number] Name: KEVIN RUGGIERO Rep #: [id number] : 1955 F 62 From: Fransisco Salinas MD PCP: Gilma BRAVO,Rogelio Vanegas Status: ADM IN Study: Abscess/Fistula/Sinus Tract Date of Exam: 05/15/18 Exam# [id number] Ordering Dr: Douglas Serrano MD PROCEDURE: CT DIRECTED ABSCESS DRAINAGE, PERITONEAL DATE OF EXAMINATION: May 15, 2018. INDICATION: Female, 62 years old. Diverticular abscess. PHYSICIAN: Dr Artur Sanz CONSENT: Written informed consent was obtained having explained the risks, benefits and alternatives in detail with the patient who accepted the risks and agreed to proceed. Laboratory review and clinical assessment was performed. CONSCIOUS SEDATION PROTOCOL: The Drugs used were: 0.5 mg Versed, IV., and 12.5 mcg Fentanyl, IV. The sedation time was: 30 minutes. Conscious sedation was started at 2:37 PM and terminated at 3:03 PM p.m. The conscious sedation protocol was independently monitored. RADIATION DOSAGE (If Supplied By Facility): CTDIvol = ( 15 ) mGy, DLP = ( 715.98 ) mGycm TECHNIQUE: CT sections were made through the abdomen and pelvis revealing an abscess in the deep mid pelvis. The skin surface was prepped and draped in a sterile fashion. Puncture of this collection was performed initially with a 5 Moroccan catheter and fluid was aspirated. Drainage catheter was then inserted into the collection and formed into position. Additional fluid was aspirated for a total of approximately 10 cc of cloudy red fluid. The catheter was sutured into position to allow for continued drainage. Followup CT sections reveals good position of the catheter CT/Abscess/Fistula/Sinus Tract IMPRESSION: 1. CT directed drainage of a fluid collection using CT image guidance and image documentation as described. 2. Conscious Sedation protocol utilized with independent monitoring Electronically Signed: Fransisco Salinas MD at 9:36 EST Tel [phone], Service support , CC: Douglas Serrano MD; Rogelio Young MD Carpenter Refrigerator: Signed HISTORY AND PHYSICAL Observed: 05/15/2018 Status: F Source: [place] EXAM 6:20 AM [facility] REPOSITORY [facility] Medical Records Department [address] [place] [address] History and Physical 05/14/18 2315 MR#: [id number] Acct: [id number] Name: KEVIN RUGGIERO Ava Rep #: [id number] : 1955 62 From: Kev Manriquez MD PCP: Rogelio Young MD, Chi Status: ADM IN Y Location: [id number] Problem List (1) Diverticulitis large intestine Status: Acute Qualifiers: Diverticulitis complication: with abscess History of Present Illness Date of Admission: 05/14/18 Chief Complaint: nausea and abdominal pain The patient is a 62 year old F with a significant history of bipolar disorder; hypertension; COPD; hyperlipidemia; depression who presented with 9-day history of nausea and abdominal pain. She has progressively worsening excruciating right lower quadrant abdominal pain. She describes the pain as crampy type of pain. Her pain increases with moving. She denies any alleviating factors. She denies any nausea or vomiting. She reports cold sweats. Patient and her reported that they had a family reunion with grandchildren on May 03 2018 after which the whole family had some diarrhea and vomiting with fever. However whiles these abdominal symptoms resolved in other household, patient has persistently had her symptoms. Outpatient CT of the abdomen ordered by PCP showed diverticulitis with abscess. Emergency department doctor consulted General Surgery Dr. Serrano. Per ED doctor general surgery would want patient to be kept n.p.o. and patient will be seen next day. Patient presented at night. Past Medical History Past Medical History (Chronic Problems): Chronic Problems HTN (hypertension) (Chronic) Depression (Chronic) Hyperlipidemia (Chronic) Allergies No Known Allergies Allergy (Verified 05/14/18 22:05) Home Medications: Ambulatory Orders Medication Instructions Recorded Lamotrigine [Lamictal] 100 mg PO DAILY 05/14/18 Losartan/Hydrochlorothiazide 1 each PO DAILY 05/14/18 [Losartan-Hctz 100-25 mg Tab] Surgical History: herniorrhaphy - umbilical, - - Tubes placed in ears Lives: Spouse/ Significant Other Smoking Status: Never smoker Alcohol: Occasional - *Family History Maternal History Items: Cancer - Her mother had melanoma Paternal History Items: COPD - Her father had COPD Review of Systems Constitutional: Reports: Chills. Denies: Fever, Weight Change HEENT: Denies: Head Aches, Sinus Congestion, Sinus Drainage Cardiovascular: Denies: Chest Pain, Palpitations Respiratory: Denies: Cough, Shortness of breath at rest, Sputum production Gastrointestinal: Reports: Abdominal Pain, Diarrhea, Nausea. Denies: Vomiting Genitourinary: Denies: Dysuria Musculoskeletal: Denies: Joint Pain, Joint Tenderness Skin: Denies: Rash, Wounds Neurological: Denies: Numbness, Tingling, Focal weakness Psychiatric: Denies: Anxiety, Depression, Homicidal Ideations, Suicidal Ideations Hematologic/ Lymphatic: Denies: Easy Bruising, Easy Bleeding VTE Information - Inpt Only VTE Present on Admission: No VTE Mechan Device Prophylaxis: None VTE Pharm Prophylaxis ordered?: Yes Patient Problems: Active and Suspected Problems Diverticulitis of large intestine with abscess without bleeding (Acute) MARCELA (acute kidney injury) (Acute) Dehydration (Acute) Diverticulitis large intestine (Acute) - Physical Exam General: Alert, Oriented x3, Cooperative HEENT: Atraumatic, PERRLA, EOMI, Normocephalic Neck: Supple, No JVD, Negative Carotid Bruits Lungs: Clear to auscultation, Normal air movement Cardiovascular: Regular rate, No murmurs Abdomen: Bowel Sounds Present, Soft, Tender - Mild Extremities: No edema, Capillary Refill Less than 3 Seconds Skin: No rashes, No breakdown Musculoskeletal: No Tenderness to Palpation of Joints or Extremities Neurological: Neuro grossly intact Psych/Mental Status: Normal Affect, Appropriate Vital Signs Temp Pulse Resp BP Pulse Ox 98.7 F 80 16 120/79 94 05/14/18 22:05 05/14/18 22:05 05/14/18 22:05 05/14/18 22:00 05/14/18 22:05 Oxygen Delivery Method Room Air Weight: 77.564 kg Body Mass Index (BMI) 31.2 Assessment/Plan All Active Problems Diverticulitis of large intestine with abscess without bleeding (Acute) MARCELA (acute kidney injury) (Acute) Dehydration (Acute) Diverticulitis large intestine (Acute) The patient is a 62 year old F with a significant history of bipolar disorder; hypertension; COPD; hyperlipidemia; depression who presented with nausea and abdominal pain and with radiographic evidence of diverticulitis with abscess. Acute diverticulitis with abscess Radiographic evidence of diverticulitis and abscess on outpatient CT abdomen and pelvis. Review of outpatient labs showed leukocytosis with white count of 19. Patient received cefepime at emergency department. We will continue patient on ciprofloxacin and Flagyl. IV morphine for pain IV Zofran Because of associated diarrhea enteric stool pathogen was ordered. Trend CBC and BMP.' NPO Surgery consult. MARCELA Outpatient labs showed a creatinine of 1.99. Baseline creatinine is around 0.84. Likely due to hypovolemia from diarrhea. Admission potassium was 3.5 Patient received normal saline IV bolus at emergency department. Will order sodium chloride infusion with potassium supplements. Will hold home Cozaar. Trend BMP. Bipolar disorder Lamictal continued Depression Zoloft continued Hypertension Admission blood pressure was fairly stable Hydrochlorthiazide continued We will hold Cozaar because of MARCELA. As needed hydralazine ordered. DVT prophylaxis Subcutaneous heparin Code Visit Inpatient E AND M: 07236 Init Hosp L3 05/15/18 0620 <Electronically signed by Kev Manriquez MD> Date Kev Manriquez MD Cosigner Signature: Date (if applicable) CC: Kev Manriquez MD; Rogelio Young MD Signed BASIC METABOLIC Collected: 05/15/2018 Status: F Source: [place] PROFILE ([facility]) 6:14 AM [facility] REPOSITORY TYPE CODE TESTS RESULT OUT OF RANGE REFERENCE UNITS LAB L501.0100 74-106 mg/dL High GLU 123 Result Comment: Fasting Glucose result from 100 to 125 mg/dL suggests IMPAIRED HOMEOSTASIS per A.D.A. criteria. Please note revised GLUCOSE reference range effective 2017. LAB L501.1000 7-18 mg/dL High BUN 28 LAB L501.1100 0.55-1.02 mg/dL High CREAT,SERUM 1.78 Result Comment: The validity of the calculated GFR AND GFRAA in patients over 70 years has not been determined. Clinical correlation is essential. LAB L501.1110 >60 mL/min Low EST GFR 30 Result Comment: Non- GFR Calc LAB L501.1115 >60 mL/min Low EST GFR - AA 37 Result Comment: GFR Calc LAB L501.1255 ml/min Normal Estimated CRCL 25.25 LAB L501.1300 10-20 RATIO Normal BUN/CRE 15.7 LAB L501.2200 8.5-10 mg/dL Low .1 CA 7.9 LAB L501.5300 136-14 mmol/L Normal 5 NA 136 LAB L501.5600 3.5-5. mmol/L Normal 1 K 3.8 LAB L501.5900 98-107 mmol/L Normal CL 100 LAB L501.6100 21.0-3 mmol/L Normal 2.0 CO2 25.0 LAB L501.6200 5-15 Normal GAP 11 Performed By: #### L500.2500 #### [facility] [address] [place], [address] CBC W/DIFF, AUTOMATED Collected: 05/15/2018 Status: C Source: [place] 6:14 AM [facility] REPOSITORY TYPE CODE TESTS RESULT OUT OF RANGE REFERENCE UNITS LAB L100.1000 4.4-11.0 K/mm3 High WBC 14.6 LAB L100.1200 4.2-5.4 M/mm3 Low RBC 3.80 LAB L100.1300 12.0-15.0 g/dl Low HGB 11.9 LAB L100.1400 37-47 % Low HCT 34.9 LAB L100.1500 81-99 fL Normal MCV 91.8 LAB L100.1600 27.0-32.0 pg Normal MCH 31.3 LAB L100.1700 32-36 g/gl Normal MCHC 34.1 LAB L100.1810 11.6-14.6 % Normal RDW CV 12.8 LAB L100.1820 35.1-43.9 fl Normal RDW SD 41.6 LAB L100.1900 150-450 K/mm3 Normal PLT 421 LAB L100.2000 6.2-12.0 fl Normal MPV 9.1 LAB L100.2100 47-70 % High NEUT% 84.7 LAB L100.2200 19-41 % Low LY% 7.8 LAB L100.2300 0-10 % Normal MONO% 5.1 LAB L100.2400 0-5 % Normal EO% 0.0 LAB L100.2500 0-1 % Normal BASO% 0.1 LAB L100.2550 0.0-0.9 % High IM GRAN % 2.300 Result Comment: IG% - Immature Granulocytes (promyelocytes, myelocytes and metamyelocytes) > 1% indicates that a LEFT SHIFT is Present. LAB L100.2620 2.0-7.7 X10 3/uL High Absolute Neut 12.3 LAB L100.2720 0.83-4.51 X10 3/ul Normal Absolute Lymph 1.13 LAB L100.9900 Normal PATH REV Reviewed Result Comment: Neutrophilic leukocytosis. Normocytic anemia. Clinical correlation suggested. Wayne Richards D.O. 05/15/18 AMENDED REPORT 05/15/18 1425 PATH REV previously reported as: September rosmery Performed By: #### L100.0100 #### [facility] [address] [facility] [place], [address] EMERGENCY DEPARTMENT Observed: 05/14/2018 Status: F Source: [place] SUMMARY 11:12 PM [facility] REPOSITORY [facility] Medical Records Department [address] [place] [address] Emergency Department Summary 05/14/18 2234 MR#: [id number] Acct: [id number] Name: KEVIN RUGGIERO Rep #: [id number] : 1955 62 From: Deangelo Fernandez MD PCP: Rogelio Young MD, Chi Status: REG ER History of Present Illness Chief Complaint: Abd Pain Informant: Patient, Family, PCP Onset: Days - several Context: Gradual Onset Timing: Continuous Quality: ache Location: RLQ, mid-abd Current Severity: Moderate Maximum Severity: Moderate Worsened by: nothing Relieved by: nothing Associated Symptoms: n/v/d Narrative: Patient started having nausea, vomiting, nonbloody diarrhea around 10 days ago after multiple family members including her had it, she was sore in her abdomen for about 4 days with this and then started having worsening pain as her family members illness resolved and hers did not. She was on antibiotics just prior to this for an upper respiratory infection/chest congestion, finishing that medication a day or 2 after the diarrhea started. She has been having more significant pain in her abdomen for the last couple days. Decreased oral intake including fluids and decreased urine output although she is urinating, it is dark. Diarrhea resolved although she had a loose stool then this morning. It is definitely improved compared to what it was. She is no longer vomiting but is nauseated off and on. She had an outpatient CT today that showed diverticulitis with a small perforation and abscess, along with labs, and was sent to the ER when the results returned. She states she had a small umbilical herniorrhaphy but no other abdominal surgeries. She has known about having diverticulosis but has never had diverticulitis. - Past Medical History (1) HTN (hypertension) Status: Chronic (2) Depression Status: Chronic (3) Hyperlipidemia Status: Chronic Past Medical History - Allergies and Home Meds Allergies/Adverse Reactions: Allergies No Known Allergies Allergy (Verified 05/14/18 22:05) Primary Care Physician: Rogelio Young Chi, MD [Primary Care Provider] - Surgical History: herniorrhaphy - umbilical Lives: Spouse/ Significant Other Smoking Status: Never smoker Review of Systems General: Reports: Malaise. Denies: Chills, Fever, Sweats Eyes: Denies: Visual changes - bilaterally, Diplopia ENT: Denies: Rhinorrhea, Sore throat Cardiovascular: Denies: Chest pain, Palpitations Respiratory: Denies: Dyspnea, Cough, Dyspnea on exertion Gastrointestinal: Reports: Abdominal pain, Nausea, Vomiting, Diarrhea. Denies: Melena, Hematochezia Genitourinary: Reports: - - decreased UOP, and urine is dark. Denies: Dysuria, Hematuria, Frequency Musculoskeletal: Denies: Back pain, Swelling, Extremity Pain Skin: Denies: Rash, Wounds Neurological: Denies: Headache, Weakness, Numbness Psych: Denies: Depression, Anxiety Endocrine: Denies: Polyuria, Polydipsia Hematologic: Denies: Easy bruising, Easy bleeding Allergy: Denies: Swelling of the mouth, Swelling of the tongue Physical Exam Vital Signs/Narrative: Vital Signs 05/14/18 22:05 98.7 F 80 16 94 05/14/18 22:00 98.7 F 91 17 120/79 99 Inital Vital Signs reviewed: Yes General: Well nourished, Well developed Head: Normocephalic, Atraumatic Eyes: Perrl, EOMI ENT: Moist mucous membranes, No rhinorrhea Neck: Supple, Nontender Cardiovascular: Regular rate, Regular rhythm, No murmurs Respiratory: No distress, CTA bilaterally, Chest nontender Abdomen: Soft, Nondistended, Tender - mid-abd, R side; mild- mod tenderness, Hypoactive bowel sounds. Negative for: Guarding, Rebound tenderness Back: Nontender, Normal Inspection. Negative for: CVA tenderness Extremities: Nontender, No edema Skin: Normal color, No rash Neurological: Alert, Oriented x3, Cranial nerves II-XII grossly intact, Normal Strength, Normal Sensation Psychological: Normal affect Diagnostic/Tx/Re-eval - Medical Decision Making Labs were obtained about 4 hours prior to arrival in our system, so they were not repeated. Her white blood count is 19 with a slight leftward shift, she has a creatinine 1.99 which is up from less than 1 for her, and her BUN is in the 20s. Her CT shows sigmoid colon stranding w/ a mid-lower abdomen acute diverticulitis w/ a 4.0m9o2ee abscess and small amount of adjacent free air. She was given IV fluids here along with morphine and Zofran, and I started her on cefepime for broad-spectrum intra-abdominal antibacterial coverage. I discussed with Dr. Serrano with surgery, discussed with him including the fact that her abdominal exam is very benign, he agrees with medicine admission and surgical consultation in the morning, along with keeping the patient n.p.o. and providing antibiotics. Discussed with hospitalist. ED Disposition - Plan for ED Patient: Disposition: Acute Care Hospital [facility] Chief Complaint: Abd Pain Diagnosis: Diverticulitis of large intestine with abscess without bleeding, MARCELA (acute kidney injury), Dehydration Referrals: Rogelio Young Chi, MD [Primary Care Provider] - What to do if you have Problems For any increased pain, shortness of breath, bleeding, nausea or vomiting, chest pain, or any unexpected problems, contact your Primary Care Provider. Call [facility] ([phone]) or report to the closest Emergency Room. Call 911 if necessary. 05/14/18 1674 <Electronically signed by Deangelo Fernandez MD> Date Deangelo Fernandez MD Cosigner Signature (If Indicated): Date CC: Rogelio Young MD ABDOMEN/PELVIS WITHOUT Observed: 05/14/2018 Status: F Source: [place] CONT 6:26 PM [facility] REPOSITORY [facility] Imaging Services [address] [place] [address] Abdomen/Pelvis without Cont MR#: [id number] Acct: [id number] Name: KEVIN RUGGIERO Rep #: [id number] : 1955 F 62 From: Bruno Benitez DO PCP: Rogelio Young MD, Chi Status: REG CLI Study: Abdomen/Pelvis without Cont Date of Exam: 05/14/18 Exam# [id number] Ordering Dr: Rogelio Young MD STUDY: CT ABDOMEN AND PELVIS WITHOUT CONTRAST REASON FOR EXAM: Female, 62 years old. Mid to right abdominal pain for 9 days. Decreased appetite. RADIATION DOSAGE (If Supplied By Facility): CTDIvol = ( 11.48 ) mGy, DLP = ( 562.35 ) mGycm TECHNIQUE: Transaxial images were obtained from the dome of the diaphragm to the symphysis pubis with oral contrast, and without intravenous contrast. Sagittal and coronal images were reconstructed. Individualized dose optimization techniques were used for this CT. COMPARISON: None. FINDINGS: The visualized lung bases are unremarkable. The visualized portions of the heart are within normal limits. Liver is grossly normal in size contour and density. There is a focal calcified granuloma in segment IVb. There is low attenuation foci, also in segment IVb, which has the appearance of a bilobed cyst. Normal gallbladder and extrahepatic biliary system. Normal spleen. Normal pancreas. Normal bilateral adrenal glands. Normal right kidney. Normal left kidney. Normal visualized stomach. There is a large duodenal cyst which invaginates into the pancreatic head. There are dilated loops of contrast-filled small bowel. The distal ileum is of normal diameter. The exact point of transition is not visualized but is thought to be in the right lower quadrant. Colon and is partially collapsed. There is descending and sigmoid diverticuli with mild stranding. There is a 4.3 x 7 x 3 cm mass with air-fluid level mesentery just anterior to the sigmoid colon which is thought to represent a large abscess. This is thought to be the cause of the small bowel distention secondary ileus. There is diffuse atherosclerotic calcification of the abdominal aorta, without a demonstrated aneurysm. Normal inferior vena cava. Normal retroperitoneum. Normal urinary bladder. Spinal uterus and ovaries. There is no adnexal mass. No free fluid is seen within the peritoneal cavity. Sequela of small droplets of air in the mesentery underneath the left lower abdominal wall adjacent to the sigmoid colon. No other evidence of free air is noted. Normal abdominal wall. There are diffuse degenerative changes of the visualized lumbar spine. CT/Abdomen/Pelvis without Cont IMPRESSION: 1. Probable diverticular abscess in the lower mid abdomen with stranding of the adjacent sigmoid colon. 2. Probable small bowel ileus. 3. Minimal free air adjacent to the sigmoid colon with left lower quadrant. 4. Hepatic cysts. 5. Large duodenal diverticulum. Electronically Signed: Bruno Benitez DO at 21:48 EST Tel [phone], Service support , CC: Rogelio Young MD Carpenter Refrigerator: Signed CBC W/DIFF, AUTOMATED Collected: 05/14/2018 Status: F Source: [place] 5:49 PM [facility] REPOSITORY TYPE CODE TESTS RESULT OUT OF RANGE REFERENCE UNITS LAB L100.1000 4.4-11.0 K/mm3 High WBC 19.0 LAB L100.1200 4.2-5.4 M/mm3 Normal RBC 4.25 LAB L100.1300 12.0-15.0 g/dl Normal HGB 13.2 LAB L100.1400 37-47 % Normal HCT 38.7 LAB L100.1500 81-99 fL Normal MCV 91.1 LAB L100.1600 27.0-32.0 pg Normal MCH 31.1 LAB L100.1700 32-36 g/gl Normal MCHC 34.1 LAB L100.1810 11.6-14.6 % Normal RDW CV 12.9 LAB L100.1820 35.1-43.9 fl Normal RDW SD 42.7 LAB L100.1900 150-450 K/mm3 Normal PLT 398 LAB L100.2000 6.2-12.0 fl Normal MPV 9.0 LAB L100.2100 47-70 % High NEUT% 79.3 LAB L100.2200 19-41 % Low LY% 10.9 LAB L100.2300 0-10 % Normal MONO% 7.6 LAB L100.2400 0-5 % Normal EO% 0.5 LAB L100.2500 0-1 % Normal BASO% 0.2 LAB L100.2550 0.0-0.9 % High IM GRAN % 1.500 Result Comment: IG% - Immature Granulocytes (promyelocytes, myelocytes and metamyelocytes) > 1% indicates that a LEFT SHIFT is Present. LAB L100.2620 2.0-7.7 X10 3/uL High Absolute Neut 15.1 LAB L100.2720 0.83-4.51 X10 3/ul Normal Absolute Lymph 2.07 Performed By: #### L100.0100 #### [facility] [facility]. [place], [place], [address] COMPREHENSIVE METABOLIC Collected: 05/14/2018 Status: F Source: [facility] 5:49 PM [facility] REPOSITORY TYPE CODE TESTS RESULT OUT OF RANGE REFERENCE UNITS LAB L501.0100 74-106 mg/dL High GLU 125 Result Comment: Fasting Glucose result from 100 to 125 mg/dL suggests IMPAIRED HOMEOSTASIS per A.D.A. criteria. Please note revised GLUCOSE reference range effective 2017. LAB L501.1000 7-18 mg/dL High BUN 25 LAB L501.1100 0.55-1.02 mg/dL High CREAT,SERUM 1.99 Result Comment: The validity of the calculated GFR AND GFRAA in patients over 70 years has not been determined. Clinical correlation is essential. LAB L501.1110 >60 mL/min Low EST GFR 27 Result Comment: Non- GFR Calc LAB L501.1115 >60 mL/min Low EST GFR - AA 32 Result Comment: GFR Calc LAB L501.1300 10-20 RATIO Normal BUN/CRE 12.6 LAB L501.1500 6.4-8.2 g/dL T Normal PROT 7.1 LAB L501.1800 3.2-5.0 g/dL Low ALB 2.5 LAB L501.1950 2.2-4.2 g/dL High GLOB 4.6 LAB L501.2000 0.9-2.4 RATIO Low A/G 0.5 LAB L501.2200 8.5-10.1 mg/dL CA Normal 8.9 LAB L501.4100 15-37 U/L Normal AST 21 LAB L501.4305 45-117 U/L Normal ALK P 103 LAB L501.4405 13-56 U/L Normal ALT 17 LAB L501.4600 0.20-1.00 mg/dL T Normal BILI 0.30 LAB L501.5300 136-145 mmol/L Low NA 132 LAB L501.5600 3.5-5.1 mmol/L K Normal 3.5 LAB L501.5900 98-107 mmol/L Low CL 95 LAB L501.6100 21.0-32.0 mmol/L Normal CO2 26.0 LAB L501.6200 5-15 Normal GAP 11 Performed By: #### L500.4050 #### [facility] [address] [place], [address] Observed: 05/14/2018 Status: F Source: [facility], URINE 5:49 PM [facility] REPOSITORY Urine Culture Below infection level. Group B Streptococcus isolated from culture. ORGANISM 1: Mixed Gram Pos AND Gram Neg Org [place] Count 1000-10,000 Performed By: #### M100.0650 #### [facility] [address] [place], [address] Observed: 12/30/2017 Status: F Source: [facility] 3:58 PM [facility] REPOSITORY . MICRO - Microbiology PROCEDURE: Urine Culture [*1] SOURCE: Urine BODY SITE: COLLECTED DATE/TIME: 12/30/2017 15:58 EDT RECEIVED DATE/TIME: 12/30/2017 20:30 EDT START DATE/TIME: 12/30/2017 20:30 EDT FREE TEXT SOURCE: FINAL REPORTS Final Report [] Verified Date/Time/Personnel: 01/01/2018 11:46 EDT 75,000 organisms per mL Escherichia coli PRELIMINARY REPORTS Preliminary Report [] Verified Date/Time/Personnel: 12/31/2017 14:01 EDT 75,000 organisms per mL Gram Negative Rods Final identification and LARRY to follow. SUSCEPTIBILITY RESULTS Escherichia coli Antibiotic LARRY Dilutn LARRY Interp Ampicillin <=8 Susceptible Cefazolin <=8 Susceptible Ciprofloxacin <=1 Susceptible Gentamicin <=4 Susceptible Levofloxacin <=2 Susceptible Meropenem <=1 Susceptible Nitrofurantoin <=32 Susceptible Piperacillin/ <=16 Susceptible Tazobactam Trimethoprim/ >2/38 Resistant Sulfa Performing Locations *1: This test was performed at: [facility], [address] [place] [address], [id number] , [facility] Performed By: #### CUR #### [place] [address] CBC W/DIFF, AUTOMATED Collected: 12/03/2017 Status: F Source: [place] 10:02 AM [facility] REPOSITORY TYPE CODE TESTS RESULT OUT OF RANGE REFERENCE UNITS LAB L100.1000 4.4-11.0 K/mm3 Normal WBC 5.5 LAB L100.1200 4.2-5.4 M/mm3 Normal RBC 4.43 LAB L100.1300 12.0-15.0 g/dl Normal HGB 13.6 LAB L100.1400 37-47 % Normal HCT 41.9 LAB L100.1500 81-99 fL Normal MCV 94.6 LAB L100.1600 27.0-32.0 pg Normal MCH 30.7 LAB L100.1700 32-36 g/gl Normal MCHC 32.5 LAB L100.1810 11.6-14.6 % Normal RDW CV 12.7 LAB L100.1820 35.1-43.9 fl Normal RDW SD 43.9 LAB L100.1900 150-450 K/mm3 Normal PLT 294 LAB L100.2000 6.2-12.0 fl Normal MPV 9.2 LAB L100.2100 47-70 % Low NEUT% 46.0 LAB L100.2200 19-41 % Normal LY% 40.0 LAB L100.2300 0-10 % High MONO% 11.1 LAB L100.2400 0-5 % Normal EO% 2.2 LAB L100.2500 0-1 % Normal BASO% 0.5 LAB L100.2550 0.0-0.9 % Normal IM GRAN % 0.200 Result Comment: IG% - Immature Granulocytes (promyelocytes, myelocytes and metamyelocytes) > 1% indicates that a LEFT SHIFT is Present. LAB L100.2620 2.0-7.7 X10 3/uL Normal Absolute Neut 2.5 LAB L100.2720 0.83-4.51 X10 3/ul Normal Absolute Lymph 2.20 Performed By: #### L100.0100 #### [facility] [place], [address] COMPREHENSIVE METABOLIC Collected: 12/03/2017 Status: F Source: [facility] 10:02 AM [facility] REPOSITORY TYPE CODE TESTS RESULT OUT OF RANGE REFERENCE UNITS LAB L501.0100 74-106 mg/dL Normal GLU 93 Result Comment: Please note revised GLUCOSE reference range effective 2017. LAB L501.1000 7-18 mg/dL Normal BUN 14 LAB L501.1100 0.55-1.02 mg/dL Normal CREAT,SERUM 0.86 Result Comment: The validity of the calculated GFR AND GFRAA in patients over 70 years has not been determined. Clinical correlation is essential. LAB L501.1110 >60 mL/min Normal EST GFR 71 Result Comment: Non- GFR Calc LAB L501.1115 >60 mL/min Normal EST GFR - AA 86 Result Comment: GFR Calc LAB L501.1300 10-20 RATIO Normal BUN/CRE 16.4 LAB L501.1500 6.4-8.2 g/dL T Normal PROT 7.7 LAB L501.1800 3.2-5.0 g/dL Normal ALB 3.8 LAB L501.1950 2.2-4.2 g/dL Normal GLOB 3.9 LAB L501.2000 0.9-2.4 RATIO Normal A/G 1.0 LAB L501.2200 8.5-10.1 mg/dL CA Normal 8.9 LAB L501.4100 15-37 U/L Normal AST 18 LAB L501.4305 45-117 U/L Normal ALK P 65 LAB L501.4405 13-56 U/L Normal ALT 24 LAB L501.4600 0.20-1.00 mg/dL T Normal BILI 0.50 LAB L501.5300 136-145 mmol/L NA Normal 136 LAB L501.5600 3.5-5.1 mmol/L K Normal 3.8 LAB L501.5900 98-107 mmol/L CL Normal 102 LAB L501.6100 21.0-32.0 mmol/L Normal CO2 27.0 LAB L501.6200 5-15 Normal GAP 7 Performed By: #### L500.4050, L501.9520 #### [facility] [address], [place], [address] THYROID STIM HORMONE Collected: 12/03/2017 Status: F Source: NAHUN (TSH) 10:02 AM [facility] REPOSITORY TYPE CODE TESTS RESULT OUT OF RANGE REFERENCE UNITS LAB L501.9520 0.358-3.74 uIU/mL Normal TSH 1.75 Performed By: #### L500.4050, L501.9520 #### [facility] [address] [place], [address] HEPATITIS C ANTIBODIES Collected: 12/03/2017 Status: F Source: NAHUN 10:02 AM [facility] REPOSITORY TYPE CODE TESTS RESULT OUT OF RANGE REFERENCE UNITS LAB L3100.0650 0.0-0.9 s/co ratio Normal HEP C AB <0.1 Result Comment: Negative: < 0.8 Indeterminate: 0.8 - 0.9 Positive: > 0.9 The CDC recommends that a positive HCV antibody result be followed up with a HCV Nucleic Acid Amplification test (893775). Performed at: - [facility] [id number] Security Guards Dispatcher: Jeff Anthony PhD, Phone: [phone] Performed By: #### L3100.0625 #### [facility] (refer to report for specific site) refer to report for address and phone number SCREENING MAMM (CAD), Observed: 08/12/2017 Status: F Source: NAHUN BILAT 2:01 PM [facility] REPOSITORY [facility] Imaging Services [address] [place] [address] SCREENING MAMM (CAD), BILAT MR#: [id number] Acct: [id number] Name: KEVIN RUGGIERO Rep #: [id number] : 1955 F 61 From: Samy Yeung MD PCP: Rogelio Young MD, Chi Status: REG CLI Study: SCREENING MAMM (CAD), BILAT Date of Exam: 08/12/17 Exam# [id number] Ordering Dr: Rogelio Young MD MAMMOGRAPHY - BILATERAL SCREENING 3-D MACK SYNTHESIS REASON FOR EXAM: Female, 61 years old. Bilateral Screening 3-D tomosynthesis PERTINENT HISTORY: No significant family history. TECHNIQUE: 2-D mammograms and 3-D Mack synthesis of the breast (s) were performed. CAD was performed. COMPARISON: 07/16/2016 through 01/11/2014. FINDINGS: The breast composition is heterogeneously dense that can obscure small breast masses. Scattered benign calcifications are seen. No dense spiculated masses abnormal microcalcification cluster, dominant mass, architectural distortion or adenopathy is identified. There is no skin thickening or nipple retraction. There has been no significant change since the prior study. HPBI/SCREENING MAMM (CAD), BILAT IMPRESSION: No mammographic signs of malignancy. Routine yearly mammograms recommended. ASSESSMENT CATEGORY: BIRADS Category 2: Benign. A letter regarding these results will be sent to the patient by the facility within 30 days. FOLLOW UP RECOMMENDATION: Yearly follow up mammogram recommended. (A) Approximately 10% of breast cancers are not detected by mammography. A normal mammogram should not delay biopsy of a clinically suspicious abnormality. Electronically Signed: Samy Yeung, at 21:03 EDT Tel , Service support , CC: Rogelio Young MD Carpenter Refrigerator: Signed ALLERGIES ALLERGIES DATE TYPE / CODE NAME / CODE REACTION SEVERITY SOURCE 06/03/[address] [facility] Allergy/4160 Allergies/F00 Hospital 60576(SNOMED 7792384(RXNOR Repository CT) M) ENCOUNTERS ENCOUNTERS ADMIT/DISCHARGE ACCOUNT NUMBER ADMITTING ENCOUNTER LOCATION SOURCE CLASS 06/03/2018 [id number] Ambulatory [facility] ding:POLAB3 Repository 06/03/2018/06/03/19 [id number] Ambulatory BMSBuilding: Nahun 19 BMS.[facility] Repository 05/14/2018/05/27/19 [id number] Agyepong, Inpatient Nahun Nahun Angulo [facility] ding:OD4Vxvx Repository : QJ742Dwz: 1 05/14/2018 [id number] Agyepong, Ambulatory BMSBuilding: Nahun Angulo BMS.[facility] Repository 05/14/2018 [id number] Agyepong, Ambulatory BMSBuilding: Nahun Angulo BMS.[facility] Repository 05/14/2018 [id number] Agyepong, Ambulatory BMSBuilding: Nahun Angulo BMS.[facility] Repository 05/14/2018 [id number] Agyepong, Ambulatory BMSBuilding: Nahun Angulo BMS.[facility] Repository 05/14/2018 [id number] Agyepong, Ambulatory BMSBuilding: Nahun Angulo BMS.[facility] Repository 05/14/2018 [id number] Agyepong, Ambulatory BMSBuilding: Nahun Angulo BMS.[facility] Repository 05/14/2018 [id number] Agyepong, Ambulatory BMSBuilding: Nahun Angulo BMS.[facility] Repository 05/14/2018 [id number] Agyepong, Ambulatory BMSBuilding: Nahun Angulo BMS.[facility] Repository 05/14/2018 [id number] Agyepong, Ambulatory BMSBuilding: Nahun Angulo BMS.[facility] Repository 05/14/2018 [id number] Agyepong, Ambulatory BMSBuilding: Nahun Angulo BMS.[facility] Repository 05/14/2018 [id number] Agyepong, Ambulatory BMSBuilding: Nahun Angulo BMS.[facility] Repository 05/14/2018 [id number] Agyepong, Ambulatory BMSBuilding: Nahun Angulo BMS.[facility] Repository 05/14/2018 [id number] Agyepong, Ambulatory BMSBuilding: Nahun Angulo BMS.[facility] Repository 05/14/2018 [id number] Agyepong, Ambulatory BMSBuilding: Nahun Angulo BMS.[facility] Repository 05/14/2018 [id number] Agyepong, Ambulatory BMSBuilding: [place] Kev BMS.[facility] Repository 05/14/2018 [id number] Agyepong, Ambulatory BMSBuilding: Nahun Kev BMS.[facility] Repository 05/14/2018 [id number] Agyepong, Ambulatory BMSBuilding: Nahun Kev BMS.[facility] Repository 05/14/2018 [id number] Agyepong, Ambulatory BMSBuilding: [place] Kev BMS..[facility] Repository 05/14/2018 [id number] Agyepong, Ambulatory BMSBuilding: Nahun Kev BMS.[facility] Repository 05/14/2018 [id number] Agyepong, Ambulatory BMSBuilding: Nahun Kev BMS..[facility] Repository 05/14/2018 [id number] Agyepong, Ambulatory BMSBuilding: N[place]un Kev BMS.[facility] Repository 05/14/2018 [id number] Agyepong, Ambulatory BMSBuilding: Nahun Kev BMS..[facility] Repository 05/14/2018 [id number] Agyepong, Ambulatory BMSBuilding: [place] Kev BMS.[facility] Repository 05/14/2018 [id number] Agyepong, Ambulatory BMSBuilding: [place] Kev BMS..[facility] Repository 05/14/2018 [id number] Agyepong, Ambulatory BMSBuilding: [place] Kev BMS.[facility] Repository 05/14/2018 [id number] Agyepong, Ambulatory BMSBuilding: [place] Kev BMS..[facility] Repository 05/14/2018 [id number] Agyepong, Ambulatory BMSBuilding: Nahun Kev BMS.[facility] Repository 05/14/2018 [id number] Ambulatory [facility] ding:CT Repository 12/30/2017/12/31/19 [id number] Ambulatory [address] ding:[facility] Repository 12/03/2017 [id number] Ambulatory [facility] ding:POLAB3 Repository 08/12/2017 [id number] Ambulatory [facility] ding:BI Repository PAYERS PAYERS ENCOUNTER GUARANTOR PAYER SUBSCRIBER SOURCE 06/03/2018 CASSI Garnica [address] Insurance:MEDICAL KOONDOB: [facility] [id number] Hospital [address]Xhe: (330) Number: Repository [phone] () [id number] Date:6230-53-77XL [address] [place], [place] [address]WP: 06/03/2018 Secondary NOT GIVENUNK [place] Insurance:SELF PAY [place] Number: Effective Repository Date:2018-06-03 06/03/2018 CASSI Garnica [address] Insurance:MEDICAL KOONDOB: [facility] [id number] Hospital 314[address]Rsr: (330) Number: Repository [phone] () [id number] Date:1240-78-60PY [address] [address]SW: 06/03/2018 Secondary NOT GIVENUNK N[place]un Insurance:SELF PAY [place] Number: Effective Repository Date:2018-06-03 05/14/2018 CASSI Garnica JrWinnie5[address] Insurance:MEDICAL KOONDOB: [facility] [id number] Hospital 780[address]Fjz: (330) Number: Repository [phone] () [id number] Date:0674-05-93MO [address] [place] [address]ZJ: 05/14/2018 Secondary NOT GIVENUNK [place] Insurance:SELF PAY [place] Number: Effective Repository Date:2018-05-14 05/14/2018 CASSI Garnica [address] Insurance:MEDICAL KOONDOB: [facility] [id number] Hospital [address]79[address]Zez: (330) Number: Repository [phone] () [id number] Date:8411-86-86TH [address] [address]VE: 05/14/2018 Secondary NOT GIVENUNK [place] Insurance:SELF PAY [place] Number: Effective Repository Date:2018-05-14 05/14/2018 CASSI RUGGIERO [facility] KEVIN Garnica Jr.[address] Insurance:MEDICAL KOONDOB: [facility] [id number] Hospital [address]Nft: (330) Number: Repository [phone] () [id number] Date:3294-51-15RZ [address] [address]HY: 05/14/2018 Secondary NOT GIVENUNK [place] Insurance:SELF PAY [place] Number: Effective Repository Date:2018-05-14 05/14/2018 CASSI RUGGIERO [facility] KEVIN Garnica Jr.[address] Insurance:MEDICAL KOONDOB: [facility] [id number] Hospital [address]Acy: (330) Number: Repository [phone] () [id number] Date:2107-82-52TG [address] [address]RN: 05/14/2018 Secondary NOT GIVENUNK [place] Insurance:SELF PAY [place] Number: Effective Repository Date:2018-05-14 05/14/2018 CASSI RUGGIERO [facility] KEVIN Garnica Jr.[address] Insurance:MEDICAL KOONDOB: [facility] [id number] Hospital [address]Ijw: (330) Number: Repository [phone] () [id number] Date:7237-35-63KZ [address] [address]IX: 05/14/2018 Secondary NOT GIVENUNK [place] Insurance:SELF PAY [facility] Number: Effective Repository Date:2018-05-14 05/14/2018 CASSI Garnica Jr.[address] Insurance:MEDICAL KOONDOB: [facility] [id number] Hospital [address]Plp: (330) Number: Repository [phone] () [id number] Date:2957-87-56SC [place] [address]WP: 05/14/2018 Secondary NOT GIVENUNK [place] Insurance:SELF PAY [place] Number: Effective Repository Date:2018-05-14 05/14/2018 CASSI Garnica Jr.[address] Insurance:MEDICAL KOONDOB: [facility] [id number] Hospital 35[address]Kwa: (330) Number: Repository [phone] () [id number] Date:6271-80-80JT [place] [address]: 05/14/2018 Secondary NOT GIVENUNK [place] Insurance:SELF PAY [place] Number: Effective Repository Date:2018-05-14 05/14/2018 CASSI Garnica Jr.[address] Insurance:MEDICAL KOONDOB: [facility] [id number] Hospital 617[address]Qrj: (330) Number: Repository [phone] () [id number] Date:5334-07-52LU [address] [address]UY: 05/14/2018 Secondary NOT GIVENUNK N[place]un Insurance:SELF PAY [place] Number: Effective Repository Date:2018-05-14 05/14/2018 CASSI Garnica Jr.[address] Insurance:MEDICAL KOONDOB: [facility] [id number] Hospital [address]Czf: (330) Number: Repository [phone] () [id number] Date:1482-65-62HO [address] [address]KS: 05/14/2018 Secondary NOT GIVENUNK [place] Insurance:SELF PAY [place] Number: Effective Repository Date:2018-05-14 05/14/2018 CASSI Garnica Jr.[address] Insurance:MEDICAL KOONDOB: [facility] [id number] Hospital [address]Vyd: (330) Number: Repository [phone] () [id number] Date:3437-67-11ZP [address] [address]UN: 05/14/2018 Secondary NOT GIVENUNK [place] Insurance:SELF PAY [place] Number: Effective Repository Date:2018-05-14 05/14/2018 CRISTYZINA Vijay BAHMAN Ricky KEVIN Garnica Jr.[address] Insurance:MEDICAL KOONDOB: [facility] [id number] Hospital 495[address]Mbm: (330) Number: Repository [phone] () [id number] Date:1609-85-37LK [address] [address]BX: 05/14/2018 Secondary NOT GIVENUNK [place] Insurance:SELF PAY [place] Number: Effective Repository Date:2018-05-14 05/14/2018 CASSI Garnica Jr.[address] Insurance:MEDICAL KOONDOB: [facility] [id number] Hospital 76282Jpr: (330) Number: Repository [phone] () [id number] Date:1394-37-40UW [address] [address]RO: 05/14/2018 Secondary NOT GIVENUNK N[place]un Insurance:SELF PAY [place] Number: Effective Repository Date:2018-05-14 05/14/2018 ORZINA BROWN L [place] Jr.[address] Insurance:MEDICAL KOONDOB: [facility] [id number] Hospital 380[address]Eoj: (330) Number: Repository [phone] () [id number] Date:8141-45-61IT [address] [address]MK: 05/14/2018 Secondary NOT GIVENUNK [place] Insurance:SELF PAY [place] Number: Effective Repository Date:2018-05-14 05/14/2018 CASSI Garnica Jr.[address] Insurance:MEDICAL KOONDOB: [facility] [id number] Hospital [address]23[address]Awv: (330) Number: Repository [phone] () [id number] Date:8165-45-13EA [place] [address]: 05/14/2018 Secondary NOT GIVENUNK [place] Insurance:SELF PAY [place] Number: Effective Repository Date:2018-05-14 05/14/2018 CASSI Garnica Jr.[address] Insurance:MEDICAL KOONDOB: [facility] [id number] Hospital 75197Cgm: (330) Number: Repository [phone] () [id number] Date:6817-60-98FP [address] [address]HW: 05/14/2018 Secondary NOT GIVENUNK [place] Insurance:SELF PAY [place] Number: Effective Repository Date:2018-05-14 05/14/2018 CASSI Garnica Jr.[address] Insurance:MEDICAL KOONDOB: [facility] [id number] Hospital 44248Gkm: (330) Number: Repository [phone] () [id number] Date:0082-32-15GS [address] [address]TD: 05/14/2018 Secondary NOT GIVENUNK [place] Insurance:SELF PAY [facility] Hospital Number: Effective Repository Date:2018-05-14 05/14/2018 CASSI Mariechanelle [id number] Insurance:MEDICAL KOONDOB: [place] [id number] [address]Pan: (330) Number: Repository [phone] () [id number] Date:1312-57-30KG [address] [address]KE: 05/14/2018 Secondary NOT GIVENUNK N[place]un Insurance:SELF PAY [facility] Hospital Number: Effective Repository Date:2018-05-14 05/14/2018 CRISTYZINA RUGGIERO Ricky KEVIN Ava Garnica Jr.[address] Insurance:MEDICAL KOONDOB: [place] [id number] 672[address]Zas: (330) Number: Repository [phone] () [id number] Date:3406-03-26PX [address] [address]DA: 05/14/2018 Secondary NOT GIVENUNK [place] Insurance:SELF PAY [place] Number: Effective Repository Date:2018-05-14 05/14/2018 CRISTYZIAN BROWN Ava Garnica Jr.[address] Insurance:MEDICAL KOONDOB: [facility] [id number] Hospital 90231Zei: (330) Number: Repository [phone] () [id number] Date:6263-31-96SN [address] [address]WQ: 05/14/2018 Secondary NOT GIVENUNK [place] Insurance:SELF PAY [place] Number: Effective Repository Date:2018-05-14 05/14/2018 CRISTYZINA Mariechanelle Lopez[address] Insurance:MEDICAL KOONDOB: [facility] [id number] Hospital 91964Azb: (330) Number: Repository [phone] () [id number] Date:4565-99-63XR [address] [place] [address]QG: 05/14/2018 Secondary NOT GIVENUNK [place] Insurance:SELF PAY [place] Number: Effective Repository Date:2018-05-14 05/14/2018 CASSI RUGGIERO Primary KEVIN Garnica Jr.[address] Insurance:MEDICAL KOONDOB: [facility] [id number] Hospital [address]29[address]Tdl: (330) Number: Repository [phone] () [id number] Date:1225-55-70KA [address] [place] [address]ZD: 05/14/2018 Secondary NOT GIVENUNK [place] Insurance:SELF PAY [place] Number: Effective Repository Date:2018-05-14 05/14/2018 CRISTYZINA RUGGIERO Primary KEVIN Marieoster Jr.[address] Insurance:MEDICAL KOONDOB: [facility] [id number] Hospital 80322Lzu: (330) Number: Repository [phone] () [id number] Date:9395-16-13IP [address] [address]LO: 05/14/2018 Secondary NOT GIVENUNK [place] Insurance:SELF PAY [place] Number: Effective Repository Date:2018-05-14 05/14/2018 CASSI RUGGIERO Primary KEVIN Garnica Jr.[address] Insurance:MEDICAL KOONDOB: [facility] [id number] Hospital 697[address]Ojm: (330) Number: Repository [phone] () [id number] Date:6929-99-24QS [address] [place] [address]YD: 05/14/2018 Secondary NOT GIVENUNK [place] Insurance:SELF PAY [place] Number: Effective Repository Date:2018-05-14 05/14/2018 CASSI Garnica .[address] Insurance:MEDICAL KOONDOB: [facility] [id number] Hospital 955[address]Nkz: (330) Number: Repository [phone] () [id number] Date:9364-86-43YF [address] [place], [place] [address]WP: 05/14/2018 Secondary NOT GIVENUNK [place] Insurance:SELF PAY [facility] Hospital Number: Effective Repository Date:2018-05-14 05/14/2018 CASSI Garnica .[address] Insurance:MEDICAL KOONDOB: [facility] [id number] Hospital 42458Naw: (330) Number: Repository [phone] () [id number] Date:9819-10-10UE [address] [address]NI: 05/14/2018 Secondary NOT GIVENUNK [place] Insurance:SELF PAY [place] Number: Effective Repository Date:2018-05-14 05/14/2018 CASSI Garnica Jr.[address] Insurance:MEDICAL KOONDOB: [facility] [id number] Hospital 78077Gwd: (330) Number: Repository [phone] () [id number] Date:6273-61-44ZC [address] [address]CD: 05/14/2018 Secondary NOT GIVENUNK [place] Insurance:SELF PAY [place] Number: Effective Repository Date:2018-05-14 05/14/2018 CASSI Garnica .[address] Insurance:MEDICAL KOONDOB: [facility] [id number] Hospital 43555Ict: (330) Number: Repository [phone] () [id number] Date:1445-07-87VN [address] [address]MN: 05/14/2018 Secondary NOT GIVENUNK [place] Insurance:SELF PAY [place] Number: Effective Repository Date:2018-05-14 05/14/2018 CASSI RUGGIERO Primary KEVIN Garnica Jr.[address] Insurance:MEDICAL [facility]ONDOB: [facility] [id number] Hospital [address]Eer: (330) Number: Repository [phone] () [id number] Date:5728-91-50CI [address] [address]BY: 05/14/2018 Secondary NOT GIVENUNK [place] Insurance:SELF PAY [place] Number: Effective Repository Date:2018-05-14 05/14/2018 CASSI RUGGIERO [facility] KEVIN Garnica Jr.[address] Insurance:MEDICAL KOONDOB: [facility] [id number] Hospital 00855Jjo: (330) Number: Repository [phone] () [id number] Date:5779-12-18IF [address] [address]AF: 05/14/2018 Secondary NOT GIVENUNK [place] Insurance:SELF PAY [place] Number: Effective Repository Date:2018-05-14 12/30/2017 KEVIN KOONDOB: Primary KEVIN ONEILONDOB: [employer] [id number] Insurance:MEDICAL [id number] [facility] [place] [address] [address] Repository [place] Number: LEILANI MARMOLEJO [id number]: (330 [id number] 389[address]Xcl: () Date:2017-12-30 [id number] ()Tel: (000) Name:[facility] 000-0000 () [address] [place] [address] 164[address]KM: 12/03/2017 CASSI Garnica Jr.[address] Insurance:MEDICAL KOONDOB: [facility] [id number] Hospital [address]27[address]Mqr: (330) Number: Repository [phone] () [id number] Date:0816-48-27WP [place] [address]WP: 12/03/2017 Secondary NOT GIVENUNK [place] Insurance:SELF PAY [place] Number: Effective Repository Date:2017-12-03 08/12/2017 CASSI Garnica Jr.[address] Insurance:MEDICAL KOONDOB: [facility] [id number] Hospital 744[address]Kmr: Number: Repository [phone] [id number] () Date:2820-64-32YX[address] [address]JX: 08/12/2017 Secondary NOT GIVENUNK [place] Insurance:SELF PAY [place] Number: Effective Repository Date:2017-07-23
== END ==
PROVIDERS: Family Provider Family Medicine Geriatric Medicine; PCP Family Medicine Geriatric Medicine; Visit Provider Family Medicine Geriatric Medicine
DX: E55.9 Vitamin D deficiency, unspecified (principal); I10 Essential (primary) hypertension
CPT/HCPCS: 36415; 80053; 82306; 84443; 85025

== ENCOUNTER → 2018-07-09 11:25 | Outpatient (CLI) | payer OTHER, SELFPAY ==
[2018-06-03 09:09] VITALS: BMI 29.8
[2018-07-09 12:48] LABS: Anion Gap 10 (5-15); BUN 9 mg/dL (7-18); BUN/Creat Ratio 11.3 RATIO (10-20); Calcium,Total 8.9 mg/dL (8.5-10.1); Chloride 103 mmol/L (98-107); Creatinine, Serum 0.79 mg/dL (0.55-1.02); EST Glomerular Filtration Rate 77 mL/min (>60); Est Glom Filt Rate - Afr Amer 94 mL/min (>60); Glucose 116 mg/dL (74-106); Potassium 3.9 mmol/L (3.5-5.1); Sodium Level 139 mmol/L (136-145)
== END ==
PROVIDERS: Family Provider Family Medicine Geriatric Medicine; PCP Family Medicine Geriatric Medicine; Visit Provider Family Medicine Geriatric Medicine
DX: E87.6 Hypokalemia (principal)
CPT/HCPCS: 36415; 80048

== ENCOUNTER → 2018-09-08 11:17 | Outpatient (CLI) | payer OTHER, SELFPAY ==
[2018-06-03 09:09] VITALS: BMI 29.8
--- NOTE | 2018-09-08 11:46 | BI_ITS ---
MAMMOGRAPHY - BILATERAL SCREENING 3-D TOMOSYNTHESIS REASON FOR EXAM: Female, 62 years old. Bilateral Screening 3-D tomosynthesis PERTINENT HISTORY: No significant family history. TECHNIQUE: 2-D mammograms and 3-D Tomosynthesis of the breast (s) were performed. CAD was performed. COMPARISON: August 12, 2017. FINDINGS: The breast composition is heterogeneously dense that can obscure small breast masses. Scattered benign calcifications are seen. No dense spiculated masses or suspicious microcalcifications are identified. No architectural distortion is identified. There is no skin thickening or retraction. There has been no significant change since the prior study. BI/SCREENING MAMM (CAD), BILAT IMPRESSION: No mammographic signs of malignancy. Routine yearly mammograms recommended. ASSESSMENT CATEGORY: BIRADS Category 1: Negative. A letter regarding these results will be sent to the patient by the facility within 30 days. FOLLOW UP RECOMMENDATION: Yearly follow up mammogram recommended. (A) Approximately 10% of breast cancers are not detected by mammography. A normal mammogram should not delay biopsy of a clinically suspicious abnormality. Electronically Signed: Jan Martini MD at 13:21 EDT , Service support ,
== END ==
PROVIDERS: Family Provider Family Medicine Geriatric Medicine; PCP Family Medicine Geriatric Medicine; Referring Provider Family Medicine Geriatric Medicine; Visit Provider Family Medicine Geriatric Medicine
DX: Z12.31 Encounter for screening mammogram for malignant neoplasm of breast (principal)
CPT/HCPCS: 77063; 77067

== ENCOUNTER 2018-11-27 13:38 | Observation (INO) | payer MEDICARE, BC, SELFPAY ==
[2018-11-05 15:53] VITALS: BMI 29.8
[2018-11-27] VITALS (13 sets, daily range): BP systolic 107–148; BP diastolic 49–91; PULSE 58–83; RESP 16–18; TEMP 36–36.9; O2SAT 95–100; BMI 30.4
--- NOTE | 2018-11-27 11:07 | HP.PCM_ITS ---
Problem List (1) Incisional hernia Status: Acute Qualifiers: Obstruction and gangrene presence: without obstruction or gangrene Qualified Code(s): K43.2 - Incisional hernia without obstruction or gangrene; K43.91 - Incisional hernia, without obstruction or gangrene History and Physical Date of Admission: 11/27/18 Intake Intake Visit Reasons: Possible hernia at incision Chief Complaint: diverticulitis Allergies No Known Allergies Allergy (Verified 06/03/18 09:10) [facility] Medical History (Updated 06/03/18 @ 09:11 by La Corrales) HTN (hypertension) (Chronic) Depression (Chronic) Hyperlipidemia (Chronic) Diverticulitis of large intestine with abscess without bleeding (Acute) MARCELA (acute kidney injury) (Acute) Diverticulitis large intestine (Acute) Surgical History (Updated 06/03/18 @ 09:13 by La Corrales) s/p sigmoid colectomy (Acute ~05/22/18) Social History (Updated 11/05/18 @ 15:53 by Douglas Serrano MD) Smoking Status: Never smoker HPI HPI HPI: KEVIN RUGGIERO, is a 63 F who presents to the office today for HPI HPI HPI: KEVIN RUGGIERO, is a 63 F who presents to the office today for bulging in her abdomen. Patient notes that she has had bulging in her superior incision site since about a month after surgery. She says it especially bothers her when she is lifting heavy items. She is unsure as to what it is. ROS General General: No weight change or fatigue Cardio Cardiovascular: No murmur, pacemaker, heart disease, atrial fibrillation, high blood pressure, heart attack, heart stent, palpitations, shortness of breat with exertion or chest pain Psych Psychiatric: No depression or anxiety Resp Respiratory: No shortness of breath, No sleep apnea, No cough, No COPD, No asthma, No emphysema, No wheezing Gastro Gastrointestinal: Yes abdominal pain, No nausea or vomiting, No diarrhea, No co nstipation, No blood in stool, No acid reflux, No hemorrhoids, No ulcers, No gallbladder problem, No black,tarry stools Yuri Hematologic: No blood thinners Exam Const General: cooperative Orientation: alert, oriented x3 Resp Effort & Inspection: normal respiratory effort Auscultation: clear to auscultation bilaterally Cardio Rate: regular rate Rhythm: regular rhythm Heart Sounds: no murmurs GI Inspection: non-distended Palpation: soft, hernia other (Incisional hernia at the superior incision, reducible), nontender Assessment & Plan Problems 1. Ventral incisional hernia K43.2 Plan The patient appears to have an incisional ventral hernia at the superior portion of her incision. It measures approximately 3 x 3 cm. It is easily reducible. The patient does not want it repaired over the summer as she has a lot of activity going on. She would like to come back this fall for repair. I explained that the best approach would likely be an open repair given the size and the fact that she probably has multiple adhesions from the prior abscess and surgeries in her abdomen. I explained that at the time of surgery I could decide between a retrorectus mesh placement versus onlay. I explained that she would need 6 weeks of no lifting over 20 pounds after surgery. She understands all this and she would like follow-up in the fall. I explained the risks of incarceration and strangulation to her. I explained that if the hernia or bulges out and was unable to be reduced or if she had any nausea or vomiting that she should immediately present to the closest emergency room for emergency hernia repair. The patient expresses understanding. Douglas Serrano MD Pager: [facility] [address] [place] [address] [address] [place] [address] Office:
[2018-11-27 11:32] LABS: Anion Gap 6 (5-15); BUN 12 mg/dL (7-18); BUN/Creat Ratio 15.7 RATIO (10-20); Chloride 106 mmol/L (98-107); Creatinine, Serum 0.76 mg/dL (0.55-1.02); EST Glomerular Filtration Rate 81 mL/min (>60); Est Glom Filt Rate - Afr Amer 97 mL/min (>60); Estimated Creatinine Clearance 58.37 ml/min; Glucose 98 mg/dL (74-106); Potassium 4.7 mmol/L (3.5-5.1); Sodium Level 140 mmol/L (136-145)
[2018-11-27] MEDS: Cefazolin 2 GM in 0.9% Normal Saline 100 ML IV (11:41)
--- NOTE | 2018-11-27 12:30 | HERN_PTH ---
PATIENT: KEVIN RUGGIERO LOC: MS3 U#:[id number] AGE/SX: 63/F ROOM: MS318 RE11/27/[address]: Dr. Douglas Serrano MD : [id number] BED: 1 DIS: 11/29/2018 SPEC #: [id number] RECD: 11/27/18 16:07 STATUS: TABITHA LAGUNA #: [id number] SIERRA: 11/27/18 12:[address]: Douglas Serrano DEPT: SURGICAL PATHOLOGY RECD BY: Chantal Huynh ENTERED: 11/30/18 08:43 SP TYPE: Hernia OTHR DR: Dr. Rogeilo Young MD Tissues: HERNIA Procedures: Surgery Specimen Level II HEADER OPERATION: Hernia ventral/incisional repair with mesh PRE-OP DIAGNOSIS: Ventral incisional hernia TISSUE SUBMITTED: Hernia sac MICROSCOPIC DIAGNOSIS Hernia sac: Fragments of fibroadipose tissue and fibroconnective tissue consistent with hernia sac with reactive changes, focal chronic inflammation and foreign body giant cell reaction. MCKENZIE:luna 12/01/18 MICROSCOPIC DESCRIPTION Slides are reviewed. GROSS DESCRIPTION Received in fixative is one container labeled with the patient's name and designated hernia sac. The specimen consists of two irregular pieces of pink-yellow fibroadipose tissue measuring in aggregate 10 x 4.5 x 1.5 cm. No mass lesion is identified. Marine Superintendent sections are submitted in one cassette. / MCKENZIE:luna 11/30/18 TC:5 CPT: 10910
[2018-11-27] MEDS: Bupiv/Epi 0.25% 30 ML Vial (13:07)
--- NOTE | 2018-11-27 13:40 | OP.PCM_ITS ---
Problem List (1) Incisional hernia Status: Acute Qualifiers: Obstruction and gangrene presence: without obstruction or gangrene Qualified Code(s): K43.2 - Incisional hernia without obstruction or gangrene; K43.91 - Incisional hernia, without obstruction or gangrene Report of Operation Date of Procedure: 11/27/18 Pre-Operative Diagnosis: Incisional ventral hernia Post-Operative Diagnosis: Same Surgery/Procedure Performed:: Incisional ventral hernia repair with mesh Specimen's removed: Hernia sac Drains: IVAN to bulb suction Estimated Blood Loss (mL): 50 Description of Procedure: The patient was brought back to the operating room and general anesthesia was induced. Her abdomen was prepped and draped in usual sterile fashion. An incision was made in the midline superior to the umbilicus. The hernia sac was encountered and flaps were created with electrocautery until the fascia was encountered. The hernia sac was opened and adhesions were taken down. The hernia sac was then resected. The patient did have a small hernia superior and inferior to the main hernia. These were included in the incision until the patient had one large defect and a clean fascial edges. Next the fascia was reapproximated with running 0 Prolene sutures starting at each end meeting in the middle. Flaps were created anterior to the anterior fascial wall using electrocautery. Hemostasis was obtained and the cavity was irrigated and suctioned dry. Next a Prolene mesh was placed into the cavity and sutured superiorly above the incision with a 2-0 PDS suture. It was also tacked inferiorly below the incision and on both lateral edges. The mesh was then tr immed. Using 2-0 PDS suture in a continuous fashion around the perimeter of the fascia the mesh was tacked to the anterior fascial wall. Several interrupted sutures were placed from the mesh to the anterior abdominal wall in the central area of the mesh. The cavity was then irrigated and suctioned dry once more. A small poke hole was made in the left lower quadrant with a scalpel and the drain was brought through this incision and looped in the cavity. This was tacked to the skin using 3-0 nylon suture. The subcutaneous fat was reapproximated with a running 3-0 Vicryl suture. The skin was anesthetized with Marcaine. The skin was then closed with continuous 4-0 Monocryl suture. Steri-Strips and bandage were then applied. Patient was awoken and taken to PACU in stable condition and tolerated the procedure well. Grafts/Implants Used: Prolene mesh - Admit VTE Documentation VTE Present on Admission: No VTE Mechan Device Prophylaxis: SCD's
[2018-11-27] MEDS: 0.9% Normal Saline 1,000 ML 75 ML IV (15:33)
[2018-11-27] MEDS: Morphine 2 MG/ML Syringe IV ×2 (15:33→19:51)
[2018-11-27] MEDS: Pravastatin 40 MG Tablet PO (22:36)
[2018-11-27] MEDS: Docusate Sodium 100 MG Capsule PO (22:36)
[2018-11-27] MEDS: Zolpidem Tartrate 5 MG Tablet PO (22:36)
[2018-11-27] MEDS: Sertraline 100 MG Tablet PO (22:36)
[2018-11-28] VITALS (9 sets, daily range): BP systolic 113–134; BP diastolic 61–70; PULSE 65–72; RESP 16–18; TEMP 36.6–36.9; O2SAT 84–98
[2018-11-28] MEDS: Morphine 2 MG/ML Syringe IV (00:09)
[2018-11-28] MEDS: 0.9% Normal Saline 1,000 ML 75 ML IV (04:25)
[2018-11-28] MEDS: oxyCODONE 5 MG Tablet PO ×4 (05:27→19:50)
--- NOTE | 2018-11-28 08:21 | PCM.PN.SRG ---
Patient Problems: Active and Suspected Problems (Last Reviewed 06/03/18 @ 09:11 by La Corrales) Incisional hernia (Acute) Subjective: Patient is doing well this morning. Her pain is well controlled on oral medication. - Physical Exam General: Alert, Oriented x3 Neck: No JVD Lungs: Normal air movement Cardiovascular: Regular rate, Regular Rhythm Abdomen: Soft, Non Tender, Non-Distended, - - IVAN serosanguineous Vital Signs Temp Pulse Resp BP Pulse Ox 98.5 F 72 18 127/67 H 97 11/28/18 02:42 11/28/18 02:42 11/28/18 02:42 11/28/18 02:42 11/28/18 02:42 Oxygen Flow Rate (L/min) 2 Oxygen Delivery Method Room Air Weight: 166 lb 7.184 oz Body Mass Index (BMI) 30.4 Intake and Output for Last 24 Hours 11/26/18 11/27/18 11/28/18 23:59 23:59 23:59 Intake Total 2664 / 2664 549 / 549 Output Total 630 / 630 995 / 995 Balance 2034 / 2034 -446 / -446 Laboratory Tests Past 24 Hrs 11/27/18 11:00 Sodium 140 Potassium 4.7 Chloride 106 Carbon Dioxide 28.0 Anion Gap 6 BUN 12 Creatinine 0.76 Estim Creat Clear Calc 58.37 Est GFR (MDRD) Af Amer 97 Est GFR (MDRD) Non-Af 81 BUN/Creatinine Ratio 15.7 Glucose 98 Calcium 9.0 Medical Necessity - Tobacco Use Smoking Status: Former smoker Assessment/Plan All Active Problems (Last Reviewed 06/03/18 @ 09:11 by La Corrales) Incisional hernia (Acute) Diverticulitis of large intestine with abscess without bleeding (Acute) MARCELA (acute kidney injury) (Acute) Diverticulitis large intestine (Acute) 63-year-old female status post ventral hernia repair 1. Patient is doing well this morning. She was placed on 2 L of oxygen due to hypoxia yesterday. She reports no nausea or vomiting and she is tolerating a diet. I will discharge her home with drain in place and see her Friday or Friday for drain removal. Douglas Serrano MD Pager: [facility] [address] [place] [address], [address] [place] [id number] Office:
[2018-11-28] MEDS: Ondansetron 4 MG/2 ML Vial IV ×2 (08:22→21:17)
--- NOTE | 2018-11-28 08:23 | DCINST_ITS ---
Discharge Diet: No Restrictions Discharge Activity: Return to Normal Activity, May Not Drive - for 2-3 days or while taking narcotic pain meds., May Shower - with the bandage in place 1-2 days after surgery. Lifting Restrictions: 20 pounds for 6 weeks. Additional Activity Instructions:: Climbing stairs is fine, walking is encouraged. Sitting in bed may be uncomfortable. Sitting up using your lateral muscles (sitting up sideways) is usually more comfortable. Pain medications may cause nausea, you should typically eat light foods as you take your pain medications. Pain medications may also cause constipation. If you have difficulty with this, discuss with your doctor. Call your doctor if your incision/area has: Continuous Slow Oozing, Sudden Increased Bleeding, Increased Pain/ Swelling, Increased Redness, Foul Smelling Discharge Call your doctor if you observe: Fever of 101 or Higher Suture Line Care: Avoid Pulling/Pushing, Avoid Pinching/Bending Change Dressing in (Days):: 3 - Leave steri-strips for 1 week. May protect with a guaze bandaid. Cleanse incision/area with: Keep Dressing Clean & Dry Drain: Suction Additional Dressing/Incision Instructions:: Record drainage output Allergies/Adverse Reactions: Allergies No Known Allergies Allergy (Verified 11/27/18 10:51) Medications to take at Discharge Lamotrigine [Lamictal] 100 mg PO DAILY 05/14/18 Losartan/Hydrochlorothiazide [Losartan-Hctz 100-25 mg Tab] 1 ea PO DAILY 05/14/18 Pravastatin [Pravachol] 40 mg PO QHS 05/14/18 Sertraline HCl [Zoloft] 100 mg PO BID 05/14/18 Zolpidem Tartrate [Ambien] 5 mg PO QHS 05/14/18 Potassium Chloride 20 meq PO DAILY 05/15/18 Lactobacillus Combo No.10 [Probiotic] 1 ea PO DAILY 11/20/18 Acetaminophen [Tylenol Tablet] 650 mg PO Q6H PRN PRN tablet 11/28/18 Docusate Sodium [Colace] 100 mg PO BID 10 Days #20 cap 11/28/18 Oxycodone [Oxyir] 5 - 10 mg PO Q4H PRN PRN 7 Days #40 tablet 11/28/18 The following prescriptions were given: Docusate Sodium [Colace] 100 mg PO BID 10 Days #20 cap Transmission Status: Pending to [facility] Oxycodone [Oxyir] 5 - 10 mg PO Q4H PRN PRN 7 Days #40 tablet PRN Reason: Severe Pain (-02/25) Transmission Status: Sent to [facility] Primary Care Physician: Rogelio Young Chi, MD [Primary Care Provider] - Test Results: Test results from this visit will be discussed in further detail at your follow- up appointment, if applicable. Please Follow Up With: Douglas Serrano MD When: Please call to schedule follow up appointment for or Fri. [phone]
[2018-11-28] MEDS: Docusate Sodium 100 MG Capsule PO ×2 (09:17→21:12)
[2018-11-28] MEDS: Sertraline 100 MG Tablet PO ×2 (09:17→21:12)
[2018-11-28] MEDS: hydroCHLOROthiazide 25 MG Tablet PO (09:17)
[2018-11-28] MEDS: Losartan Potassium 100 MG Tablet PO (09:17)
[2018-11-28] MEDS: lamoTRIgine 100 MG Tablet PO (09:17)
[2018-11-28] MEDS: Acetaminophen 325 MG Tablet 650 MG PO ×3 (09:20→21:13)
--- NOTE | 2018-11-28 12:59 | NURSING ---
pt O2 saturations acceptable when pt is awake, but when she is resting, O2 levels drop to mid 80s on room air. 1L NC applied and pt O2 at 95%. walking challenge on room air, pt O2 saturations remained between 89-92%. continued to encourage I/S.
[2018-11-28] MEDS: Pravastatin 40 MG Tablet PO (21:12)
[2018-11-28] MEDS: Zolpidem Tartrate 5 MG Tablet PO (21:17)
[2018-11-29] VITALS (7 sets, daily range): BP systolic 121–133; BP diastolic 67–74; PULSE 68–75; RESP 16–18; TEMP 37.1–37.4; O2SAT 87–99
[2018-11-29] MEDS: oxyCODONE 5 MG Tablet PO ×4 (00:29→17:29)
[2018-11-29] MEDS: Ondansetron 4 MG/2 ML Vial IV (04:05)
[2018-11-29] MEDS: Docusate Sodium 100 MG Capsule PO (08:27)
[2018-11-29] MEDS: hydroCHLOROthiazide 25 MG Tablet PO (08:27)
[2018-11-29] MEDS: Sertraline 100 MG Tablet PO (08:27)
[2018-11-29] MEDS: Losartan Potassium 100 MG Tablet PO (08:28)
[2018-11-29] MEDS: lamoTRIgine 100 MG Tablet PO (08:28)
--- NOTE | 2018-11-29 08:31 | NURSING ---
Using I.S at this time. Spo2 98% on 2L NC but 89% on RA at rest. Dr. Serrano aware. This nurse got pt up and walking halls.
--- NOTE | 2018-11-29 09:36 | PN.SURG_ITS ---
Patient Problems: Active and Suspected Problems (Last Reviewed 06/03/18 @ 09:11 by La Corrales) Incisional hernia (Acute) Subjective: Patient says she is tolerating a diet and not feeling especially short of breath. Discharge was held due to hypoxia. - Physical Exam General: Alert, Oriented x3 Lungs: Normal air movement Cardiovascular: Regular rate, Regular Rhythm Abdomen: Soft, Non Tender, Non-Distended, - - IVAN serous Vital Signs Temp Pulse Resp BP Pulse Ox 98.9 F 73 18 121/72 H 98 11/29/18 08:30 11/29/18 08:30 11/29/18 08:30 11/29/18 08:30 11/29/18 08:30 Oxygen Flow Rate (L/min) 2 Oxygen Delivery Method Nasal Cannula Weight: 166 lb 7.184 oz Body Mass Index (BMI) 30.4 Intake and Output for Last 24 Hours 11/27/18 11/28/18 11/29/18 23:59 23:59 23:59 Intake Total 2664 / 2664 2502 / 2502 300 / 300 Output Total 630 / 630 3705 / 3705 575 / 575 Balance 2034 / 203 -1203 / -1203 -275 / -275 Medical Necessity - Tobacco Use Smoking Status: Former smoker Assessment/Plan All Active Problems (Last Reviewed 06/03/18 @ 09:11 by La Corrales) Incisional hernia (Acute) Diverticulitis of large intestine with abscess without bleeding (Acute) MARCELA (acute kidney injury) (Acute) Diverticulitis large intestine (Acute) 63-year-old female status post ventral hernia repair 1. Patient's discharge was canceled yesterday as she was hypoxic on room air. She is to maintain on 1 L and this morning when she was put back to room air she satting 89%. Encouraged incentive spirometer and I will order a DuoNeb treatment for her. Once her oxygenation is improved she will be discharged. Douglas Serrano MD Pager: [facility] [address] [place] [address], [address] [place] [address] Office:
[2018-11-29] MEDS: Ipratropium/Albuterol Sulfate 3 ML AMPUL.NEB INHALATION (13:22)
--- NOTE | 2018-11-29 15:25 | NURSING ---
Pt had breathing tx x1 recently. I think it helped break up a lot of stuff. pt states she was able to bring it up but swallowed it. Educated not to swallow sputum but spit it out.
--- NOTE | 2018-11-29 17:15 | NURSING ---
Pt informed this nurse that she refusing to go home with oxygen. I'll be okay. Pt wants to go home. Dr. Serrano called and updated on spo2 on RA and spo2 dropping to 87% on RA while walking. Pt asymptomatic. Dr. Serrano thinks this is patients baseline. Dr. Serrano okay with letting pt go home. we will check her when she comes in the office.
--- NOTE | 2018-12-01 09:33 | DS.PCM_ITS ---
Discharge Date and Diagnosis Date of Admission: 11/27/18 Date of Discharge: 11/29/18 - Secondary Discharge Diagnosis Chronic Problems (Last Reviewed 06/03/18 @ 09:11 by La Corrales) HTN (hypertension) (Chronic) Depression (Chronic) Hyperlipidemia (Chronic) Hospital Course and Treatment Operations: herniorrhaphy - Ventral hernia repair with mesh Procedures: None Summary of Care Provided: The patient is a 63 year old F who presented for elective ventral hernia repair with mesh. Patient tolerated the procedure well is brought to the floor after surgery. Patient had drain in place. The patient was requiring oxygen and she stayed 2 days until she was able to get off O2. She was discharged home in stable condition. - Physical Exam Vital Signs Temp Pulse Resp BP Pulse Ox 99.3 F H 75 18 126/74 H 94 11/29/18 15:17 11/29/18 15:17 11/29/18 15:17 11/29/18 15:17 11/29/18 16:00 Oxygen Flow Rate (L/min) [ 2 AMBULATION with Oxygen] Oxygen Flow Rate (L/min) 2 Oxygen Delivery Method Room Air Weight: 166 lb 7.184 oz Body Mass Index (BMI) 30.4 Intake and Output for Last 24 Hours 11/29/18 11/30/18 12/01/18 23:59 23:59 23:59 Intake Total 660 / 660 Output Total 948 / 948 Balance -288 / -288 Discharge Diet: No Restrictions Discharge Activity: Return to Normal Activity, May Not Drive - for 2-3 days or while taking narcotic pain meds., May Shower - with the bandage in place 1-2 days after surgery. Additional Activity Instructions:: Climbing stairs is fine, walking is encouraged. Sitting in bed may be uncomfortable. Sitting up using your lateral muscles (sitting up sideways) is usually more comfortable. Pain medications may cause nausea, you should typically eat light foods as you take your pain medications. Pain medications may also cause constipation. If you have difficulty with this, discuss with your doctor. Call your doctor if your incision/area has: Continuous Slow Oozing, Sudden Increased Bleeding, Increased Pain/ Swelling, Increased Redness, Foul Smelling Discharge Call your doctor if you observe: Fever of 101 or Higher Suture Line Care: Avoid Pulling/Pushing, Avoid Pinching/Bending Change Dressing in (Days):: 3 - Leave steri-strips for 1 week. May protect with a guaze bandaid. Cleanse incision/area with: Keep Dressing Clean & Dry Drain: Suction Additional Dressing/Incision Instructions:: Record drainage output Home Medications: Medications to take at Discharge Lamotrigine [Lamictal] 100 mg PO DAILY 05/14/18 Losartan/Hydrochlorothiazide [Losartan-Hctz 100-25 mg Tab] 1 ea PO DAILY 05/14/18 Pravastatin [Pravachol] 40 mg PO QHS 05/14/18 Sertraline HCl [Zoloft] 100 mg PO BID 05/14/18 Zolpidem Tartrate [Ambien] 5 mg PO QHS 05/14/18 Potassium Chloride 20 meq PO DAILY 05/15/18 Lactobacillus Combo No.10 [Probiotic] 1 ea PO DAILY 11/20/18 Acetaminophen [Tylenol Tablet] 650 mg PO Q6H PRN PRN tab 11/28/18 Docusate Sodium [Colace] 100 mg PO BID 10 Days #20 cap 11/28/18 Oxycodone [Oxyir] 5 - 10 mg PO Q4H PRN PRN 7 Days #40 tab 11/28/18 Following Prescrptions Were Given to Patient: Docusate Sodium [Colace] 100 mg PO BID 10 Days #20 cap Transmission Status: Received by [facility] Oxycodone [Oxyir] 5 - 10 mg PO Q4H PRN PRN 7 Days #40 tab PRN Reason: Severe Pain (6-10/10) Transmission Status: Received by [facility] Primary Care Physician: Rogelio Young Chi, MD [Primary Care Provider] - Please Follow Up With: Douglas Serrano MD When: Please call to schedule follow up appointment for or Fri. [phone] Medical Necessity - Tobacco Use Smoking Status: Former smoker Meaningful Use Info Meaningful Use Diagnoses (Choose all that apply): None applicable
== END 2018-11-29 18:05 | disposition home or self-care (01) ==
LOC: SDC 13:55
PROVIDERS: Anesthesiology; Admitting Provider Surgery; Family Provider Family Medicine Geriatric Medicine; PCP Family Medicine Geriatric Medicine; Referring Provider Surgery; Visit Provider Surgery
PROC: (CPT 49560; principal; 2018-11-27 12:15)
DX: K43.2 Incisional hernia without obstruction or gangrene (principal); I10 Essential (primary) hypertension; E78.5 Hyperlipidemia, unspecified; Z79.899 Other long term (current) drug therapy; F32.9 Major depressive disorder, single episode, unspecified; Z87.891 Personal history of nicotine dependence
CPT/HCPCS: 49560; 49568; 36415; 80048; 88302; 94640; 96361; 96374; 96375; 96376; 99218; J7030; J7120; C1781; G0378; G0379; J2405

== ENCOUNTER → 2018-12-08 08:41 | Outpatient (CLI) | payer MEDICARE, BC, SELFPAY ==
[2018-11-27 15:02] VITALS: BMI 30.4
[2018-12-08 12:46] LABS: Absolute Lymphocyte Count 2.24 X10^3/uL (0.83-4.51); Absolute Neutrophil Count 3.7 X10^3/uL (2.0-7.7); Basophil# 0.07 X10^3/uL; Eosinophil# 0.16 X10^3/uL; Eosinophils% 2.3 % (0-5); Hemoglobin 12.4 g/dL (12.0-15.0); Lymphocyte # 2.24 X10^3/ul (4.0); Lymphocyte % 32.8 % (19-41); Mean Corp Hgb Conc 32.6 g/dL (32-36); Mean Corpuscular Hgb 30.9 pg (27.0-32.0); Mean Corpuscular Volume 94.8 fL (81-99); Mean Platelet Vol. 8.8 fl (6.2-12.0); Monocyte# 0.63 X10^3/uL; Monocyte% 9.2 % (0-10); NRBC Flagged by Analyzer 0 % (0-5); Neutrophil % 54.4 % (47-70); Platelet Count 390 K/mm3 (150-450); RBC Distribution Width CV 11.9 % (11.6-14.6); RBC Distribution Width SD 41.6 fl (35.1-43.9); Red Blood Count 4.01 M/mm3 (4.2-5.4); White Blood Count 6.8 K/mm3 (4.4-11.0)
[2018-12-08 13:05] LABS: Vitamin D,25 Hydroxy 17.8 ng/mL (29.95-100.01)
[2018-12-08 13:07] LABS: ALB/GLOB Ratio 0.9 RATIO (0.9-2.4); AST(SGOT) 12 U/L (15-37); Alanine Aminotransfer ALT/SGPT 19 U/L (13-56); Albumin, Serum 3.3 g/dL (3.2-5.0); Alkaline Phosphatase 67 U/L (45-117); Anion Gap 8 (5-15); BUN 11 mg/dL (7-18); BUN/Creat Ratio 15.1 RATIO (10-20); Calcium,Total 8.9 mg/dL (8.5-10.1); Chloride 102 mmol/L (98-107); Creatinine, Serum 0.73 mg/dL (0.55-1.02); EST Glomerular Filtration Rate 85 mL/min (>60); Est Glom Filt Rate - Afr Amer 103 mL/min (>60); Globulin 3.8 g/dL (2.2-4.2); Glucose 97 mg/dL (74-106); Potassium 3.6 mmol/L (3.5-5.1); Protein, Total 7.1 g/dL (6.4-8.2); Sodium Level 139 mmol/L (136-145)
== END ==
PROVIDERS: Family Provider Family Medicine Geriatric Medicine; PCP Family Medicine Geriatric Medicine; Visit Provider Family Medicine Geriatric Medicine
DX: E55.9 Vitamin D deficiency, unspecified (principal); I10 Essential (primary) hypertension
CPT/HCPCS: 36415; 80053; 82306; 84443; 85025

== ENCOUNTER → 2018-12-23 | Outpatient (CLI) | payer MEDICARE, BC, SELFPAY ==
[2018-11-27 15:02] VITALS: BMI 30.4
--- NOTE | 2018-12-23 10:01 | BD_ITS ---
STUDY: DUAL ENERGY X-RAY ABSORPTIOMETRY / DXA REASON FOR EXAM: Female, 63 years old. The patient is postmenopausal. Loss of height. TECHNIQUE: Bone Mineral Density (BMD) measurements of lumbar spine and bilateral hips were obtained. COMPARISON: Comparison is made with prior examination dated March 27, 2010. FINDINGS: Lumbar Spine (L1-L4): g/cm2 (0.998) / T-score (-1.5) / Z-score (0.1) Findings are suggestive of osteopenia with a low fracture risk. Left Femur Total: g/cm2 (0.775) / T-score (-1.8) / Z-score (-0.7) Left Femoral Neck: g/cm2 (0.697) / T-score (-2.5) / Z-score (-1.0) Right Femur Total: g/cm2 (0.752) / T-score (-2.0) / Z-score (-0.8) Right Femoral Neck: g/cm2 (0.685) / T-score (-2.5) / Z-score (-1.1) The T-Scores on the most recent prior examination were: Lumbar Spine (L1-L4): There has been worsening of bone density since the previous examination. Left Femur Total: which represents a worsening of 12.8%. Right Femur Total: which represents a worsening of 2.2%. BD/Dexa Bone Density Study IMPRESSION: The patient is considered osteopenic as outlined below according to World Naresh Organization (WHO) criteria with a high fracture risk. There has been worsening of bone density since the previous examination. Reference Information: The T-score is the number of standard deviations above or below the standard which is normal for young adults at their peak bone mineral density. The World Health Organization (WHO) interprets the T-scores as follows: Above -1 Normal bone density Between -1 and -2.5 Osteopenia Equal to / or below -2.5 Osteoporosis As a practical clinical guideline, osteopenia may be graded as follows: Mild -1 through -1.5 Moderate -1.6 through -2.0 Severe -2.1 through -2.4 The Z-score is the number of standard deviations above or below age-matched controls. A Z-score of less than -1.5 would be considered abnormal. References: 1. NIH Osteoporosis and Related Bone Diseases http://www.osteo.org 2. International Society for Clinical Densitometry http://www.iscd.org 3. National Osteoporosis Foundation http://www.nof.org Electronically Signed: Fransisco Salinas, at 9:15 EDT , Service support ,
== END | disposition home or self-care (01) ==
LOC: OPBD 10:00
PROVIDERS: Family Provider Family Medicine Geriatric Medicine; PCP Family Medicine Geriatric Medicine; Referring Provider Family Medicine Geriatric Medicine; Visit Provider Family Medicine Geriatric Medicine
DX: Z78.0 Asymptomatic menopausal state (principal)
CPT/HCPCS: 77080

== ENCOUNTER → 2019-06-04 08:45 | Outpatient (CLI) | payer MEDICARE, BC, SELFPAY ==
[2018-11-27 15:02] VITALS: BMI 30.4
[2019-06-04 12:53] LABS: Absolute Lymphocyte Count 2.26 X10^3/uL (0.83-4.51); Absolute Neutrophil Count 3.3 X10^3/uL (2.0-7.7); Basophil# 0.05 X10^3/uL; Basophil% 0.8 % (0-1); Eosinophils% 1.6 % (0-5); Hematocrit 41.6 % (37-47); Hemoglobin 13.9 g/dL (12.0-15.0); Lymphocyte # 2.26 X10^3/ul (4.0); Lymphocyte % 36.1 % (19-41); Mean Corp Hgb Conc 33.4 g/dL (32-36); Mean Corpuscular Hgb 31.5 pg (27.0-32.0); Mean Corpuscular Volume 94.3 fL (81-99); Mean Platelet Vol. 8.8 fl (6.2-12.0); Monocyte# 0.56 X10^3/uL; Monocyte% 8.9 % (0-10); NRBC Flagged by Analyzer 0 % (0-5); Neutrophil # 3.27 X10^3/uL (2.7-7.7); Neutrophil % 52.3 % (47-70); Platelet Count 328 K/mm3 (150-450); RBC Distribution Width CV 11.9 % (11.6-14.6); RBC Distribution Width SD 41.7 fl (35.1-43.9); Red Blood Count 4.41 M/mm3 (4.2-5.4); White Blood Count 6.3 K/mm3 (4.4-11.0)
[2019-06-04 13:16] LABS: Vitamin D,25 Hydroxy 24.1 ng/mL (29.95-100.01)
[2019-06-04 14:13] LABS: AST(SGOT) 15 U/L (15-37); Alanine Aminotransfer ALT/SGPT 23 U/L (13-56); Albumin, Serum 3.6 g/dL (3.2-5.0); Alkaline Phosphatase 64 U/L (45-117); Anion Gap 7 (5-15); BUN 16 mg/dL (7-18); BUN/Creat Ratio 20.2 RATIO (10-20); Calcium,Total 9.1 mg/dL (8.5-10.1); Chloride 104 mmol/L (98-107); Creatinine, Serum 0.79 mg/dL (0.55-1.02); EST Glomerular Filtration Rate 77 mL/min (>60); Est Glom Filt Rate - Afr Amer 94 mL/min (>60); Globulin 3.7 g/dL (2.2-4.2); Glucose 100 mg/dL (74-106); Protein, Total 7.3 g/dL (6.4-8.2); Sodium Level 136 mmol/L (136-145); Thyroid Stim Hormone (TSH) 1.63 uIU/mL (0.358-3.74); Total Bilirubin < 0.10 mg/dL (0.20-1.00)
== END ==
PROVIDERS: PCP Family Medicine Geriatric Medicine; Visit Provider Family Medicine Geriatric Medicine
DX: I10 Essential (primary) hypertension (principal); E55.9 Vitamin D deficiency, unspecified
CPT/HCPCS: 36415; 80053; 82306; 84443; 85025

== ENCOUNTER → 2019-12-15 12:12 | Outpatient (CLI) | payer MEDICARE, BC, SELFPAY ==
[2018-11-27 15:02] VITALS: BMI 30.4
[2019-12-15 13:38] LABS: Vitamin D,25 Hydroxy 29.5 ng/mL
[2019-12-15 13:40] LABS: Absolute Lymphocyte Count 2.94 X10^3/uL (0.83-4.51); Absolute Neutrophil Count 2.7 X10^3/uL (2.0-7.7); Basophil# 0.05 X10^3/uL; Basophil% 0.8 % (0-1); Eosinophil# 0.12 X10^3/uL; Eosinophils% 1.8 % (0-5); Hematocrit 43.5 % (37-47); Hemoglobin 14.1 g/dL (12.0-15.0); Lymphocyte # 2.94 X10^3/ul (4.0); Lymphocyte % 44.9 % (19-41); Mean Corp Hgb Conc 32.4 g/dL (32-36); Mean Corpuscular Hgb 31.9 pg (27.0-32.0); Mean Corpuscular Volume 98.4 fL (81-99); Mean Platelet Vol. 9.1 fl (6.2-12.0); Monocyte# 0.75 X10^3/uL; Monocyte% 11.5 % (0-10); NRBC Flagged by Analyzer 0 % (0-5); Neutrophil # 2.68 X10^3/uL (2.7-7.7); Neutrophil % 40.8 % (47-70); Platelet Count 332 K/mm3 (150-450); RBC Distribution Width CV 12.2 % (11.6-14.6); RBC Distribution Width SD 44.4 fl (35.1-43.9); Red Blood Count 4.42 M/mm3 (4.2-5.4); White Blood Count 6.6 K/mm3 (4.4-11.0)
[2019-12-15 13:49] LABS: AST(SGOT) 17 U/L (15-37); Alanine Aminotransfer ALT/SGPT 21 U/L (13-56); Albumin, Serum 3.7 g/dL (3.2-5.0); Alkaline Phosphatase 69 U/L (45-117); Anion Gap 1 (5-15); BUN 13 mg/dL (7-18); BUN/Creat Ratio 16.7 RATIO (10-20); Calcium,Total 8.8 mg/dL (8.5-10.1); Chloride 103 mmol/L (98-107); Creatinine, Serum 0.78 mg/dL (0.55-1.02); EST Glomerular Filtration Rate 79 mL/min (>60); Est Glom Filt Rate - Afr Amer 95 mL/min (>60); Globulin 3.6 g/dL (2.2-4.2); Glucose 126 mg/dL (74-106); Potassium 4.1 mmol/L (3.5-5.1); Protein, Total 7.3 g/dL (6.4-8.2); Sodium Level 135 mmol/L (136-145); Thyroid Stim Hormone (TSH) 2.27 uIU/mL (0.358-3.74)
== END ==
PROVIDERS: PCP Family Medicine Geriatric Medicine; Visit Provider Family Medicine Geriatric Medicine
DX: E55.9 Vitamin D deficiency, unspecified (principal); I10 Essential (primary) hypertension
CPT/HCPCS: 36415; 80053; 82306; 84443; 85025

== ENCOUNTER → 2020-01-05 13:03 | Outpatient (CLI) | payer MEDICARE, BC, SELFPAY ==
[2018-11-27 15:02] VITALS: BMI 30.4
--- NOTE | 2020-01-05 13:07 | BI_ITS ---
MAMMOGRAPHY - BILATERAL SCREENING 3-D TOMOSYNTHESIS REASON FOR EXAM: Female, 64 years old. Annual screening mammogram. PERTINENT HISTORY: No significant family history. TECHNIQUE: 2-D mammograms and 3-D Tomosynthesis of the breast (s) were performed. CAD was performed. COMPARISON: 09/08/2018, 08/12/2017 FINDINGS: The breast composition is composed of scattered fibroglandular density. Stable central asymmetry in left breast. Scattered benign calcifications are seen. No dense spiculated masses or suspicious microcalcifications are identified. No architectural distortion is identified. There is no skin thickening or retraction. There has been no significant change since the prior study. BI/SCREEN MAMM (CAD) W/PORTIA BILAT IMPRESSION: No mammographic signs of malignancy. Routine yearly mammograms recommended. ASSESSMENT CATEGORY: BIRADS Category 2: Benign. A letter regarding these results will be sent to the patient by the facility within 30 days. FOLLOW UP RECOMMENDATION: Yearly follow up mammogram recommended. (A) Approximately 10% of breast cancers are not detected by mammography. A normal mammogram should not delay biopsy of a clinically suspicious abnormality. Electronically Signed: Alexander Puri MD at 17:34 EDT , Service support ,
== END ==
PROVIDERS: PCP Family Medicine Geriatric Medicine; Referring Provider Family Medicine Geriatric Medicine; Visit Provider Family Medicine Geriatric Medicine
DX: Z12.31 Encounter for screening mammogram for malignant neoplasm of breast (principal)
CPT/HCPCS: 77063; 77067

== ENCOUNTER → 2020-06-14 10:17 | Outpatient (CLI) | payer MEDICARE, BC, SELFPAY ==
[2018-11-27 15:02] VITALS: BMI 30.4
[2020-06-14 12:12] LABS: Absolute Lymphocyte Count 2.87 X10^3/uL (0.83-4.51); Absolute Neutrophil Count 2.5 X10^3/uL (2.0-7.7); Basophil# 0.06 X10^3/uL; Basophil% 0.9 % (0-1); Eosinophil# 0.21 X10^3/uL; Eosinophils% 3.3 % (0-5); Hematocrit 40.2 % (37-47); Hemoglobin 12.9 g/dL (12.0-15.0); Lymphocyte # 2.87 X10^3/ul (4.0); Lymphocyte % 45.2 % (19-41); Mean Corp Hgb Conc 32.1 g/dL (32-36); Mean Corpuscular Volume 96.6 fL (81-99); Mean Platelet Vol. 9.2 fl (6.2-12.0); Monocyte# 0.74 X10^3/uL; Monocyte% 11.7 % (0-10); NRBC Flagged by Analyzer 0 % (0-5); Neutrophil # 2.46 X10^3/uL (2.7-7.7); Neutrophil % 38.7 % (47-70); Platelet Count 290 K/mm3 (150-450); RBC Distribution Width SD 42.9 fl (35.1-43.9); Red Blood Count 4.16 M/mm3 (4.2-5.4); White Blood Count 6.4 K/mm3 (4.4-11.0)
[2020-06-14 12:56] LABS: AST(SGOT) 18 U/L (15-37); Alanine Aminotransfer ALT/SGPT 20 U/L (13-56); Albumin, Serum 3.5 g/dL (3.2-5.0); Alkaline Phosphatase 72 U/L (45-117); Anion Gap 5 (5-15); BUN 18 mg/dL (7-18); Calcium,Total 8.5 mg/dL (8.5-10.1); Chloride 105 mmol/L (98-107); Creatinine, Serum 0.82 mg/dL (0.55-1.02); EST Glomerular Filtration Rate 74 mL/min (>60); Est Glom Filt Rate - Afr Amer 90 mL/min (>60); Globulin 3.4 g/dL (2.2-4.2); Glucose 84 mg/dL (74-106); Protein, Total 6.9 g/dL (6.4-8.2); Sodium Level 139 mmol/L (136-145); Thyroid Stim Hormone (TSH) 2.49 uIU/mL (0.358-3.74)
[2020-06-14 13:03] LABS: Vitamin D,25 Hydroxy 18.5 ng/mL
== END ==
PROVIDERS: PCP Family Medicine Geriatric Medicine; Visit Provider Family Medicine Geriatric Medicine
DX: E55.9 Vitamin D deficiency, unspecified (principal); I10 Essential (primary) hypertension
CPT/HCPCS: 36415; 80053; 82306; 84443; 85025

== ENCOUNTER → 2020-08-04 11:30 | Outpatient (CLI) | payer MEDICARE, BC, SELFPAY ==
[2018-11-27 15:02] VITALS: BMI 30.4
--- NOTE | 2020-08-04 11:26 | EKG12_ITS ---
Test Reason : PREOP Blood Pressure : / mmHG Vent. Rate : 065 BPM Atrial Rate : 065 BPM P-R Int : 168 ms QRS Dur : 066 ms QT Int : 420 ms P-R-T Axes : 058 052 057 degrees QTc Int : 436 ms Normal sinus rhythm Normal ECG Confirmed by USHA BRAVO, JARROD ([id number]), subeditor THOMAS HOWE ([id number]) on 08/07/2020 8:59:16 AM Referred By: Dennis Wadsworth Confirmed By:JARROD KERR MD
[2020-08-04 12:33] LABS: Hematocrit 40.9 % (37-47); Hemoglobin 13.5 g/dL (12.0-15.0); Mean Corpuscular Hgb 31.3 pg (27.0-32.0); Mean Corpuscular Volume 94.9 fL (81-99); Mean Platelet Vol. 8.9 fl (6.2-12.0); Platelet Count 276 K/mm3 (150-450); RBC Distribution Width CV 11.9 % (11.6-14.6); RBC Distribution Width SD 41.5 fl (35.1-43.9); Red Blood Count 4.31 M/mm3 (4.2-5.4); White Blood Count 4.8 K/mm3 (4.4-11.0)
[2020-08-04 13:07] LABS: Anion Gap 6 (5-15); BUN 11 mg/dL (7-18); BUN/Creat Ratio 13.3 RATIO (10-20); Calcium,Total 9.1 mg/dL (8.5-10.1); Chloride 100 mmol/L (98-107); Creatinine, Serum 0.83 mg/dL (0.55-1.02); EST Glomerular Filtration Rate 73 mL/min (>60); Est Glom Filt Rate - Afr Amer 88 mL/min (>60); Glucose 120 mg/dL (74-106); Potassium 3.7 mmol/L (3.5-5.1); Sodium Level 137 mmol/L (136-145)
== END ==
PROVIDERS: PCP Family Medicine Geriatric Medicine; Referring Provider Otolaryngology; Visit Provider Otolaryngology
DX: Z01.818 Encounter for other preprocedural examination (principal); Z11.59 Encounter for screening for other viral diseases
CPT/HCPCS: 36415; 80048; 85027; 87635; 93005; C9803; U0002

== ENCOUNTER → 2020-10-09 11:02 | Outpatient (CLI) | payer MEDICARE, BC, SELFPAY ==
[2018-11-27 15:02] VITALS: BMI 30.4
[2020-10-09 12:44] LABS: Anion Gap 8 (5-15); BUN 12 mg/dL (7-18); BUN/Creat Ratio 15.9 RATIO (10-20); Calcium,Total 8.9 mg/dL (8.5-10.1); Chloride 102 mmol/L (98-107); Creatinine, Serum 0.75 mg/dL (0.55-1.02); EST Glomerular Filtration Rate 81 mL/min (>60); Est Glom Filt Rate - Afr Amer 99 mL/min (>60); Glucose 107 mg/dL (74-106); Potassium 4.1 mmol/L (3.5-5.1); Sodium Level 137 mmol/L (136-145)
== END ==
PROVIDERS: PCP Family Medicine Geriatric Medicine; Visit Provider Family Medicine Geriatric Medicine
DX: I10 Essential (primary) hypertension (principal)
CPT/HCPCS: 36415; 80048

== ENCOUNTER → 2020-10-25 09:14 | Outpatient (CLI) | payer MEDICARE, BC, SELFPAY ==
[2018-11-27 15:02] VITALS: BMI 30.4
[2020-10-25 12:55] LABS: Anion Gap 7 (5-15); BUN 14 mg/dL (7-18); BUN/Creat Ratio 19.2 RATIO (10-20); Chloride 102 mmol/L (98-107); Creatinine, Serum 0.73 mg/dL (0.55-1.02); EST Glomerular Filtration Rate 85 mL/min (>60); Est Glom Filt Rate - Afr Amer 102 mL/min (>60); Glucose 100 mg/dL (74-106); Potassium 4.1 mmol/L (3.5-5.1); Sodium Level 136 mmol/L (136-145)
== END ==
PROVIDERS: PCP Family Medicine Geriatric Medicine; Visit Provider Family Medicine Geriatric Medicine
DX: I10 Essential (primary) hypertension (principal)
CPT/HCPCS: 36415; 80048

== ENCOUNTER → 2020-11-09 15:25 | Outpatient (CLI) | payer MEDICARE, BC, SELFPAY ==
[2018-11-27 15:02] VITALS: BMI 30.4
[2020-11-09 17:23] LABS: Absolute Neutrophil Count 5.3 X10^3/uL (2.0-7.7); Basophil# 0.04 X10^3/uL; Basophil% 0.5 % (0-1); Eosinophil# 0.04 X10^3/uL; Eosinophils% 0.5 % (0-5); Hematocrit 41.4 % (37-47); Hemoglobin 13.9 g/dL (12.0-15.0); Lymphocyte % 25.8 % (19-41); Mean Corp Hgb Conc 33.6 g/dL (32-36); Mean Corpuscular Hgb 31.2 pg (27.0-32.0); Mean Corpuscular Volume 92.8 fL (81-99); Mean Platelet Vol. 8.9 fl (6.2-12.0); Monocyte# 0.67 X10^3/uL; Monocyte% 8.2 % (0-10); NRBC Flagged by Analyzer 0 % (0-5); Neutrophil # 5.27 X10^3/uL (2.7-7.7); Neutrophil % 64.6 % (47-70); Platelet Count 346 K/mm3 (150-450); RBC Distribution Width CV 11.6 % (11.6-14.6); RBC Distribution Width SD 39.8 fl (35.1-43.9); Red Blood Count 4.46 M/mm3 (4.2-5.4); White Blood Count 8.2 K/mm3 (4.4-11.0)
[2020-11-09 17:50] LABS: ALB/GLOB Ratio 1.1 RATIO (0.9-2.4); AST(SGOT) 22 U/L (15-37); Alanine Aminotransfer ALT/SGPT 19 U/L (13-56); Alkaline Phosphatase 77 U/L (45-117); Anion Gap 6 (5-15); BUN 8 mg/dL (7-18); BUN/Creat Ratio 11.5 RATIO (10-20); Calcium,Total 9.4 mg/dL (8.5-10.1); Chloride 96 mmol/L (98-107); Creatinine, Serum 0.69 mg/dL (0.55-1.02); EST Glomerular Filtration Rate 90 mL/min (>60); Est Glom Filt Rate - Afr Amer 109 mL/min (>60); Globulin 3.8 g/dL (2.2-4.2); Glucose 127 mg/dL (74-106); Potassium 3.6 mmol/L (3.5-5.1); Protein, Total 7.8 g/dL (6.4-8.2); Sodium Level 129 mmol/L (136-145); Thyroid Stim Hormone (TSH) 1.28 uIU/mL (0.358-3.74)
== END ==
PROVIDERS: PCP Family Medicine Geriatric Medicine; Visit Provider Family Medicine Geriatric Medicine
DX: I10 Essential (primary) hypertension (principal); N39.0 Urinary tract infection, site not specified
CPT/HCPCS: 36415; 80053; 84443; 85025; 87086; 87088

== ENCOUNTER → 2020-12-18 09:58 | Outpatient (CLI) | payer MEDICARE, BC, SELFPAY ==
[2018-11-27 15:02] VITALS: BMI 30.4
[2020-12-18 11:05] LABS: Absolute Lymphocyte Count 2.62 X10^3/uL (0.83-4.51); Absolute Neutrophil Count 2.1 X10^3/uL (2.0-7.7); Basophil# 0.08 X10^3/uL; Basophil% 1.4 % (0-1); Eosinophil# 0.32 X10^3/uL; Eosinophils% 5.5 % (0-5); Hematocrit 42.7 % (37-47); Hemoglobin 13.9 g/dL (12.0-15.0); Lymphocyte # 2.62 X10^3/ul (0.83-4.51); Lymphocyte % 44.6 % (19-41); Mean Corp Hgb Conc 32.6 g/dL (32-36); Mean Corpuscular Hgb 30.6 pg (27.0-32.0); Mean Corpuscular Volume 94.1 fL (81-99); Mean Platelet Vol. 9.3 fl (6.2-12.0); Monocyte# 0.73 X10^3/uL; Monocyte% 12.4 % (0-10); NRBC Flagged by Analyzer 0 % (0-5); Neutrophil # 2.11 X10^3/uL (2.7-7.7); Neutrophil % 35.9 % (47-70); Platelet Count 257 K/mm3 (150-450); RBC Distribution Width CV 12.1 % (11.6-14.6); RBC Distribution Width SD 42.5 fl (35.1-43.9); Red Blood Count 4.54 M/mm3 (4.2-5.4); White Blood Count 5.9 K/mm3 (4.4-11.0)
[2020-12-18 11:36] LABS: AST(SGOT) 17 U/L (15-37); Alanine Aminotransfer ALT/SGPT 20 U/L (13-56); Albumin, Serum 3.4 g/dL (3.2-5.0); Alkaline Phosphatase 54 U/L (45-117); Anion Gap 6 (5-15); BUN 13 mg/dL (7-18); BUN/Creat Ratio 21.6 RATIO (10-20); Calcium,Total 8.7 mg/dL (8.5-10.1); Chloride 99 mmol/L (98-107); EST Glomerular Filtration Rate 106 mL/min (>60); Est Glom Filt Rate - Afr Amer 128 mL/min (>60); Globulin 3.3 g/dL (2.2-4.2); Glucose 87 mg/dL (74-106); Potassium 4.1 mmol/L (3.5-5.1); Protein, Total 6.7 g/dL (6.4-8.2); Sodium Level 134 mmol/L (136-145); Thyroid Stim Hormone (TSH) 2.63 uIU/mL (0.358-3.74)
[2020-12-18 11:46] LABS: Vitamin D,25 Hydroxy 30.6 ng/mL
== END ==
PROVIDERS: PCP Family Medicine Geriatric Medicine; Visit Provider Family Medicine Geriatric Medicine
DX: E55.9 Vitamin D deficiency, unspecified (principal); I10 Essential (primary) hypertension
CPT/HCPCS: 36415; 80053; 82306; 84443; 85025

== ENCOUNTER → 2021-02-08 08:11 | Outpatient (CLI) | payer MEDICARE, BC, SELFPAY ==
--- NOTE | 2021-02-09 10:51 | PFT ---
INTRODUCTION: The patient is a 65-year-old female that presents for pulmonary function studies secondary to a diagnosis of dyspnea. Respiratory therapy reports good patient effort. Bronchodilators were used during testing. INTERPRETATION: Forced expiration spirometry demonstrates the presence of a severe large airways obstructive ventilatory defect. There was a significant response to aerosolized bronchodilators noted. Spirograms are of fair quality but do not plateau indicating slow emptying of the lungs. Body plethysmography was performed and revealed an elevated RV to 194% of predicted, indicative of underlying air trapping. Diffusing capacity by single breath CO is reduced at 66% of predicted. IMPRESSION: Partially reversible severe large airways obstructive ventilatory defect with associated air trapping and reduction in diffusing capacity.
== END ==
PROVIDERS: PCP Family Medicine Geriatric Medicine; Referring Provider Nurse Practitioner Acute Care; Visit Provider Nurse Practitioner Acute Care
DX: R06.00 Dyspnea, unspecified (principal)
CPT/HCPCS: 94060; 94726; 94729

== ENCOUNTER → 2021-02-09 13:09 | Outpatient (CLI) | payer MEDICARE, BC, SELFPAY ==
--- NOTE | 2021-02-09 13:10 | CT_ITS ---
STUDY: LOW DOSE CT LUNG CANCER SCREENING REASON FOR EXAM: Female, 65 years old. Smoker and gt; 40 pack years RADIATION DOSAGE (If Supplied By Facility): CTDIvol = ( 2.39 ) mGy, DLP = ( 89.95 ) mGycm TECHNIQUE: No contrast was administered. Low dose technique was utilized (average mAS-38 and kVp 120). 1.25 mm axial source images with a slice interval of 1.25-mm were reconstructed in lung windows. 2.5 mm axial source images with a slice interval of 2.5-mm were reconstructed in lung windows. 5.0 mm axial source images with a slice interval of 5.0-mm were reconstructed in soft tissue windows. Nodule measured using lung windows on PACS and/or independent workstation with automated measurement of minimum and maximum diameter. Nodule measurement reported as average diameter rounded to the nearest whole number. Growth is defined as an increase ins size of greater than 1.5 mm. COMPARISON: Comparison is made with prior study dated 10/23/2016. NODULES: No suspicious nodules are seen. Emphysema: Mild degree of emphysematous changes. Endobronchial lesion: None Aorta: Mild degree of atherosclerotic calcification of the aortic arch. Coronary arteries: Coronary artery calcification. Mediastinal nodes: Since prior study, there has been further decrease in size of the small soft tissue density in the anterior mediastinal region. Other chest and abdominal findings: CT/Low Dose CT Lung Screening IMPRESSION: Lung-RADS category 2 - Continue annual screening with LDCT in 12 months. IMPORTANT NOTES FOR USE: ACR Lung-RADS Version 1.1 Assessment Categories Release Date: 2018 Category: Coded 0-4 bases on nodule(s) with highest degree of suspicion. Negative screen is defined as categories 1 and 2; a positive screen is defined as categories 3 and 4. Category 3 and 4A nodules that are unchanged on interval CT should be coded as category 2, and individuals returned to screening in 12 months. Category 4X: Category 3 or 4 nodules with additional imaging findings that increase the suspicion of lung cancer, such as spiculation, GGN that doubles in size in 1 year, enlarged lymph notes, etc. Category Modifiers: S (significant finding unrelated to lung cancer) Electronically Signed: Fransisco Salinas MD at 14:08 EDT , Service support ,
== END ==
PROVIDERS: PCP Family Medicine Geriatric Medicine; Referring Provider Nurse Practitioner Acute Care; Visit Provider Nurse Practitioner Acute Care
DX: F17.210 Nicotine dependence, cigarettes, uncomplicated (principal)
CPT/HCPCS: 71271

== ENCOUNTER → 2021-02-20 20:01 | Outpatient (CLI) | payer MEDICARE, BC, SELFPAY | PROVIDERS: PCP Family Medicine Geriatric Medicine; Visit Provider Nurse Practitioner Acute Care | DX: G47.33 Obstructive sleep apnea (adult) (pediatric) (principal) | CPT/HCPCS: 95810 ==

== ENCOUNTER 2021-06-20 10:20 | Outpatient (CLI) | payer MEDICARE, BC, SELFPAY ==
[2021-06-20 12:42] LABS: Absolute Lymphocyte Count 2.75 X10^3/uL (0.83-4.51); Absolute Neutrophil Count 4.1 X10^3/uL (2.0-7.7); Basophil# 0.06 X10^3/uL; Basophil% 0.8 % (0-1); Eosinophil# 0.08 X10^3/uL; Hematocrit 40.4 % (37-47); Hemoglobin 13.8 g/dL (12.0-15.0); Lymphocyte # 2.75 X10^3/ul (0.83-4.51); Mean Corp Hgb Conc 34.2 g/dL (32-36); Mean Corpuscular Hgb 32.4 pg (27.0-32.0); Mean Corpuscular Volume 94.8 fL (81-99); Mean Platelet Vol. 9.4 fl (6.2-12.0); Monocyte# 0.65 X10^3/uL; Monocyte% 8.5 % (0-10); NRBC Flagged by Analyzer 0 % (0-5); Neutrophil # 4.08 X10^3/uL (2.7-7.7); Neutrophil % 53.6 % (47-70); Platelet Count 314 K/mm3 (150-450); RBC Distribution Width CV 13.3 % (11.6-14.6); RBC Distribution Width SD 46.7 fl (35.1-43.9); Red Blood Count 4.26 M/mm3 (4.2-5.4); White Blood Count 7.6 K/mm3 (4.4-11.0)
[2021-06-20 12:59] LABS: Vitamin D,25 Hydroxy 14.9 ng/mL
[2021-06-20 13:06] LABS: ALB/GLOB Ratio 0.9 RATIO (0.9-2.4); AST(SGOT) 17 U/L (15-37); Alanine Aminotransfer ALT/SGPT 22 U/L (13-56); Albumin, Serum 3.3 g/dL (3.2-5.0); Alkaline Phosphatase 73 U/L (45-117); Anion Gap 6 (5-15); BUN 19 mg/dL (7-18); BUN/Creat Ratio 19.3 RATIO (10-20); Calcium,Total 8.3 mg/dL (8.5-10.1); Chloride 106 mmol/L (98-107); Creatinine, Serum 0.98 mg/dL (0.55-1.02); EST Glomerular Filtration Rate 60 mL/min (>60); Est Glom Filt Rate - Afr Amer 72 mL/min (>60); Globulin 3.5 g/dL (2.2-4.2); Glucose 87 mg/dL (74-106); Potassium 4.1 mmol/L (3.5-5.1); Protein, Total 6.8 g/dL (6.4-8.2); Sodium Level 139 mmol/L (136-145); Thyroid Stim Hormone (TSH) 1.85 uIU/mL (0.358-3.74)
== END 2021-06-20 23:59 | disposition short-term general hospital (02) ==
LOC: POLAB3 10:21
PROVIDERS: PCP Family Medicine Geriatric Medicine; Visit Provider Family Medicine Geriatric Medicine
DX: E55.9 Vitamin D deficiency, unspecified (principal); I10 Essential (primary) hypertension
CPT/HCPCS: 36415; 80053; 82306; 84443; 85025

== ENCOUNTER → 2021-09-24 | Outpatient (CLI) | payer MEDICARE, BC, SELFPAY ==
[2021-09-24 17:11] LABS: Absolute Lymphocyte Count 2.68 X10^3/uL (0.83-4.51); Absolute Neutrophil Count 3.3 X10^3/uL (2.0-7.7); Basophil# 0.04 X10^3/uL; Basophil% 0.6 % (0-1); Eosinophil# 0.12 X10^3/uL; Eosinophils% 1.7 % (0-5); Hematocrit 39.8 % (37-47); Hemoglobin 13.2 g/dL (12.0-15.0); Lymphocyte # 2.68 X10^3/ul (0.83-4.51); Mean Corp Hgb Conc 33.2 g/dL (32-36); Mean Corpuscular Hgb 31.4 pg (27.0-32.0); Mean Corpuscular Volume 94.8 fL (81-99); Mean Platelet Vol. 9.3 fl (6.2-12.0); Monocyte# 0.72 X10^3/uL; Monocyte% 10.5 % (0-10); NRBC Flagged by Analyzer 0 % (0-5); Neutrophil % 48.1 % (47-70); Platelet Count 293 K/mm3 (150-450); RBC Distribution Width CV 11.9 % (11.6-14.6); White Blood Count 6.9 K/mm3 (4.4-11.0)
== END | disposition home or self-care (01) ==
LOC: POLAB3 15:21
PROVIDERS: PCP Family Medicine Geriatric Medicine; Visit Provider Family Medicine Geriatric Medicine
DX: D64.9 Anemia, unspecified (principal)
CPT/HCPCS: 36415; 85025

== ENCOUNTER → 2021-10-08 | Outpatient (CLI) | payer MEDICARE, BC, SELFPAY | END | disposition home or self-care (01) | LOC: PSN 09:17 | PROVIDERS: PCP Family Medicine Geriatric Medicine; Referring Provider Family Medicine Geriatric Medicine; Visit Provider Family Medicine Geriatric Medicine | DX: R68.83 Chills (without fever) (principal); Z20.822 Contact with and (suspected) exposure to COVID-19 | CPT/HCPCS: 87635; 87804; 87807; C9803; U0003; U0005 ==

== ENCOUNTER → 2022-01-08 | Outpatient (CLI) | payer MEDICARE, BC, SELFPAY ==
[2022-01-08 17:00] LABS: Absolute Lymphocyte Count 2.42 X10^3/uL (0.83-4.51); Absolute Neutrophil Count 2.8 X10^3/uL (2.0-7.7); Basophil# 0.03 X10^3/uL; Basophil% 0.5 % (0-1); Eosinophils% 1.7 % (0-5); Hematocrit 40.9 % (37-47); Hemoglobin 13.2 g/dL (12.0-15.0); Lymphocyte # 2.42 X10^3/ul (0.83-4.51); Lymphocyte % 41.2 % (19-41); Mean Corp Hgb Conc 32.3 g/dL (32-36); Mean Corpuscular Hgb 31.1 pg (27.0-32.0); Mean Corpuscular Volume 96.2 fL (81-99); Mean Platelet Vol. 9.8 fl (6.2-12.0); Monocyte# 0.49 X10^3/uL; Monocyte% 8.3 % (0-10); NRBC Flagged by Analyzer 0 % (0-5); Neutrophil # 2.81 X10^3/uL (2.7-7.7); Platelet Count 283 K/mm3 (150-450); RBC Distribution Width CV 13.1 % (11.6-14.6); RBC Distribution Width SD 46.4 fl (35.1-43.9); Red Blood Count 4.25 M/mm3 (4.2-5.4); White Blood Count 5.9 K/mm3 (4.4-11.0)
[2022-01-08 17:17] LABS: Vitamin D,25 Hydroxy 14.5 ng/mL
[2022-01-08 17:31] LABS: ALB/GLOB Ratio 0.9 RATIO (0.9-2.4); AST(SGOT) 16 U/L (15-37); Alanine Aminotransfer ALT/SGPT 22 U/L (13-56); Albumin, Serum 3.3 g/dL (3.2-5.0); Alkaline Phosphatase 76 U/L (45-117); Anion Gap 6 (5-15); BUN 13 mg/dL (7-18); BUN/Creat Ratio 12.9 RATIO (10-20); Calcium,Total 9.1 mg/dL (8.5-10.1); Chloride 107 mmol/L (98-107); Creatinine, Serum 1.01 mg/dL (0.55-1.02); EST Glomerular Filtration Rate 58 mL/min (>60); Est Glom Filt Rate - Afr Amer 70 mL/min (>60); Globulin 3.5 g/dL (2.2-4.2); Glucose 117 mg/dL (74-106); Potassium 3.9 mmol/L (3.5-5.1); Protein, Total 6.8 g/dL (6.4-8.2); Sodium Level 140 mmol/L (136-145); Thyroid Stim Hormone (TSH) 1.18 uIU/mL (0.358-3.74)
== END | disposition home or self-care (01) ==
LOC: POLAB3 14:01
PROVIDERS: PCP Family Medicine Geriatric Medicine; Visit Provider Family Medicine Geriatric Medicine
DX: E55.9 Vitamin D deficiency, unspecified (principal); I10 Essential (primary) hypertension
CPT/HCPCS: 36415; 80053; 82306; 84443; 85025

== ENCOUNTER → 2022-02-13 | Outpatient (CLI) | payer MEDICARE, BC, SELFPAY ==
--- NOTE | 2022-02-13 12:19 | BI_ITS ---
MAMMOGRAPHY - BILATERAL SCREENING REASON FOR EXAM: Female, 66 years old. Routine annual screening examination. PERTINENT HISTORY: Non-contributory. TECHNIQUE: Digital bilateral breast portia (3D mammographic acquisition) in the CC and MLO projections. 2-D mediolateral oblique (MLO) and craniocaudad (CC) views of both breasts were obtained. CAD: Full Field Digital Mammography with Computer Added Detection was performed. COMPARISON: Comparison is made with prior study 01/05/2020 and 09/08/2018. FINDINGS: Breast Composition: There are scattered areas of fibroglandular density. There are no dominant masses or suspicious calcifications. Stable small benign-appearing bilateral axillary lymph nodes. No other significant abnormalities are identified. There has been no significant change since the prior study. BI/SCRN MAMM (CAD)W/PORTIA BILAT IMPRESSION: Stable bilateral screening mammogram. Yearly follow-up mammogram recommended. (A) ASSESSMENT CATEGORY: BIRADS Category 2: Benign. A letter regarding these results will be sent to the patient by the facility within 30 days. Approximately 10% of breast cancers are not detected by mammography. A normal mammogram should not delay biopsy of a clinically suspicious abnormality. [id number] Electronically Signed: Fransisco Salinas MD at 13:01 EDT ,
--- NOTE | 2022-02-13 12:40 | CT_ITS ---
STUDY: LOW DOSE CT LUNG CANCER SCREENING REASON FOR EXAM: Female, 66 years old. Smoker and gt; 40 pack years. COPD RADIATION DOSAGE (If Supplied By Facility): CTDIvol = ( 3.02 ) mGy, DLP = ( 96.66 ) mGycm TECHNIQUE: No contrast was administered. Low dose technique was utilized (average mAS-38 and kVp 120). 1.25 mm axial source images with a slice interval of 1.25-mm were reconstructed in lung windows. 2.5 mm axial source images with a slice interval of 2.5-mm were reconstructed in lung windows. 5.0 mm axial source images with a slice interval of 5.0-mm were reconstructed in soft tissue windows. COMPARISON: Comparison is made with prior examination dated 02/09/2021. NODULES: No suspicious nodules are seen. Emphysema: Findings suggestive of linear scarring in the anterior medial aspect of the right middle lobe as well as the medial anterior aspect of the lingular segment of the left upper. Mild degree of emphysematous changes. Endobronchial lesion: None Aorta: Minimal atherosclerotic calcific plaques at the level of the aortic arch. CORONARY ARTERIES: Coronary artery calcification is seen. Heart: Unremarkable. Pulmonary artery: Unremarkable. Mediastinal nodes: Small benign-appearing mediastinal lymph nodes. Other chest and abdominal findings: CT/Low Dose CT Lung Screening IMPRESSION: Lung-RADS category 2 - Continue annual screening with LDCT in 12 months. IMPORTANT NOTES FOR USE: ACR Lung-RADS Version 1.1 Assessment Categories Release Date: 2018 Category: Coded 0-4 bases on nodule(s) with highest degree of suspicion. Negative screen is defined as categories 1 and 2; a positive screen is defined as categories 3 and 4. Category 3 and 4A nodules that are unchanged on interval CT should be coded as category 2, and individuals returned to screening in 12 months. Category 4X: Category 3 or 4 nodules with additional imaging findings that increase the suspicion of lung cancer, such as spiculation, GGN that doubles in size in 1 year, enlarged lymph notes, etc. Category Modifiers: S (significant finding unrelated to lung cancer) Electronically Signed: Fransisco Salinas MD at 13:04 EDT ,
== END | disposition home or self-care (01) ==
PROVIDERS: PCP Family Medicine Geriatric Medicine; Visit Provider Nurse Practitioner Acute Care
DX: F17.210 Nicotine dependence, cigarettes, uncomplicated (principal); Z12.31 Encounter for screening mammogram for malignant neoplasm of breast
CPT/HCPCS: 71271; 77063; 77067

== ENCOUNTER → 2022-06-24 | Outpatient (CLI) | payer MEDICARE, BC, SELFPAY ==
[2022-06-24 13:25] LABS: Absolute Lymphocyte Count 2.25 X10^3/uL (0.83-4.51); Absolute Neutrophil Count 2.1 X10^3/uL (2.0-7.7); Basophil# 0.04 X10^3/uL; Basophil% 0.8 % (0-1); Eosinophil# 0.12 X10^3/uL; Eosinophils% 2.4 % (0-5); Hematocrit 41.4 % (37-47); Hemoglobin 13.7 g/dL (12.0-15.0); Lymphocyte # 2.25 X10^3/ul (0.83-4.51); Lymphocyte % 44.6 % (19-41); Mean Corp Hgb Conc 33.1 g/dL (32-36); Mean Corpuscular Hgb 31.1 pg (27.0-32.0); Mean Corpuscular Volume 94.1 fL (81-99); Mean Platelet Vol. 9.3 fl (6.2-12.0); Monocyte# 0.51 X10^3/uL; Monocyte% 10.1 % (0-10); NRBC Flagged by Analyzer 0 % (0-5); Neutrophil # 2.11 X10^3/uL (2.7-7.7); Neutrophil % 41.9 % (47-70); Platelet Count 288 K/mm3 (150-450); RBC Distribution Width CV 12.3 % (11.6-14.6); RBC Distribution Width SD 42.8 fl (35.1-43.9)
[2022-06-24 14:04] LABS: ALB/GLOB Ratio 1.1 RATIO (0.9-2.4); AST(SGOT) 22 U/L (15-37); Alanine Aminotransfer ALT/SGPT 18 U/L (13-56); Albumin, Serum 3.5 g/dL (3.2-5.0); Alkaline Phosphatase 67 U/L (45-117); Anion Gap 8 (5-15); BUN 13 mg/dL (7-18); BUN/Creat Ratio 17.8 RATIO (10-20); Calcium,Total 8.8 mg/dL (8.5-10.1); Chloride 109 mmol/L (98-107); Creatinine, Serum 0.73 mg/dL (0.55-1.02); EST Glomerular Filtration Rate 84 mL/min (>60); Est Glom Filt Rate - Afr Amer 102 mL/min (>60); Globulin 3.1 g/dL (2.2-4.2); Glucose 88 mg/dL (74-106); Potassium 3.7 mmol/L (3.5-5.1); Protein, Total 6.6 g/dL (6.4-8.2); Sodium Level 143 mmol/L (136-145); Thyroid Stim Hormone (TSH) 2.54 uIU/mL (0.358-3.74)
[2022-06-24 14:18] LABS: Vitamin D,25 Hydroxy 20.6 ng/mL
== END | disposition home or self-care (01) ==
LOC: POLAB3 10:11
PROVIDERS: PCP Family Medicine Geriatric Medicine; Visit Provider Family Medicine Geriatric Medicine
DX: E55.9 Vitamin D deficiency, unspecified (principal); I10 Essential (primary) hypertension
CPT/HCPCS: 36415; 80053; 82306; 84443; 85025

== ENCOUNTER → 2023-01-13 | Outpatient (CLI) | payer MEDICARE, BC, SELFPAY ==
[2023-01-13 11:02] LABS: Absolute Lymphocyte Count 1.94 X10^3/uL (0.83-4.51); Absolute Neutrophil Count 4.1 X10^3/uL (2.0-7.7); Basophil# 0.04 X10^3/uL; Basophil% 0.6 % (0-1); Eosinophil# 0.07 X10^3/uL; Eosinophils% 1.1 % (0-5); Hematocrit 44.4 % (37-47); Hemoglobin 14.4 g/dL (12.0-15.0); Lymphocyte # 1.94 X10^3/ul (0.83-4.51); Lymphocyte % 29.1 % (19-41); Mean Corp Hgb Conc 32.4 g/dL (32-36); Mean Corpuscular Hgb 30.8 pg (27.0-32.0); Mean Corpuscular Volume 95.1 fL (81-99); Mean Platelet Vol. 8.9 fl (6.2-12.0); Monocyte# 0.53 X10^3/uL; NRBC Flagged by Analyzer 0 % (0-5); Neutrophil # 4.07 X10^3/uL (2.7-7.7); Platelet Count 283 K/mm3 (150-450); RBC Distribution Width CV 11.9 % (11.6-14.6); RBC Distribution Width SD 41.5 fl (35.1-43.9); Red Blood Count 4.67 M/mm3 (4.2-5.4); White Blood Count 6.7 K/mm3 (4.4-11.0)
[2023-01-13 12:39] LABS: ALB/GLOB Ratio 1.2 RATIO (0.9-2.4); AST(SGOT) 14 U/L (15-37); Alanine Aminotransfer ALT/SGPT 19 U/L (13-56); Albumin, Serum 3.7 g/dL (3.2-5.0); Alkaline Phosphatase 78 U/L (45-117); Anion Gap 6 (5-15); BUN 11 mg/dL (7-18); BUN/Creat Ratio 13.5 RATIO (10-20); Calcium,Total 8.9 mg/dL (8.5-10.1); Chloride 108 mmol/L (98-107); Creatinine, Serum 0.82 mg/dL (0.55-1.02); EST Glomerular Filtration Rate 74 mL/min (>60); Est Glom Filt Rate - Afr Amer 89 mL/min (>60); Globulin 3.2 g/dL (2.2-4.2); Glucose 112 mg/dL (74-106); Potassium 3.9 mmol/L (3.5-5.1); Protein, Total 6.9 g/dL (6.4-8.2); Sodium Level 140 mmol/L (136-145); Thyroid Stim Hormone (TSH) 1.43 uIU/mL (0.358-3.74)
[2023-01-13 12:50] LABS: Vitamin D,25 Hydroxy 19.8 ng/mL
== END | disposition home or self-care (01) ==
PROVIDERS: PCP Family Medicine Geriatric Medicine; Visit Provider Family Medicine Geriatric Medicine
DX: I10 Essential (primary) hypertension (principal); E55.9 Vitamin D deficiency, unspecified
CPT/HCPCS: 36415; 80053; 82306; 84443; 85025

== ENCOUNTER → 2023-03-31 | Outpatient (CLI) | payer MEDICARE, BC, SELFPAY ==
[2023-03-31 09:06] LABS: Absolute Lymphocyte Count 2.13 X10^3/uL (0.83-4.51); Absolute Neutrophil Count 3.1 X10^3/uL (2.0-7.7); Basophil# 0.05 X10^3/uL; Basophil% 0.8 % (0-1); Eosinophils% 1.7 % (0-5); Hematocrit 48.2 % (37-47); Hemoglobin 15.2 g/dL (12.0-15.0); Lymphocyte # 2.13 X10^3/ul (0.83-4.51); Lymphocyte % 35.9 % (19-41); Mean Corp Hgb Conc 31.5 g/dL (32-36); Mean Corpuscular Hgb 30.7 pg (27.0-32.0); Mean Corpuscular Volume 97.4 fL (81-99); Mean Platelet Vol. 8.9 fl (6.2-12.0); Monocyte# 0.56 X10^3/uL; Monocyte% 9.4 % (0-10); NRBC Flagged by Analyzer 0 % (0-5); Neutrophil # 3.08 X10^3/uL (2.7-7.7); Neutrophil % 51.9 % (47-70); Platelet Count 319 K/mm3 (150-450); RBC Distribution Width CV 11.9 % (11.6-14.6); RBC Distribution Width SD 43.4 fl (35.1-43.9); Red Blood Count 4.95 M/mm3 (4.2-5.4); White Blood Count 5.9 K/mm3 (4.4-11.0)
[2023-03-31 09:34] LABS: ALB/GLOB Ratio 1.1 RATIO (0.9-2.4); AST(SGOT) 11 U/L (15-37); Alanine Aminotransfer ALT/SGPT 15 U/L (13-56); Albumin, Serum 3.6 g/dL (3.2-5.0); Alkaline Phosphatase 80 U/L (45-117); Anion Gap 4 (5-15); BUN 12 mg/dL (7-18); BUN/Creat Ratio 16.9 RATIO (10-20); Calcium,Total 9.1 mg/dL (8.5-10.1); Chloride 105 mmol/L (98-107); Creatinine, Serum 0.71 mg/dL (0.55-1.02); EST Glomerular Filtration Rate 87 mL/min (>60); Est Glom Filt Rate - Afr Amer 105 mL/min (>60); Globulin 3.4 g/dL (2.2-4.2); Glucose 103 mg/dL (74-106); Potassium 4.1 mmol/L (3.5-5.1); Sodium Level 140 mmol/L (136-145); Thyroid Stim Hormone (TSH) 1.44 uIU/mL (0.358-3.74)
== END | disposition home or self-care (01) ==
LOC: LAB 08:10
PROVIDERS: PCP Family Medicine Geriatric Medicine
DX: F19.10 Other psychoactive substance abuse, uncomplicated (principal); R53.83 Other fatigue; Z79.899 Other long term (current) drug therapy
CPT/HCPCS: 36415; 80053; 84443; 85025

== ENCOUNTER → 2023-04-01 | Outpatient (CLI) | payer MEDICARE, BC, SELFPAY ==
[2023-04-01 21:06] LABS: M R Staph aureus DNA By PCR Negative (Negative); Probe Check PASS; Specimen Processing Control PASS; Staph aureus DNA By PCR NEGATIVE (Negative)
== END | disposition home or self-care (01) ==
PROVIDERS: PCP Family Medicine Geriatric Medicine; Visit Provider Family Medicine Geriatric Medicine
DX: N75.1 Abscess of Bartholin's gland (principal)
CPT/HCPCS: 87070; 87077; 87186; 87205; 87640

== ENCOUNTER → 2023-04-07 | Outpatient (CLI) | payer MEDICARE, BC, SELFPAY ==
[2023-04-07 18:20] LABS: Absolute Lymphocyte Count 1.95 X10^3/uL (0.83-4.51); Absolute Neutrophil Count 3.4 X10^3/uL (2.0-7.7); Basophil# 0.05 X10^3/uL; Basophil% 0.8 % (0-1); Eosinophil# 0.35 X10^3/uL; Eosinophils% 5.5 % (0-5); Hematocrit 43.7 % (37-47); Hemoglobin 14.4 g/dL (12.0-15.0); Lymphocyte # 1.95 X10^3/ul (0.83-4.51); Lymphocyte % 30.7 % (19-41); Mean Corpuscular Hgb 31.5 pg (27.0-32.0); Mean Corpuscular Volume 95.6 fL (81-99); Monocyte# 0.59 X10^3/uL; Monocyte% 9.3 % (0-10); NRBC Flagged by Analyzer 0 % (0-5); Neutrophil # 3.39 X10^3/uL (2.7-7.7); Neutrophil % 53.2 % (47-70); Platelet Count 302 K/mm3 (150-450); RBC Distribution Width CV 11.9 % (11.6-14.6); RBC Distribution Width SD 42.5 fl (35.1-43.9); Red Blood Count 4.57 M/mm3 (4.2-5.4); White Blood Count 6.4 K/mm3 (4.4-11.0)
[2023-04-07 18:34] LABS: Lactic Acid 1.3 mmol/L (0.4-1.9)
[2023-04-07 18:39] LABS: Anion Gap 4 (5-15); BUN 12 mg/dL (7-18); BUN/Creat Ratio 10.6 RATIO (10-20); CRP < 2.90 mg/L (0.0-3.0); Calcium,Total 8.4 mg/dL (8.5-10.1); Chloride 108 mmol/L (98-107); Creatinine, Serum 1.13 mg/dL (0.55-1.02); EST Glomerular Filtration Rate 51 mL/min (>60); Est Glom Filt Rate - Afr Amer 61 mL/min (>60); Glucose 100 mg/dL (74-106); Sodium Level 140 mmol/L (136-145)
[2023-04-07 18:44] LABS: Erythrocyte Sedimentation Rate 6 mm/hr (0-30)
== END | disposition home or self-care (01) ==
LOC: POLAB3 17:23
PROVIDERS: PCP Family Medicine Geriatric Medicine; Visit Provider Family Medicine Geriatric Medicine
DX: A48.3 Toxic shock syndrome (principal); N75.1 Abscess of Bartholin's gland
CPT/HCPCS: 36415; 80048; 83605; 85025; 85652; 86140; 87040

== ENCOUNTER 2023-04-08 06:22 | Emergency (ER) | payer MEDICARE, BC, SELFPAY ==
[2023-04-08 06:22] VITALS: BP 164/87; PULSE 83; RESP 16; TEMP 36.6; O2SAT 95; BMI 32.5
--- NOTE | 2023-04-08 07:00 | RAD_ITS ---
EXAM: XR RIGHT WRIST COMPLETE, 3 OR MORE VIEWS CLINICAL INDICATION: Injury/Pain Injury/Pain TECHNIQUE: Frontal, lateral and oblique views of the right wrist. COMPARISON: No relevant prior studies available. FINDINGS: BONES/JOINTS: There is a comminuted acute traumatic fracture of the distal radius. There is a transverse fracture through the radial metaphysis with impaction and angulation convex anteriorly. There are also vertical fracture lines extending through the posterior distal articular surface of the radius underlying the region of the real-lunate articulation. The ulnar styloid appears truncated. As seen on PA view, there is a 3 mm calcification projecting over this region, which may represent a displaced bone fracture fragment from the tip of the styloid. Preservation of the joint space. No sclerotic or destructive changes observed. SOFT TISSUES: Unremarkable. No soft tissue swelling or gas. No radiopaque foreign body. RAD/Wrist min 3 Views IMPRESSION: 1. Comminuted fracture of the distal radius with some impaction and angulation at the site of the radial metaphysis as well as vertical fracture extending to the distal articular surface. 2. Fracture through the ulnar styloid. Electronically Signed: Sancho Ward MD at 7:51 EST ,
--- NOTE | 2023-04-08 07:01 | EX.ED.UPPERE ---
HPI History of Present Illness Chief Complaint: Upper Extremity Injury Detail of Chief Complaint: Injury to right wrist Informant: patient Occured/Mechanism Mechanism/Context: Yes fall and Yes same level fall Onset/Context/Timing Onset: Today (0300) Context: Sudden Onset Timing: Continuous and Waxes and wanes Quality of Pain: Dull and Aching Location: Right wrist Current Severity: Mild Maximum Severity: Severe Worsened by: Attempt to move Relieved by: Diminished if patient remains stable or does not use right upper extremity Associated Symptoms Associated Symptoms: Positive for Loss of Funtion; Negative for Parasthesia or Weakness Narrative Narrative: Patient is a 67-year-old [id number] woman who awoke at 0300. She states her foot was asleep. When she went to walk to go to the restroom she fell. She fell on her outstretched right upper extremity. She denies paresthesia, anesthesia medics. She did have coffee at 0500. She denies prior injury to that wrist. Prior similar symptoms: No Recent Illness/Hospitalization: No PFSH PFSH Medical History MARCELA (acute kidney injury) Depression Diverticulitis large intestine Diverticulitis of large intestine with abscess without bleeding HTN (hypertension) Hyperlipidemia Home Medications pravastatin 40 mg tablet 40 mg PO QHS cholesterol 05/14/18 [History Last Taken 05/13/18] albuterol sulfate 90 mcg/actuation aerosol inhaler 2 puff inhalation Q6H PRN SOB 02/05/21 [History Last Taken Unknown] amlodipine 2.5 mg tablet 2.5 mg PO BID 02/05/21 [History Last Taken Unknown] divalproex 500 mg tablet,delayed release 500 mg PO BID 02/05/21 [History Last Taken Unknown] valsartan 160 mg tablet 160 mg PO DAILY 02/05/21 [History Last Taken Unknown] fluticasone fur. 200 mcg-umeclid 62.5 mcg-vilant 25 mcg inhalat.powder (Trelegy Ellipta) 1 inh inhalation DAILY #60 ea 12/11/21 [Rx Last Taken Unknown] hydrocodone-acetaminophen 5-325mg 5mg-325mg 1 tab PO Q6H PRN PRN Pain 3 days #10 TABLETS 04/08/23 [Rx Last Taken Unknown] lorazepam 0.5 mg tablet 0.5 mg PO TID 04/08/23 [History Last Taken Unknown] mirtazapine 30 mg tablet 30 mg PO QHS PRN SLEEP 04/08/23 [History Last Taken Unknown] Allergy/AdvReac Type Severity Reaction Status Date / Time clindamycin Allergy Mild Rash Verified 04/08/23 06:30 sulfamethoxazole Allergy Mild Rash Verified 04/08/23 06:30 [From Bactrim] trimethoprim [From Bactrim] Allergy Mild Rash Verified 04/08/23 06:30 cephalexin [From Keflex] AdvReac itching, Verified 04/08/23 06:30 rash Surgical History s/p sigmoid colectomy (~05/22/18) S/P ventral herniorrhaphy Social History (Updated 04/08/23 @ 07:[address] Kraig Menjivar MD) household members: spouse Smoking Status: Current every day smoker tobacco type: cigarettes ROS ROS ED Cardiovascular Cardiovascular: Denies chest pain Respiratory/Chest Respiratory/Chest: Denies dyspnea Musculoskeletal Musculoskeletal: Denies back pain or neck pain Integumentary Denies Abrasions or rash Neurologic Neurologic: Denies paresthesias or weakness Hematologic/Lymphatic Hematologic/Lymphatic: Denies easy bleeding or easy bruising EXAM Physical Exam Const Vital Signs: 04/08/23 06:22 Temperature 97.9 F Temperature Source Temporal Pulse Rate 83 Respiratory Rate 16 Blood Pressure 164/87 H Blood Pressure Mean 112 Pulse Ox 95 Oxygen Delivery Method Room Air Positive well nourished, well developed and obese General Appearance ED: well developed and NAD; Negative for cyanotic or diaphoretic Nutritional Appearance: obese HEENT Reports moist mucous membranes normocephalic and atraumatic Eyes PERRL and EOMs intact bilaterally Neck full ROM Resp normal respiratory effort and clear to auscultation bilaterally Cardio regular rate, regular rhythm and no murmurs Extremity Negative for normal to inspection Extremity Narrative: There is swelling of the right wrist. There is pain palpation over the distal radius. Median, radial and ulnar function intact. Capillary refill normal. Sensation is normal. There is no pain the patient over the lateral or medial epicondyle. There is no pain the patient over the olecranon process or radial head. Neuro oriented x3, CN's II-XII intact bilaterally, moves all extremities, no focal motor deficits and no sensory deficits noted Sensorium / Orientation: alert Psych mental status grossly normal Skin General Skin Exam: Negative for petechiae Lesions: no lesions Rashes: no rashes Trauma: no lacerations or abrasions MDM MDM MDM Narrative Medical decision making narrative: Swelling of the right wrist. Differential diagnosis would include fracture versus contusion versus sprain. Three-view x-ray of the wrist was ordered. Patient was medicated with IV morphine. Prior records indicates patient has history hypertension, hypercholesterolemia and COPD. She is a smoker. Radiography Chest X-Ray - ED: Read by ED Physician (New x-ray of the right wrist was independently reviewed interpreted by me at 0731. Patient has a distal transverse comminuted radial fracture with extension into the radiocarpal joint and dorsal displacement. There is loss of volar tilt.) Procedures Upper Extremity Splints Upper Extremity Splint: Plaster and - (AP short arm) Splint Fabrication: Fabricated Location: Right Other Procedures Procedure(s): 1. Hematoma block 2. Patient was placed in finger traps and weights were added. A total of 10 pounds was placed. 3. With the assistance of [facility] patient's nurse closed reduction was undertaken. 4. AP splint was applied using plaster. This was fabricated by me. 5. Postreduction films were obtained. A total of 3 views were obtained. This was entirely reviewed interpreted by me at 0855. Patient has lost volar tilt. She is in neutral position. The intra-articular portion lines up satisfactorily in my opinion. There is good length. Will discuss case with orthopedics on-call, Dr. Dominick Morgan. Discharge Plan Triage Chief Complaint: Upper Extremity Injury ED Provider: Kraig Menjivra Dx/Rx/DC Orders Clinical Impression: Intra-articular fracture of distal end of right radius with volar angulation, HTN (hypertension), Hyperlipidemia, MARCELA (acute kidney injury) Instructions: ED Colles Fracture, Reduction Required Prescriptions: New hydrocodone-acetaminophen [hydrocodone-acetaminophen] 5-325 mg tablet 1 tab PO Q6H PRN PRN (Reason: Pain) 3 Days Qty: 10 0RF No Action amlodipine 2.5 mg tablet 2.5 mg PO BID albuterol sulfate 90 mcg/actuation HFA aerosol inhaler 2 puff inhalation Q6H PRN (Reason: SOB) divalproex 500 mg tablet,delayed release (DR/EC) 500 mg PO BID valsartan 160 mg tablet 160 mg PO DAILY Trelegy Ellipta 200-62.5-25 mcg blister with device 1 inh inhalation DAILY Qty: 60 6RF pravastatin 40 MG tablet 40 mg PO QHS mirtazapine 30 mg tablet 30 mg PO QHS PRN lorazepam 0.5 mg tablet 0.5 mg PO TID Primary Care Provider: Rogelio Young Chi Referrals: Kev Morgan DO [Med Staff - Active Staff] - 1 Day for another exam Rogelio Young Chi, MD [Primary Care Provider] - Activity Restrictions/Additional Instructions: 1. Elevate your wrist is much as possible. Your wrist should be above your nose. 2. Apply ice 6-10 times a day. 3. Call office today to set up appointment for tomorrow Disposition Disposition: Home, Self Care
[2023-04-08] MEDS: Ondansetron 4 MG/2 ML Vial IV (07:09)
[2023-04-08] MEDS: Morphine 4 MG/ML Syringe IV (07:09)
[2023-04-08] MEDS: Lidocaine 1% (20 ml mdv) 20 ML Vial 10 ML INFILT (07:49)
--- NOTE | 2023-04-08 08:50 | RAD_ITS ---
STUDY: X-RAY - RIGHT WRIST, 04/08/2023, 8:51 AM REASON FOR EXAM: Female, 67 years old. Post reduction. TECHNIQUE: 3 views of the right wrist were obtained. COMPARISON: Right wrist radiographs dated 04/08/2023, 7:05 AM. FINDINGS: There is a new plaster cast surrounding the right wrist. Again seen is an impacted comminuted intra-articular fracture of the distal radius, post reduction. There is improved alignment of the distal radius. Normal carpal bones. Normal carpal articulations. Normal carpometacarpal articulation of the thumb. Normal second through fifth carpometacarpal articulations. Normal visualized metacarpal bones. RAD/Wrist min 3 Views IMPRESSION: Post reduction of impacted comminuted intra-articular fracture of distal radius, with improved alignment of the distal radius. Electronically Signed: Donato Cabrera MD at 9:08 EST ,
== END 2023-04-08 09:26 | disposition home or self-care (01) ==
PROVIDERS: Emergency Provider Emergency Medicine; PCP Family Medicine Geriatric Medicine; Visit Provider Emergency Medicine
DX: S52.571A Other intraarticular fracture of lower end of right radius, initial encounter for closed fracture (principal); N17.9 Acute kidney failure, unspecified; I10 Essential (primary) hypertension; E78.5 Hyperlipidemia, unspecified; F17.210 Nicotine dependence, cigarettes, uncomplicated; E66.9 Obesity, unspecified; Z79.899 Other long term (current) drug therapy; W18.30XA Fall on same level, unspecified, initial encounter
CPT/HCPCS: 29125; 73110; 96374; 96375; 99284; J7040; A4216; J2405

== ENCOUNTER → 2023-04-15 | Outpatient (CLI) | payer MEDICARE, BC, SELFPAY ==
--- NOTE | 2023-04-15 10:54 | EKG12_ITS ---
Test Reason : PREOP Blood Pressure : / mmHG Vent. Rate : 085 BPM Atrial Rate : 085 BPM P-R Int : 120 ms QRS Dur : 054 ms QT Int : 358 ms P-R-T Axes : 026 026 044 degrees QTc Int : 426 ms Normal sinus rhythm Normal ECG Confirmed by USHA BRAVO, JARROD ([id number]), editor index CARLO PARRISH ([id number]) on 04/16/2023 11:05:22 AM Referred By: Rogelio Young Confirmed By:JARROD KERR MD
== END | disposition home or self-care (01) ==
LOC: PSN 10:52
PROVIDERS: PCP Family Medicine Geriatric Medicine; Referring Provider Family Medicine Geriatric Medicine; Visit Provider Family Medicine Geriatric Medicine
DX: Z01.818 Encounter for other preprocedural examination (principal)
CPT/HCPCS: 93005

== ENCOUNTER 2023-04-16 12:42 | Day surgery (SDC) | payer MEDICARE, BC, SELFPAY ==
[2023-04-16] VITALS (9 sets, daily range): BP systolic 114–149; BP diastolic 60–111; PULSE 77–95; RESP 16; TEMP 36.4–37.1; O2SAT 93–98; BMI 31.0
--- NOTE | 2023-04-16 13:35 | RAD_ITS ---
STUDY: X-RAY - RIGHT WRIST REASON FOR EXAM: Female, 67 years old. RIGHT WRIST ORIF TECHNIQUE: 2 C-arm view(s) of the wrist were obtained. 62.6 Fluoroscopy time. COMPARISON: None. FINDINGS: These limited C-arm images of the wrist show grossly satisfactory placement of compression plate and screws fixating distal radial fracture to anatomic alignment and position. Correlate with procedure note. Electronically Signed: Terrance Lanier MD at 22:13 EST , RAD/Wrist 2 Views IMPRESSION: undefined
[2023-04-16] MEDS: Vancomycin IV 1,000 MG/200 ML BAG 200 MG IV (13:41)
[2023-04-16] MEDS: Lactated Ringers 1,000 ML 15 ML IV (13:42)
--- NOTE | 2023-04-16 13:47 | HP.PCM_ITS ---
History and Physical Date of Admission: 04/16/23 [facility] [address] [place] [address] OFFICE VISIT Date of Service: 04/09/23 MR#: [id number] Acct: [id number] Name: KEVIN RUGGIERO Rep #: [id number] : 1955 Provider: JENNY Anne Age/Sex: 67/F Location: [facility] Status: Signed Intake Vital Signs 04/08/2306:22 04/09/2308:02 Height 5 ft 2 in 5 ft 2 in Weight: 175 lb 2 oz BMI 32.0 Intake Visit Reasons: RIGHT WRIST Chief Complaint: Right wrist fracture Is patient in pain?: Yes (Right wrist ) Pain scale (1-10): 7 Allergies clindamycin Allergy (Mild, Verified 04/09/23 08:03) Rashsulfamethoxazole [From Bactrim] Allergy (Mild, Verified 04/09/23 08:03) Rashtrimethoprim [From Bactrim] Allergy (Mild, Verified 04/09/23 08:03) Rashcephalexin [From Keflex] Adverse Reaction (Verified 04/09/23 08:03) itching, rash Medications pravastatin 40 mg tablet 40 mg PO QHS cholesterol 05/14/18 [History Confirmed 04/09/23] albuterol sulfate 90 mcg/actuation aerosol inhaler 2 puff inhalation Q6H PRN SOB 02/05/21 [History Confirmed 04/09/23] amlodipine 2.5 mg tablet 2.5 mg PO BID 02/05/21 [History Confirmed 04/09/23] divalproex 500 mg tablet,delayed release 500 mg PO BID 02/05/21 [History Confirmed 04/09/23] valsartan 160 mg tablet 160 mg PO DAILY 02/05/21 [History Confirmed 04/09/23] fluticasone fur. 200 mcg-umeclid 62.5 mcg-vilant 25 mcg inhalat.powder (Trelegy Ellipta) 1 inh inhalation DAILY #60 ea 12/11/21 [Rx Confirmed 04/09/23] lorazepam 0.5 mg tablet 0.5 mg PO TID 04/08/23 [History Confirmed 04/09/23] mirtazapine 30 mg tablet 30 mg PO QHS PRN SLEEP 04/08/23 [History Confirmed 04/09/23] hydrocodone-acetaminophen 5-325mg 5mg-325mg 1 tab PO Q6H PRN PRN Pain 7 days #28 TABLETS 04/09/23 [Rx Confirmed 04/09/23] PFSH Medical History MARCELA (acute kidney injury) Depression Diverticulitis large intestine Diverticulitis of large intestine with abscess without bleeding HTN (hypertension) Hyperlipidemia Surgical History s/p sigmoid colectomy (~05/22/18) S/P ventral herniorrhaphy Social History household members: spouse Smoking Status: Current every day smoker tobacco type: cigarettes HPI RIGHT WRIST Details: This documentation accurately reflects the service provided and the decisions made by me, JENNY Anne 04/09/23 0759. Part of today?s visit was documented by Terese Campos, acting as scribe. KEVIN RUGGIERO is a 67 year old F here today NEW patient for ER follow up for a right distal transverse comminuted radial fracture with extension into the radiocarpal joint and dorsal displacement. DOI: 04/08/2023. EVON: Ground-level fall after getting out of bed in the middle of the night to use the bathroom and her foot was asleep to she tripped. Patient points to her pain being over her right wrist. She presents today in a prefabricated splint made by the ED. They reduced her yesterday in the ED. Her pain is 7/10 if she moves her wrist at all. Patient states that she is taking the [place] given by the emergency department and this is helping with her pain. She is also elevating her right upper extremity. Denies numbness and tingling. There is some evident swelling into the fingers. Patient is right-hand dominant. Patient does currently have a rash that is over her entire body. The rash developed after she was given sonya clindamycin and Bactrim to treat a boil in her genital area. The patient states the boil is no longer open and draining. She is seeing Dr. Young regarding the boil and rash. Recent labs done by Dr. Young. Blood cultures pending. She is currently on prednisone for the rash. She is a smoker. She is right-hand dominant. ROS Const Denies chills and Denies fever(s) Card Denies dyspnea Resp Denies dyspnea GI Denies nausea and Denies vomiting Musc Reports arthralgias, Reports joint swelling, Reports limited range of motion, Denies numbness and Denies tingling Neuro No numbness and No tingling Ortho Exam General General: Yes no acute distress Neurologic: Yes alert and Yes oriented x3 Psychologic: Yes reasonable and appropriate Right Wrist/Hand Date of injury: 04/08/23 Skin/Wound: Yes Swelling, Yes nail intact and Yes capillary refill normal WRIST: Patient presents in a fabricated splint from the ED. Splint was not removed for inspection. Evident swelling seen into the fingers as expected. However, no significant swelling into the forearm. Able to flex and extend all of her fingers. Intact sensation to light touch throughout right upper extremity. Norm al capillary refill. Neurologically intact right upper extremity.? Left Wrist/Hand Skin/Wound: Yes Swelling Coding Level of Care Code Off vis,new,level 3 Diagnoses Intra-articular fracture of distal end of right radius with volar angulation S52.571A Assessment and Plan Assessment and Plan (1) Intra-articular fracture of distal end of right radius with volar angulation: Status: Acute Plan: Patient presents to the office today as a follow-up from an ED visit regarding right wrist fractures. Reviewed ED documentation and imaging. DOI: 04/08/2023. EVON: Ground-level fall, FOOSH. Patient is accompanied today by her . Case was discussed with Dr. Morgan. Discussed treatment options including conservative versus surgical options. Conservative options would be casting. Discussed this could decrease the function of her right wrist. Discussed the risks and benefits of surgical intervention including but not limited to blood loss, blood clot, infection, continued pain, neurovascular injuries, failure of the procedure, loss of limb, loss of life and postoperative stiffness. The patient and her would like to proceed surgically to maximize her function postoperatively. She is tentatively scheduled for surgery on 04/16/2023 for an ORIF of the right distal radius. She signed consent today in the office. She is aware that she should work on decreasing swelling. She should do this by resting, elevating, icing and moving her fingers. She should remain in the splint. She is aware what to expect postoperatively including restrictions regarding lifting, pushing, pulling and the use of the right hand overall. She would likely be in OT postoperatively. A refill of the pain medication was sent in for her today due to the holidays. She is aware she should not take any anti-inflammatories before the surgery. She does have a rash and healing boil which she is seeing Dr. Young for. There is some pending lab work. They should call with any questions or concerns. She should follow- up 2 weeks postop or sooner if pain, swelling, numbness, tingling or other signs or symptoms develop. The patient and her 's questions were answered. They are in agreement with the plan. Medications: Changed From hydrocodone-acetaminophen 5-325 mg 1 TAB PO Q6H PRN 3 days PRN 10 TABLETS 0RF Pain G47.33 - Obstructive sleep apnea (adult) (pediatric), N17.9 - Acute kidney failure, unspecified, S52.571A - Other intraarticular fracture of lower end of right radius, initial encounter for closed fracture To hydrocodone-acetaminophen 5-325 mg 1 TAB PO Q6H PRN 7 days PRN 28 TABLETS 0RF Pain G47.33 - Obstructive sleep apnea (adult) (pediatric), N17.9 - Acute kidney failure, unspecified, S52.571A - Other intraarticular fracture of lower end of right radius, initial encounter for closed fracture 04/09/23 1157 <Electronically signed by Shavon ALVARADO> Date Shavon ALVARADO Cosigner Signature: Date (if applicable) CC: ~ I have examined the patient and the H&P has been reviewed. There are no clinical changes since date of exam.
[2023-04-16] MEDS: Ropivacaine 0.5% 30 ML Vial (16:00)
--- NOTE | 2023-04-16 16:05 | OP.PCM_ITS ---
Operative Report Date of Procedure: 04/16/23 Preoperative diagnosis: Displaced comminuted intra-articular distal radius fracture right greater than 3 fragments Postoperative diagnosis: [Same] Anesthesia: [General with axillary block} Procedure: ORIF of the distal radius Implants: Synthes distal radius variable angle locking plate Complications: none Indication for procedure: 67-year-old female patient who had a fall on outstretched hand had x-rays demonstrate intra-articular comminuted distal radius fracture with dorsal comminution and impaction. we discussed risks benefits and alternatives of conservative versus surgical intervention. Including the risk of bleeding infection nerve artery tissue damage need for further surgery continued pain postoperative stiffness need for postoperative physical therapy and the expected postoperative course. Procedure: The patient was met in the preoperative holding area the operative extremity was identified by both patient and physician and marked. Patient was met by anesthesia she was brought back to the operating room on a wheeled cart and transferred to the operating table in the supine position anesthesia was started. A well-padded tourniquet was placed on the upper arm of the operative extremity. She was prepped and draped in the usual sterile fashion. A Time out was called to ensure the proper patient procedure and extremity were being contemplated. A 15 blade scalpel was used to make a linear incision over the FCR tendon this was carried down through the skin and subcutaneous tissue. Electrocautery was used to maintain hemostasis. Michael retractors were used. The FCR tendon sheath was incised and the FCR tendon was mobilized radially. A deep blade scalpel was used to perforate the fascia of the deep FCR tendon sheath and Littler scissors were used to dissect proximally and distally. Blunt dissection was performed a zunilda was placed on the radial and ulnar side of the radius. The pronator quadratus was partially torn from the injury and was released off the radial border of the radius with electrocautery and was elevated with a ordoñez elevator. The Hohmann retractors were then placed deep to this muscle. The fracture site was visualized and was freed of hematoma and clot debris with the use of small rongeur and Altus. The fracture was then reduced with the use of a Altus and ulnar deviation and wrist flexion. This was checked under fluoroscopy to ensure that an adequate reduction could be performed. A plate was then positioned over the fracture site and temporarily fixed to the bone with K wires. A cortical screw was then placed in the shaft and sequential locking screws were placed distally this was checked on both AP and lateral projections to ensure screw placement was not penetrating the joint and was in the proper location. Bone drill sleeve was used for the radial styloid screw and a variable angle fashion. The remainder of the cortical screws were placed in the shaft. The 16 mm cortical screw in the shaft was measured however did not have sufficient purchase therefore had to be replaced with an 18 mm screw which looks slightly long on x-ray however gave us better purchase in the shaft, and the fracture and hardware were visualized in both AP and lateral projections in good alignment and fracture positioning, there was an intra-articular split with a dorsal comminution this was able to be reapproximated and secured with the distal locking screws initially with cortical screws and then switch to locking. Cortical screws were used as a fracture reduction tool but did not have sufficient purchase to leave then. There was some mild radial residual displacement however considering the amount of comminution I felt further manipulation with bone reduction forceps might destroy the distal fragments. the wound was thoroughly irrigated. Pronator quadratus was not repairable. A subcutaneous stitch with 3-0 Vicryl was performed followed by 4-0 nylon vertical mattress stitches. Followed by Xeroform 4 x 4 ABD web roll stockinette more web roll volar paster splint and an Devin wrap. The tourniquet was let down. There was no complications intraoperatively and the patient was brought back to the PACU in stable condition where she received an axillary block. All counts were correct.
--- NOTE | 2023-04-16 16:10 | DCINST_ITS ---
Discharge Instructions Diet Discharge Diet: No restrictions Activity Weight Bearing Status: No weight bearing (Right upper extremity) Dressing / Incision Call your doctor if you observe: Shortness of breath and Chest pain Additional Dressing/Incision Instructions:: Strict elevation of operative extremity above heart for next 72 hours. Ice 15 minutes on 15 minutes off. Continue ice and elevation for 7 days postoperatively. Encourage finger range of motion. No lifting pushing or pulling more than a coffee cup. Must keep splint on clean and dry. Follow-up in office in 1 week Follow Up Care Please Follow Up With: Kev Morgan DO When: 2 weeks Test Results: Test results from this visit will be discussed in further detail at your follow- up appointment, if applicable. Discharge Plan Admission Primary Reason for Your Visit: Right distal radius ORIF Attending Provider: Kev Morgan Primary Care Provider: Rogelio Young Chi Discharge Orders/Prescriptions Prescriptions: New acetaminophen [acetaminophen] 500 mg tablet 1,000 mg PO Q6H PRN Qty: 100 0RF oxycodone 5 mg tablet 5 - 10 mg PO Q4H PRN (Reason: pain) 5 Days Qty: 30 0RF doxycycline hyclate 100 mg tablet 100 mg PO BID Qty: 2 0RF Rx Instructions: Take 1 tab tonight before you go to bed and 1 tab after you wake up in the morning Continued amlodipine 2.5 mg tablet 2.5 mg PO BID albuterol sulfate 90 mcg/actuation HFA aerosol inhaler 2 puff inhalation Q6H PRN (Reason: SOB) divalproex 500 mg tablet,delayed release (DR/EC) 500 mg PO BID valsartan 160 mg tablet 160 mg PO DAILY pravastatin 40 MG tablet 40 mg PO QHS mirtazapine 30 mg tablet 30 mg PO QHS PRN lorazepam 0.5 mg tablet 0.5 mg PO TID PRN (Reason: anxiety) Referrals / Follow Up: Rogelio Young Chi, MD [Primary Care Provider] - Disposition Disposition (needs filled in before D/C Order can be placed): Home, Self Care
== END 2023-04-16 18:22 | disposition home or self-care (01) ==
LOC: SDC 12:44 → AC 12:44
PROVIDERS: PCP Family Medicine Geriatric Medicine; Referring Provider Orthopaedic Surgery; Visit Provider Orthopaedic Surgery
PROC: (CPT 25609; principal; 2023-04-16 14:20)
DX: S52.571A Other intraarticular fracture of lower end of right radius, initial encounter for closed fracture (principal); J44.9 Chronic obstructive pulmonary disease, unspecified; F31.9 Bipolar disorder, unspecified; F17.210 Nicotine dependence, cigarettes, uncomplicated; I10 Essential (primary) hypertension; E78.5 Hyperlipidemia, unspecified; W01.0XXA Fall on same level from slipping, tripping and stumbling without subsequent striking against object, initial encounter; Z79.899 Other long term (current) drug therapy
CPT/HCPCS: 25609; 64417; 01830; 73100; 76000; C1713; J7120; J2405

== ENCOUNTER → 2023-05-13 | Outpatient (CLI) | payer MEDICARE, BC, SELFPAY ==
[2023-05-13 15:28] LABS: Absolute Lymphocyte Count 3.13 X10^3/uL (0.83-4.51); Absolute Neutrophil Count 3.4 X10^3/uL (2.0-7.7); Basophil# 0.04 X10^3/uL; Basophil% 0.5 % (0-1); Eosinophil# 0.12 X10^3/uL; Eosinophils% 1.6 % (0-5); Hematocrit 44.4 % (37-47); Hemoglobin 14.1 g/dL (12.0-15.0); Lymphocyte # 3.13 X10^3/ul (0.83-4.51); Lymphocyte % 41.8 % (19-41); Mean Corp Hgb Conc 31.8 g/dL (32-36); Mean Corpuscular Hgb 30.6 pg (27.0-32.0); Mean Corpuscular Volume 96.3 fL (81-99); Mean Platelet Vol. 9.4 fl (6.2-12.0); Monocyte# 0.75 X10^3/uL; NRBC Flagged by Analyzer 0 % (0-5); Neutrophil # 3.42 X10^3/uL (2.7-7.7); Neutrophil % 45.8 % (47-70); Platelet Count 295 K/mm3 (150-450); RBC Distribution Width CV 12.3 % (11.6-14.6); RBC Distribution Width SD 43.6 fl (35.1-43.9); Red Blood Count 4.61 M/mm3 (4.2-5.4); White Blood Count 7.5 K/mm3 (4.4-11.0)
[2023-05-13 16:13] LABS: Valproic Acid (Depakene) Level 52 ug/mL (50-100)
== END | disposition home or self-care (01) ==
LOC: LAB 14:11
PROVIDERS: PCP Family Medicine Geriatric Medicine
DX: F19.10 Other psychoactive substance abuse, uncomplicated (principal); R53.83 Other fatigue; Z79.899 Other long term (current) drug therapy
CPT/HCPCS: 36415; 80164; 85025

== ENCOUNTER → 2023-06-30 | Outpatient (CLI) | payer MEDICARE, BC, SELFPAY ==
[2023-06-30 10:56] LABS: Absolute Lymphocyte Count 2.01 X10^3/uL (0.83-4.51); Basophil# 0.04 X10^3/uL; Basophil% 0.7 % (0-1); Eosinophil# 0.11 X10^3/uL; Hematocrit 42.5 % (37-47); Hemoglobin 13.5 g/dL (12.0-15.0); Lymphocyte # 2.01 X10^3/ul (0.83-4.51); Mean Corp Hgb Conc 31.8 g/dL (32-36); Mean Corpuscular Hgb 30.7 pg (27.0-32.0); Mean Corpuscular Volume 96.6 fL (81-99); Mean Platelet Vol. 9.5 fl (6.2-12.0); Monocyte# 0.47 X10^3/uL; Monocyte% 8.4 % (0-10); NRBC Flagged by Analyzer 0 % (0-5); Neutrophil # 2.95 X10^3/uL (2.7-7.7); Neutrophil % 52.7 % (47-70); Platelet Count 237 K/mm3 (150-450); RBC Distribution Width CV 11.9 % (11.6-14.6); RBC Distribution Width SD 42.6 fl (35.1-43.9); White Blood Count 5.6 K/mm3 (4.4-11.0)
--- OUTSIDE RECORDS SUMMARY | 2023-06-30 11:04 | XMS RPT_ITS | CCD ---
Author Name Unknown Address [address] [place] [address] Organization [facility] Care Team Providers Care Manager Shell Name Role Phone Lita Mckinney Unavailable Unavailable Allergies Allergy Classification Reported Allergen(s) Allergy Type Date of Onset Reaction(s) Facility (1 source) Cephalexin Drug Allergy 01-09-2015 Pulmonary [facility] Work Phone: (1 source) gatifloxacin Drug Allergy 01-09-2015 [facility] Medicine [facility] Work Phone: Medications Completed/Discontinued Medications Medication Drug Class(es) Dates Sig (Normalized) Sig (Original) 60 actuat aclidinium bromide 0.4 mg/actuat dry powder inhaler (2 sources) Start: 04-08-2016 End: 09-10-2016 TUDORZA PRESSAIR 400 MCG/ACT AEPB 1 puff twice daily ACLIDINIUM BROMIDE [id number] Ken Alonzo amoxicillin 875 mg / clavulanate 125 mg oral tablet (2 sources) Penicillin-class Antibacterial End: 01-12-2015 take 1 tablet by mouth twice daily AUGMENTIN 875-125 MG TABS One tablet by mouth twice daily AMOXICILLIN-POT CLAVULANATE [id number] Ken Alonzo codeine phosphate 2 mg/ml / guaiFENesin 20 mg/ml oral solution (2 sources) Opioid Agonist End: 01-12-2015 take 10 mL by mouth every four hours as needed CHERATUSSIN AC 100-10 MG/5ML SYRP 10 ml po Q4H as needed GUAIFENESIN-CODE INE [id number] Ken Alonzo hydroCHLOROthiazide 25 mg / losartan potassium 100 mg oral tablet (1 source) Thiazide Diuretic, Angiotensin 2 Receptor Fay Start: 07-18-2015 take 1 tablet by mouth once daily HYZAAR 100-25 MG TABS One tablet by mouth daily LOSARTAN POTASSIUM-HCTZ [id number] Rosa Jackson Jonesabielefrem lamoTRIgine 100 mg oral tablet (3 sources) Mood Stabilizer, Anti-epileptic Agent End: 01-12-2015 take 1 tablet by mouth once daily LAMOTRIGINE 100 MG TABS One tablet by mouth daily LAMOTRIGINE [id number] Ken Alonzo LORazepam 0.5 mg oral tablet (2 sources) Benzodiazepine End: 03-18-2016 take 1 tablet by mouth once daily as needed ATIVAN 0.5 MG TABS One tablet by mouth daily as needed LORAZEPAM [id number] Rosa Loera LPN losartan potassium 100 mg oral tablet (2 sources) Angiotensin 2 Receptor Fay End: 07-18-2015 take 1 tablet by mouth once daily COZAAR 100 MG TABS One tablet by mouth daily LOSARTAN POTASSIUM [id number] Jessica Maya MULTIPLE VITAMINS-MINERALS (1 source) take 1 tablet by mouth once daily MULTIVITAMIN ADULTS 50+ TABS One tablet by mouth daily MULTIPLE VITAMINS-MINERAL S [id number] Jessica Maya 28 actuat olodaterol 0.0025 mg/actuat / tiotropium 0.0025 mg/actuat metered dose inhaler (4 sources) Anticholinergic, beta2-Adrenergic Agonist Start: 03-18-2016 End: 09-10-2016 take 2 puff(s) by inhalation once daily STIOLTO RESPIMAT 2.5-2.5 MCG/ACT AERS 2 puffs INH daily TIOTROPIUM BROMIDE-OLODATER OL [id number] Shabana Ellison RADIO TALK SHOW HOST Problems Active Problems Problem Classification Problem Date Documented Da te Episodic/Chronic Chronic obstructive pulmonary disease and bronchiectasis (1 source) Moderate chronic obstructive pulmonary disease; Translations: [Chronic obstructive pulmonary disease, unspecified] Onset: 07-18-2015 07-18-2015 Chronic Substance-related disorders (1 source) Tobacco dependence syndrome; Translations: [Nicotine dependence, unspecified, uncomplicated] Onset: 01-12-2015 01-12-2015 Chronic Past or Other Problems Problem Classification Problem Date Documented Da te Episodic/Chronic Other lower respiratory disease (2 sources) Lung mass; Translations: [Other nonspecific abnormal finding of lung field] Onset: 01-12-2015 Resolved: 04-19-2015 04-19-2015 Episodic Other lower respiratory disease (1 source) Cough; Translations: [Cough] Onset: 01-12-2015 01-12-2015 Episodic Other screening for suspected conditions (not mental disorders or infectious disease) (1 source) Tomography - chest abnormal; Translations: [Other nonspecific abnormal finding of lung field] Onset: 04-19-2015 04-19-2015 Episodic Results Test Name Value Interpretation Reference Range Facil ity Vital Signs Date Time Vital Sign Value Performing Clinician Facility 02-25-2017 07:04-0400 BMI (Body Mass Index) 33.28 kg/m2 Lita Mckinney [facility] Work Phone: 02-25-2017 07:04-0400 Body Temperature 97.6 [degF] Lita Mckinney [facility] Work Phone: 02-25-2017 07:04-0400 BP Diastolic 80 mm[Hg] Lita Mckinney [facility] Work Phone: 02-25-2017 07:04-0400 BP Systolic 160 mm[Hg] Lita Mckinney [facility] Work Phone: 02-25-2017 07:04-0400 Height 157.48 cm Lita Mckinney [facility] Work Phone: 02-25-2017 07:04-0400 Pulse (Heart Rate) 76 /min Lita Mckinney [facility] Work Phone: 02-25-2017 07:04-0400 Respiratory Rate 18 /min Lita Mckinney [facility] Work Phone: 02-25-2017 07:04-0400 Weight 82.56 kg Lita Mckinney [facility] Work Phone: 03-18-2016 13:55-0400 Body Temperature 98.06 [degF] Lita Mckinney [facility] Work Phone: 03-18-2016 13:55-0400 BSA (Body Surface Area) 1.83 m2 Lita Mckinney [facility] Work Phone: 03-18-2016 [id number] Height 157.48 cm Lita Mckinney [facility] Work Phone: 03-18-2016 13:55-0403 Weight 81.82 kg Lita Mckinney [facility] Work Phone: Procedures Date Procedure Procedure Detail Performing Clinician Start: 07-18-2015 End: 07-22-2015 Demo&/eval of pt utiliz aersl gen/neb/inhlr/ip Ken Alonzo Work Phone: Start: 01-12-2015 End: 01-12-2015 Smoking cessation education Ken Alonzo Work Phone: Plan of Treatment Date Care Activity Detail Author Start: 02-25-2017 End: 02-25-2017 Appointment Appointment [facility] Work Phone: Start: 09-10-2016 End: 09-10-2016 Ct thorax w/contrast material CT Chest with Contrast [facility] Work Phone: Start: 09-10-2016 End: 09-10-2016 Follow Up Appt 6 months Follow Up Appt 6 months [facility] Work Phone: Start: 03-18-2016 End: 03-18-2016 [facility] Work Phone: Start: 03-18-2016 End: 03-18-2016 Follow Up Appt 6 months Follow Up Appt 6 months [facility] Work Phone: Start: 02-17-2016 End: 09-20-2015 Ct thorax w/contrast material CT Chest with Contrast [facility] Work Phone: Start: 09-20-2015 End: 09-20-2015 [facility] [place] Work Phone: Start: 09-20-2015 End: 09-20-2015 Follow Up Appt 6 months Follow Up Appt 6 months [facility] Work Phone: Start: 07-18-2015 End: 07-18-2015 Ct thorax w/contrast material CT Chest with Contrast [facility] Phone: Start: 07-18-2015 End: 07-18-2015 Follow Up Appt 3 months Follow Up Appt 3 months [facility] Phone: Start: 06-19-2015 End: 04-19-2015 Ct thorax w/contrast material CT Chest with Contrast [facility] Phone: Start: 04-19-2015 End: 04-19-2015 Follow Up Appt 3 months Follow Up Appt 3 months [facility] Phone: Start: 04-19-2015 End: 04-19-2015 Pulmonary Function Test - complete Pulmonary Function Test - complete [facility] Phone: Start: 04-19-2015 End: 04-19-2015 Pulmonary stress test/simple Pulmonary stress testing; simple (eg, 6-minute walk) [facility] Phone: Start: 01-12-2015 End: 01-12-2015 Ct thorax w/o contrast material CT Chest without contrast [facility] Phone: Start: 01-12-2015 End: 01-12-2015 Follow Up Appt 3 months Follow Up Appt 3 months [facility] Phone: Start: 01-12-2015 End: 01-12-2015 Pulmonary Function Test - complete Pulmonary Function Test - complete [facility] Phone: Summary Purpose Family History No Family History Records Found Advance Directives No Advanced Directives Records Found Additional Source Comments INFORMATION SOURCE (unrecogn ized section and content) FOR RECORDS PERTAINING TO PATIENTS WHO ARE OR HAVE BEEN ENROLLED IN A CHEMICAL DEPENDENCY/SUBSTANCEABUSE PROGRAM, SOME INFORMATION MAY BE OMITTED. This clinical summary was aggregated from multiple sources. Caution should be exercised in using it in the provision of clinical care. This summary normalizes information from multiple sources, and as a consequence, information in this document may materially change the coding, format and clinical context of patient data. In addition, data may be omitted in some cases. CLINICAL DECISIONS SHOULD BE BASED ON THE PRIMARY CLINICAL RECORDS. [facility] [employer] [facility]. provides no warranty or guarantee of the accuracy or completeness of information in this document.
[2023-06-30 11:53] LABS: Vitamin D,25 Hydroxy 29.3 ng/mL
[2023-06-30 12:45] LABS: ALB/GLOB Ratio 0.9 RATIO (0.9-2.4); AST(SGOT) 23 U/L (15-37); Alanine Aminotransfer ALT/SGPT 24 U/L (13-56); Albumin, Serum 3.1 g/dL (3.2-5.0); Alkaline Phosphatase 61 U/L (45-117); Anion Gap 6 (5-15); BUN 13 mg/dL (7-18); BUN/Creat Ratio 18.3 RATIO (10-20); Calcium,Total 8.9 mg/dL (8.5-10.1); Chloride 109 mmol/L (98-107); Creatinine, Serum 0.71 mg/dL (0.55-1.02); EST Glomerular Filtration Rate 87 mL/min (>60); Est Glom Filt Rate - Afr Amer 105 mL/min (>60); Globulin 3.3 g/dL (2.2-4.2); Glucose 98 mg/dL (74-106); Potassium 3.6 mmol/L (3.5-5.1); Protein, Total 6.4 g/dL (6.4-8.2); Sodium Level 143 mmol/L (136-145)
== END | disposition home or self-care (01) ==
LOC: POLAB3 10:22
PROVIDERS: PCP Family Medicine Geriatric Medicine; Visit Provider Family Medicine Geriatric Medicine
DX: I10 Essential (primary) hypertension (principal); E55.9 Vitamin D deficiency, unspecified
CPT/HCPCS: 36415; 80053; 82306; 84443; 85025

== ENCOUNTER 2023-07-01 11:00 | Outpatient (RCR) | payer MEDICARE, BC, SELFPAY ==
--- NOTE | 2023-05-13 14:17 | HP.OTEVAL_ITS ---
Patient's Visit Information Visit Information Visit Information: KEVIN RUGGIERO is a 67 year old F, referred to Occupational Therapy by Dr. Kev Morgan DO, with a diagnosis of Fracture of R radius. Date of Evaluation: 05/13/23 Occupational Therapist: Michelle Ohara Subjective Subjective: Patient arrived on time for OT evaluation s/p ORIF R wrist distal radius fracture after falling at home 04/08/23 and catching herself with her R UE. Patient reports her R LE went numb which resulted in the fall. She reports she never falls, not sure why her R LE went numb that night. She had surgery on 04/16/23. Patient reports Dr. Morgan provided a wrist splint immobilizing the wrist. She reports she hasn't worn it much at all since he issued it and she reports encouraged her to move the wrist and didn't seem concerned with her wearing it. She reports she has a 1 pound lifting restriction from the dr. She is right hand dominant. Patient sees Dr. Evgeny Morgan. She has a follow up with him [facility]. Patient will be 4 weeks post op 05/14/23 ADLs Comments: lives with , able to help as needed. She is indep with basic ADL's home set-up: 12 steps to get in with HR, tub shower, regular toilet, regular bed. Grab bar in the shower laundry downstairs ~12 steps with HR ( has been doing this) home maintenance tasks have been completed by her Pain R wrist: Current Pain Intensity: 1 Pain Intensity Range: 3 Objective Objective/Observation: bruising noted at incision site and forearm ROM Shoulder: WNL Elbow: WNL Forearm: L forearm WNL, R forearm 10 deg past neutral supination, WNL pronation Wrist: R flexion 30, extension 17; L flexion 85, extension 45 MP: R 50, L 55 IP: R 45, L 65 ROM Comments: able to oppose digits bilaterally, able to achieve full fist bilaterally and flex/extend all digits through normal ROM Strength Rolling Chair Pusher: L 50# Lateral Pinch: L 8# Tripod Pinch: L 8# Tip-to-Tip Pinch: L 6# Edema Wrist: R wrist 7.5 inch, L wrist 6 inch Sensation Sensation Comments: R thenar eminence is numb Quick DASH-Disab of Arm,Shoulder& Hand Quick DASH Score: 70.4525 Goals Goal:: Patient will improve learning and development director strength in R hand to improve ADL indep, evidenced by learning and development director strength within 10 pounds of L hand. Goal:: Patient will improve functional ROM to improve ADL indep evidenced by at least 60 degrees of active wrist extension and flexion by d/c. Goal:: Patient will demonstrate decreased stiffness in R wrist to improve functi onal use of R hand evidenced by reduction in edema by .5 inch by d/c. Goal:: Patient will demonstrate improved UE usage for ADL independence evidenced by a quick dash score of 50 or below. Rehabilitation General Assessment: Patient is ~ 4 weeks s/p ORIF R wrist from distal radius fracture, surgery on 04/16/23. She is right hand dominant but has been progressing well at home and mostly able to complete basic self-care without difficulty. She has her present to assist as needed around the house. She reports she was given a wrist splint but has not been wearing it but has been limiting her lifting to <1# and working on AROM exercises at home. She presents with stiffness in the wrist joint and some swelling. She would benefit from skilled OT services 2x/week for 8 weeks to start to improve wrist ROM, strength, and functional use of the R UE/hand. Patient agreeable to the plan. Will monitor for splinting needs, encouraged patient to bring in her splint next session to assess it's fit. Discussed wearing the splint to protect the wrist when driving or doing more active tasks/tasks that have increased risk of injury. Provided with HEP this date for wrist/hand AROM exercises. If HEP going well, will increase duration and add some weight to exercises as patient tolerates. Rehabilitation Potential: Good Anticipated Interventions Anticipated Interventions: Early Active Motion, A/AAROM/PROM, Strengthening, Edema Control, Massage, Triggerpoint Release, Desensitization, Wound Care, Modalities, Orthoses and Fine Motor Coord/Homar Visit Plan Frequency: 2x /Week Duration: 2 Months General Plan: 2x/week for 8 weeks TEXT: Thank you for the opportunity to evaluate your patient. For Medicare and Medicare HMO plans, please review the plan of care and approve it. It will need to be FAXED BACK to us at [phone] for Medicare purposes. Please let me know if there are questions or concerns regarding this plan of care. Physician Signature: Date:
--- NOTE | 2023-05-29 11:47 | OTREVAL_ITS ---
Re-Evaluation Intro: Dr. Kev Morgan, DO, It has been my pleasure to treat KEVIN RUGGIERO over the last 6 visits for Fracture of R radius. Please see the progress note below for an update on the occupational therapy plan of care! Subjective Subjective: pt arrives to OT s/p 6 weeks s/p from ORIF of right distal radius- pt states she has tried to to do dishes and run the sweeper but was uncomfortable Objective Objective/Function: right forearm supination 70* increase from 10* right wrist ROM 50/55 increase from 17/30 pt able to make full fist but still c/o morning stiffness- pt demo with a right mechanical maintenance supervisor strength at 10# left at 50# pt has now initiated using her right hand for light daily tasks- she is being cautions and if she picks up something to heavy she will put it down. pt is making great gains and would benefit from continued OT services 1-2x week for 4 weeks to increase pts functional strength Plan Plan Frequency: 2x /Week Duration: 2 Months Visits in this POC: (Inshurance-$2230) 8 weeks -2x week Plan: Cont w/POC Goals Goals Patient Goals: Regain Strength, Decrease Pain, Decrease Swelling/Stiffness, Improve Fine Motor Skills, Use Hand/Wrist/Arm Normally Again, Decrease Tingling/Numbness, Increase ROM and Be More Independent in ADLS Goal:: Patient will improve mechanical maintenance supervisor strength in R hand to improve ADL indep, evidenced by mechanical maintenance supervisor strength within 10 pounds of L hand. Goal:: Patient will improve functional ROM to improve ADL indep evidenced by at least 60 degrees of active wrist extension and flexion by d/c. Goal:: Patient will demonstrate decreased stiffness in R wrist to improve functional use of R hand evidenced by reduction in edema by .5 inch by d/c. Goal:: Patient will demonstrate improved UE usage for ADL independence evidenced by a quick dash score of 50 or below. Anticipated Interventions Anticipated Interventions Anticipated Interventions: Early Active Motion, A/AAROM/PROM, Strengthening, Edema Control, Massage, Triggerpoint Release, Desensitization, Wound Care, Modalities, Orthoses and Fine Motor Coord/Homar Re-Evaluation Ending Re-evaluation ending: Please do not hesitate to contact me at [phone] by phone or if you have questions or concerns regarding this new plan of care! Sincerely, Renu Cantu, OTR/L, CHT
--- NOTE | 2023-07-02 06:36 | HP.OTDCSUM ---
Discharge Summary D/C Summary: It has been my pleasure to treat KEVIN RUGGIERO under orders from Dr. Kev Morgan DO, for the diagnosis of Fracture of R radius for a total of 15 visit(s). Please see the following information for a summary of their discharge status. Overall Improvement % Improvement: 75 Objective Objective/Function: right cook helper pastry strength current: 20# a increase from 12# right wrist ROM 50/55 increase from 17/30 Goals Patient Goals: Regain Strength, Decrease Pain, Decrease Swelling/Stiffness, Improve Fine Motor Skills, Use Hand/Wrist/Arm Normally Again, Decrease Tingling/Numbness, Increase ROM and Be More Independent in ADLS Goal:: Patient will improve cook helper pastry strength in R hand to improve ADL indep, evidenced by cook helper pastry strength within 10 pounds of L hand. Goal met Goal:: Patient will improve functional ROM to improve ADL indep evidenced by at least 60 degrees of active wrist extension and flexion by d/c. goal met Goal:: Patient will demonstrate decreased stiffness in R wrist to improve functional use of R hand evidenced by reduction in edema by .5 inch by d/c. goal met Goal:: Patient will demonstrate improved UE usage for ADL independence evidenced by a quick dash score of 50 or below. goal met Plan Plan: Cont w/POC see how pt is feeling tues D/C Information Discharge Comments: pt was seen following a DRF ORIF - pt has made gains with her ROM and strength. pt has a HEP she will continue to improve her strength- Pt does still report tingling in her fingers since her fall. Therapist ed. that this sometimes can happen as bone heals and to let know, Therapist ed. pt on median nerve glides improve tingling . no sig. changes with tingling d/c sentence: If there are questions or concerns regarding this patient's occupational therapy, please fell free to call me at [phone]. Thank you for the referral of this patient. Sincerely, Renu Cantu, OTR/L, CHT
== END 2023-07-01 19:00 | disposition home or self-care (01) ==
LOC: OT 11:00
PROVIDERS: PCP Family Medicine Geriatric Medicine; Referring Provider Orthopaedic Surgery; Visit Provider Orthopaedic Surgery
DX: S52.571D Other intraarticular fracture of lower end of right radius, subsequent encounter for closed fracture with routine healing (principal); G89.18 Other acute postprocedural pain
CPT/HCPCS: 97110; 97140; 97165; 97530

== ENCOUNTER → 2023-08-13 | Outpatient (CLI) | payer MEDICARE, BC, SELFPAY | END | disposition home or self-care (01) | PROVIDERS: PCP Family Medicine Geriatric Medicine; Referring Provider Nurse Practitioner Women's Health; Visit Provider Nurse Practitioner Women's Health | DX: L73.2 Hidradenitis suppurativa (principal) | CPT/HCPCS: 87070; 87077; 87186; 87205 ==

== ENCOUNTER → 2023-08-19 | Outpatient (CLI) | payer MEDICARE, BC, SELFPAY ==
--- NOTE | 2023-08-19 11:50 | BI_ITS ---
MAMMOGRAPHY - BILATERAL SCREENING REASON FOR EXAM: Female, 67 years old. Routine annual screening examination. PERTINENT HISTORY: Non-contributory. TECHNIQUE: Digital bilateral breast portia (3D mammographic acquisition) in the CC and MLO projections. 2-D mediolateral oblique (MLO) and craniocaudad (CC) views of both breasts were obtained. CAD: Full Field Digital Mammography with Computer Added Detection was performed. COMPARISON: Comparison is made with prior study dated February 13, 2022 and January 05, 2020. FINDINGS: Breast Composition: There are scattered areas of fibroglandular density. There are no dominant masses or suspicious calcifications. Stable small bilateral axillary lymph nodes. No other significant abnormalities are identified. There has been no significant change since the prior study. BI/SCRN MAMM (CAD)W/PORTIA BILAT IMPRESSION: Stable bilateral screening mammogram. Yearly follow-up mammogram recommended. (A) ASSESSMENT CATEGORY: BIRADS Category 2: Benign. A letter regarding these results will be sent to the patient by the facility within 30 days. Approximately 10% of breast cancers are not detected by mammography. A normal mammogram should not delay biopsy of a clinically suspicious abnormality. [id number] Electronically Signed: Fransisco Salinas MD at 13:45 EDT ,
== END | disposition home or self-care (01) ==
LOC: OPBI 11:50
PROVIDERS: PCP Family Medicine Geriatric Medicine; Referring Provider Nurse Practitioner Women's Health; Visit Provider Nurse Practitioner Women's Health
DX: Z12.31 Encounter for screening mammogram for malignant neoplasm of breast (principal)
CPT/HCPCS: 77063; 77067

== ENCOUNTER → 2023-12-09 | Outpatient (CLI) | payer MEDICARE, BC, SELFPAY ==
--- NOTE | 2023-12-09 15:50 | RAD_ITS ---
INDICATION: PAIN EXAMINATION/TECHNIQUE: X-RAY - RIGHT XR Shoulder Min 2 Views 4 VIEWS COMPARISON: Chest radiograph dated May 27, 2018 FINDINGS: SOFT TISSUES: No soft tissue swelling or gas. No radiopaque foreign body. BONES/JOINTS: No acute acute fracture or subluxation.. Normal alignment. Preservation of the joint space.. No sclerotic or destructive changes observed. There is a right seventh posterior rib deformity consistent with a healed fracture. RAD/Shoulder min 2 Views IMPRESSION: No acute osseous injury. Electronically Signed: Malka Esqueda MD at 8:50 EDT ,
--- NOTE | 2023-12-09 15:50 | RAD_ITS ---
INDICATION: PAIN EXAMINATION/TECHNIQUE: X-RAY - XR Hip Unilateral with Pelvis when performed; 2-3 Views COMPARISON: No relevant prior comparison study available FINDINGS: PELVIC BONES: No displaced fracture, destructive or sclerotic lesions. Note that overlapping bowel shadows may however obscure fine detail. Sacroiliac joints are unremarkable. No widening of the pubic symphysis. HIPS: There are mild degenerative changes of the hips. SOFT TISSUES: No soft tissue swelling or gas. RAD/HIP, UNI W/ Pelvis 2-3 Views IMPRESSION: Mild degenerative changes of the hips. No acute osseous injury. Electronically Signed: Malka Esqueda MD at 8:52 EDT ,
--- NOTE | 2023-12-09 15:55 | RAD_ITS ---
INDICATION: PAIN EXAMINATION/TECHNIQUE: X-RAY - XR Spine Lumbar 2 or 3 Views COMPARISON: None. FINDINGS: VERTEBRAE: No fracture or acute compression deformity. Mild chronic anterior vertebral height loss at L2 and L3. No spondylolisthesis. Preservation of the normal lumbar lordosis. Moderate facet arthropathy L4-5 and L5-S1. Mild lumbar levocurvature. DISCS: Mild degenerative disc height loss at L4-5.. INCLUDED ABDOMEN: Pelvic phleboliths. Bowel gas pattern is non-obstructive. Large colonic stool burden. RAD/Lumbar Spine 2 or 3 Views IMPRESSION: No evidence of lumbar spinal fracture Spondylosis as above with moderate lower lumbar facet arthropathy.. Electronically Signed: Hardik Quinones MD at 8:16 EDT ,
== END | disposition home or self-care (01) ==
LOC: RAD 15:49
PROVIDERS: PCP Family Medicine Geriatric Medicine; Referring Provider Family Medicine Geriatric Medicine; Visit Provider Family Medicine Geriatric Medicine
DX: M54.17 Radiculopathy, lumbosacral region (principal); M25.551 Pain in right hip
CPT/HCPCS: 72100; 73030; 73502

== ENCOUNTER → 2024-01-16 | Outpatient (CLI) | payer MEDICARE, BC, SELFPAY ==
[2024-01-16 10:26] LABS: Absolute Lymphocyte Count 2.43 X10^3/uL (0.83-4.51); Absolute Neutrophil Count 4.4 X10^3/uL (2.0-7.7); Basophil# 0.07 X10^3/uL; Basophil% 0.9 % (0-1); Eosinophil# 0.05 X10^3/uL; Eosinophils% 0.7 % (0-5); Hemoglobin 14.2 g/dL (12.0-15.0); Lymphocyte # 2.43 X10^3/ul (0.83-4.51); Lymphocyte % 32.2 % (19-41); Mean Corpuscular Hgb 31.3 pg (27.0-32.0); Mean Corpuscular Volume 94.9 fL (81-99); Mean Platelet Vol. 8.6 fl (6.2-12.0); Monocyte# 0.58 X10^3/uL; Monocyte% 7.7 % (0-10); NRBC Flagged by Analyzer 0 % (0-5); Neutrophil # 4.39 X10^3/uL (2.7-7.7); Neutrophil % 58.2 % (47-70); Platelet Count 312 K/mm3 (150-450); RBC Distribution Width CV 12.5 % (11.6-14.6); RBC Distribution Width SD 43.9 fl (35.1-43.9); Red Blood Count 4.53 M/mm3 (4.2-5.4); White Blood Count 7.5 K/mm3 (4.4-11.0)
[2024-01-16 10:49] LABS: Vitamin D,25 Hydroxy 34.5 ng/mL
[2024-01-16 11:08] LABS: AST(SGOT) 15 U/L (15-37); Alanine Aminotransfer ALT/SGPT 13 U/L (13-56); Albumin, Serum 3.5 g/dL (3.2-5.0); Alkaline Phosphatase 78 U/L (45-117); Anion Gap 5 (5-15); BUN 16 mg/dL (7-18); BUN/Creat Ratio 20.6 RATIO (10-20); Calcium,Total 9.4 mg/dL (8.5-10.1); Chloride 106 mmol/L (98-107); Creatinine, Serum 0.78 mg/dL (0.55-1.02); EST Glomerular Filtration Rate 78 mL/min (>60); Est Glom Filt Rate - Afr Amer 94 mL/min (>60); Globulin 3.4 g/dL (2.2-4.2); Glucose 96 mg/dL (74-106); Potassium 4.2 mmol/L (3.5-5.1); Protein, Total 6.9 g/dL (6.4-8.2); Sodium Level 139 mmol/L (136-145)
== END | disposition home or self-care (01) ==
LOC: POLAB3 10:13
PROVIDERS: PCP Family Medicine Geriatric Medicine; Visit Provider Family Medicine Geriatric Medicine
DX: I10 Essential (primary) hypertension (principal); E55.9 Vitamin D deficiency, unspecified
CPT/HCPCS: 36415; 80053; 82306; 84443; 85025

== ENCOUNTER → 2024-02-05 | Outpatient (CLI) | payer MEDICARE, BC, SELFPAY ==
--- NOTE | 2024-02-05 13:27 | CT_ITS ---
ACR Level 3 findings have been noted. An addendum which confirms receipt of the report will follow. STUDY: LOW DOSE CT LUNG CANCER SCREENING REASON FOR EXAM: Female, 68 years old. SMOKER. 3/4ppd x 50 years. RADIATION DOSAGE (If Supplied By Facility): CTDIvol = ( 2.01 ) mGy, DLP = ( 66.70 ) mGycm TECHNIQUE: No contrast was administered. Low dose technique was utilized (average mAS-38 and kVp 120). 1.25 mm axial source images with a slice interval of 1.25-mm were reconstructed in lung windows. 1.2 mm coronal sagittal reformats were. COMPARISON: February 13, 2022, February 09, 2021 NODULES: New 2 mm subpleural nodule or atelectasis posterior medial right lower lobe axial image 197. 2 mm lateral left lower lobe nodule axial image 152 favored to represent atelectasis on coronal reformats. Mild scattered subsegmental atelectasis along the medial left upper lobe and left lung base. Parenchyma: No airspace consolidation, effusion, or pneumothorax. Endobronchial lesion: No endobronchial lesion. Mild bilateral perihilar peribronchial thickening. Aorta: Aortic atherosclerosis without ectasia CORONARY ARTERIES: Mild calcified coronary atherosclerosis. Heart: No cardiomegaly or pericardial effusion. Pulmonary artery: No main pulmonary arterial enlargement. Mediastinal nodes: No mediastinal or hilar adenopathy. Other chest and abdominal findings: Unremarkable thyroid. Unremarkable esophagus. Partially seen increased lobulation along the anterior left kidney, axial image 240. CT/Low Dose CT Lung Screening IMPRESSION: Nonspecific increased lobulation along the anterior left kidney which may represent cystic or solid neoplasm. Multiphasic contrast-enhanced renal CT is recommended to further evaluate. 2 mm posterior medial right lower lobe and lateral left lower lobe nodule versus atelectasis, Lung-RADS 2. Lung-RADS category 2(S) - Continue annual screening with LDCT in 12 months. (S) for possible left renal lesion. See CT follow-up recommendations above. IMPORTANT NOTES FOR USE: ACR Lung-RADS Version 1.1 Assessment Categories Release Date: 2018 Category: Coded 0-4 bases on nodule(s) with highest degree of suspicion. Negative screen is defined as categories 1 and 2; a positive screen is defined as categories 3 and 4. Category 3 and 4A nodules that are unchanged on interval CT should be coded as category 2, and individuals returned to screening in 12 months. Category 4X: Category 3 or 4 nodules with additional imaging findings that increase the suspicion of lung cancer, such as spiculation, GGN that doubles in size in 1 year, enlarged lymph notes, etc. Category Modifiers: S (significant finding unrelated to lung cancer) Electronically Signed: Hardik Quinones MD at 9:24 EDT ,
== END | disposition home or self-care (01) ==
LOC: CT 13:26
PROVIDERS: PCP Family Medicine Geriatric Medicine; Referring Provider Family Medicine Geriatric Medicine; Visit Provider Family Medicine Geriatric Medicine
DX: Z12.2 Encounter for screening for malignant neoplasm of respiratory organs (principal); F17.210 Nicotine dependence, cigarettes, uncomplicated
CPT/HCPCS: 71271

== ENCOUNTER → 2024-02-20 | Outpatient (CLI) | payer MEDICARE, BC, SELFPAY ==
--- NOTE | 2024-02-20 08:25 | CT_ITS ---
STUDY: CT ABDOMEN AND PELVIS WITH CONTRAST REASON FOR EXAM: Female, 68 years old. LEFT KIDNEY MASS- FOUND ON LUNG SCREEN FROM 02/05/24 RADIATION DOSAGE (If Supplied By Facility): CTDIvol = ( 15.41 ) mGy, DLP = ( 799.06 ) mGycm TECHNIQUE: Transaxial images were obtained from the dome of the diaphragm to the symphysis pubis with oral contrast. Oral and amp; IV Readi-CAT and amp; 100mL Isovue-300 was administered. Sagittal and coronal images were reconstructed. Individualized dose optimization techniques were used for this CT. COMPARISON: Comparison is made with prior study dated May 20, 2018. FINDINGS: Minimal scarring along the anterior medial aspect of the right middle lobe. Coronary artery calcification. There is a 1.7 cm septated cyst along the inferior margin of the right lobe of the liver. Normal gallbladder and extrahepatic biliary system. Normal spleen. Normal pancreas. Normal bilateral adrenal glands. Normal right kidney. There is a 1.2 cm cyst in the inferior medial aspect of the left kidney. Normal visualized stomach. Normal small intestine. There are multiple colonic diverticula consistent with diverticulosis. The appendix is visualized and appears normal. Normal abdominal aorta. Normal inferior vena cava. Normal retroperitoneum. Normal urinary bladder. Normal abdominal wall. There are mild degenerative changes of the visualized lumbar spine. CT/Abdomen/Pelvis WITH Contrast IMPRESSION: 1.7 cm septated cyst along the inferior margin of the right lobe of the liver. 1.2 cm cyst in the inferior medial aspect of the left kidney. Sigmoid diverticulosis. Electronically Signed: Fransisco Salinas MD at 14:39 EDT ,
[2024-02-20 08:48] LABS: CREATININE FINGERSTICK < 1.0 mg/dL (0.55-1.02); EGFR FINGERSTICK > 60.0000 mL/min (>60)
== END | disposition home or self-care (01) ==
PROVIDERS: PCP Family Medicine Geriatric Medicine; Referring Provider Family Medicine Geriatric Medicine; Visit Provider Family Medicine Geriatric Medicine
DX: N28.89 Other specified disorders of kidney and ureter (principal)
CPT/HCPCS: 74177; Q9967

== ENCOUNTER → 2024-02-27 | Outpatient (CLI) | payer MEDICARE, BC, SELFPAY ==
--- NOTE | 2024-02-27 15:29 | MRI_ITS ---
INDICATION: pain, eval cuff EXAMINATION: MRI - RIGHT MR UE Joint W/O Contrast TECHNIQUE: Multiplanar and multisequence MR images of the right shoulder. IV Contrast Dosage and Agent: None. COMPARISON: December 09, 2023 radiograph FINDINGS: BONE: No fracture or abnormal bone marrow signal. ACROMIOCLAVICULAR JOINT: Normal alignment. No significant acromial tilt. Minimal degenerative change. Coracoclavicular ligamenst are intact.. SUBACROMIAL-SUBDELTOID SPACE: Small subacromial subdeltoid bursal fluid collection.. GLENOHUMERAL JOINT: Normal alignment. Mild diffuse chondral thinning without subchondral edema. No significant effusion. . ROTATOR CUFF: Diffuse supraspinatus articular surface thinning and fraying. Thin linear interstitial tear at the junction of supraspinatus and infraspinatus, extending to the humeral insertion, series 6 image 8 . Subscapularis and teres minor are intact. No evidence of fatty atrophy. Mild supraspinatus intramuscular edema at the myotendinous junction. LABRUM: No displaced labral on this nonarthrogram exam. 2 mm anterior paralateral cyst, series 3 image 9 adjacent to trace subcoracoid fluid, BICEPS TENDON: The extra-articular biceps tendon is in the bicipital groove. The intra-articular biceps tendon is normal. OTHER SOFT TISSUES: Suprascapular and spinoglenoid notch and are unremarkable.. MRI/Upper Ext Joint Only(Routine) IMPRESSION: Diffuse supraspinatus articular surface thinning and fraying with thin linear interstitial tear at the junction of infraspinatus and supraspinatus Small anterior paralabral cyst suggestive of degenerative labral tear Electronically Signed: Hardik Quinones MD at 20:18 EDT ,
== END | disposition home or self-care (01) ==
LOC: MRI 15:21
PROVIDERS: PCP Family Medicine Geriatric Medicine; Referring Provider Orthopaedic Surgery Sports Medicine; Visit Provider Orthopaedic Surgery Sports Medicine
DX: M25.511 Pain in right shoulder (principal)
CPT/HCPCS: 73221

== ENCOUNTER 2024-05-05 05:29 | Day surgery (SDC) | payer MEDICARE, BC, SELFPAY ==
--- NOTE | 2024-04-27 10:58 | EKG12_ITS ---
Test Reason : PREOP Blood Pressure : */* mmHG Vent. Rate : 67 BPM Atrial Rate : 67 BPM P-R Int : 152 ms QRS Dur : 66 ms QT Int : 402 ms P-R-T Axes : 70 50 59 degrees QTcB Int : 424 ms Normal sinus rhythm Normal ECG Confirmed by USHA BRAVO, JARROD ([id number]), video editor MICHAEL NORIEGA ([id number]) on 04/28/2024 11:17:29 AM Referred By: Stephon Rivera Confirmed By: JARROD KERR MD
[2024-04-27 12:00] LABS: Hematocrit 41.9 % (37-47); Hemoglobin 14.1 g/dL (12.0-15.0); Mean Corp Hgb Conc 33.7 g/dL (32-36); Mean Corpuscular Hgb 31.7 pg (27.0-32.0); Mean Corpuscular Volume 94.2 fL (81-99); Mean Platelet Vol. 8.7 fl (6.2-12.0); Platelet Count 281 K/mm3 (150-450); RBC Distribution Width CV 11.9 % (11.6-14.6); RBC Distribution Width SD 41.6 fl (35.1-43.9); Red Blood Count 4.45 M/mm3 (4.2-5.4); White Blood Count 5.8 K/mm3 (4.4-11.0)
[2024-04-27 12:07] LABS: Prothrombin Time (Protime)PT. 12.8 SECONDS (11.7-14.9)
[2024-04-27 12:08] LABS: Partial Thromboplast Time 26.5 Seconds (24.1-36.2)
[2024-04-27 13:17] LABS: AST(SGOT) 17 U/L (15-37); Alanine Aminotransfer ALT/SGPT 20 U/L (13-56); Albumin, Serum 3.6 g/dL (3.2-5.0); Alkaline Phosphatase 73 U/L (45-117); Bilirubin, Direct 0.18 mg/dL (0.00-0.30); Globulin 3.1 g/dL (2.2-4.2); Protein, Total 6.7 g/dL (6.4-8.2)
[2024-05-05] VITALS (11 sets, daily range): BP systolic 96–116; BP diastolic 45–74; PULSE 57–75; RESP 15–20; TEMP 35.9–36.2; O2SAT 88–100; BMI 29.0
[2024-05-05] MEDS: 0.9% Normal Saline (1000mL) 1,000 ML 15 ML IV (06:24)
--- NOTE | 2024-05-05 06:57 | PRE.ANES_ITS ---
ASA Classification* ASA Classification ASA Classification: 2 Assessment & Plan Anesthesia* Anesthesia Assessment Anesthesia Assessment: Discussed sedation and/or anesthesia options, risks, benefits, and alternatives with patient/parents/legal guardian/POA. Questions invited. The patient/parents/legal guardian/POA seems to understand and agrees to proceed with anesthesia plan. Reviewed the physical assessment, medical history, allergy history and patient home medications list prior to surgery/procedure/anesthetic and documented any changes. Performed airway and anesthesia risk assessments. Anesthesia Type Anesthesia Type: General and Block Anesthesia Focused Assessment* Temperature: 97.2 F Pulse Rate: 57 Blood Pressure: 104/74 Respiratory Rate: 20 Pulse Ox: 94 Airway Assessment Mouth opens: >3 cm Mallampati Score: II Focused Labs Anesthesia Preop lab: CBC WBC 5.8 K/mm3 (4.4-11.0) 04/27/24 11:24 RBC 4.45 M/mm3 (4.2-5.4) 04/27/24 11:24 Hgb 14.1 g/dL (12.0-15.0) 04/27/24 11:24 Hct 41.9 % (37-47) 04/27/24 11:24 Plt Count 281 K/mm3 (150-450) 04/27/24 11:24 CHEMISTRY Potassium 4.2 mmol/L (3.5-5.1) 01/16/24 10:13 Sodium 139 mmol/L (136-145) 01/16/24 10:13 Magnesium 1.8 mg/dL (1.6-2.6) 05/24/18 05:50 Phosphorus 4.5 mg/dL (2.5-4.9) 05/23/18 05:20 BUN 16 mg/dL (7-18) 01/16/24 10:13 Creatinine 0.78 mg/dL (0.55-1.02) 01/16/24 10:13 Glucose 96 mg/dL (74-106) 01/16/24 10:13 TSH 1.280 uIU/mL (0.358-3.740) 01/16/24 10:13 COAG PT 12.8 SECONDS (11.7-14.9) 04/27/24 11:24 Pre-Assessment Diagnosis/Proposed Procedure Planned Operative Procedure(s): RIGHT SHOULDER ARTHROSCOPY SUBCROMIAL DECOMPRESSION ROTATOR CUFF REPAIR Anesthesia History Anesthesia History - slipper maker: Anesthesia History - slipper maker Hx Hospitalization No 04/21/24 13:22 Any Problems With Anesthesia No 04/21/24 13:22 Cholinesterase deficiency No 04/21/24 13:22 You/Your Family Experience No 04/21/24 13:22 fever (hyperthermia) with Relationship Recent Exposure to Contagious No 05/05/24 06:13 Disease Does patient have nerve No 04/21/24 13:22 stimulator Patient instructed to have device shut off --Does patient have Pacemaker No 05/05/24 06:07 or ICD? When Was Last Pacemaker Check QUESTION #4 FULL TEXT: You/Your Family Experience fever (hyperthermia) with Anesthesia Last Oral Intake Last Oral intake: Last Oral Intake NPO since 20:00 05/05/24 06:07 Meds taken in AM with sips of Yes 05/05/24 06:07 water? Meds patient instructed to take am of surgery PONV PONV - slipper maker: PONV - slipper maker Female Yes 04/21/24 13:22 HX of Motion Sickness No 04/21/24 13:22 HX of N/V After Surgery No 04/21/24 13:22 Non-Smoker Yes 04/21/24 13:22 Duration of Surgery greater Yes 04/21/24 13:22 than 60 minutes Number of Risk Factors 3 04/21/24 13:22 PONV Score Moderate Risk 04/21/24 13:22 Height & Weight Height & Weight: Anesthesia: Height & Weight Height 5 ft 2 in 05/05/24 06:07 Weight: 72 kg 05/05/24 06:07 Body Mass Index (BMI) 29.0 05/05/24 06:07 Respiratory Assessment Respiratory Assessment - slipper maker: Respiratory Tract Infection Hx - slipper maker Hx Respiratory Tract Infection No 04/21/24 13:22 STOP Sleep Apnea STOP Sleep Apnea - slipper maker: STOP Sleep Apnea - slipper maker Hx Hypertension Yes: CONTROLLED WITH MED 04/21/24 13:22 Hx Sleep Apnea No 04/21/24 13:22 CPAP BIPAP Do you snore loudly (louder No 04/21/24 13:22 than talking or can be heard Do you often feel tired/ Yes 04/21/24 13:22 fatigued/ sleepy during daytime? Has anyone observed you stop No 04/21/24 13:22 breathing during sleep? STOP Results Positive 04/21/24 13:22 QUESTION #5 FULL TEXT : Do you snore loudly (louder than talking or can be heard through closed doors)? Tobacco Use History Tobacco Use History - slipper maker: Tobacco Use History - slipper maker Tobacco Use Smoking Status Former smoker 04/21/24 13:22 Hx Tobacco Use No 04/21/24 13:22 Years Smoking Packs Smoked per Day Smoking Cessation Date was Yes - quit smoking within 15 04/21/24 13:22 within the last 15 years years Hx Smoking Cessation Date 01/18/24 04/21/24 13:22 Hx Smoking Cessation No 04/21/24 13:22 Counseling Hematologic Medial History Hematologic Hx - slipper maker: Hematologic Medical Hx - roll filler Hx of Blood Transfusion No 04/21/24 13:22 Hx of Transfusion in last 3 No 04/21/24 13:22 Months Date of Last Transfusion (if within last 3 months) Ever experience any problems No 04/21/24 13:22 with transfusion(s)? Specify any problems Hx of Preganancy in last 3 No 04/21/24 13:22 Months Nurse Filling Out Transfusion DSCHRIBER 04/21/24 13:22 & Questions: Date: 04/21/24 04/21/24 13:22 Time: 13:24 04/21/24 13:22 Patient unable to answer at this time (ie. confused, unrespo /Reproduction History /Reproductive History - slipper maker: /Reproductive Hx- slipper maker Hx Now No 04/21/24 13:22 Gestational Age (in weeks): EDC: Hx Hx Para Hx Section SAB No 04/21/24 13:22 Active Medications Active Medications: Current Medications Generic Name Dose Route Start Last Admin Trade Name Freq PRN Reason Stop Dose Admin Cefazolin Sodium 2 gm/ N/A 20 mls @ 400 mls/hr 05/05/24 07:30 IV 05/05/24 07:32 PREOP ONE Sodium Chloride 1,000 mls @ 15 mls/hr 05/05/24 05:50 05/05/24 06:24 IV 05/10/24 19:09 15 mls/hr .Q48H KAIT Administration Protocol PFSH Medical History Rash Arthritis Former smoker Hx of fracture of wrist Right rotator cuff tear Right shoulder pain Wears hearing aid Wears glasses Wears dentures Bipolar disorder Anxiety Easy bruising COPD (chronic obstructive pulmonary disease) Asthma Shortness of breath on exertion Diverticulitis large intestine MARCELA (acute kidney injury) Diverticulitis of large intestine with abscess without bleeding Hyperlipidemia Depression HTN (hypertension) Home Medications ?Medication ?Instructions ?Recorded ?Last Taken ?Type pravastatin 40 mg tablet 40 mg PO QHS cholesterol 05/14/18 05/04/24 History albuterol sulfate 90 mcg/actuation 2 puff inhalation Q6H PRN SOB 02/05/21 05/04/24 History aerosol inhaler valsartan 160 mg tablet 320 mg PO DAILY 02/05/21 05/05/24 History lorazepam 0.5 mg tablet 0.25 mg PO BID anxiety 04/08/23 05/05/24 History acetaminophen 500 mg tablet 1,000 mg (2 x 500 mg) PO Q6H PRN 04/16/23 Unknown Rx #100 tabs quetiapine 150 mg tablet,extended 150 mg PO QHS 01/26/24 05/04/24 History release 24 hr sertraline 100 mg tablet 100 mg PO QHS 01/26/24 05/04/24 History amlodipine 5 mg tablet 5 mg PO BID 04/21/24 05/05/24 History sertraline 50 mg tablet 50 mg PO DAILY 04/21/24 05/05/24 History Allergy/AdvReac Type Severity Reaction Status Date / Time clindamycin Allergy Mild Rash Verified 05/05/24 06:02 sulfamethoxazole (From Allergy Mild Rash Verified 05/05/24 06:02 Bactrim) trimethoprim (From Bactrim) Allergy Mild Rash Verified 05/05/24 06:02 cephalexin (From Keflex) Allergy itching, Verified 05/05/24 06:02 rash Family History Mother Cancer Lymphoma Sister Cancer Lung Surgical History S/P ventral herniorrhaphy s/p sigmoid colectomy (~05/22/18) Social History household members: spouse current occupational status: retired Smoking Status: Former smoker alcohol intake: never substance use type: does not use seatbelt use: always do you feel safe at home: Yes additional social history: - [employer]- Retired Review of Systems (Anesthesia) ROS Narrative System reviewed and no additional complaints, except as documented.
--- NOTE | 2024-05-05 07:06 | PCM.HP.STD ---
HPI - General HPI Narrative KEVIN RUGGIERO, is a 68 F who presents for right shoulder arthroscopy, subacromial decompression, rotator cuff repair. no change to h and p. shoulder marked. rab, post op instructions and narcotic counselling. ok to proceed. plan for block. MR#: [id number] Acct: [id number] Name: KEVIN RUGGIERO Rep #: [id number] : 1955 Provider: Dr. Stephon Rivera MD Age/Sex: 68/F Location: [facility] [place] Status: Signed Intake Vital Signs 01/20/2415:15 Height 5 ft 2 in Intake Visit Reasons: RIGHT SHOULDER Accompanied by: Is patient in pain?: No Allergies clindamycin Allergy (Mild, Verified 03/09/24 10:19) Rashsulfamethoxazole (From Bactrim) Allergy (Mild, Verified 03/09/24 10:19) Rashtrimethoprim (From Bactrim) Allergy (Mild, Verified 03/09/24 10:19) Rashcephalexin (From Keflex) Allergy (Verified 03/09/24 10:19) itching, rash Medications ?Medication ?Instructions ?Recorded ?Confirmed ?Type pravastatin 40 mg tablet 40 mg PO QHS cholesterol 05/14/18 03/09/24 History albuterol sulfate 90 mcg/actuation 2 puff inhalation Q6H PRN SOB 02/05/21 03/09/24 History aerosol inhaler amlodipine 2.5 mg tablet 2.5 mg PO BID 02/05/21 03/09/24 History divalproex 500 mg tablet,delayed 500 mg PO BID 02/05/21 03/09/24 History release valsartan 160 mg tablet 160 mg PO DAILY 02/05/21 03/09/24 History lorazepam 0.5 mg tablet 0.5 mg PO TID PRN anxiety 04/08/23 03/09/24 History mirtazapine 30 mg tablet 30 mg PO QHS PRN SLEEP 04/08/23 03/09/24 History acetaminophen 500 mg tablet 1,000 mg (2 x 500 mg) PO Q6H PRN 04/16/23 03/09/24 Rx #100 tabs lumateperone 21 mg capsule 21 mg PO DAILY 08/13/23 03/09/24 History (Caplyta) quetiapine 150 mg tablet,extended 150 mg PO QHS 01/26/24 03/09/24 History release 24 hr sertraline 100 mg tablet 100 mg PO QDAY 01/26/24 03/09/24 History Have you fallen in the past year?: Yes [facility] Medical History (Updated 03/09/24 @ 10:24 by Stephon Rivera MD) Right rotator cuff tear Right shoulder pain Wears hearing aid Wears glasses Wears dentures Bipolar disorder Anxiety Easy bruising COPD (chronic obstructive pulmonary disease) Asthma Shortness of breath on exertion Smoker Diverticulitis large intestine MARCELA (acute kidney injury) Diverticulitis of large intestine with abscess without bleeding Hyperlipidemia Depression HTN (hypertension) Surgical History S/P ventral herniorrhaphy s/p sigmoid colectomy (~05/22/18) Family History Mother Cancer LymphomaSister Cancer Lung Social History household members: spouse current occupational status: retired Smoking Status: Current every day smoker tobacco type: cigarettes alcohol intake: never substance use type: does not use seatbelt use: always do you feel safe at home: Yes additional social history: - Orvie- Retired HPI RIGHT SHOULDER Details: This documentation accurately reflects the service provided and the decisions made by me, Dr. Stephon Rivera MD 03/09/24 1018. Part of today?s visit was documented by [ ], acting as scribe. KEVIN RUGGIERO is a 68 year old F here today for follow-up right shoulder MRI. Patient still having shoulder pain especially when lifting. Patient more interested in a definitive surgical solution rather than ongoing cortisone injections or therapy. Here w her . Ortho Exam General General: Yes no acute distress Neurologic: Yes alert and Yes oriented x3 Psychologic: Yes reasonable and appropriate Supplemental Info [facility] [address] [place], [place] [id number] Upper Ext Joint Only(Routine) MR#: [id number] Acct: [id number] Name: KEVIN RUGGIERO Rep #: [id number] : 1955 F 68 From: Hardik Quinones MD PCP: Dr. Rogelio Young MD Status: REG CLI Study: Upper Ext Joint Only(Routine) Date of Exam: 02/27/24 Exam# [id number] Ordering Dr: Stephon Rivera MD INDICATION: pain, eval cuff EXAMINATION: MRI - RIGHT MR UE Joint W/O Contrast TECHNIQUE: Multiplanar and multisequence MR images of the right shoulder. IV Contrast Dosage and Agent: None. COMPARISON: December 09, 2023 radiograph FINDINGS: BONE: No fracture or abnormal bone marrow signal. ACROMIOCLAVICULAR JOINT: Normal alignment. No significant acromial tilt. Minimal degenerative change. Coracoclavicular ligamenst are intact.. SUBACROMIAL-SUBDELTOID SPACE: Small subacromial subdeltoid bursal fluid collection.. GLENOHUMERAL JOINT: Normal alignment. Mild diffuse chondral thinning without subchondral edema. No significant effusion. . ROTATOR CUFF: Diffuse supraspinatus articular surface thinning and fraying. Thin linear interstitial tear at the junction of supraspinatus and infraspinatus, extending to the humeral insertion, series 6 image 8 . Subscapularis and teres minor are intact. No evidence of fatty atrophy. Mild supraspinatus intramuscular edema at the myotendinous junction. LABRUM: No displaced labral on this nonarthrogram exam. 2 mm anterior paralateral cyst, series 3 image 9 adjacent to trace subcoracoid fluid, BICEPS TENDON: The extra-articular biceps tendon is in the bicipital groove. The intra-articular biceps tendon is normal. OTHER SOFT TISSUES: Suprascapular and spinoglenoid notch and are unremarkable.. MRI/Upper Ext Joint Only(Routine) IMPRESSION: Diffuse supraspinatus articular surface thinning and fraying with thin linear interstitial tear at the junction of infraspinatus and supraspinatus Small anterior paralabral cyst suggestive of degenerative labral tear Electronically Signed: Hardik Quinones MD at 20:18 EDT , [facility] [place] [address] Shoulder min 2 Views MR#: [id number] Acct: [id number] Name: KEVIN RUGGIERO Rep #: [id number] : 1955 F 68 From: Malka Esqueda MD PCP: Dr. Rogelio Young MD Status: REG CLI Study: Shoulder min 2 Views Date of Exam: 12/09/23 Exam# [id number] Ordering Dr: Rogelio Young MD INDICATION: PAIN EXAMINATION/TECHNIQUE: X-RAY - RIGHT XR Shoulder Min 2 Views 4 VIEWS COMPARISON: Chest radiograph dated May 27, 2018 FINDINGS: SOFT TISSUES: No soft tissue swelling or gas. No radiopaque foreign body. BONES/JOINTS: No acute acute fracture or subluxation.. Normal alignment. Preservation of the joint space.. No sclerotic or destructive changes observed. There is a right seventh posterior rib deformity consistent with a healed fracture. RAD/Shoulder min 2 Views IMPRESSION: No acute osseous injury. Electronically Signed: Malka Esqueda MD at 8:50 EDT , I independently reviewed the imaging. Concur with radiologist report. Coding Level of Care Code Off vis,est,level 4 Diagnoses Right shoulder pain M25.511 Right rotator cuff tear M75.101 Assessment and Plan Assessment and Plan (1) Right shoulder pain: Status: Acute Plan: 15-year-old female with right shoulder pain fraying and partial tearing of the rotator cuff supraspinatus tendon. Small paralabral cyst insignificant at this point unlikely to be causing pain or instability sensations of the shoulder. Patient counseled on diagnosis prognosis different treatment options available include but not limited to rest ice anti-inflammatories active modifications physical therapy subacromial cortisone injections as well as surgery. Surgery that would be in the form of right shoulder arthroscopy, subacromial decompression, rotator cuff repair. I explained the pros cons risk benefits of that as well as postoperative recovery 2 to 3 weeks in a sling in 3 to 6 months postoperative recovery and physical therapy the patient understands wished to go ahead with surgery they signed the consent form today as well as possible need for blood products. I did warn the patient about the national IV fluid shortage this may delay the case they understood no further questions. Has ongoing ear infections, this may increase surgical risk of complications. Pros and cons risks and benefits were discussed with the patient including but not limited to infection, pain, stiffness, bleeding, damage to surrounding structures, neurovascular injury, recurrence or retear, failure or wear of hardware or fixation, instability, fracture, deep vein thrombosis and pulmonary embolism, anesthetic risks, , patient dissatisfaction, need for further surgery and other risks. Patient understood and wished to proceed with surgery, and signed the informed consent documentation. (2) Right rotator cuff tear: Status: Acute [facility] Medical History Rash Arthritis Former smoker Hx of fracture of wrist Right rotator cuff tear Right shoulder pain Wears hearing aid Wears glasses Wears dentures Bipolar disorder Anxiety Easy bruising COPD (chronic obstructive pulmonary disease) Asthma Shortness of breath on exertion Diverticulitis large intestine MARCELA (acute kidney injury) Diverticulitis of large intestine with abscess without bleeding Hyperlipidemia Depression HTN (hypertension) Home Medications ?Medication ?Instructions ?Recorded ?Last Taken ?Type pravastatin 40 mg tablet 40 mg PO QHS cholesterol 05/14/18 05/04/24 History albuterol sulfate 90 mcg/actuation 2 puff inhalation Q6H PRN SOB 02/05/21 05/04/24 History aerosol inhaler valsartan 160 mg tablet 320 mg PO DAILY 02/05/21 05/05/24 History lorazepam 0.5 mg tablet 0.25 mg PO BID anxiety 04/08/23 05/05/24 History acetaminophen 500 mg tablet 1,000 mg (2 x 500 mg) PO Q6H PRN 04/16/23 Unknown Rx #100 tabs quetiapine 150 mg tablet,extended 150 mg PO QHS 01/26/24 05/04/24 History release 24 hr sertraline 100 mg tablet 100 mg PO QHS 01/26/24 05/04/24 History amlodipine 5 mg tablet 5 mg PO BID 04/21/24 05/05/24 History sertraline 50 mg tablet 50 mg PO DAILY 04/21/24 05/05/24 History Allergy/AdvReac Type Severity Reaction Status Date / Time clindamycin Allergy Mild Rash Verified 05/05/24 06:02 sulfamethoxazole (From Allergy Mild Rash Verified 05/05/24 06:02 Bactrim) trimethoprim (From Bactrim) Allergy Mild Rash Verified 05/05/24 06:02 cephalexin (From Keflex) Allergy itching, Verified 05/05/24 06:02 rash Family History Mother Cancer Lymphoma Sister Cancer Lung Surgical History S/P ventral herniorrhaphy s/p sigmoid colectomy (~05/22/18) Social History household members: spouse current occupational status: retired Smoking Status: Former smoker alcohol intake: never substance use type: does not use seatbelt use: always do you feel safe at home: Yes additional social history: - Orvie- Retired Vital Signs Vital Signs Vital Signs: 05/05/24 06:07 05/05/24 06:13 05/05/24 06:58 Temperature 97.2 F L 97.2 F L Temperature Source Temporal Pulse Rate 57 L 57 L Respiratory Rate 20 H 20 H Respiratory Pattern Normal Blood Pressure 104/74 104/74 Blood Pressure Mean 84 Blood Pressure Source Monitor Blood Pressure Position Semi-Fowlers Blood Pressure Location Right Arm Pulse Ox 94 94 Oxygen Delivery Method Room Air Weight Weight: 158 lb 11.725 oz Body Mass Index (BMI) 29.0 Results Lab / Micro Data 04/27/24 11:24
[2024-05-05] MEDS: Cefazolin 2 GM in Syringe IV (07:52)
[2024-05-05] MEDS: Epinephrine (1 mg/ml) 1 MG/ML VIAL (08:15)
--- NOTE | 2024-05-05 08:49 | OP.PCM_ITS ---
Problems Associated Problem List Diagnoses (1) Right rotator cuff tear: Procedures Musculoskeletal 20xxx-29xxx: Other Procedure See Report Operative Report (Standard) Operative Information Date of Procedure: 05/05/24 Pre-Operative Diagnosis: R shoulder impingement, rotator cuff tear Post-Operative Diagnosis: same Surgery/Procedure Performed: right shoulder arthroscopy, subacromial decompression, rotator cuff repair senior operations analyst: Yes Ton Cylinder Inspector: sandoval Tasks completed by auction assistant: Retracting Additional hotel administrative assistant?: No Type of Anesthesia: Block,Regional and General RN Documented Start/Stop Times: Operation Date: 05/05/24 07:30 Case Time Into Pre-Op 05/05/24 05:48 Anesthesia Start 05/05/24 07:52 Into Room 05/05/24 07:52 Procedure Start 05/05/24 08:15 Procedure End 05/05/24 08:52 Anesthesia End 05/05/24 08:57 Out of Room 05/05/24 08:57 Procedure Start Time: 08:15 Procedure Stop Time: 08:52 Select all DRAINS/GRAFTS/IMPLANTS that apply: Implanted device Implanted device details: arthrex anchors Estimated Blood Loss: 50 Specimen collected: No Description of surgery: Patient brought to the operating room theater. Placed supine on the table. General anesthesia induced. 2 g of IV Ancef administered prior to the start of the case - multiple antibiotic allergies so we gave the antibiotic very slowly monitored for a rash. Patient transferred right side up lateral decubitus beanbag positioner axillary roll used. SCDs on the legs. All bony prominences padded. Upper extremity prepped and draped in the usual sterile fashion with chlorhexidine-based prep solution allowing over 3 minutes drying time prior to draping. Arm in 10 pounds of traction with 45 degrees of abduction. Preoperative timeout performed to confirm the site patient and the surgery. I began by inserting the arthroscope into the intra-articular portion of the shoulder through a standard posterior arthroscopy portal. Established an anterior portal using inside out spinal needle localization through the rotator interval. Did a full diagnostic arthroscopy. Cartilage on the glenoid and humeral side was normal. Biceps tendon attachment was normal some slight synovitis through the rotator interval as well as at the long head of the biceps but no tearing or fraying. Subscapularis as well as the undersurface of the supraspinatus and infraspinatus appeared normal. No loose bodies axillary recess was normal normal left labrum slight degenerative changes consistent with aging. I then inserted the scope into the subacromial space established a lateral portal. There is a small amount of synovitis and bursitis that I removed and debrided. I performed a subacromial decompression using a high-speed guillermo instrument for 4 mm down to flat margins. I achieved meticulous hemostasis. There was definitely some irritation and signs of impingement syndrome and synovitis of the rotator cuff tendon. There is some areas of interstitial fraying and tearing between the supraspinatus and infraspinatus that is consistent with the MRI therefore I elected to do a trans tendon rotator cuff repair in this area. I used 2 Arthrex fiber tack all suture implants trans tendon. I inserted 1 anterior and 1 posterior to the tear. I then connected the sutures through the knotless mechanism to create 2 stitches from anterior to posterior to repair the tear. I then took these 2 free suture limbs out laterally to create a triangular configuration. I then inserted these into a self punching 4.75 mm Arthrex bio composite swivel lock anchor. This achieved good compression at the footprint. I took arthroscopy pictures throughout saved them onto the system. To insert the 2 anchors I did use 2 cannulas these were removed. Wounds cleaned with wet dry dressing followed by closure of the portal sites with 3-0 Monocryl suture. Skin cleaned with wet dry dressing followed by application of Steri-Strips Adaptic 4 x 4 gauze ABD dressing cloth tape and an abduction pillow sling for the upper extremity. Patient woken up from the general anesthetic transferred off the operating table and taken postanesthetic care unit in stable condition. All sponge needle and instrument counts were correct no complications plan to the patient discharge home today per day surgery criteria and follow-up in the office early next week pendulum exercises early on can take off the sling for rest. cpt [id number], [id number] Surgical Findings: as above, interstitial tear RC tendon Complications Complications: No Admit VTE Documentation VTE Present on Admission: No VTE Mechan Device Prophylaxis: SCD's VTE Pharm Prophylaxis ordered?: No Reason prophylaxis not ordered: Treatment Not Indicated
--- NOTE | 2024-05-05 08:57 | DCINST_ITS ---
Discharge Instructions Diet Discharge Diet: No restrictions Activity Ice area for (Minutes): 10 Lifting Restrictions: no lifting over 1 pound, ok for pendulums 4x/day Additional Activity Instructions:: ok to remove sling at rest Dressing / Incision Call your doctor if your incision/area has: Continuous Slow Oozing, Sudden Increased Bleeding, Increased Pain/ Swelling, Increased Redness, Foul Smelling Discharge and Swelling at the incision site Call your doctor if you observe: Fever of 101 or Higher, Coldness, Increased Pain and Numbness or Tingling Change Dressing in: leave in place till F/U Cleanse incision/area with: Do not get Incision Wet Follow Up Care Please Follow Up With: Stephon Rivera MD When: early next week Test Results: Test results from this visit will be discussed in further detail at your follow- up appointment, if applicable. Discharge Plan Admission Attending Provider: Stephon Rivera Primary Care Provider: Rogelio Young Chi Consulting Providers: Tyrone Mansfield Instructions Print Language: Tristanian Discharge Orders/Prescriptions Prescriptions: New oxycodone-acetaminophen [Endocet] 5-325 mg tablet 1 tab PO Q4H MDD 6 PRN (Reason: pain) 5 Days Qty: 30 0RF No Action albuterol sulfate 90 mcg/actuation HFA aerosol inhaler 2 puff inhalation Q6H PRN (Reason: SOB) valsartan 160 mg tablet 320 mg PO DAILY quetiapine 150 mg tablet extended release 24 hr 150 mg PO QHS sertraline 100 mg tablet 100 mg PO QHS pravastatin 40 MG tablet 40 mg PO QHS lorazepam 0.5 mg tablet 0.25 mg PO BID acetaminophen [acetaminophen] 500 mg tablet 1,000 mg PO Q6H PRN Qty: 100 0RF sertraline 50 mg tablet 50 mg PO DAILY amlodipine 5 mg tablet 5 mg PO BID Referrals / Follow Up: Stephon Rivera MD [Med Staff - Active Staff] - Rogelio Young Chi, MD [Primary Care Provider] - Disposition Disposition (needs filled in before D/C Order can be placed): Home, Self Care
--- NOTE | 2024-05-05 10:59 | PCM.POST.ANE ---
Anesthesia: Postop Eval I Current Vital Signs Temperature: 97 F Pulse Rate: 66 Blood Pressure: 116/62 Respiratory Rate: 16 Pulse Ox: 92 Assessment Airway patent: Yes Spontaneous unlabored respirations: Yes nausea: No Vomiting: No Anesthesia Complication: No Fluid Hydration Crystalloid volume administer (ml): 100 Total IV fluid infused: 100 Progress Note Anesthesia document: Postop Eval 1 completed: Yes
--- NOTE | 2024-05-05 11:00 | PCM.POSTANE2 ---
Anesthesia Postop Eval I Sum Postop Eval Completion status Anesthesia document: Postop Eval 1 completed: Yes Anesthesia Postop Eval I Summary Anesthesia Postop Eval I Summary: Anesthesia Postop Eval I: Assessment Summary Airway patent Yes 05/05/24 10:59 Spontaneous unlabored Yes 05/05/24 10:59 respirations Mental status nausea No 05/05/24 10:59 Vomiting No 05/05/24 10:59 Anesthesia Postop Eval I: Fluid Summary Crystalloid volume administer 100 05/05/24 10:59 (ml) Colloids volume administered ( ml) Blood Product volume administered (ml) Total IV fluid infused 100 05/05/24 10:59 Anesthesia Postop Eval I: Summary Notes Anesthesia Complication No 05/05/24 10:59 Anesthesia Complication Comment: Post-operative progress note Anesthesia: Postop Eval II Evaluation Mental status: Awake Pain Level: 2 nausea: No Vomiting: No
--- NOTE | 2024-05-05 11:03 | PCM.POST.ANE ---
Anesthesia: Postop Eval I Current Vital Signs Temperature: 96.7 F Pulse Rate: 70 Blood Pressure: 109/70 Respiratory Rate: 16 Pulse Ox: 94 Oxygen Delivery Method: Room Air Assessment Airway patent: Yes Spontaneous unlabored respirations: Yes Mental status: Awake and Calm nausea: No Vomiting: No Anesthesia Complication: No Fluid Hydration Crystalloid volume administer (ml): 1,000 Total IV fluid infused: 1,000 Progress Note Anesthesia document: Postop Eval 1 completed: Yes
== END 2024-05-05 10:55 | disposition home or self-care (01) ==
LOC: SDC 05:30 → AC 05:30
PROVIDERS: Anesthesiology; PCP Family Medicine Geriatric Medicine; Referring Provider Orthopaedic Surgery Sports Medicine; Visit Provider Orthopaedic Surgery Sports Medicine
PROC: (CPT 29805; principal; 2024-05-05 07:10)
DX: M75.101 Unspecified rotator cuff tear or rupture of right shoulder, not specified as traumatic (principal); F31.9 Bipolar disorder, unspecified; J44.9 Chronic obstructive pulmonary disease, unspecified; I10 Essential (primary) hypertension; E78.5 Hyperlipidemia, unspecified; F17.210 Nicotine dependence, cigarettes, uncomplicated; F41.9 Anxiety disorder, unspecified; Z79.51 Long term (current) use of inhaled steroids; Z79.899 Other long term (current) drug therapy
CPT/HCPCS: 29827; 29826; 01630; 36415; 80076; 85027; 85610; 85730; 93005; J2405

== ENCOUNTER → 2024-07-01 | Outpatient (CLI) | payer MEDICARE, BC, SELFPAY ==
[2024-07-01 12:26] LABS: Absolute Lymphocyte Count 2.62 X10^3/uL (0.83-4.51); Absolute Neutrophil Count 3.2 X10^3/uL (2.0-7.7); Basophil# 0.05 X10^3/uL; Basophil% 0.8 % (0-1); Eosinophils% 1.5 % (0-5); Hematocrit 41.7 % (37-47); Hemoglobin 13.6 g/dL (12.0-15.0); Lymphocyte # 2.62 X10^3/ul (0.83-4.51); Lymphocyte % 39.9 % (19-41); Mean Corp Hgb Conc 32.6 g/dL (32-36); Mean Corpuscular Hgb 30.2 pg (27.0-32.0); Mean Corpuscular Volume 92.7 fL (81-99); Mean Platelet Vol. 8.8 fl (6.2-12.0); Monocyte# 0.59 X10^3/uL; NRBC Flagged by Analyzer 0 % (0-5); Neutrophil # 3.19 X10^3/uL (2.7-7.7); Neutrophil % 48.6 % (47-70); Platelet Count 308 K/mm3 (150-450); RBC Distribution Width CV 11.9 % (11.6-14.6); RBC Distribution Width SD 40.7 fl (35.1-43.9); White Blood Count 6.6 K/mm3 (4.4-11.0)
[2024-07-01 12:38] LABS: Vitamin D,25 Hydroxy 26.6 ng/mL
[2024-07-01 12:48] LABS: AST(SGOT) 18 U/L (15-37); Alanine Aminotransfer ALT/SGPT 17 U/L (13-56); Albumin, Serum 3.5 g/dL (3.2-5.0); Alkaline Phosphatase 73 U/L (45-117); Anion Gap 6 (5-15); BUN 12 mg/dL (7-18); BUN/Creat Ratio 17.1 RATIO (10-20); Calcium,Total 9.2 mg/dL (8.5-10.1); Chloride 107 mmol/L (98-107); EST Glomerular Filtration Rate 87 mL/min (>60); Est Glom Filt Rate - Afr Amer 106 mL/min (>60); Globulin 3.6 g/dL (2.2-4.2); Glucose 110 mg/dL (74-106); Potassium 3.9 mmol/L (3.5-5.1); Protein, Total 7.1 g/dL (6.4-8.2); Sodium Level 138 mmol/L (136-145)
== END | disposition home or self-care (01) ==
LOC: LAB 11:31
PROVIDERS: PCP Family Medicine Geriatric Medicine; Referring Provider Family Medicine Geriatric Medicine; Visit Provider Family Medicine Geriatric Medicine
DX: I10 Essential (primary) hypertension (principal); E55.9 Vitamin D deficiency, unspecified
CPT/HCPCS: 36415; 80053; 82306; 84443; 85025

== ENCOUNTER 2024-08-04 11:00 | Outpatient (RCR) | payer MEDICARE, BC, SELFPAY ==
--- NOTE | 2024-05-26 13:52 | HP.PTEVAL_ITS ---
Patient's Visit Information Visit Information Visit Information: KEVIN RUGGIERO is a 68 year old F referred to Physical Therapy by Dr. Stephon Rivera MD with a diagnosis of R shoulder decompression and RTC repair 05/05/24. Date of Evaluation: 05/26/24 Physical Therapist: Kerwin James DPT Visit Plan Frequency: 2x /Week Duration: 6 Weeks Plan: 1) PROM and AAROM of R shoulder progressing toward full motion 2) add in joint mobs including inferior glides to aid in full motion 3) progress HEP as able. 4) may use ice to add in pain relief. HEP at IE: wand ER, supine wand flexion, table walk aways, both wanded IR motions Subjective Subjective: Pt. is here today for her initial evaluation with diagnosis of orthopedic after care after having R shoulder arthroscopy decompression and RTC repair. DOS: 05/05/24. Pt. to go back and see physician in about 1 month. Pt. reports no N/T in either UE. She is sleeping well. She feel ~ 1 year ago and hamida t her wrist and ultimately had shoulder surgery. Pt. arrives without sling today. She has been trying to do some movement at home. She reports reaching over head today and felt some pain. Overall minimal pain, pt. does take some Tylenol at home. Sleeping seems to be the most painful. Retired. Pt. looking to back into mostly house work and ADLs. Pain R shoulder: Pain Intensity (Out of 10): 1 Pain Intensity Range: 0 and 4 Objective Objective: POSTURE: Pt. has slight rounded shoulders, but overall pretty good posture. PALPATION: Pt. has well healed incisions, no signs of infection. Pt. has some mild tenderness at lateral and anterior subacromial space. NEURO: Pt. has normal sensation and normal DTR of biceps and triceps bilaterally. ROM: PROM: R shoulder: flexion 130deg, abd 100deg, ER at side 40deg, ER at 90deg 45deg. MMT: RUE: did not test due to surgery Balance/Special Test Scores Quick DASH Score: 56.8175 Goals Goal 1:: LTG: Pt. to be I with HEP. Goal Time Frame: 6-8 Weeks Goal 2:: STG: Pt. to sleep throughout the night without Goal Time Frame: 2 Weeks Goal 3:: STG: Pt. to have full PROM of R shoulder without increase in symptoms. Goal Time Frame: 2-4 Weeks Goal 4:: LTG: Pt. to have full AROM of R shoulder without increase in symptoms. Goal Time Frame: 4-6 Weeks Goal 5:: LTG: Pt. to have symmetrical strength of BUEs without increase in R shoulder pain. Goal Time Frame: 8-12 Weeks Goal 6:: LTG: Pt. to complete all ADLs and IADLs without issues. Goal Time Frame: 6-8 Weeks Rehabilitation Potential Physical Therapy Diagnosis: Pt. has signs and symptoms consistent with R shoulder decompression and RTC repair on 05/05/24. Pt. decent R shoulder PROM and pain is on the minimal side. Overall she is doing well. Pt. would however benefit from PT to progress RO to full then progress strengthening once safe to do so. Rehabilitation Potential: Excellent Anticipated Interventions Patient/Client Instruction: Educate patient on: Condition, Plan of Care, Risk Factors and Benefits of Fitness Program For the Purpose of:: To facilitate caregiver knowledge, To improve self management, To prevent re-injury, To improve ability to perform tasks related to life management and To improve tolerance to ADL's Therapeutic Exercise to Include: Strength training, Power training, Postural t raining, Flexibilty training, Passive ROM, Active ROM and Scapular Strength/Stabilization For the Purpose of:: To decrease pain, To increase ROM, To improve nutrient delivery to tissue, To increase oxygenation perfusion, To improve muscle performance and motor function, To improve ability to perform ADL's and To increase tolerance to activity/condition/position Manual Therapy Techniques to Include: Mobilization and Soft tissue mobilization For the Purpose of:: To decrease pain, To increase ROM and To improve nutrient delivery to tissue Cryotherapy (ice pack, ice massage): Yes Text: Thank you for the opportunity to evaluate your patient. For Medicare and Medicare HMO plans, please review the plan of care and approve it. It will need to be FAXED BACK to us at [phone] for Medicare purposes. For Medicare only, by signing this I certify the plan of care. Please let me know if there are questions or concerns regarding this plan of care. Physician Signature: Date:
--- NOTE | 2024-06-21 10:58 | HP.PTREVAL ---
Re-Evaluation Intro: Dr. Stephon Rivera MD, It has been my pleasure to treat KEVIN RUGGIERO over the last 8 visits for R shoulder decompression and RTC repair 05/05/24. Please see the progress note below for an update on the physical therapy plan of care! Subjective Subjective: Pt. reports sleeping well, she does have some soreness with waking in the AMs. Pt, reports being 70% better overall. She is back to a lot of her normal activities. Objective Objective/Function: MMT: L shoulder: ER 9.9, IR 12.1, abd 11.9#, flexion 15.6# R shoulder 7.1, IR 13.1#, abd 11.7#, flexion 12.7# AROM: R shoulder: flexion 160deg,abd 165deg. functional ER C4 slight aberrant motion, functional IR T10. PROM: flexion 170deg, abd 170deg, ER at 90deg 75deg, IR at 90deg 50deg. Pt. is progressing as expected. Cont. to work on end range stretching, okay to start light phase III strengthening as tolerated. Plan Plan Plan: OK to start working on light strengthening. Cont. to add in end range IR, ER motions. Progress as tolerated. I recerted her for another 3 weeks, x2 per week. Balance/Gait/Functional tests Balance/Special Test Scores Quick DASH Score: 40.9075 Goals Goals Goal 1:: LTG: Pt. to be I with HEP. Goal Time Frame: 6-8 Weeks Goal Progress: Progressing Goal 2:: STG: Pt. to sleep throughout the night without Goal Time Frame: 2 Weeks Goal Progress: Goal Met Goal 3:: STG: Pt. to have full PROM of R shoulder without increase in symptoms. Goal Time Frame: 2-4 Weeks Goal Progress: Progressing Goal 4:: LTG: Pt. to have full AROM of R shoulder without increase in symptoms. Goal Time Frame: 4-6 Weeks Goal Progress: Progressing Goal 5:: LTG: Pt. to have symmetrical strength of BUEs without increase in R shoulder pain. Goal Time Frame: 8-12 Weeks Goal Progress: Progressing Goal 6:: LTG: Pt. to complete all ADLs and IADLs without issues. Goal Time Frame: 6-8 Weeks Anticipated Interventions Anticipated Interventions Patient/Client Instruction: Educate patient on: Condition, Plan of Care, Risk Factors and Benefits of Fitness Program For the Purpose of:: To facilitate caregiver knowledge, To improve self management, To prevent re-injury, To improve ability to perform tasks related to life management and To improve tolerance to ADL's Therapeutic Exercise to Include: Strength training, Power training, Postural training, Flexibilty training, Passive ROM, Active ROM and Scapular Strength/Stabilization For the Purpose of:: To decrease pain, To increase ROM, To improve nutrient delivery to tissue, To increase oxygenation perfusion, To improve muscle performance and motor function, To improve ability to perform ADL's and To increase tolerance to activity/condition/position Manual Therapy Techniques to Include: Mobilization and Soft tissue mobilization For the Purpose of:: To decrease pain, To increase ROM and To improve nutrient delivery to tissue Cryotherapy (ice pack, ice massage): Yes Re-Evaluation Ending Re-evaluation ending: Please do not hesitate to contact me at [phone] by phone or if you have questions or concerns regarding this new plan of care! Sincerely, Kerwin James DPT
--- NOTE | 2024-07-16 11:54 | HP.PTREVAL ---
Re-Evaluation Intro: Dr. Stephon Rivera MD, It has been my pleasure to treat KEVIN RUGGIERO over the last 15 visits for R shoulder decompression and RTC repair 05/05/24. Please see the progress note below for an update on the physical therapy plan of care! Subjective Subjective: Pt. reports overall doing well. Pt. reports being 80% better overall. She is doing most activities at home. No pain currently. Pt. does have some achiness with exercises, but overall no issues. Pt. has been tolerating strengthening exercises well. Objective Objective/Function: ROM: flexion 170deg, abd 170deg, functional ER C5, functional IR L2. Slight aberrant motion with functional IR. MMT: L shoulder: abd 10.1#, flexion 14.2#, ER 11.9#, IR 18.5# R shoulder: flexion 13.3#, abd 13.5#, ER 10.8#, IR 16.1# Kevin is overall doing well , I would like her to get a bit more IR motions and increase her strength to allow better functional use. Plan Plan Plan: I am recerting her for another 3 visits, x1 per week for 3 weeks. Cont. to work on functional IR and over all cuff and scapular strengthening. Balance/Gait/Functional tests Balance/Special Test Scores Quick DASH Score: 20.4525 Goals Goals Goal 1:: LTG: Pt. to be I with HEP. Goal Time Frame: 6-8 Weeks Goal Progress: Goal Met Goal 2:: STG: Pt. to sleep throughout the night without Goal Time Frame: 2 Weeks Goal Progress: Goal Met Goal 3:: STG: Pt. to have full PROM of R shoulder without increase in symptoms. Goal Time Frame: 2-4 Weeks Goal Progress: Goal Met Goal 4:: LTG: Pt. to have full AROM of R shoulder without increase in symptoms. Goal Time Frame: 4-6 Weeks Goal Progress: Progressing Goal 5:: LTG: Pt. to have symmetrical strength of BUEs without increase in R shoulder pain. Goal Time Frame: 8-12 Weeks Goal Progress: Progressing Goal 6:: LTG: Pt. to complete all ADLs and IADLs without issues. Goal Time Frame: 6-8 Weeks Anticipated Interventions Anticipated Interventions Patient/Client Instruction: Educate patient on: Condition, Plan of Care, Risk Factors and Benefits of Fitness Program For the Purpose of:: To facilitate caregiver knowledge, To improve self management, To prevent re-injury, To improve ability to perform tasks related to life management and To improve tolerance to ADL's Therapeutic Exercise to Include: Strength training, Power training, Postural training, Flexibilty training, Passive ROM, Active ROM and Scapular Strength/Stabilization For the Purpose of:: To decrease pain, To increase ROM, To improve nutrient delivery to tissue, To increase oxygenation perfusion, To improve muscle performance and motor function, To improve ability to perform ADL's and To increase tolerance to activity/condition/position Manual Therapy Techniques to Include: Mobilization and Soft tissue mobilization For the Purpose of:: To decrease pain, To increase ROM and To improve nutrient delivery to tissue Cryotherapy (ice pack, ice massage): Yes Re-Evaluation Ending Re-evaluation ending: Please do not hesitate to contact me at [phone] by phone or if you have questions or concerns regarding this new plan of care! Sincerely, Kerwin James DPT
--- NOTE | 2024-08-04 16:06 | HP.PTDCSUM ---
Discharge Summary D/C summary: It has been my pleasure to treat KEVIN RUGGIERO referred by Dr. Stephon Rivera MD, with the diagnosis of R shoulder decompression and RTC repair 05/05/24 for a total of 18 visit(s). Discharge Date: Please see the following information for a summary of their discharge status. Subjective Subjective: Pt. reports being 90% better overall. She reports being compliant with all of her HEP. She reports no issues. She is having some L shoulder pain with doing some exercises. I talked to her about her strength 2-3 times per week, but keeping up with her stretching. Pain R shoulder: Pain Intensity (Out of 10): 0 Overall Improvement % Improvement: 90 Objective Objective/Function: MMT: R Shoulder: flexion 4+/5, abd 4/+/5, ER 4+/5, IR 5/5, ext 5/5. ROM: AROM: R shoulder: flexion 165deg, abd 165deg, functional ER C5 slight aberrant motion, functional IR L3 slight aberrant motion. PROM: R shoulder: flexion 170deg and 170deg, functional ER at 90deg 88deg, functional IR at 90deg 45deg. Pt. reports doing most activities without limitations. Pt. will be DC from PT at this point in time. Goals Goal 1:: LTG: Pt. to be I with HEP. Goal Progress: Goal Met Goal 2:: STG: Pt. to sleep throughout the night without Goal Progress: Goal Met Goal 3:: STG: Pt. to have full PROM of R shoulder without increase in symptoms. Goal Progress: Goal Met Goal 4:: LTG: Pt. to have full AROM of R shoulder without increase in symptoms. Goal Progress: Goal Met Goal 5:: LTG: Pt. to have symmetrical strength of BUEs without increase in R shoulder pain. Goal Progress: Goal Met Goal 6:: LTG: Pt. to complete all ADLs and IADLs without issues. Goal Progress: Goal Met Plan Plan: Pt. to be DC to HEP. D/C Information d/c sentence: If there are questions or concerns regarding this patient's physical therapy, please feel free to call me at [phone]. Thank you for the referral of this patient. Sincerely, Kerwin Escalante Sipos, DPT Balance/Gait/Functional tests Balance/Special Test Scores Quick DASH Score: 4.5450 Improvement % Improvement: 90
== END 2024-08-04 19:00 | disposition home or self-care (01) ==
LOC: PT 11:00
PROVIDERS: PCP Family Medicine Geriatric Medicine; Referring Provider Orthopaedic Surgery Sports Medicine; Visit Provider Orthopaedic Surgery Sports Medicine
DX: Z47.89 Encounter for other orthopedic aftercare (principal)
CPT/HCPCS: 97110; 97140; 97161; 97530

== ENCOUNTER → 2025-01-18 | Outpatient (CLI) | payer MEDICARE, BC, SELFPAY ==
[2025-01-18 10:46] LABS: Hematocrit 41.6 % (37-47); Hemoglobin 13.9 g/dL (12.0-15.0); Immature Granulocytes Count 0.010 X10^3/uL (0.0-0.0); Mean Corp Hgb Conc 33.4 g/dL (32-36); Mean Corpuscular Volume 93.3 fL (81-99); Mean Platelet Vol. 8.9 fl (6.2-12.0); NRBC Flagged by Analyzer 0 % (0-5); Platelet Count 279 K/mm3 (150-450); RBC Distribution Width CV 12.2 % (11.6-14.6); RBC Distribution Width SD 42.0 fl (35.1-43.9); Red Blood Count 4.46 M/mm3 (4.2-5.4); White Blood Count 6.1 K/mm3 (4.4-11.0)
[2025-01-18 11:52] LABS: AST(SGOT) 21 U/L (<=31); Alanine Aminotransfer ALT/SGPT 10 U/L (<=34); Albumin, Serum 4.2 g/dL (3.4-4.8); Alkaline Phosphatase 75 U/L (35-104); Anion Gap 9 (5-15); BUN 9 mg/dL (4-19); BUN/Creat Ratio 11.9 RATIO (10-20); Calcium,Total 9.2 mg/dL (7.6-11.0); Carbon Dioxide 26.5 mmol/L (21.0-32.0); Chloride 104 mmol/L (98-108); Globulin 2.6 g/dL (2.2-4.2); Glucose 98 mg/dL (70-99); Potassium 4.0 mmol/L (3.3-5.1); Vitamin D,25 Hydroxy 29.9 ng/mL (30-100)
[2025-01-18 18:37] LABS: Xtra Tube Kwok EXTRA TUBE
== END | disposition home or self-care (01) ==
LOC: POLAB3 10:36
PROVIDERS: PCP Family Medicine Geriatric Medicine; Visit Provider Family Medicine Geriatric Medicine
DX: I10 Essential (primary) hypertension (principal); E55.9 Vitamin D deficiency, unspecified
CPT/HCPCS: 36415; 80053; 82306; 84443; 85025

== ENCOUNTER → 2025-01-27 | Outpatient (CLI) | payer MEDICARE, BC, SELFPAY ==
--- NOTE | 2025-01-27 13:38 | BI_ITS ---
EXAM: SCRN MAMM (CAD)W/PORTIA BILAT DATE: 01/27/2025 CLINICAL HISTORY: F, Age 69 y/o , SCREENING No family history. TECHNIQUE: Procedure Code: [id number] Modality: MG Procedure: SCRN MAMM (CAD)W/PORTIA BILAT COMPARISON: Prior exam(s) dated August 19, 2023.. FINDINGS: TISSUE DENSITY: There are scattered areas of fibroglandular density. Bilateral Breast Mammographic Findings: No significant masses, calcifications or other abnormalities are identified. Stable small benign-appearing bilateral axillary lymph nodes. No suspicious masses, areas of developing architectural distortion, or suspicious calcifications. There has been no significant interval change. BI/SCRN MAMM (CAD)W/PORTIA BILAT IMPRESSION: Stable bilateral screening mammogram. OVERALL FINAL ASSESSMENT BI-RADS 2: BENIGN RECOMMENDATION: Routine annual follow-up in 1 Year A letter with findings and recommendations will be mailed to the patient. Reading Location: [facility]
== END | disposition home or self-care (01) ==
LOC: OPBI 13:37
PROVIDERS: PCP Family Medicine Geriatric Medicine; Referring Provider Family Medicine Geriatric Medicine; Visit Provider Family Medicine Geriatric Medicine
DX: Z12.31 Encounter for screening mammogram for malignant neoplasm of breast (principal)
CPT/HCPCS: 77063; 77067